=== PATIENT | female | born 1940 | race Caucasian/White ===

== ENCOUNTER → 2017-11-04 16:17 | Outpatient (CLI) | payer MEDICARE, SELFPAY ==
--- NOTE | 2017-11-04 16:21 | VDLE_ITS ---
Reason For Study: swelling Procedure LEFT Exam performed in department. GSV is normal. The exam was diagnostic. CFV is compressible, spontaneous, phasic, A preliminary report was called and/or competent, and demonstrates normal faxed to Dr. Stroud's office. augmentation. Pt to ED per Dr. Stroud. FV is compressible, spontaneous, phasic, competent and demonstrates normal augmentation. POP V is compressible, spontaneous, phasic, competent and demonstrates normal augmentation. T/P Trunk is compressible. PTV is compressible. Peroneal V and Soleus V are dilated and noncompressible. Interpretation Summary Left greater saphenous vein appears patent and compressible segmentally. Acute deep venous thrombosis left peroneal and soleus veins. Ordering Physician: Oksana Stroud Referring Physician: Toni Brown Performed By: Otis Jimenes RVT
== END ==
PROVIDERS: Family Provider Family Medicine; PCP Family Medicine; Visit Provider Internal Medicine
DX: M79.89 Other specified soft tissue disorders (principal)
CPT/HCPCS: 93971

== ENCOUNTER 2017-11-04 16:54 | Emergency (ER) | payer MEDICARE, SELFPAY ==
[2017-11-04 16:56] VITALS: BP 120/86; PULSE 81; RESP 18; TEMP 37.7; O2SAT 99; BMI 19.0
--- NOTE | 2017-11-04 17:22 | ED.VISSUMM ---
- ER Visit Summary Date of Service: 11/04/17 Chief Complaint: Positive duplex ultrasound History of Present Illness: The patient is a 77 F presenting the emergency department due to a positive duplex ultrasound. Patient states that she suffered a twisting injury about 3 weeks ago and had persistent calf pain and swelling throughout the day of her left leg. Patient had a outpatient duplex ordered and was noted to have clots so she was recommended to come to the emergency department. She denies any chest pain or shortness of breath or history of DVT or PE. Physical Examination: Vital signs are within normal limits, patient is afebrile. General: Patient is well-nourished well-developed and in no acute distress. Head: Normocephalic, atraumatic Eyes: Pupils equal round and reactive bilaterally, extra occular motion intact bialterally ENT: Moist mucous membranes Neck: Supple, no lymphadenopathy, no JVD, no meningismus CVS: Heart regular rate and rhythm, no murmurs, rubs or gallops, radial pulses 2+ bilaterally Resp: Respirations nondistressed, lung sounds clear bilaterally Abdomen: Soft, nontender, nondistended, no palpable masses, normal bowel sounds Back: Nontender Extremities: Point tenderness to palpation over the proximal calf without any evidence of skin changes. 2+ DP and PT pulses, atraumatic, active full range of motion, no peripheral edema Skin: warm, no rashes, no petechia Neuro: Alert and oriented x 4, CN 2-12 intact, no lateralizing neurological defecits Psyc: Normal affect Test Results: Duplex ultrasound demonstrates peroneal and soleal clots with nothing proximal to the knee Emergency Department Course and Treatment: Patient presented with a positive duplex ultrasound. Patient's clots are distal to the knee, and there is no indication for anticoagulation. Patient was recommended to resume her aspirin therapy, was given an Ramy wrap, and was written for a one-week surveillance repeat ultrasound. I contacted her PCP who agrees to follow her up. Disposition: Discharge Impression: 1. Left-sided peroneal and soleal blood clots This note was generated with [employer] software. It may contain incorrect words, spelling, and punctuation that were not noted in review of the chart prior to signing ED Disposition - Plan for ED Patient: Disposition: Home or Assisted Living Chief Complaint: Lower Extremity Injury Diagnosis: Peroneal DVT (deep venous thrombosis) Instructions: Preventing Deep Vein Thrombosis Referrals: Toni Brown MD [Primary Care Provider] - 1 Week
--- NOTE | 2017-11-04 17:25 | ED.DCSUM_ITS ---
- ER Visit Summary Date of Service: 11/04/17 Chief Complaint: Positive duplex ultrasound History of Present Illness: The patient is a 77 F presenting the emergency department due to a positive duplex ultrasound. Patient states that she suffered a twisting injury about 3 weeks ago and had persistent calf pain and swelling throughout the day of her left leg. Patient had a outpatient duplex ordered and was noted to have clots so she was recommended to come to the emergency department. She denies any chest pain or shortness of breath or history of DVT or PE. Physical Examination: Vital signs are within normal limits, patient is afebrile. General: Patient is well-nourished well-developed and in no acute distress. Head: Normocephalic, atraumatic Eyes: Pupils equal round and reactive bilaterally, extra occular motion intact bialterally ENT: Moist mucous membranes Neck: Supple, no lymphadenopathy, no JVD, no meningismus CVS: Heart regular rate and rhythm, no murmurs, rubs or gallops, radial pulses 2 + bilaterally Resp: Respirations nondistressed, lung sounds clear bilaterally Abdomen: Soft, nontender, nondistended, no palpable masses, normal bowel sounds Back: Nontender Extremities: Point tenderness to palpation over the proximal calf without any evidence of skin changes. 2+ DP and PT pulses, atraumatic, active full range of motion, no peripheral edema Skin: warm, no rashes, no petechia Neuro: Alert and oriented x 4, CN 2-12 intact, no lateralizing neurological defecits Psyc: Normal affect Test Results: Duplex ultrasound demonstrates peroneal and soleal clots with nothing proximal to the knee Emergency Department Course and Treatment: Patient presented with a positive duplex ultrasound. Patient's clots are distal to the knee, and there is no indication for anticoagulation. Patient was recommended to resume her aspirin therapy, was given an Ramy wrap, and was written for a one-week surveillance repeat ultrasound. I contacted her PCP who agrees to follow her up. Disposition: Discharge Impression: 1. Left-sided peroneal and soleal blood clots This note was generated with [employer] software. It may contain incorrect words, spelling, and punctuation that were not noted in review of the chart prior to signing ED Disposition - Plan for ED Patient: Disposition: Home or Assisted Living Chief Complaint: Lower Extremity Injury Diagnosis: Peroneal DVT (deep venous thrombosis) Instructions: Preventing Deep Vein Thrombosis Referrals: Toni Brown MD [Primary Care Provider] - 1 Week
== END 2017-11-04 17:42 | disposition home or self-care (01) ==
PROVIDERS: Emergency Provider Emergency Medicine; Family Provider Family Medicine; PCP Family Medicine
DX: I82.4Z2 Acute embolism and thrombosis of unspecified deep veins of left distal lower extremity (principal); M79.89 Other specified soft tissue disorders; M25.562 Pain in left knee; G89.29 Other chronic pain; S89.92XA Unspecified injury of left lower leg, initial encounter
CPT/HCPCS: 93971; 99282

== ENCOUNTER → 2017-11-11 13:57 | Outpatient (CLI) | payer MEDICARE, SELFPAY ==
--- NOTE | 2017-11-11 14:00 | VDLE_ITS ---
Reason For Study: L below knee blood clot Procedure LEFT Exam performed in department. GSV is normal. The exam was diagnostic. CFV is compressible, spontaneous, phasic, competent, and demonstrates normal augmentation. FV is compressible, spontaneous, phasic, competent and demonstrates normal augmentation. POP V is compressible, spontaneous, phasic, competent and demonstrates normal augmentation. T/P Trunk is compressible. PTV is compressible. Peroneal V is partially compressible. Soleus V is dilated and noncompressible. Interpretation Summary Left greater saphenous vein appears patent and compressible segmentally. Acute deep venous thrombosis left peroneal and soleus veins. No evidence for proximal progression Findings are similar to 11/04/17 Ordering Physician: Mark Schumacher Referring Physician: Toni Brown Performed By: Otis Jimenes RVKinza
== END ==
PROVIDERS: Family Provider Family Medicine; PCP Family Medicine; Visit Provider Emergency Medicine
DX: I74.9 Embolism and thrombosis of unspecified artery (principal); I82.4Z2 Acute embolism and thrombosis of unspecified deep veins of left distal lower extremity
CPT/HCPCS: 93971

== ENCOUNTER → 2017-11-26 13:34 | Outpatient (CLI) | payer MEDICARE, SELFPAY ==
--- NOTE | 2017-11-26 13:35 | VDLE_ITS ---
Reason For Study: DVT Procedure LEFT Exam performed in department. GSV is normal. A preliminary report was called and/or faxed CFV is compressible, spontaneous, phasic, to Dr Brown. competent, and demonstrates normal augmentation. FV is compressible, spontaneous, phasic, competent and demonstrates normal augmentation. POP V is compressible, spontaneous, phasic, competent and demonstrates normal augmentation. T/P Trunk is compressible. PTV is compressible. LT PerV is compressible. Interpretation Summary There is no evidence of left lower extremity deep vein thrombosis. Left greater saphenous vein appears patent and compressible segmentally. Ordering Physician: Toni Brown Referring Physician: Toni Brown Performed By: Monique Garcia, RDCS, RVT
== END ==
PROVIDERS: Family Provider Family Medicine; PCP Family Medicine; Visit Provider Family Medicine
DX: I82.492 Acute embolism and thrombosis of other specified deep vein of left lower extremity (principal)
CPT/HCPCS: 93971

== ENCOUNTER 2017-12-30 14:41 | Emergency (ER) | payer MEDICARE, SELFPAY ==
[2017-12-30 14:42] VITALS: BP 131/69; PULSE 90; RESP 16; TEMP 37.9; O2SAT 97; BMI 18.3
--- NOTE | 2017-12-30 15:21 | VDLE_ITS ---
Reason For Study: LEG SWELLING RIGHT LEFT CFV is compressible, spontaneous, competent GSV is normal. and demonstrates pulsatile venous flow. CFV is compressible, spontaneous, competent, Procedure and demonstrates pulsatile venous flow. Exam performed portable in ED. FV is compressible, spontaneous, competent A preliminary report was called and/or faxed and demonstrates pulsatile venous flow. to Dr. Mccray. POP V is compressible, spontaneous, competent and demonstrates pulsatile venous flow. T/P Trunk is compressible. PTV is compressible. LT PerV is compressible. Interpretation Summary There is no evidence of left lower extremity deep vein thrombosis. Right greater saphenous vein appears patent and compressible segmentally. Pulsitile venous flow noted consistent with proximal venous hypertension--clinical correlation would be appropriate. Ordering Physician: Juan Luis Mccray Referring Physician: Toni Brown Performed By: Awa Booker RVT
[2017-12-30 16:02] VITALS: BP 135/85; PULSE 95; RESP 14; O2SAT 98
[2017-12-30 16:04] LABS: Absolute Neutrophil Count 5.7 X10^3/uL (2.0-7.7); Basophil# 0.02 X10^3/uL; Basophil% 0.2 % (0-1); Eosinophil# 0.03 X10^3/uL; Eosinophils% 0.3 % (0-5); Hematocrit 36.1 % (37-47); Hemoglobin 11.7 g/dl (12.0-15.0); Lymphocyte % 25.3 % (19-41); Mean Corp Hgb Conc 32.4 g/gl (32-36); Mean Corpuscular Volume 89.6 fL (81-99); Mean Platelet Vol. 10.7 fl (6.2-12.0); Monocyte# 0.72 X10^3/uL; Monocyte% 8.3 % (0-10); Neutrophil # 5.72 X10^3/uL (2.7-7.7); Neutrophil % 65.8 % (47-70); Platelet Count 261 K/mm3 (150-450); RBC Distribution Width CV 13.7 % (11.6-14.6); RBC Distribution Width SD 45.2 fl (35.1-43.9); Red Blood Count 4.03 M/mm3 (4.2-5.4); White Blood Count 8.7 K/mm3 (4.4-11.0)
[2017-12-30 16:05] LABS: POSITIVE COUNT NO; POSITIVE DIFFERENTIAL NO; POSITIVE MORPHOLOGY NO
[2017-12-30 16:08] LABS: Anion Gap 6 (5-15); BUN 11 mg/dL (7-18); BUN/Creat Ratio 11.9 RATIO (10-20); Calcium,Total 9.5 mg/dL (8.5-10.1); Chloride 106 mmol/L (98-107); Creatinine, Serum 0.92 mg/dL (0.55-1.02); EST Glomerular Filtration Rate 63 mL/min (>60); Est Glom Filt Rate - Afr Amer 76 mL/min (>60); Estimated Creatinine Clearance 36.13 ml/min; Glucose 94 mg/dL (74-106); Potassium 3.9 mmol/L (3.5-5.1); Sodium Level 141 mmol/L (136-145)
--- NOTE | 2017-12-30 16:19 | ED.DCSUM_ITS ---
- ER Visit Summary Date of Service: 12/30/17 Chief Complaint: Left popliteal and medial thigh pain History of Present Illness: The patient is a 77 F who presents with left popliteal and medial thigh pain. She denies fever, chills night sweats. She denies chest pain of any type. She denies dyspnea, dyspnea on exertion or cough. She denies any GI or symptoms. She is on no anticoagulant. She had a solitary distal DVT left lower extremity, peroneal and was treated with aspirin. She has no history of recent travel, surgery, immobilization or trauma. She denies headache, paresthesia, anesthesia motor weeks. She denies any ocular, visual auditory symptoms. She denies any GI or symptoms. She has no history of gout, pseudogout or arthritis of her left knee. Physical Examination: Vital signs are remarkable for an elevated blood pressure of 131/67 temperature 100.2 which is elevated but not a fever. She appears no distress. HEENT exam is unremarkable. Heart is regular without murmur, gallop or rub. S1 and S2 are normal. Lungs are clear to auscultation with good movement of air bilaterally. Abdomen is soft nontender with no palpable cell mass abdominal bruit. There is no evidence of hernia. There is no CVA tenderness noted. The left lower extremity is swollen comparison to the right. The swelling is noted anteriorly in the proximity of the left knee. The patella is not ballotable. There is no effusion. She has full active range of motion actively and passively without discomfort. There is pain to palpation in the popliteal fossa. There is no palpable mass. DP and PT pulses are palpable. There is no erythema, warmth, induration, lymphangitis or inguinal lymphadenopathy. Neuro exam is nonfocal. Test Results: Venous duplex Doppler was obtained and negative for blood clot. White count is normal with normal differential. Electronic panel is normal. Emergency Department Course and Treatment: Since patient has a traumatic left lower extremity pain with swelling and prior history of DVT venous duplex study was ordered to evaluate for DVT. She has elevated temperature CBC was obtained. Treatment Plan:.. 5 day course of NSAIDs. Disposition: Discharged to home Impression: Left lower extremity pain and swelling of unknown etiology This note was generated with [employer] software. It may contain incorrect words, spelling, and punctuation that were not noted in review of the chart prior to signing ED Disposition - Plan for ED Patient: Disposition: Home or Assisted Living Chief Complaint: Lower Extremity Injury Instructions: ED Acute Pain UKO, ED Leg Swelling Unilateral Prescriptions: Naproxen 375 mg PO BID #10 tab Referrals: Toni Brown MD [Primary Care Provider] - 3-5 Days if not improving
[2017-12-30 16:23] VITALS: BP 125/75; PULSE 85; RESP 14; O2SAT 99
[2017-12-30] MEDS: Naproxen 250 MG Tablet PO (16:29)
[2017-12-30 16:31] VITALS: BP 123/66
== END 2017-12-30 16:31 | disposition home or self-care (01) ==
PROVIDERS: Emergency Provider Emergency Medicine; Family Provider Family Medicine; PCP Family Medicine
DX: M79.89 Other specified soft tissue disorders (principal); M79.652 Pain in left thigh; M25.562 Pain in left knee; Z86.718 Personal history of other venous thrombosis and embolism; Z79.82 Long term (current) use of aspirin
CPT/HCPCS: 80048; 85025; 93971; 99282; A4216

== ENCOUNTER 2018-11-29 10:10 | Emergency (ER) | payer MEDICARE, SELFPAY ==
[2018-11-29 10:10] VITALS: BP 95/42; PULSE 92; RESP 16; TEMP 36.9; O2SAT 99; BMI 17.9
--- NOTE | 2018-11-29 10:51 | VDLE_ITS ---
Reason For Study: PAIN Procedure LEFT Exam performed portable in ED. GSV is normal. A preliminary report was called and/or faxed CFV is compressible, spontaneous, phasic, to ED. competent, and demonstrates normal augmentation. FV is compressible, spontaneous, phasic, competent and demonstrates normal augmentation. POP V is compressible, spontaneous, phasic, competent and demonstrates normal augmentation. T/P Trunk is compressible. PTV is compressible. LT PerV is compressible. Interpretation Summary 1. Left leg wht no DVT. Ordering Physician: Carson Harper Referring Physician: RADHA MEIER Performed By: Monique Garcia, ANGELITO, RVT
--- NOTE | 2018-11-29 10:57 | ED.VISSUMM ---
- ER Visit Summary Date of Service: 11/29/18 Chief Complaint: Left leg pain History of Present Illness: The patient is a 78 F who states that she is afraid she has a DVT. She states that in September of last year she was diagnosed with a DVT. From review of the chart she was diagnosed with a peroneal DVT and was treated with aspirin. She states that she has been taking a baby aspirin intermittently. Today she noted pain in the lateral aspect of the left calf. He states that this woke her at around 0400 hours. 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 She states she has had spasms in the calf before but not the left. She denies any swelling. No known trauma. Physical Examination: Afebrile vital signs stable Gen: Well-nourished well-developed Head: Normocephalic atraumatic Eyes: Perrl EOMI ENT: TMs clear no rhinorrhea moist mucous membranes Neck: Supple no lymphadenopathy no JVD nontender CVS: Regular rate rhythm no murmurs normal S1-S2 Respiratory: No distress clear to auscultation bilaterally chest nontender Abdomen: Soft nontender nondistended normal bowel sounds no masses Back: Nontender Extremity: No edema. No palpable cords. Mild tenderness in the lateral calf musculature. Skin: Normal color no rash Neuro: alert orientated ?3 CN II-XII intact normal strength sensation reflexes gait cerebellar Psych: Normal affect normal mood Emergency Department Course and Treatment: Duplex ultrasound of left leg were obtained. This was negative for DVT patient be discharged home with instructions for heat hydration and rest. Return if worsening or concerns follow-up with primary care if not improving Impression: 1. Left calf muscle spasm This note was generated with [employer] dictation software. It may contain incorrect words, spelling, and punctuation that were not noted in review of the chart prior to signing ED Disposition - Plan for ED Patient: Disposition: Home or Assisted Living Instructions: ED Muscle Pain Leg Cramps Referrals: Toni Brown MD [Primary Care Provider] - 3-5 Days if not improving
[2018-11-29 12:34] VITALS: PULSE 67; RESP 16; O2SAT 98
== END 2018-11-29 12:34 | disposition home or self-care (01) ==
PROVIDERS: Emergency Provider Emergency Medicine; Family Provider Family Medicine; PCP Family Medicine
DX: M62.831 Muscle spasm of calf (principal); Z86.718 Personal history of other venous thrombosis and embolism; Z79.82 Long term (current) use of aspirin
CPT/HCPCS: 93971; 99282

== ENCOUNTER 2021-01-12 13:04 | Emergency (ER) | payer MEDICARE, SELFPAY ==
[2021-01-12 13:05] VITALS: BP 122/69; PULSE 77; RESP 15; TEMP 36.4; O2SAT 98; BMI 19.8
--- NOTE | 2021-01-12 13:20 | VDLE_ITS ---
Reason For Study: Pain RIGHT GSV is normal. CFV is compressible, spontaneous, phasic, competent and demonstrates normal augmentation. FV is compressible, spontaneous, phasic, competent and demonstrates normal augmentation. POP V is compressible, spontaneous, phasic, competent and demonstrates normal augmentation. T/P Trunk is compressible. PTV is compressible. RT PerV is compressible. Procedure This is a venous duplex using B-mode, color flow and spectral Doppler. Exam performed portable in ED. A preliminary report was called and/or faxed to Ricky. VL/Venous Duplex US, Unilateral Interpretation Summary There is no evidence of right lower extremity deep vein thrombosis. Right great saphenous vein appears patent and compressible segmentally. Ordering Physician: Katelyn García Referring Physician: Toni Brown Performed By: Areli Newman RVT
--- NOTE | 2021-01-12 13:33 | EX.ED.DYSGE1 ---
HPI History of Present Illness Chief Complaint: Lower Extremity Injury Informant: patient Narrative Narrative: 80-year-old female presenting with right lower extremity pain. She states she has had a DVT in her left lower extremity in the past. She complains of pain to the right knee. She is able to ambulate. She denies chest pain or shortness of breath. No fever. Denies recent injury. Prior similar symptoms: Yes Recent Illness/Hospitalization: No PFSH PFSH Home Medications aspirin 81 mg PO DAILY 12/30/17 [History Last Taken Unknown] Allergy/AdvReac Type Severity Reaction Status Date / Time No Known Allergies Allergy Verified 11/29/18 10:12 Surgical History H/O: hysterectomy Social History Smoking Status: Never smoker ROS ROS ED Constitutional Constitutional ED: Denies fever(s) Eyes Eyes: Denies change in vision ENT ENT ED: Denies rhinorrhea or sore throat Cardiovascular Cardiovascular: Denies chest pain or palpitations Respiratory/Chest Respiratory/Chest: Denies cough or dyspnea Gastrointestinal Gastrointestinal: Denies abdominal pain, diarrhea, nausea or vomiting Genitourinary Genitourinary ED: Denies dysuria Musculoskeletal Musculoskeletal: Reports other Details: right knee pain Integumentary Denies rash Neurologic Neurologic: Denies headache(s) EXAM Physical Exam Const Vital Signs: 01/12/21 13:05 Temperature 97.6 F L Temperature Source Temporal Pulse Rate 77 Respiratory Rate 15 Blood Pressure 122/69 H Blood Pressure Mean 86 Pulse Ox 98 Oxygen Delivery Method Room Air Positive well nourished and well developed General Appearance ED: well developed HEENT Reports normocephalic and head/scalp atraumatic Eyes PERRL and EOMs intact bilaterally Neck supple General: Negative for tenderness Chest Wall inspection of chest normal Resp normal respiratory effort and clear to auscultation bilaterally Cardio regular rate and regular rhythm no CVA tenderness Extremity normal to inspection Extremity Narrative: Mild right medial knee tenderness. Active full range of motion. No erythema or warmth. No calf tenderness. Normal distal pulses. Neuro oriented x3 Sensorium / Orientation: alert Psych mental status grossly normal MDM MDM MDM Narrative Medical decision making narrative: Right knee x-ray read by myself and radiology shows no fracture. Venous Doppler right lower extremity shows no evidence of DVT. Advised to use Tylenol as needed for pain. Advised to follow up with primary care physician. Advised return to ED for worsening complaints. Radiography Diagnostic Testing: Radiology Impression Knee X-Ray 01/12/21 13:55 IMPRESSION: Mild arthrosis of the medial femorotibial compartment. Small joint effusion. Electronically Signed: Ventura Stallings MD at 14:39 EDT Tel , Service support , Discharge Plan Triage Chief Complaint: Lower Extremity Injury ED Provider: Katelyn García Dx/Rx/DC Orders Clinical Impression: Knee pain, right Instructions: ED Knee Sprain Prescriptions: No Action aspirin 81 MG tablet,chewable 81 mg PO DAILY RF: 0 Primary Care Provider: Toni Brown Referrals: Toni Brown MD [Primary Care Provider] - Disposition Disposition: Home, self care
--- NOTE | 2021-01-12 13:55 | RAD_ITS ---
STUDY: X-RAY - RIGHT KNEE REASON FOR EXAM: Right knee pain since yesterday. TECHNIQUE: 4 view(s) of the knee. COMPARISON: None. FINDINGS: There is osteopenia. Normal visualized distal femur. Normal visualized proximal tibia and fibula. Normal proximal tibiofibular articulation. There is mild joint space narrowing of the medial femorotibial compartment. Normal lateral femorotibial compartment. Normal patellofemoral articulation. There is a small joint effusion. There is a small enthesophyte at the superior pole of the patella. RAD/Knee 4 or More Views IMPRESSION: Mild arthrosis of the medial femorotibial compartment. Small joint effusion. Electronically Signed: Ventura Stallings MD at 14:39 EDT Tel , Service support ,
== END 2021-01-12 14:57 | disposition home or self-care (01) ==
PROVIDERS: Emergency Provider Emergency Medicine; PCP Family Medicine
DX: M25.561 Pain in right knee (principal); Z86.718 Personal history of other venous thrombosis and embolism
CPT/HCPCS: 73564; 93971; 99282

== ENCOUNTER 2023-12-08 07:05 | Emergency (ER) | payer MEDICARE, SELFPAY ==
[2023-12-08 07:06] VITALS: BP 132/48; PULSE 103; RESP 18; TEMP 36.9; O2SAT 100; BMI 19.3
[2023-12-08 07:08] VITALS: BP 115/57; PULSE 105; RESP 16; TEMP 38.2; O2SAT 96
--- NOTE | 2023-12-08 07:47 | EX.ED.DYSGE1 ---
HPI History of Present Illness Chief Complaint: Fever Informant: patient Onset/Context/Timing Onset: Days Context: Gradual Onset Timing: Intermittent Quality: Sharp Location: Left hip, right ankle Worsened by: Nothing Relieved by: Naprosyn Narrative Narrative: Patient presents with a fever that has been getting worse over the past few days. Patient states she took her temperature at home and it was 99.9. Patient states she was recently started on Bactrim and mupirocin for cellulitis of her right ankle. Patient states she was also started on Naprosyn for sciatica pain in her left hip. Patient describes her pain as sharp. Patient states Naprosyn does seem to help with her pain. Patient admits to occasional pain in her left lower EXTR that only last for few seconds. Patient admits to some nausea but denies any vomiting. Patient admits to some urinary frequency but states she drinks a lot of water. Patient denies any cough. [facility] Medical History (Updated 12/08/23 @ 09:[address] Robert Castro DO) Cellulitis of right ankle Home Medications aspirin 81 mg chewable tablet 81 mg PO DAILY 12/30/17 [History Last Taken Unknown] mupirocin 2 % topical ointment topical TID 12/08/23 [History Last Taken Unknown] sulfamethoxazole 800 mg-trimethoprim 160 mg tablet 1 tab PO BID 12/08/23 [History Last Taken Unknown] Allergy/AdvReac Type Severity Reaction Status Date / Time No Known Allergies Allergy Verified 12/08/23 07:05 Surgical History H/O: hysterectomy Social History Smoking Status: Never smoker ROS ROS ED Constitutional Constitutional ED: Reports fever(s); Denies chills Eyes Eyes: Denies blurry vision or change in vision ENT ENT ED: Denies rhinorrhea or sore throat Cardiovascular Cardiovascular: Reports chest pain; Denies palpitations Respiratory/Chest Respiratory/Chest: Denies cough or dyspnea Gastrointestinal Gastrointestinal: Reports nausea; Denies vomiting Genitourinary Genitourinary ED: Reports urinary frequency; Denies dysuria or hematuria Musculoskeletal Musculoskeletal: Denies back pain or neck pain Integumentary Reports rash; Denies abscess Neurologic Neurologic: Denies headache(s) or weakness Allergic/Immunologic Allergic/Immunologic ED: Denies mouth swelling or urticaria EXAM Physical Exam Const Vital Signs: 12/08/23 07:06 12/08/23 07:08 12/08/23 07:08 Temperature 98.5 F 100.8 F H Temperature Source Temporal Temporal Pulse Rate 103 H 105 H Respiratory Rate 18 16 Respiratory Effort Normal Non-Labored Respiratory Pattern Normal Blood Pressure 132/48 H 115/57 L Blood Pressure Mean 76 76 Pulse Ox 100 96 Oxygen Delivery Method Room Air Room Air 12/08/23 08:08 12/08/23 09:00 12/08/23 09:58 Temperature 100.8 F H 100.6 F H 100.0 F H Temperature Source Temporal Temporal Pulse Rate 102 H 103 H 97 Respiratory Rate 18 16 18 Respiratory Effort Respiratory Pattern Blood Pressure 112/59 L 114/58 L 109/49 L Blood Pressure Mean 76 76 69 Pulse Ox 98 97 98 Oxygen Delivery Method Room Air Room Air 12/08/23 10:00 Temperature 100.0 F H Temperature Source Temporal Pulse Rate 97 Respiratory Rate 18 Respiratory Effort Respiratory Pattern Blood Pressure 101/53 L Blood Pressure Mean 69 Pulse Ox 98 Oxygen Delivery Method Room Air Positive well nourished and well developed General Appearance ED: well developed and NAD HEENT Reports moist mucous membranes Neck supple and no JVD Resp normal respiratory effort and clear to auscultation bilaterally Cardio regular rhythm Rate: tachycardic GI non-tender and non-distended Palpation: soft Neuro oriented x3, CN's II-XII intact bilaterally and no sensory deficits noted Motor Exam: strength 5/5 throughout Psych mental status grossly normal Skin Skin Narrative: There is some mild erythema and warmth over the lateral aspect of the right ankle. There is no fluctuance. There is no abscess formation. There are no vesicles or pustules noted. There is no discharge or drainage noted. There are no petechia noted. MDM MDM MDM Narrative Medical decision making narrative: Differential diagnosis includes pneumonia, urinary tract infection, electrolyte abnormality, sepsis, and cellulitis. CBC will be obtained to assess for leukocytosis and anemia. Basic metabolic profile will be obtained to assess for electrolyte abnormality and renal function. Urinalysis will be obtained to assess for urinary tract infection. Serum lactate will be obtained to assess for sepsis. Blood cultures will be obtained to assess for sepsis. Urine culture will be obtained to assess for urinary tract infection. Chest x-ray will be obtained to assess for pneumonia. COVID-19, influenza, and RSV PCR will be obtained to assess for viral illness. Lab Data Attestation: I reviewed the patient's lab results. Lab results narrative: CBC was reviewed and was within normal limits. Basic metabolic profile was reviewed and was essentially within normal limits. Lactate was reviewed and was normal. Urinalysis was reviewed. There is no evidence of urinary tract infection or hematuria. COVID-19 PCR was reviewed and was negative. Influenza PCR was reviewed and was negative for influenza A and influenza B. RSV PCR was reviewed and was negative. Labs: Laboratory Results - last 24 hr 12/08/23 12/08/23 12/08/23 08:15 08:32 08:55 WBC 6.4 RBC 3.99 L Hgb 12.0 Hct 36.2 L MCV 90.7 MCH 30.1 MCHC 33.1 RDW Std Deviation 44.6 H RDW Coeff of Melissa 13.4 Plt Count 231 MPV 10.7 Immature Gran % (Auto) 0.300 Neut % (Auto) 73.1 H Lymph % (Auto) 10.5 L [place] % (Auto) 10.3 H Eos % (Auto) 5.8 H Baso % (Auto) 0.0 Absolute Neuts (auto) 4.7 Absolute Lymphs (auto) 0.67 L Nucleated RBC % 0 Sodium 138 Potassium 4.6 Chloride 107 Carbon Dioxide 27.0 Anion Gap 4 L BUN 10 Creatinine 1.14 H Estim Creat Clear Calc 27.79 Est GFR (MDRD) Af Amer 59 L Est GFR (MDRD) Non-Af 49 L BUN/Creatinine Ratio 8.8 L Glucose 108 H Lactic Acid 1.2 Calcium 9.2 Urine Color Yellow Urine Clarity Clear Urine pH 7.0 Ur Specific [place] 1.005 Urine Protein Negative Urine Glucose (UA) Normal Urine Ketones 5 H Urine Occult Blood 10 H Urine Nitrite Negative Urine Bilirubin Negative Urine Urobilinogen Normal Ur Leukocyte Esterase Negative Urine RBC 0 SEEN Urine WBC 0 SEEN Ur Squamous Epith Cells 0-5 SEEN Urine Bacteria 0 SEEN Urine Mucus 0 SEEN Radiography Chest X-Ray - ED: 2 View, Read by ED Physician, Read by Radiologist and No Acute Disease Diagnostic Testing: Clinical Impression(s) from Imaging Studies Chest X-Ray 12/08/23 09:00 IMPRESSION: Hyperinflation and COPD. No focal infiltrate is seen. Electronically Signed: Marcial Galdamez MD at 9:25 EDT , PA and lateral chest x-ray was obtained. There are 2 views. On my independent interpretation, lung pires are hyperinflated but clear. There is normal cardiac silhouette. Bony thorax is normal. There is no acute process noted. Radiologist also interpreted the x-ray and agrees. Treatment and Re-Evaluation :: Patient was given a dose of Tylenol here. Patient was advised of her findings. Patient was instructed to continue Tylenol as needed for fevers. Patient was instructed to follow-up with her primary care physician in 5 to 7 days. Patient was instructed to continue her Bactrim as previously prescribed. Patient was also instructed to continue the mupirocin cream as prescribed. Patient was instructed to return if worse in any way. Patient understood and was agreeable with the plan. All questions were answered. Discharge Plan Triage Chief Complaint: Fever ED Provider: Robert Castro Dx/Rx/DC Orders Clinical Impression: Fever, Cellulitis of right ankle Instructions: ED Cellulitis Prescriptions: No Action aspirin 81 MG tablet,chewable 81 mg PO DAILY sulfamethoxazole-trimethoprim 800-160 mg tablet 1 tab PO BID mupirocin 2 % ointment TOPICAL TID Primary Care Provider: Toni Brown Referrals: Toni Brown MD [Primary Care Provider] - 3-5 Days Disposition Disposition: Home, Self Care Discharge Date/Time: 12/08/23 10:03
[2023-12-08 08:08] VITALS: BP 112/59; PULSE 102; RESP 18; TEMP 38.2; O2SAT 98
[2023-12-08 08:30] LABS: Absolute Lymphocyte Count 0.67 X10^3/uL (0.83-4.51); Absolute Neutrophil Count 4.7 X10^3/uL (2.0-7.7); Eosinophil# 0.37 X10^3/uL; Eosinophils% 5.8 % (0-5); Hematocrit 36.2 % (37-47); Lymphocyte # 0.67 X10^3/ul (0.83-4.51); Lymphocyte % 10.5 % (19-41); Mean Corp Hgb Conc 33.1 g/dL (32-36); Mean Corpuscular Hgb 30.1 pg (27.0-32.0); Mean Corpuscular Volume 90.7 fL (81-99); Mean Platelet Vol. 10.7 fl (6.2-12.0); Monocyte# 0.66 X10^3/uL; Monocyte% 10.3 % (0-10); NRBC Flagged by Analyzer 0 % (0-5); Neutrophil # 4.66 X10^3/uL (2.7-7.7); Neutrophil % 73.1 % (47-70); Platelet Count 231 K/mm3 (150-450); RBC Distribution Width CV 13.4 % (11.6-14.6); RBC Distribution Width SD 44.6 fl (35.1-43.9); Red Blood Count 3.99 M/mm3 (4.2-5.4); White Blood Count 6.4 K/mm3 (4.4-11.0)
[2023-12-08 08:45] LABS: Anion Gap 4 (5-15); BUN 10 mg/dL (7-18); BUN/Creat Ratio 8.8 RATIO (10-20); Calcium,Total 9.2 mg/dL (8.5-10.1); Chloride 107 mmol/L (98-107); Creatinine, Serum 1.14 mg/dL (0.55-1.02); EST Glomerular Filtration Rate 49 mL/min (>60); Est Glom Filt Rate - Afr Amer 59 mL/min (>60); Estimated Creatinine Clearance 27.79 ml/min; Glucose 108 mg/dL (74-106); Potassium 4.6 mmol/L (3.5-5.1); Sodium Level 138 mmol/L (136-145)
[2023-12-08] MEDS: Acetaminophen 500 MG Tablet 1000 MG PO (08:46)
[2023-12-08 09:00] VITALS: BP 114/58; PULSE 103; RESP 16; TEMP 38.1; O2SAT 97
--- NOTE | 2023-12-08 09:00 | RAD_ITS ---
STUDY: X-RAY CHEST REASON FOR EXAM: Female, 83 years old. Fever TECHNIQUE: PA and lateral views of the chest. COMPARISON: Comparison is made with prior study June 15, 2017. FINDINGS: There is hyperinflation of the lungs consistent with chronic obstructive lung disease (COPD). There is no demonstrated pleural abnormality. Normal size heart. Normal mediastinum and ashlie. Normal visualized pulmonary arteries. There is atherosclerotic calcification of the aortic arch with tortuosity. There is demineralization of the osseous structures. 10% loss of height of the superior endplate of the T10 vertebrae. Normal visualized ribs, clavicles, and shoulders. There is no demonstrated abnormality of the visualized soft tissue structures of the upper abdomen. RAD/Chest PA and Lateral IMPRESSION: Hyperinflation and COPD. No focal infiltrate is seen. Electronically Signed: Marcial Galdamez MD at 9:25 EDT ,
[2023-12-08 09:04] LABS: Bacteria 0 SEEN /hpf (None Seen); Mucous, Urine 0 SEEN /hpf (<or=2+); Red Blood Cells-Urine 0 SEEN /hpf (0-5); White Blood Cells 0 SEEN /hpf (0-5)
[2023-12-08 09:10] LABS: Color, Urine Yellow (Yellow); Glucose, Dipstick Normal (Normal); Ketone-Dipstick 5 mg/dl (Negative); Leukocyte Esterase-Dipstick Negative /ul (Negative); Nitrite-Dipstick Negative (Negative); Occult Blood-Urine 10 /ul (Negative); Protein-Dipstick Negative (Negative); Specific Gravity, Urine 1.005 (1.002-1.030); Urine Bilirubin Dipstick Negative (Negative); Urine Clarity Clear (Clear); Urine Urobilinogen Normal (Normal)
[2023-12-08 09:26] LABS: Lactic Acid 1.2 mmol/L (0.4-1.9)
[2023-12-08 09:30] LABS: Squamous Epithelial Cells - UA 0-5 SEEN /hpf (5-10)
[2023-12-08 09:58] VITALS: BP 109/49; PULSE 97; RESP 18; TEMP 37.8; O2SAT 98
[2023-12-08 10:00] VITALS: BP 101/53; PULSE 97; RESP 18; TEMP 37.8; O2SAT 98
== END 2023-12-08 10:03 | disposition home or self-care (01) ==
PROVIDERS: Emergency Provider Emergency Medicine; PCP Family Medicine; Visit Provider Emergency Medicine
DX: R50.9 Fever, unspecified (principal); J44.9 Chronic obstructive pulmonary disease, unspecified; L03.115 Cellulitis of right lower limb; R35.0 Frequency of micturition; R07.9 Chest pain, unspecified; M54.32 Sciatica, left side
CPT/HCPCS: 71046; 80048; 81001; 83605; 85025; 87040; 87086; 87631; 99283; A4216

== ENCOUNTER 2024-01-31 11:13 | Emergency (ER) | payer MEDICARE, SELFPAY ==
[2024-01-31 11:14] VITALS: BP 140/76; PULSE 83; RESP 16; TEMP 36.8; O2SAT 100; BMI 18.9
--- NOTE | 2024-01-31 11:38 | EDS_ITS ---
HPI History of Present Illness Chief Complaint: Rash Informant: patient Onset/Context/Timing Onset: Month(s) Context: Gradual Onset Timing: Continuous Quality: Pruritic Location: Bilateral upper extremities Worsened by: Nothing Relieved by: Wet washcloth Narrative Narrative: Patient presents with a rash that has been constant for the past 1-1/2 months. Patient states it started on her ankle. Patient states she was diagnosed with cellulitis at that time. Patient was given Bactrim for that. Patient states that her primary care physician stopped the Bactrim and gave her a prescription for prednisone. Patient states that this made her rash and itching worse. Sy tyler states that both arms are red and itching. Patient states that this has been constant for the past week or 2. Patient denies any new exposures. Patient denies any difficulty breathing or difficulty swallowing. [facility] Medical History Cellulitis of right ankle Home Medications ?Medication ?Instructions ?Recorded ?Last Taken ?Type aspirin 81 mg chewable tablet 81 mg PO DAILY 12/30/17 Unknown History mupirocin 2 % topical ointment topical TID 12/08/23 Unknown History sulfamethoxazole 800 1 tab PO BID 12/08/23 Unknown History mg-trimethoprim 160 mg tablet hydroxyzine HCl 10 mg tablet 10 mg PO TID PRN itching #14 tabs 01/31/24 Unknown Rx Allergy/AdvReac Type Severity Reaction Status Date / Time prednisone Allergy Rash Verified 01/31/24 11:18 sulfadimethoxine Allergy Rash Verified 01/31/24 11:18 Surgical History H/O: hysterectomy Social History Smoking Status: Never smoker ROS ROS ED Constitutional Constitutional ED: Denies chills or fever(s) Eyes Eyes: Denies blurry vision or change in vision ENT ENT ED: Denies rhinorrhea or sore throat Cardiovascular Cardiovascular: Denies chest pain or palpitations Respiratory/Chest Respiratory/Chest: Denies cough or dyspnea Gastrointestinal Gastrointestinal: Denies nausea or vomiting Genitourinary Genitourinary ED: Denies dysuria or hematuria Musculoskeletal Musculoskeletal: Denies back pain or neck pain Integumentary Reports rash; Denies abscess Neurologic Neurologic: Denies headache(s) or weakness Allergic/Immunologic Allergic/Immunologic ED: Reports urticaria; Denies mouth swelling EXAM Physical Exam Const Vital Signs: 01/31/24 11:14 Temperature 98.2 F Temperature Source Temporal Pulse Rate 83 Respiratory Rate 16 Blood Pressure 140/76 H Blood Pressure Mean 97 Pulse Ox 100 Oxygen Delivery Method Room Air Positive well nourished and well developed General Appearance ED: well developed and NAD HEENT Reports moist mucous membranes Neck supple and no JVD Resp normal respiratory effort and clear to auscultation bilaterally Cardio regular rate and regular rhythm GI non-tender and non-distended Palpation: soft Extremity General Extremety ED: Negative for edema or tenderness General Extremity: Negative for edema Neuro oriented x3, CN's II-XII intact bilaterally and no sensory deficits noted Sensorium / Orientation: alert Motor Exam: strength 5/5 throughout Psych mental status grossly normal Skin Skin Narrative: Skin is warm and dry. There is an urticarial rash noted over the upper extremities bilaterally. There are no vesicles or pustules noted. There are no petechia noted. There is no mucous membrane involvement. There is no sloughing of the skin. There is also a darkened erythematous rash over the lateral aspect of the right ankle. There is no tenderness. There is no discharge or drainage. There is full range of motion of the upper and lower extremities. Radial and pedal pulses are equal bilaterally. MDM MDM MDM Narrative Medical decision making narrative: Differential diagnosis includes contact dermatitis, allergic dermatitis, cellulitis, and ultraviolet hypersensitivity. CBC will be obtained to assess for leukocytosis, anemia, and eosinophilia. Basic metabolic profile will be obtained to assess for electrolyte abnormality and renal function. Patient was given a dose of hydroxyzine here. Lab Data Attestation: I reviewed the patient's lab results. Lab results narrative: CBC was reviewed and was within normal limits. Basic metabolic profile was reviewed and was within normal limits. Labs: Laboratory Results - last 24 hr 01/31/24 11:55 WBC 7.6 RBC 4.14 L Hgb 12.3 Hct 37.5 MCV 90.6 MCH 29.7 MCHC 32.8 RDW Std Deviation 46.0 H RDW Coeff of Melissa 13.8 Plt Count 263 MPV 10.5 Immature Gran % (Auto) 0.100 Neut % (Auto) 62.5 Lymph % (Auto) 28.3 [place] % (Auto) 7.9 Eos % (Auto) 0.8 Baso % (Auto) 0.4 Absolute Neuts (auto) 4.7 Absolute Lymphs (auto) 2.14 Nucleated RBC % 0 Sodium 138 Potassium 4.3 Chloride 108 H Carbon Dioxide 24.0 Anion Gap 6 BUN 15 Creatinine 0.84 Estim Creat Clear Calc 37.02 Est GFR (MDRD) Af Amer 83 Est GFR (MDRD) Non-Af 69 BUN/Creatinine Ratio 17.8 Glucose 101 Calcium 9.5 Treatment and Re-Evaluation :: Patient was given a dose of hydroxyzine here. Patient was feeling better on reevaluation. Patient was advised of her findings. Patient was given a prescription for hydroxyzine. Patient was instructed to follow-up with her primary care physician in 3 to 5 days for reevaluation. Patient understood and was agreeable with the plan. All questions were answered. Discharge Plan Triage Chief Complaint: Rash ED Provider: Robert Castro Dx/Rx/DC Orders Clinical Impression: Dermatitis, Elevated blood pressure reading without diagnosis of hypertension Instructions: ED Contact Dermatitis Prescriptions: New hydroxyzine HCl 10 mg tablet 10 mg PO TID PRN (Reason: itching) Qty: 14 0RF No Action aspirin 81 MG tablet,chewable 81 mg PO DAILY sulfamethoxazole-trimethoprim 800-160 mg tablet 1 tab PO BID mupirocin 2 % ointment TOPICAL TID Primary Care Provider: Toni Brown Referrals: Toni Brown MD [Primary Care Provider] - 3-5 Days Print Language: Belarusian Disposition Disposition: Home, Self Care
[2024-01-31 12:05] LABS: Absolute Lymphocyte Count 2.14 X10^3/uL (0.83-4.51); Absolute Neutrophil Count 4.7 X10^3/uL (2.0-7.7); Basophil# 0.03 X10^3/uL; Basophil% 0.4 % (0-1); Eosinophil# 0.06 X10^3/uL; Eosinophils% 0.8 % (0-5); Hematocrit 37.5 % (37-47); Hemoglobin 12.3 g/dL (12.0-15.0); Lymphocyte # 2.14 X10^3/ul (0.83-4.51); Lymphocyte % 28.3 % (19-41); Mean Corp Hgb Conc 32.8 g/dL (32-36); Mean Corpuscular Hgb 29.7 pg (27.0-32.0); Mean Corpuscular Volume 90.6 fL (81-99); Mean Platelet Vol. 10.5 fl (6.2-12.0); Monocyte% 7.9 % (0-10); NRBC Flagged by Analyzer 0 % (0-5); Neutrophil # 4.71 X10^3/uL (2.7-7.7); Neutrophil % 62.5 % (47-70); Platelet Count 263 K/mm3 (150-450); RBC Distribution Width CV 13.8 % (11.6-14.6); Red Blood Count 4.14 M/mm3 (4.2-5.4); White Blood Count 7.6 K/mm3 (4.4-11.0)
[2024-01-31] MEDS: hydrOXYzine 10 MG Tablet PO (12:22)
[2024-01-31 12:48] LABS: Anion Gap 6 (5-15); BUN 15 mg/dL (7-18); BUN/Creat Ratio 17.8 RATIO (10-20); Calcium,Total 9.5 mg/dL (8.5-10.1); Chloride 108 mmol/L (98-107); Creatinine, Serum 0.84 mg/dL (0.55-1.02); EST Glomerular Filtration Rate 69 mL/min (>60); Est Glom Filt Rate - Afr Amer 83 mL/min (>60); Estimated Creatinine Clearance 37.02 ml/min; Glucose 101 mg/dL (74-106); Potassium 4.3 mmol/L (3.5-5.1); Sodium Level 138 mmol/L (136-145)
[2024-01-31 14:25] VITALS: BP 133/91; PULSE 72; RESP 16; TEMP 36.2; O2SAT 99
== END 2024-01-31 14:27 | disposition home or self-care (01) ==
PROVIDERS: Emergency Provider Emergency Medicine; PCP Family Medicine; Visit Provider Emergency Medicine
DX: L30.9 Dermatitis, unspecified (principal); R03.0 Elevated blood-pressure reading, without diagnosis of hypertension
CPT/HCPCS: 80048; 85025; 99283; A4216

== ENCOUNTER → 2024-03-01 | Outpatient (CLI) | payer MEDICARE, SELFPAY ==
[2024-03-01 10:53] LABS: EXAGEN MAILED SPECIMEN
[2024-03-01 12:22] LABS: Color, Urine Yellow (Yellow); Glucose, Dipstick Normal (Normal); Ketone-Dipstick Negative (Negative); Leukocyte Esterase-Dipstick 25 /ul (Negative); Nitrite-Dipstick Negative (Negative); Occult Blood-Urine Negative /ul (Negative); Protein-Dipstick Negative (Negative); Urine Bilirubin Dipstick Negative (Negative); Urine Clarity Clear (Clear); Urine Urobilinogen Normal (Normal)
[2024-03-01 12:37] LABS: Absolute Lymphocyte Count 2.98 X10^3/uL (0.83-4.51); Absolute Neutrophil Count 3.5 X10^3/uL (2.0-7.7); Basophil# 0.04 X10^3/uL; Basophil% 0.5 % (0-1); Eosinophil# 0.06 X10^3/uL; Eosinophils% 0.8 % (0-5); Hematocrit 36.7 % (37-47); Hemoglobin 11.7 g/dL (12.0-15.0); Lymphocyte # 2.98 X10^3/ul (0.83-4.51); Lymphocyte % 40.9 % (19-41); Mean Corp Hgb Conc 31.9 g/dL (32-36); Mean Corpuscular Hgb 29.2 pg (27.0-32.0); Mean Corpuscular Volume 91.5 fL (81-99); Mean Platelet Vol. 11.7 fl (6.2-12.0); Monocyte# 0.68 X10^3/uL; Monocyte% 9.3 % (0-10); NRBC Flagged by Analyzer 0 % (0-5); Neutrophil # 3.52 X10^3/uL (2.7-7.7); Neutrophil % 48.4 % (47-70); Platelet Count 259 K/mm3 (150-450); RBC Distribution Width CV 13.8 % (11.6-14.6); RBC Distribution Width SD 46.9 fl (35.1-43.9); Red Blood Count 4.01 M/mm3 (4.2-5.4); White Blood Count 7.3 K/mm3 (4.4-11.0)
[2024-03-01 12:43] LABS: ALB/GLOB Ratio 1.1 RATIO (0.9-2.4); AST(SGOT) 20 U/L (15-37); Alanine Aminotransfer ALT/SGPT 16 U/L (13-56); Albumin, Serum 3.9 g/dL (3.2-5.0); Alkaline Phosphatase 74 U/L (45-117); Anion Gap 4 (5-15); BUN 13 mg/dL (7-18); BUN/Creat Ratio 13.6 RATIO (10-20); Calcium,Total 9.4 mg/dL (8.5-10.1); Chloride 107 mmol/L (98-107); Creatinine, Serum 0.96 mg/dL (0.55-1.02); EST Glomerular Filtration Rate 59 mL/min (>60); Est Glom Filt Rate - Afr Amer 72 mL/min (>60); Globulin 3.5 g/dL (2.2-4.2); Glucose 95 mg/dL (74-106); Potassium 3.7 mmol/L (3.5-5.1); Protein, Total 7.4 g/dL (6.4-8.2); Sodium Level 139 mmol/L (136-145)
[2024-03-01 13:13] LABS: Protein, Urine (Random) < 6.0 mg/dL (<11.9)
== END | disposition home or self-care (01) ==
PROVIDERS: PCP Family Medicine; Referring Provider Internal Medicine Rheumatology; Visit Provider Internal Medicine Rheumatology
DX: R76.8 Other specified abnormal immunological findings in serum (principal); M17.0 Bilateral primary osteoarthritis of knee
CPT/HCPCS: 36415; 80053; 81002; 82570; 84156; 85025

== ENCOUNTER 2024-08-25 23:13 | Emergency (ER) | payer MEDICARE, SELFPAY ==
[2024-08-25 23:13] VITALS: BP 129/96; PULSE 80; RESP 19; TEMP 36.5; O2SAT 100
--- NOTE | 2024-08-26 00:12 | EKG12_ITS ---
Test Reason : DIZZINESS Blood Pressure : */* mmHG Vent. Rate : 69 BPM Atrial Rate : 69 BPM P-R Int : 140 ms QRS Dur : 78 ms QT Int : 428 ms P-R-T Axes : 74 74 68 degrees QTcB Int : 458 ms Normal sinus rhythm Normal ECG Confirmed by VIKA DYKES, LALA ([id number]), editor farm journal JUANJO MORSE ([id number]) on 08/27/2024 6:27:15 AM Referred By: Confirmed By: LALA SANDY MD
--- NOTE | 2024-08-26 00:12 | CT_ITS ---
INDICATION: Dizziness dizziness since November, tonight was severe so she called 911 EXAMINATION: CT BRAIN - CT Head or Brain W/O Contrast Injection TECHNIQUE: Multiple axial images were obtained of the head without intravenous contrast. The protocol utilizes one or more of the following dose reduction techniques: automated exposure control, adjustment of mA and/or kV according to patient size,and/or use of iterative reconstruction technique. IV Contrast dosage and agent: None. RADIATION DOSAGE (If Supplied By Facility): CTDIvol = ( 44.99 ) mGy, DLP = ( 796.11 ) mGycm COMPARISON: No relevant prior comparison study available FINDINGS: BRAIN: No acute bleed. No edema. Mild decreased attenuation in periventricular white matter bilaterally. [place]-white matter differentiation is maintained. Arterial calcifications. VENTRICLES AND SULCI: The ventricles are not dilated. The sulci are prominent. EXTRA-AXIAL: No hemorrhage, fluid collection, or mass. CALVARIUM / SKULL BASE: Unremarkable. FACE/SINUSES: Unremarkable. SOFT TISSUES: Unremarkable. CT/Brain/Head without Contrast IMPRESSION: No acute abnormality. Mild chronic microvascular ischemic disease. CT angiogram and/or MRI may be helpful to evaluate for acute infarct as clinically indicated. Electronically Signed: Monique Galvan MD at 1:21 EST ,
--- NOTE | 2024-08-26 00:12 | RAD_ITS ---
INDICATION: Dizziness EXAMINATION/TECHNIQUE: X-RAY - XR Chest 2 Views COMPARISON: Prior study dated: 12/08/2023 FINDINGS: LINES/DEVICES: None. LUNGS: No consolidation. No pneumothorax. MEDIASTINUM: Unremarkable. CARDIAC SILHOUETTE: Not enlarged. BONES AND SOFT TISSUES: No acute abnormalities. Degenerative changes in the dorsal spine. RAD/Chest PA and Lateral IMPRESSION: No evidence of active intrathoracic disease. Electronically Signed: Monique Galvan MD at 1:22 EST ,
[2024-08-26 00:24] LABS: Mucous, Urine 0 SEEN /hpf (<or=2+); Red Blood Cells-Urine 0 SEEN /hpf (0-5); Squamous Epithelial Cells - UA 0 SEEN /hpf (5-10)
--- NOTE | 2024-08-26 00:27 | EDS_ITS ---
HPI History of Present Illness Chief Complaint: Dizziness Narrative Narrative: Chief complaint and HPI: Brain heaviness. 83-year-old female with no significant past medical history presents for evaluation of brain heaviness. Patient states that she has been having intermittent episodes of brain heaviness since November. She states that it occurred more frequently today. Patient states she woke up without any symptoms. She states she got an episode of heaviness in her frontal forehead. When I have her explain though she denies vertigo, dizziness, lightheadedness, headache. She states I do not know how to explain it it just feels heavy in my forehead like I am going to fall forward. She denies any syncope or presyncope symptoms. States she does not feel like she is going to pass out. She denies any fever, chills, shortness of breath, chest pain abdominal pain, nausea, vomiting, dysuria. States she has been eating and drinking. She has not followed up with her PCP for this. Denies any neurological deficits, weakness, numbness or tingling. Review of systems: See HPI Medications: As listed on the chart Allergies: As listed on the chart PFSH: Per chart Vital signs: As listed on the chart. Reviewed. Physical exam: Gen: A&O x3, NAD Head: Normocephalic, atraumatic Eyes: No sclera icterus, conjunctiva clear, PERRL, EOMI ENT: TMs clear BL, moist mucous membranes, posterior oropharynx unremarkable Neck: Trachea midline, No JVD, Full ROM, No meningismus CV: RRR, no murmurs, no peripheral edema Resp: Lungs CTA BL, no w/r/c GI: Abd soft, non-distended, non-tender, no r/r/g Musc: Full ROM, no deformity, strength plus 5 out of 5 in all extremities Skin: Warm, dry, no rash Neuro: Alert, oriented, grossly intact, sensation intact Psych: Cooperative, appropriate mood and affect [facility] Medical History Cellulitis of right ankle Home Medications ?Medication ?Instructions ?Recorded ?Last Taken ?Type aspirin 81 mg chewable tablet 81 mg PO DAILY 12/30/17 Unknown History mupirocin 2 % topical ointment topical TID 12/08/23 Unknown History sulfamethoxazole 800 1 tab PO BID 12/08/23 Unknown History mg-trimethoprim 160 mg tablet hydroxyzine HCl 10 mg tablet 10 mg PO TID PRN itching #14 tabs 01/31/24 Unknown Rx Allergy/AdvReac Type Severity Reaction Status Date / Time mometasone furoate Allergy Mild Itching Verified 08/25/24 23:23 prednisone Allergy Rash Verified 08/25/24 23:23 sulfadimethoxine Allergy Rash Verified 08/25/24 23:23 Surgical History H/O: hysterectomy Social History Smoking Status: Never smoker EXAM Physical Exam Const Vital Signs: 08/25/24 23:13 08/26/24 01:36 08/26/24 02:13 Temperature 97.7 F L 97.7 F L Temperature Source Oral Pulse Rate 80 73 88 Respiratory Rate 19 H 13 18 Blood Pressure 129/96 H 145/66 H 138/76 H Blood Pressure Mean 107 92 96 Pulse Ox 100 99 96 Oxygen Delivery Method Room Air MDM MDM MDM Narrative Medical decision making narrative: 83-year-old female with no significant past medical history presents for evaluation of brain heaviness. Differential diagnosis includes but is not limited to electrolyte abnormality, SAPNA, anemia, arrhythmia, ACS, intracranial abnormality. NS bolus ordered. Laboratory workup ordered including CT head and chest x-ray. EKG and chest x-ray reviewed see below. CBC without leukocytosis. Patient has baseline anemia. BMP unremarkable except for some mild hypokalemia of 3.3. No SAPNA. Troponin unremarkable. Patient not having any chest pain I do not think a delta is needed. UA is negative for UTI. CT head shows chronic disease but no acute intracranial abnormality. At this point in time, no clear etiology to explain the patient's intermittent head heaviness that she has been having since November. She was updated of all the results. She states her heaviness has improved this evening. She ambulated without difficulty. Patient stable to discharge home. Follow-up with PCP. Return precautions explained. She confirmed understand the plan. EKG: Interpreted by me/EM physician: EKG shows normal sinus rhythm without any acute ischemic changes. Heart rate 69. Diagnostic: Interpreted by me/EM physician: Chest x-ray without cardiomegaly, pneumonia, effusion, pneumothorax Impression: 1. Head heaviness, episodic since November 2. Chronic anemia Lab Data Labs: Laboratory Results - last 24 hr 08/25/24 08/25/24 23:49 23:57 WBC 7.4 RBC 3.47 L Hgb 10.6 L Hct 31.4 L MCV 90.5 MCH 30.5 MCHC 33.8 RDW Std Deviation 43.1 RDW Coeff of Melissa 13.1 Plt Count 232 MPV 11.3 Immature Gran % (Auto) 0.300 Neut % (Auto) 45.9 L Lymph % (Auto) 42.2 H [place] % (Auto) 10.0 Eos % (Auto) 0.9 Baso % (Auto) 0.7 Absolute Neuts (auto) 3.4 Absolute Lymphs (auto) 3.13 Nucleated RBC % 0 Sodium 142 Potassium 3.3 L Chloride 110 H Carbon Dioxide 24.0 Anion Gap 8 BUN 16 Creatinine 0.86 Est GFR (MDRD) Af Amer 81 Est GFR (MDRD) Non-Af 67 BUN/Creatinine Ratio 18.5 Glucose 101 Calcium 9.0 Troponin I High Sens 16 Urine Color Yellow Urine Clarity Clear Urine pH 7.0 Ur Specific [place] 1.010 Urine Protein 15 H Urine Glucose (UA) Normal Urine Ketones Negative Urine Occult Blood Negative Urine Nitrite Negative Urine Bilirubin Negative Urine Urobilinogen Normal Ur Leukocyte Esterase 100 H Urine RBC 0 SEEN Urine WBC 0-5 SEEN Ur Squamous Epith Cells 0 SEEN Urine Bacteria RARE Urine Mucus 0 SEEN Radiography Diagnostic Testing: Clinical Impression(s) from Imaging Studies Brain CT 08/26/24 00:12 IMPRESSION: No acute abnormality. Mild chronic microvascular ischemic disease. CT angiogram and/or MRI may be helpful to evaluate for acute infarct as clinically indicated. Electronically Signed: Monique Galvan MD at 1:21 EST , Chest X-Ray 08/26/24 00:12 IMPRESSION: No evidence of active intrathoracic disease. Electronically Signed: Monique Galvan MD at 1:22 EST , Discharge Plan Triage Chief Complaint: Dizziness ED Provider: Rudy Guerrero Dx/Rx/DC Orders Clinical Impression: Dizziness Instructions: ED Dizziness, Uncertain Cause Prescriptions: No Action aspirin 81 MG tablet,chewable 81 mg PO DAILY sulfamethoxazole-trimethoprim 800-160 mg tablet 1 tab PO BID mupirocin 2 % ointment TOPICAL TID hydroxyzine HCl 10 mg tablet 10 mg PO TID PRN (Reason: itching) Qty: 14 0RF Primary Care Provider: Toni Brown Referrals: Toni Brown MD [Primary Care Provider] - 3-5 Days Activity Restrictions/Additional Instructions: Follow-up with your primary care physician. Return back to the ED if symptoms change or worsen. Print Language: [place]ese Disposition Disposition: Home, Self Care Discharge Date/Time: 08/26/24 02:13
[2024-08-26 00:28] LABS: Absolute Lymphocyte Count 3.13 X10^3/uL (0.83-4.51); Absolute Neutrophil Count 3.4 X10^3/uL (2.0-7.7); Basophil# 0.05 X10^3/uL; Basophil% 0.7 % (0-1); Eosinophil# 0.07 X10^3/uL; Eosinophils% 0.9 % (0-5); Hematocrit 31.4 % (37-47); Hemoglobin 10.6 g/dL (12.0-15.0); Lymphocyte # 3.13 X10^3/ul (0.83-4.51); Lymphocyte % 42.2 % (19-41); Mean Corp Hgb Conc 33.8 g/dL (32-36); Mean Corpuscular Hgb 30.5 pg (27.0-32.0); Mean Corpuscular Volume 90.5 fL (81-99); Mean Platelet Vol. 11.3 fl (6.2-12.0); Monocyte# 0.74 X10^3/uL; NRBC Flagged by Analyzer 0 % (0-5); Neutrophil % 45.9 % (47-70); Platelet Count 232 K/mm3 (150-450); RBC Distribution Width CV 13.1 % (11.6-14.6); RBC Distribution Width SD 43.1 fl (35.1-43.9); Red Blood Count 3.47 M/mm3 (4.2-5.4); White Blood Count 7.4 K/mm3 (4.4-11.0)
[2024-08-26 00:29] LABS: Color, Urine Yellow (Yellow); Glucose, Dipstick Normal (Normal); Ketone-Dipstick Negative (Negative); Leukocyte Esterase-Dipstick 100 /ul (Negative); Nitrite-Dipstick Negative (Negative); Occult Blood-Urine Negative /ul (Negative); Protein-Dipstick 15 mg/dl (Negative); Urine Bilirubin Dipstick Negative (Negative); Urine Clarity Clear (Clear); Urine Urobilinogen Normal (Normal)
[2024-08-26 00:36] LABS: White Blood Cells 0-5 SEEN /hpf (0-5)
[2024-08-26 00:37] LABS: Bacteria RARE /hpf (None Seen)
[2024-08-26 00:53] LABS: Anion Gap 8 (5-15); BUN 16 mg/dL (7-18); BUN/Creat Ratio 18.5 RATIO (10-20); Chloride 110 mmol/L (98-107); Creatinine, Serum 0.86 mg/dL (0.55-1.02); EST Glomerular Filtration Rate 67 mL/min (>60); Est Glom Filt Rate - Afr Amer 81 mL/min (>60); Glucose 101 mg/dL (74-106); Potassium 3.3 mmol/L (3.5-5.1); Sodium Level 142 mmol/L (136-145); Troponin-I HS 16 pg/mL (3.0-54.0)
[2024-08-26] MEDS: 0.9% Normal Saline (1000mL) 1,000 ML 1000 ML IV (01:11)
[2024-08-26 01:36] VITALS: BP 145/66; PULSE 73; RESP 13; O2SAT 99
[2024-08-26 02:13] VITALS: BP 138/76; PULSE 88; RESP 18; TEMP 36.5; O2SAT 96
== END 2024-08-26 02:13 | disposition home or self-care (01) ==
PROVIDERS: Emergency Provider Surgery; PCP Family Medicine; Visit Provider Surgery
DX: R42 Dizziness and giddiness (principal); E87.6 Hypokalemia
CPT/HCPCS: 70450; 71046; 80048; 81001; 84484; 85025; 93005; 96360; 99285; A4216

== ENCOUNTER 2025-07-11 11:47 | Emergency (ER) | payer MEDICARE, SELFPAY ==
[2025-07-11 11:49] VITALS: BP 138/72; PULSE 83; RESP 18; TEMP 36.4; O2SAT 100; BMI 18.3
[2025-07-11 12:01] VITALS: BP 135/71; PULSE 82; RESP 18; TEMP 36.4; O2SAT 100
[2025-07-11 13:00] VITALS: BP 127/66; PULSE 73; RESP 18; TEMP 36.4; O2SAT 100
--- NOTE | 2025-07-11 13:01 | EX.ED.DYSGE1 ---
HPI History of Present Illness Chief Complaint: Cellulitis Narrative Narrative: Chief complaint and HPI: 84-year-old female presents for evaluation of face erythema, itching, warmth. Patient states last week she obtained a mosquito bite to the left cheek. States within a couple days she developed erythema, itching, warmth of the face. She was seen by urgent care on 07/06 in which she was placed on Cefadroxil 5 mg twice daily x 7 days, steroid taper x 6 days. States she is also been using hydroxyzine as needed for itching. Periodically putting Vaseline and other ointments on the face. States that the symptoms are not improving. Called her primary care physician office in which they told her to present to the emergency department. She denies any fever, nausea, vomiting, chest pain, shortness of breath. Review of systems: See HPI Medications: As listed on the chart Allergies: As listed on the chart PFSH: Per chart Vital signs: As listed on the chart. Reviewed. Physical exam: Gen: A&O x3, NAD Head: Normocephalic, atraumatic Eyes: No periorbital edema, no sclera icterus, conjunctiva clear, PERRL, EOMI without pain ENT: TMs clear BL, moist mucous membranes, posterior oropharynx unremarkable, uvula midline, tonsils not enlarged, no dental infection, no oral/sublingual/submandibular swelling, tolerating secretions, normal phonation Neck: Trachea midline, full ROM, No meningismus CV: RRR, no murmurs Resp: Lungs CTA BL, no w/r/c Musc: Full ROM Skin: Warm, patient has erythema/dryness/mild warm to the face. Spares the forehead. Starts approximately inferior to the eye and extends down to the anterior neck. No abscess, laceration, drainage/purulence. Neuro: Alert, oriented, grossly intact, sensation intact Psych: Cooperative, appropriate mood and affect [facility] Medical History Cellulitis of right ankle Home Medications Medication Instructions Recorded Last Taken Type mupirocin 2 % topical ointment 1 applic topical TID 12/08/23 07/10/25 History cefadroxil 500 mg capsule 500 mg PO BID 07/11/25 07/11/25 History hydroxyzine HCl 25 mg tablet 25 mg PO Q6H PRN itching 07/11/25 Unknown History methylprednisolone 4 mg tablets in See Rx Instructions PO UD 07/11/25 07/11/25 History a dose pack Allergy/AdvReac Type Severity Reaction Status Date / Time mometasone furoate Allergy Mild Itching Verified 07/11/25 11:48 prednisone Allergy Rash Verified 07/11/25 11:48 sulfadimethoxine Allergy Rash Verified 07/11/25 11:48 Family History no significant family his Surgical History H/O: hysterectomy Social History Smoking Status: Never smoker EXAM Physical Exam Const Vital Signs: 07/11/25 11:49 07/11/25 12:01 07/11/25 13:00 Temperature 97.6 F L 97.6 F L 97.6 F L Temperature Source Oral Oral Oral Pulse Rate 83 82 73 Respiratory Rate 18 18 18 Blood Pressure 138/72 H 135/71 H 127/66 H Blood Pressure Mean 94 92 86 Pulse Ox 100 100 100 Oxygen Delivery Method Room Air Room Air Room Air MDM MDM MDM Narrative Medical decision making narrative: 84-year-old female presents for evaluation of face erythema, itching, warmth. Patient states last week she obtained a mosquito bite to the left cheek. States within a couple days she developed erythema, itching, warmth of the face. She was seen by urgent care on 07/06 in which she was placed on Cefadroxil 5 mg twice daily x 7 days, steroid taper x 6 days. States she is also been using hydroxyzine as needed for itching. Periodically putting Vaseline and other ointments on the face. States that the symptoms are not improving. Called her primary care physician office in which they told her to present to the emergency department. Denies any systemic symptoms. On presentation, patient no acute distress. Afebrile. See physical exam findings. Patient has erythema/dryness/mild warm to the face. Spares the forehead. Starts approximately inferior to the eye and extends down to the anterior neck. No abscess, laceration, drainage/purulence. Differential diagnosis includes but is not limited to cellulitis, contact dermatitis, allergic reaction, Erysipelas. Patient already on steroids therefore you would suspect this would improve if this were a allergic reaction to the mosquito bite. Does not appear as red as Erysipeals. Differential is cellulitis versus contact dermatitis. Recommend stop placing ointments on the face. Recommend [id number] dry skin lotion only such as CeraVe facial lotion. Patient currently on Cefadroxil. Recommend broadening antibiotics and having her follow-up with dermatology and primary care physician. I do not think any laboratory workup is needed at this time. Given primary care physician sent the patient to the emergency department. Will reach out to them. I spoke with patient's primary care physician, Dr. Brown. In agreement to the plan. Will see the patient in the office. His scheduled appointment is Friday. Return precautions explained. She confirmed understand the plan. Patient able to discharge home. Will place her on a 7-day course of Keflex with clindamycin given patient has an allergy to Bactrim. On chart review, patient has a reported rash to prednisone therefore we will have her stop taking prednisone as well in case this is a reaction to the prednisone. Impression: 1. Rash to the face Discharge Plan Triage Chief Complaint: Cellulitis Other Complaint: Rash ED Provider: Rudy Guerrero Dx/Rx/DC Orders Prescriptions: No Action mupirocin 2 % ointment 1 applic TOPICAL TID cefadroxil 500 mg capsule 500 mg PO BID methylprednisolone 4 mg tablets,dose pack See Rx Instructions PO UD Patient Comments: PT IS ON DAY 5 OF 6 Rx Instructions: MEDROL DOSE TAPER orally as directed; hydroxyzine HCl 25 mg tablet 25 mg PO Q6H PRN (Reason: itching) Primary Care Provider: Toni Brown Referrals: Toni Brown MD [Primary Care Provider, Family Practice] Print Language: Malaysian
[2025-07-11 13:41] VITALS: BP 134/84; PULSE 78; RESP 16; TEMP 36.4; O2SAT 98
--- OUTSIDE RECORDS SUMMARY | 2025-07-11 14:57 | XMS RPT_ITS | CCD ---
Author Organization [facility] Care Team Providers Care Cardiac Nurse Practitioner Name Role Phone Toni Meier MD Primary Care Provider Toni Meier MD Primary Care Provider Jared OUTPATIENT CLERK.Kayden THOMPSON Unavailable Angela Mckenzie PA-C Unavailable Renea Toni Primary Care Unavailable Rudy Guerrero Attending Unavailabl Robert Bey Attending Unavailable Renea Toni Primary Care Unavailable Robert Castro Attending Unavailable Renea, Toni Primary Care Unavailable Gaye Su Referring Unavailable Gaye Su Attending Unavailable Renea, Toni Primary Care Unavailable Toni Meier MD Primary Care Provider Fauzia Cotto RN Unavailable Unavailable Jared OUTPATIENT CLERK.Kayden THOMPSON Unavailable Angela Mckenzie PA-C Unavailable ANGELA MCKENZIE Attending Unavailable RENEA, TONI A Primary Care Unavailable ANGELA MCKENZIE Referring Unavailable RENEA, TONI A Primary Care Unavailable RENEATONI Attending Unavailable RENEA, TONI A Primary Care Unavailable RENEA, TONI A Attending Unavailable RENEA, TONI A Primary Care Unavailable KAYDEN COLEMAN Referring Unavailable RENEA, TONI A Primary Care Unavailable KAYDEN COLEMAN Attending Unavailable RENEA, TONI A Primary Care Unavailable ANGELA MCKENZIE Attending Unavailable RENEA, TONI A Primary Care Unavailable KAYDEN COLEMAN Attending Unavailable RENEA, TONI A Primary Care Unavailable KNKAYDEN CARRASQUILLO Referring Unavailable RENEA, TONI A Primary Care Unavailable ANGELA MCKENZIE Referring Unavailable RENEA, TONI A Primary Care Unavailable ANGELA MCKENZIE Referring Unavailable RENEA, TONI A Primary Care Unavailable IRINA ANDERSEN Attending Unavailable ANGELA MCKENZIE Referring Unavailable TONI MEIER Primary Care Unavailable IRINA ANDERSEN Referring Unavailable TONI MEIER Primary Care Unavailable TONI MEIER Attending Unavailable TONI MEIER Primary Care Unavailable Allergies Allergy Classification Reported Allergen(s) Allergy Type Date of Onset Reaction(s) Facility (20 sources) fexofenadine; Translations: [FEXOFENADINE] Drug Allergy 06-14-20 10 Other: See Comments [facility] Work Phone: (17 sources) environmental [Other] Propensity to adverse reactions 01-05-20 10 Unknown [facility] Work Phone: (20 sources) Sulfamethoxazole / Trimethoprim; Translations: [SULFAMETHOXAZOLE-T RIMETHOPRIM] Drug Allergy 01-07-20 24 Other: See Comments [facility] (1 source) Mometasone Drug Allergy 08-25-19 25 [facility] Repository (2 sources) predniSONE; Translations: [PREDNISONE] Drug Allergy 08-25-19 25 [facility] Repository (1 source) Sulfadimethoxine Drug Allergy 08-25-19 25 [facility] Repository (2 sources) predniSONE Drug Allergy 01-27-20 25 Itching [facility] Medications Current Medications Medication Drug Class(es) Dates Sig (Normalized) Sig (Original) aspirin 81 mg chewable tablet (20 sources) Platelet Aggregation Inhibitor, Nonsteroidal Anti-inflammatory Drug Start: 12-30-2017 take 81 mg by mouth once daily Aspirin Active 81 MG PO DAILY December 30, 2017 12:00am Start: 12-11-2017 End: 09-02-2024 take 1 tablet by mouth once daily aspirin, enteric coated (ADULT LOW DOSE ASPIRIN) 81 mg EC tablet Take 1 tablet by mouth once daily. 12/11/2017 09/02/2024 Discontinued (Discontinued by Patient) Comment on above: Take 1 tablet by [facility] once daily. calcium carbonate 1500 mg / cholecalciferol 200 unt oral tablet (2 sources) Vitamin D Start: 2024 take 1 tablet by mouth twice daily calcium carbonate 600 mg-cholecalciferol 200 units (CALCIUM 600 + D,3,) 600 mg-5 mcg (200 unit) tab Indications: Age related osteoporosis, unspecified pathological fracture presence Take 1 tablet by mouth two times a day. 60 tablet 11 01/26/2025 Active cefadroxil 500 mg oral capsule (1 source) Cephalosporin Antibacterial Start: 2024 End: 2024 take 1 capsule by mouth twice daily cefADROxil (DURICEF) 500 mg capsule Take 1 capsule by mouth two times a day for 10 days. 20 capsule 09/02/2024 09/12/2024 Active cefdinir 300 mg oral capsule (1 source) Cephalosporin Antibacterial Start: 2024 End: 2024 take 1 capsule by mouth twice daily cefdinir (OMNICEF) 300 mg capsule Indications: Acute otitis media, right Take 1 capsule by mouth two times a day for 7 days. 14 capsule 10/18/2024 10/25/2024 Active cholecalciferol 0.025 mg oral capsule (2 sources) Vitamin D Start: 2024 End: 2025 take 1 capsule by mouth once daily Cholecalciferol, Vitamin D3, 25 mcg (1,000 unit) cap Indications: Age related osteoporosis, unspecified pathological fracture presence Take 1 capsule by mouth once daily. 90 capsule 3 01/26/2025 01/26/2026 Active fluticasone propionate 0.05 mg/actuat metered dose nasal spray (11 sources) Corticosteroid Start: 2024 take 2 spray(s) by mouth once daily fluticasone (FLONASE) 50 mcg/actuation nasal spray Use 2 Sprays in each nostril once daily. Rinse mouth after use. 1 Each 10/28/2024 Active hydrOXYzine hydrochloride 25 mg oral tablet (2 sources) Antihistamine Start: 2023 End: 2023 take 1 tablet by mouth every six hours as needed hydrOXYzine HCl (ATARAX) 25 mg tablet Take 1 tablet by mouth every 6 hours as needed for itching/rash. 60 tablet 1 02/10/2024 03/11/2024 Active methylPREDNISolone (1 source) Corticosteroid Start: 2024 End: 2024 methylPREDNISolone (MEDROL, MAGUI,) 4 mg Dose-Pack Follow dosing instructions, take with food. 21 tablet 09/02/2024 09/08/2024 Active mometasone furoate 1 mg/ml topical cream (6 sources) Corticosteroid Start: 2023 End: 2023 mometasone (ELOCON) 0.1 % cream Apply to areas twice a day. On for 4 days and off for 3 days. Repeat as needed. 15 g 1 01/07/2024 04/08/2024 Active predniSONE 10 mg oral tablet (5 sources) Start: 2023 End: 2023 predniSONE (DELTASONE) 10 mg tablet Take 4 tabs daily for 3 days, then 2 tabs daily for 3 days, then 1 tab daily for 3 days with food. 21 tablet 0 12/09/2023 12/18/2023 Active Comment on above: Take 4 tabs daily fo r 3 days, then 2 tabs daily for 3 days, then 1 tab daily for 3 days with food. sulfamethoxazole 800 mg / trimethoprim 160 mg oral tablet (7 sources) Dihydrofolate Reductase Inhibitor Antibacterial, Sulfonamide Antimicrobial Start: 2023 take 1 tablet by mouth twice daily Sulfamethoxazole-Trimet hoprim Active 1 TABLET PO TWICE A DAY December 08, 2023 12:00am Start: 12-04-2023 End: 12-14-2023 take 1 tablet by mouth twice daily sulfamethoxazole-trimethoprim (BACTRIM D S) 800-160 mg per tablet Take 1 tablet by mouth two times a day for 10 days. 20 tablet 0 12/04/2023 12/11/2023 Discontinued Comment on above: Take 1 tablet by monica two times a day for 10 days. Completed/Discontinued Medications Medication Drug Class(es) Dates Sig (Normalized) Sig (Original) Acetaminophen (20 sources) End: 09-02-2024 acetaminophen (TYLENOL ARTHRITIS ORAL) Take by mouth as directed. 09/02/2024 Discontinued (Discontinued by Patient) acetaminophen (T YLENOL ARTHRITIS ORAL) Take by mouth as directed. Active acetaminophen (T YLENOL ARTHRITIS ORAL) Take by mouth as directed. 0 Active Comment on above: Take by mouth as dir ected. alendronic acid 70 mg oral tablet (4 sources) Bisphosphonate Start: 9 End: 2 alendronate (FOSAMAX) 70 mg tablet Take 1 tablet by mouth one time a week. 30 minutes before first meal/med and stay upright for 30-60 minutes after taking. 12 tablet 5 06/30/2019 12/19/2021 Discontinued (Discontinued by Patient) Comment on above: Take 1 tablet by monica one time a week. 30 minutes before first meal/med and stay upright for 30-60 minutes after taking. ascorbic acid 1000 mg oral tablet (20 sources) Vitamin C Start: 0 End: 4 Ascorbic Acid 1,000 mg tablet Take one(1) tablet daily. 0 06/14/2010 01/07/2024 Discontinued (Discontinued by Patient) Comment on above: Take one(1) tablet d aily. baclofen 5 mg oral tablet (13 sources) gamma-Aminobutyric Acid-ergic Agonist Start: 2 End: 2 take 1 tablet by mouth three times daily baclofen (LIORESAL) 5 mg tablet Take 1 tablet by mouth three times daily. 15 tablet 0 11/26/2021 06/20/2022 Discontinued Comment on above: Take 1 tablet by monica three times daily. CALCIUM CARB/VIT D2/MINERALS (CALTRATE PLUS ORAL) (4 sources) End: 2 take 1 tablet by mouth once daily CALCIUM CARB/VIT D2/MINERALS (CALTRATE PLUS ORAL) Take 1 tablet by mouth once daily. 12/19/2021 Discontinued (Discontinued by Patient) End: 12-19-2021 take 1 tablet by mouth once daily CALCIUM CARB/VIT D2/MINERALS (CALTRATE PLUS ORAL) Take 1 tablet by mouth once daily. 0 12/19/2021 Discontinued (Discontinued by Patient) take 1 tablet by [facility] once daily CALCIUM CARB/VIT D2/MINERALS (CALTRATE PLUS ORAL) Take 1 tablet by mouth once daily. 0 Active Comment on above: Take 1 tablet by monica once daily. cholecalciferol, vitamin D3, (VITAMIN D3 ORAL) (20 sources) End: 09-02-2024 take 400 mg by mouth once daily cholecalciferol, vitamin D3, (VITAMIN D3 ORAL) Take 400 mg by mouth once daily. 09/02/2024 Discontinued (Discontinued by Patient) take 400 mg by mouth once daily cholecalciferol, vitamin D3, (VITAMIN D3 ORAL) Take 400 mg by mouth once daily. Active take 400 mg by mouth once daily cholecalciferol, vitamin D3, (VITAMIN D3 ORAL) Take 400 mg by mouth once daily. 0 Active Comment on above: Take 400 mg by mouth once daily. famotidine 8 mg/ml oral suspension (6 sources) Histamine-2 Receptor Antagonist Start: 4 End: 4 take 2.5 mL by mouth twice daily famotidine (PEPCID) 40 mg/5 mL (8 mg/mL) oral liquid Take 2.5 mL by mouth two times a day. 50 mL 0 12/09/2023 01/07/2024 Discontinued Comment on above: Take 2.5 mL by mouth two times a day. Multivitamins-Minera ls-Lutein (CENTRUM SILVER) ORAL Tab (11 sources) Start: 0 take 1 tablet by mouth once daily Multivitamins-Mineral s-Lutein (CENTRUM SILVER) ORAL Tab Take one(1) tablet daily. 0 06/14/2010 Active Comment on above: Take one(1) tablet d aily. Multivitamins-Minera ls-Lutein (CENTRUM SILVER) tab (20 sources) Start: 0 End: 5 Multivitamins-Mineral s-Lutein (CENTRUM SILVER) tab Take one(1) tablet daily. 0 06/14/2010 09/02/2024 Discontinued (Discontinued by Patient) Start: 06-14-2010 Multivitamins- Minerals-Lutein (CENTRUM SILVER) tab Take one(1) tablet daily. 0 06/14/2010 Active Comment on above: Take one(1) tablet d aily. mupirocin 0.02 mg/mg topical ointment (16 sources) RNA Synthetase Inhibitor Antibacterial Start: 4 End: 5 mupirocin (BACTROBAN) 2 % ointment Apply to affected area three times a day. 15 g 12/04/2023 09/02/2024 Discontinued (Course of therapy completed) Comment on above: Apply to affected ar ea three times a day. naproxen 500 mg oral tablet (6 sources) Nonsteroidal Anti-inflammatory Drug Start: 4 End: 4 take 1 tablet by mouth every twelve hours as needed naproxen (NAPROSYN) 500 mg tablet Take 1 tablet by mouth two times a day as needed (for pain/inflammation). Take with food. 30 tablet 0 12/04/2023 12/11/2023 Discontinued Comment on above: Take 1 tablet by monica two times a day as needed (for pain/inflammation). Take with food. vitamin e 180 mg oral capsule (20 sources) End: take 1 capsule by mouth once daily VITAMIN E, DL,TOCOPHERYL ACET, (VITAMIN E, DL, ACETATE,) 400 unit cap Take 400 Units by mouth once daily. 09/02/2024 Discontinued (Discontinued by Patient) Comment on above: Take 400 Units by mo [facility] once daily. Problems Active Problems Problem Classification Problem Date Documented Date Episodic/Chronic Adjustment disorders (20 sources) Stress; Translations: [Reaction to severe stress, unspecified] Onset: 06-24-2018 06-24-2018 Chronic Allergic reactions (1 source) Irritant contact dermatitis due to plant; Translations: [Irritant contact dermatitis due to plants, except food] 01-07-2024 Episodic Diseases of white blood cells (20 sources) Lymphocytosis; Translations: [Lymphocytosis (symptomatic)] Onset: 06-17-2015 08-20-2021 Chronic Diverticulosis and diverticulitis (20 sources) Diverticulosis of large intestine; Translations: [Diverticulosis of large intestine without perforation or abscess without bleeding] 12-11-2016 Chronic Nutritional deficiencies (1 source) Dietary calcium deficiency; Translations: [Dietary calcium deficiency] 01-26-2025 Episodic Osteoarthritis (20 sources) Bilateral arthritis of hip; Translations: [Bilateral primary osteoarthritis of hip] Onset: 12-19-2021 12-19-2021 Chronic Osteoporosis (20 sources) Osteoporosis; Translations: [Age-related osteoporosis without current pathological fracture] Onset: 06-17-2015 12-25-2018 Chronic Other aftercare (1 source) Other terminal block assembler (current) drug therapy; Translations: [Medication management] Onset: 05-13-2025 Episodic Other circulatory disease (1 source) Vasculitis; Translations: [Arteritis, unspecified] 12-11-2023 Chronic Other connective tissue disease (1 source) Spasm of left piriformis muscle; Translations: [Other muscle spasm] 12-04-2023 Episodic Other inflammatory condition of skin (20 sources) Lichen planus; Translations: [Lichen planus, unspecified] 12-25-2018 Episodic Other nervous system disorders (15 sources) Right-sided piriformis syndrome; Translations: [Lesion of sciatic nerve, right lower limb] Onset: 11-12-2021 Chronic Other non-traumatic joint disorders (1 source) Pain in right hip joint; Translations: [Pain in right hip] Episodic Other non-traumatic joint disorders (2 sources) Pain in right knee; Translations: [Right knee pain] 01-12-2021 Episodic Other non-traumatic joint disorders (1 source) Hip pain; Translations: [Pain in right hip] 12-19-2021 Episodic Other upper respiratory disease (20 sources) Seasonal allergy; Translations: [Other seasonal allergic rhinitis] Onset: 12-15-2015 12-11-2016 Chronic Other upper respiratory disease (1 source) Other seasonal allergic rhinitis; Translations: [Seasonal allergies] Onset: 12-11-2016 Chronic Other upper respiratory infections (9 sources) Bacterial sinusitis; Translations: [Chronic sinusitis, unspecified] Onset: 09-02-2024 09-02-2024 Chronic Residual codes; unclassified (1 source) Localized edema; Translations: [Facial edema] Onset: 07-06-2025 Episodic Screening and history of mental health and substance abuse codes (1 source) Patient encounter status; Translations: [Encounter for screening examination for other mental health and behavioral disorders] 10-28-2024 Episodic Skin and subcutaneous tissue infections (3 sources) Cellulitis of skin; Translations: [Cellulitis, unspecified] Onset: 07-06-2025 12-04-2023 Episodic Sprains and strains (14 sources) Low back strain; Translations: [Strain of muscle, fascia and tendon of lower back, initial encounter] Onset: 11-12-2021 Episodic Unclassified (1 source) Patient encounter status 10-28-2024 Past or Other Problems Problem Classification Problem Date Documented Da te Episodic/Chronic Administrative/social admission (20 sources) Advance directive discussed with patient; Translations: [Other specified counseling] Onset: 2 Episodic Bacterial infection; unspecified site (1 source) Other specified bacterial agents as the cause of diseases classified elsewhere; Translations: [Bacterial sinusitis] Onset: 5 Episodic Conditions associated with dizziness or vertigo (4 sources) Dizziness; Translations: [Dizziness and giddiness] Onset: 5 09-02-2024 Episodic Disorders of teeth and jaw (3 sources) Pain of right temporomandibular joint; Translations: [Arthralgia of right temporomandibular joint] Onset: 5 09-02-2024 Episodic Fever of unknown origin (2 sources) Fever; Translations: [Fever, unspecified] Onset: 4 12-08-2023 Episodic Immunizations and screening for infectious disease (2 sources) Anti-nuclear factor positive; Translations: [Other specified abnormal immunological findings in serum] Onset: 4 12-11-2023 Episodic Inflammation; infection of eye (except that caused by tuberculosis or sexually transmitteddisease) (2 sources) Hordeolum externum of lower eyelid of right eye; Translations: [Hordeolum externum right lower eyelid] Onset: 5 09-02-2024 Episodic Miscellaneous mental health disorders (20 sources) Acute insomnia; Translations: [Adjustment insomnia] Onset: 9 12-25-2018 Episodic Other connective tissue disease (20 sources) Triggering of digit; Translations: [Trigger finger, right ring finger] Onset: 9 06-30-2019 Episodic Other gastrointestinal disorders (20 sources) Burping; Translations: [Eructation] Onset: 6 06-24-2018 Episodic Other gastrointestinal disorders (20 sources) Esophageal dysphagia; Translations: [Other dysphagia] Onset: 7 01-08-2017 Episodic Other gastrointestinal disorders (20 sources) Stool DNA-based colorectal cancer screening positive; Translations: [Other fecal abnormalities] Onset: 4 07-24-2023 Episodic Other screening for suspected conditions (not mental disorders or infectious disease) (20 sources) Mammography abnormal; Translations: [Other abnormal and inconclusive findings on diagnostic imaging of breast] Onset: 5 06-24-2018 Episodic Other skin disorders (20 sources) Eruption; Translations: [Rash and other nonspecific skin eruption] Onset: 4 12-09-2023 Episodic Other skin disorders (1 source) Rash and other nonspecific skin eruption; Translations: [Rash and other nonspecific skin eruption] Onset: 4 Episodic Otitis media and related conditions (3 sources) Acute right otitis media; Translations: [Otitis media, unspecified, right ear] Onset: 5 10-18-2024 Episodic Phlebitis; thrombophlebitis and thromboembolism (20 sources) H/O: Deep vein thrombosis; Translations: [Personal history of other venous thrombosis and embolism] Onset: 8 06-24-2018 Episodic Residual codes; unclassified (20 sources) Family history of malignant neoplasm of gastrointestinal tract; Translations: [Family history of malignant neoplasm of digestive organs] Onset: 0 06-17-2015 Episodic Residual codes; unclassified (20 sources) Family history of leukemia; Translations: [Family history of leukemia] Onset: 5 06-17-2015 Episodic Results Test Name Value Interpretation Reference Range Facility [facility] 07-06-2025 CNCO Letter Text Normal [facility] CNOVon 07-06-2025 CNOV Office Visit (FAMPWS ) GIANFRANCO HOLLIDAY ([id number]) 1940 F Date Time Provider Department 07/06/25 8:00 [facility] visit today, we recorded the following information about you: Temperature Pulse Respiration Blood pressure 97.7 degrees 76/minute 18/minute 120/70 Weight 43.7 kg Angela Mckenzie PA-C 07/06/2025 8:49 AM Signed Chief Complaint No chief complaint on file. HPI Gianfranco Holliday is a 84 year old female who presents here today for facial swelling Gianfranco Holliday is an 84-year-old female presenting with a worsening facial rash. Facial Rash: - Onset: 06/27, initially thought to be a mosquito bite. - Progression: - Initial presentation as a "big welt" on the side of the face. - Swelling and erythema increased by 07/01. - Rash has spread to the neck, with worsening symptoms over the past three days. - Symptoms: - Pruritus and burning sensation. - Serous drainage noted, described as "yellow" initially, now clear. - Edema causing partial closure of the left eye, obstructing vision. - Skin described as feeling like "rough sandpaper." - Treatment: - Seen at urgent care on 06/29, prescribed doxycycline and mupirocin. - Discontinued medications due to burning sensation and belief of allergy. - Used vitamin E oil with burning sensation; applied Vaseline with relief. - Previously on Claritin for 30 days, stopped a few days ago. - Denies pain or vision changes in the left eye. Past medical history, appointments, medications, allergies reviewed. Previous Medical History PAST MEDICAL HISTORY Diagnosis Date Abnormal mammogram 06/17/2015 Sees [facility] yearly for exam and mammogram Adjustment insomnia 12/25/2018 Advance directive discussed with patient 06/20/2022 Discussed 05/2022 Arthritis Arthritis of both hips 12/19/2021 Burping 12/15/2015 Diverticulosis of large intestine Esophageal dysphagia 01/08/2017 NL upper GI 11/2016: if worrsens will refer for EGD. Family history of leukemia 06/17/2015 Family history of malignant neoplasm of gastrointestinal tract 06/14/2010 Family history of malignant neoplasm of gastrointestinal tract History of DVT (deep vein thrombosis) 11/14/201710/2017; Below the knee, did not advance and no anticoagulation needed. Internal hemorrhoids without mention of complication Lichen planus Lymphocytosis 06/17/2015 Chronic: stable around 45=50% Medicare annual wellness visit, subsequent 06/12/2017 Medicare Part B: NA last done: 06/30/2019 Osteoporosis 06/17/2015 Seasonal allergies 12/15/2015 Situational depression 12/25/2018 loss of 09/17/2018 Stress 06/24/2018 Trigger ring finger of right hand 06/30/2019 Previous Surgical History PAST SURGICAL HISTORY Procedure Laterality Date APPENDECTOMY COLONOSCOPY FLX DX W/COLLJ SPEC WHEN PFRMD 08/08/2010 repeat in 5 yrs COLONOSCOPY FLX DX W/COLLJ SPEC WHEN PFRMD 07/03/2015 Colonoscopy COLONOSCOPY SCREENING 09/10/2023 next colonoscopy due in 5 years SALPINGO-OOPHORECTOMY COMPL/PRTL UNI/BI SPX Salpingo-oophorectomy STRESS TEST 07/14/2017 WNL TOTAL ABDOMINAL HYSTERECT W/WO RMVL TUBE OVARY Hysterectomy, RASHIDA Family History FAMILY HISTORY Problem Relation Age of Onset Cancer Mother ? liver CA Colon Cancer Father other (skin cancer) Daughter Patient Allergies ALLERGIES Allergen Reactions Fexofenadine Other: See Comments headache/sore tongue Prednisone Itching Sulfamethoxazole-Tr* Other: See Comments Dizzy, sweating and vomiting. Current Medications Current Outpatient Medications on File Prior to Visit Medication Sig [id number] it K-lut (CENTRUM SILVER WOMEN) 8 mg iron-400 mcg-50 mcg tab Take 1 tablet by mouth once daily. Vitamin E, dl, acetate, (VITAMIN E) 400 unit capsule Take 1 capsule by mouth once daily. calcium carbonate 600 mg-cholecalciferol 200 units (CALCIUM 600 + D,3,) 600 mg-5 mcg (200 unit) tab Take 1 tablet by mouth two times a day. Cholecalciferol, Vitamin D3, 25 mcg (1,000 unit) cap Take 1 capsule by mouth once daily. No current facility-administered medications on file prior to visit. Social History SOCIAL HISTORY[1] Review of Symptoms REVIEW OF SYSTEMS Eyes: (-) vision changes Skin: (+) facial swelling, (+) facial redness, (+) facial itching, (+) facial burning, (+) facial drainage, (+) facial dryness, (+) facial rough texture, (+) dry lips, (-) facial pain SEE HPI EXAM: BP 120/70 (BP Site: Left Arm, BP Position: Sitting, BP Cuff Size: Regular Adult) Pulse 76 Temp 36.5 ?C (97.7 ?F) Resp 18 Wt 43.7 kg (96 lb 6 oz) SpO2 98% BMI 18.82 kg/m? General Appearance: Well appearing, alert, in no acute distress, well-hydrated, well nourished.. Skin: swelling and erythema noted on left side of face, eyelid and nasal fold. Nontender. Yellow crusting evident. No palpable mass or abs (more content not included)... Normal [facility] CT FACIAL BONE/TWIN WO IVCON on 07-06-2025 CT FACIAL BONE/TWIN WO IVCON * * *Final Report* * * DATE OF EXAM: Jul 06 2025 11:10AM [facility] [id number] - CT FACIAL BONE/TWIN WO IVCON / PROCEDURE REASON: multiple diagnoses * * * * Physician Interpretation * * * * EXAMINATION: CT FACIAL BONE/TWIN WO IVCON CLINICAL HISTORY: Facial edema on exam. Technique: Spiral high resolution axial unenhanced images were obtained through the facial bones with sagittal and coronal planar reconstructions. MQ: [id number] CT Radiation dose: Integrated Dose-Length Product (DLP) for this visit = 490 mGy*cm. CT Dose Reduction Employed: Automated exposure control(AEC) and iterative recon COMPARISON: 11/12/2024 RESULT: Localizer images: No additional findings. Soft Tissues: Mild subcutaneous edema is noted in the left preseptal soft tissues that extends into the left malar region, left cheek, and left submandibular region suggesting mild cellulitis. Similar mild findings are noted along the right infraorbital rim. No evidence of a fluid collection to suggest abscess formation. No evidence of similar soft tissue swelling elsewhere. Facial bones: No evidence of acute facial bone fracture. No evidence of bony destruction underlying the above-described soft tissue edema. Orbits: The soft tissue planes of the orbits are maintained. Specifically, there is no evidence of orbital cellulitis. The extraocular muscles are within normal limits of caliber and configuration and not significantly asymmetric. No evidence of acute orbital fracture. Paranasal Sinuses: The paranasal sinuses are clear. Foreign Bodies: No evidence of radiopaque foreign bodies. Other: The visualized brain parenchyma is within normal limits. The patient is edentulous. Degenerative changes are noted in the TMJs. IMPRESSION: Mild preseptal soft tissue edema and left facial and submandibular edema suggesting mild cellulitis without evidence of abscess formation. No evidence of orbital cellulitis. Consulting Project Director: [facility] Transcribe Date/Time: Jul 06 2025 11:18A Dictated by : YAIMA BORJAS MD This examination was interpreted and the report reviewed and electronically signed by: YAIMA BORJAS MD on Jul 06 2025 11:26AM EST [id number] Normal [facility] CNOVon 05-13-2025 CNOV Office Visit (FAMPWS ) GIANFRANCO [id number]) 1940 F Date Time Provider Department 05/13/25 11:20 AM TONI MEIER During your visit today, we recorded the following information about you: Pulse Respiration Blood pressure Weight 78/minute 16/minute 108/60 43.7 kg Toni Meier MD 05/15/2025 9:38 PM Signed Chief Complaint Patient presents with: F/U 6 Month HPI Gianfranco Holliday is a 84 year old female who presents here today for a routine follow up. Patient with hx of osteoporosis, diverticulosis, lymphocytosis, seasonal allergies as well as those reviewed and addressed below and in ROS Gianfranco reports experiencing a burning sensation and stinging of the skin after consuming chocolate, which she believes indicates an allergy. She abstained from chocolate for 6 months and noticed an improvement in symptoms. However, after consuming chocolate brownies for 3 days about a week ago, the burning and stinging sensations recurred. She inquires about the possibility of allergy testing. Gianfranco has a history of dermatitis and was previously treated with injections by Dr. Sam Ham at the [facility], but discontinued them after 6 months due to an allergic reaction. She has not seen Dr. Ham for over a year. She denies recent fevers, wheezing, dyspnea, hemoptysis, chest pain, palpitations, leg edema, nausea, emesis, diarrhea, heartburn, changes in heat or cold tolerance, increased thirst, cephalalgia, syncope, seizures, or tremors. She notes dyspnea on exertion, which she describes as normal for her. She is not currently taking any prescription medications, only vitamins. She denies needing Flonase for allergies this year. Past medical history, appointments, medications, allergies reviewed. Previous Medical History PAST MEDICAL HISTORY Diagnosis Date Abnormal mammogram 06/17/2015 Sees yearly for exam and mammogram Adjustment insomnia 12/25/2018 Advance directive discussed with patient 06/20/2022 Discussed 05/2022 Arthritis Arthritis of both hips 12/19/2021 Burping 12/15/2015 Diverticulosis of large intestine Esophageal dysphagia 01/08/2017 NL upper GI 11/2016: if worrsens will refer for EGD. Family history of leukemia 06/17/2015 Family history of malignant neoplasm of gastrointestinal tract 06/14/2010 Family history of malignant neoplasm of gastrointestinal tract History of DVT (deep vein thrombosis) 11/14/201710/2017; Below the knee, did not advance and no anticoagulation needed. Internal hemorrhoids without mention of complication Lichen planus Lymphocytosis 06/17/2015 Chronic: stable around 45=50% Medicare annual wellness visit, subsequent 06/12/2017 Medicare Part B: NA last done: 06/30/2019 Osteoporosis 06/17/2015 Seasonal allergies 12/15/2015 Situational depression 12/25/2018 loss of 09/17/2018 Stress 06/24/2018 Trigger ring finger of right hand 06/30/2019 Previous Surgical History PAST SURGICAL HISTORY Procedure Laterality Date APPENDECTOMY COLONOSCOPY FLX DX W/COLLJ SPEC WHEN PFRMD 08/08/2010 repeat in 5 yrs COLONOSCOPY FLX DX W/COLLJ SPEC WHEN PFRMD 07/03/2015 Colonoscopy COLONOSCOPY SCREENING 09/10/2023 next colonoscopy due in 5 years SALPINGO-OOPHORECTOMY COMPL/PRTL UNI/BI SPX Salpingo-oophorectomy STRESS TEST 07/14/2017 WNL TOTAL ABDOMINAL HYSTERECT W/WO RMVL TUBE OVARY Hysterectomy, RASHIDA Family History FAMILY HISTORY Problem Relation Age of Onset Cancer Mother ? liver CA Colon Cancer Father other (skin cancer) Daughter Patient Allergies ALLERGIES Allergen Reactions Fexofenadine Other: See Comments headache/sore tongue Prednisone Itching Sulfamethoxazole-Tr* Other: See Comments Dizzy, sweating and vomiting. Current Medications Current Outpatient Medications on File Prior to Visit Medication Sig calcium carbonate 600 mg-cholecalciferol 200 units (CALCIUM 600 + D,3,) 600 mg-5 mcg (200 unit) tab Take 1 tablet by mouth two times a day. Cholecalciferol, Vitamin D3, 25 mcg (1,000 unit) cap Take 1 capsule by mouth once daily. fluticasone (FLONASE) 50 mcg/actuation nasal spray Use 2 Sprays in each nostril once daily. Rinse mouth after use. (Patient not taking: Reported on 01/26/2025) No current facility-administered medications on file prior to visit. Social History SOCIAL HISTORY[1] Review of Symptoms REVIEW OF SYSTEMS GENERAL: No weight loss, malaise or fevers RESPIRATORY: Negative for cough, hemoptysis, wheezing, COPD, dyspnea or shortness of breath CARDIOVASCULAR: Negative for chest pain, leg swelling, hypertension, CHF or palpitations GI: No nausea, vomiting, or diarrhea and No heartburn or reflux symptoms SKIN: See HPI ENDOCRINE: Negative for cold or heat intolerance, polyuria, polydipsia and goiter NEURO: No history of headaches, syncope, paralysis, seizures or shane (more content not included)... Normal [facility] 25(OH)D3 SerPl-ncon 2024 25-hydroxyvitamin D3 [Mass/Vol] 29.8 ng/mL Low 31.0-80.0 [facility] Comment on above: Order Comment: Speci men Type: BLOOD SPECIMEN Ordering Facility: [facility] Address: [address] [place] [address] Performed By: #### 1 989-3 #### [facility] CLIA [id number] [address] [place] [address] [place] Basic metabolic 2000 panelon 01-27-2025 Anion gap [Moles/Vol] 11 mmol/L Normal 8-15 [facility] Comment on above: Order Comment: Speci men Type: BLOOD SPECIMENOrdering Facility: [facility] Address: [address] [place] [address] Performed By: #### 1 9123-9, 15464-8, 2777-1 ####[facility] [id number] [place] [address] [place] Calcium [Mass/Vol] 9.4 mg/dL Normal 8.5-10.2 [facility] Comment on above: Order Comment: Speci men Type: BLOOD SPECIMENOrdering Facility: [facility] Address: [address] [place] [address] Performed By: #### 1 9123-9, 01546-5, 2777-1 ####[facility] [id number] [place] [address] [place] Chloride [Moles/Vol] 106 mmol/L Normal 98-[address] [facility] Comment on above: Order Comment: Speci men Type: BLOOD SPECIMENOrdering Facility: [facility] Address: [address] [place] [address] Performed By: #### 1 9123-9, 63114-7, 27771 ####[facility] MARKY BROWNINGARREYNCLILiz [id number] [place] [address] [place] CO2 [Moles/Vol] 23 mmol/L Normal 22-30 [facility] Comment on above: Order Comment: Speci men Type: BLOOD SPECIMENOrdering Facility: [facility] Address: [address] [place] [address] Performed By: #### 1 9123-9, 85787-4, 27702-22 ####[facility] [id number] [place] [address] [place] Creatinine [Mass/Vol] 0.75 mg/dL Normal 0.58-0.96 [facility] Comment on above: Order Comment: Speci men Type: BLOOD SPECIMENOrdering Facility: [facility] Address: [address] [place] [address] Performed By: #### 1 9123-9, 65824-2, 27702-22 ####[facility] [id number] [address] [place] Creatinine and Glomerular filtration rate.predicted panel (S/P/Bld) 79 mL/min/1.73m??? Normal >=60 [facility] Comment on above: Order Comment: Francia chambers Type: BLOOD SPECIMENOrdering Facility: [facility] Address: [address] [place] [address] Result Comment: Vilma mated Glomerular Filtration Rate (eGFR) is calculated using the 2020 CKD-EPI creatinine equation. This equation utilizes serum creatinine, sex, and age as parameters. The creatinine assay has traceable calibration to isotope dilution-mass spectrometry. Refer to KDIGO guidelines for clinical interpretation. In patients with unstable renal function, e.g. those with acute kidney injury, the eGFR may not accurately reflect actual GFR. Performed By: #### 1 9123-9, 46254-8, 2776-08 ####[facility] CHIKIWNCLIA [id number] [place] [address] [place] Glucose [Mass/Vol] 93 mg/dL Normal 74-99 [facility] Comment on above: Order Comment: Speci men Type: BLOOD SPECIMENOrdering Facility: [facility] Address: [address] [place] [address] Result Comment: The [place] Diabetes Association (ADA) provides guidance for cutoff values for fasting glucose and random glucose. The ADA defines fasting as no caloric intake for at least 8 hours. Fasting plasma glucose results between 100 to 125 mg/dL indicate increased risk for diabetes (prediabetes). Fasting plasma glucose results greater than or equal to 126 mg/dL meet the criteria for diagnosis of diabetes. In the absence of unequivocal hyperglycemia, results should be confirmed by repeat testing. In a patient with classic symptoms of hyperglycemia or hyperglycemic crisis, random plasma glucose results greater than or equal to 200 mg/dL meet the criteria for diagnosis of diabetes. Reference: Standards of Medical Care in Diabetes 2016, [place] Diabetes Association. Diabetes Care. 2016.39(Suppl 1). Performed By: #### 1 9123-9, 70272-0, 2776-08 ####[facility] NAMWNCLIA [id number] [place] [address] [place] Potassium [Moles/Vol] 3.8 mmol/L Normal 3.7-5.1 [facility] Comment on above: Order Comment: Speci men Type: BLOOD SPECIMENOrdering Facility: [facility] Address: [address] [place] [address] Performed By: #### 1 9123-9, 23541-6, 27702-22 ####[facility]ITAL[facility]CLIA [id number] [place] [address] [place] Sodium [Moles/Vol] 140 mmol/L Normal 136-144 [facility] Comment on above: Order Comment: Speci men Type: BLOOD SPECIMENOrdering Facility: [facility] Address: [address] [place], [place] [address] Performed By: #### 1 9123-9, 41415-0, 2777-1 ####[facility] [id number] [place] [address] [place] Urea nitrogen [Mass/Vol] 17 mg/dL Normal 7-21 [facility] Comment on above: Order Comment: Speci men Type: BLOOD SPECIMENOrdering Facility: [facility] Address: [address] [place], [place] [address] Performed By: #### 1 9123-9, 10093-7, 2777-1 ####[facility]ITALNCA [id number] [place] [address] [place] Calcium.ionized [Moles/Vol]o n 01-27-2025 Calcium.ionized (Bld) [Mass/Vol] 1.27 mmol/L Normal 1.08-1.30 [facility] Comment on above: Order Comment: Speci men Type: BLOOD SPECIMENOrdering Facility: [facility] Address: [address] [place] [address] Performed By: #### 1 995-0 ####[facility] [id number] [place] [address] [place] Calcium.ionized adjusted to pH 7.4 (Bld) [Moles/Vol] 1.25 mmol/L Normal 1.08-1.30 [facility] Comment on above: Order Comment: Speci men Type: BLOOD SPECIMENOrdering Facility: [facility] Address: [address] [place], [place] [address] Performed By: #### 1 995-0 ####[facility] [id number] [place] [id number] [place] Collagen crosslinked C-telop eptide [Mass/Vol]on 01-27-2025 C TELOPEPTIDE, BETA CROSS LINKED 625 pg/mL Normal 152-858 [facility] Comment on above: Order Comment: Speci men Type: BLOOD SPECIMENOrdering Facility: [facility] Address: [address] [place] [address] Performed By: #### 4 1171-0 ####[facility] LABCLIA [id number] [place] [address] [place] IMMUNOFIXATION SCREEN, SERUM on 01-27-2025 MPA RESULT No M protein is identified. Normal No M protein is identified. [facility] Comment on above: Order Comment: Speci men Type: URINE SPECIMEN Ordering Facility: [facility] Address: [address] [place] [address] Performed By: #### L [id number] #### [facility] CLIA [id number] [address] [place] [address] [place] STAFF REVIEW (MPA) Reviewed by Rufino Soler MD, Ph.D ([id number]) Normal [facility] Comment on above: Order Comment: Speci men Type: URINE SPECIMEN Ordering Facility: [facility] Address: [address] [place] [address] Performed By: #### L [id number] #### [facility] CLIA [id number] [address] [place] [address] [place] IMMUNOGLOBULINS,IGG,IGA,IGMo n 01-27-2025 IgA [Mass/Vol] 229 mg/dL Normal 70-400 [facility] Comment on above: Order Comment: Speci men Type: BLOOD SPECIMENOrdering Facility: [facility] Address: [address] [place] [address] Performed By: #### S ERIMM ####[facility] LABCLIA [id number] [place] [address] [place] IgG [Mass/Vol] 1058 mg/dL Normal 700-1600 [facility] Comment on above: Order Comment: Speci men Type: BLOOD SPECIMENOrdering Facility: [facility] Address: [address] [place] [address] Performed By: #### S ERIMM ####[facility] LABCLIA [id number] [place] [address] [place] IgM [Mass/Vol] 67 mg/dL Normal 40-230 [facility] Comment on above: Order Comment: Speci men Type: BLOOD SPECIMENOrdering Facility: [facility] Address: [address] [place] [address] Performed By: #### S ERIMM ####[facility] LABIA [id number] [place] [address] [place] KAPPA/CONKLIN,FREE,SERon 2024 Immunoglobulin light chains.kappa.free (S) [Mass/Vol] 21.9 mg/L High 3.3-19.4 [facility] Comment on above: Order Comment: Speci [facility] Type: BLOOD SPECIMENOrdering Facility: [facility] Address: [address] [place] [address] Result Comment: Rare ly, increased serum free light chains levels may not be detected or accurately quantified due to prozone phenomenon or in high viscosity samples using this immunoturbidimetric assay. Correlation with other laboratory results and clinical findings is recommended. The [place] Free Light Chain was performed using the Binding Site Optilite immunoturbidimetric method. Result obtained with different assay methods or kits cannot be used interchangeably. Performed By: #### K LFRS ####[facility] LABIA [id number] [place] [address] [place] Immunoglobulin light chains.kappa/Immunoglob ulin light chains.lambda (S) [Mass ratio] 1.27 Normal 0.26-1.65 [facility] Comment on above: Order Comment: Speci men Type: BLOOD SPECIMENOrdering Facility: [facility] Address: [address] [place] [address] Performed By: #### K LFRS ####[facility] LABCLIA [id number] [place] [address] [place] Immunoglobulin light chains.lambda.free [Mass/Vol] 17.3 mg/L Normal 5.7-26.3 [facility] Comment on above: Order Comment: Speci men Type: BLOOD SPECIMENOrdering Facility: [facility] Address: [address] [place] [address] Result Comment: Rare ly, increased serum free light chains levels may not be detected or accurately quantified due to prozone phenomenon or in high viscosity samples using this immunoturbidimetric assay. Correlation with other laboratory results and clinical findings is recommended. The Lambda Free Light Chain was performed using the Binding Site Optilite immunoturbidimetric method. Result obtained with different assay methods or kits cannot be used interchangeably. Performed By: #### K LFRS ####[facility] LABCLIA [id number] [place] [address] [place] Magnesium SerPl-mCncon 01-27 Magnesium [Mass/Vol] 2.2 mg/dL Normal 1.7-2.[address] [facility] Comment on above: Order Comment: Speci men Type: BLOOD SPECIMENOrdering Facility: [facility] Address: [address] [place] [address] Performed By: #### 1 9123-9, 85050-4, 2777-1 ####[facility] MARKYKETTERING HEALTH GREENE MEMORIALLiz [id number] [place] [address] [place] PROTEIN ELECTROPHORESIS SERU M (P)on 01-27-2025 Albumin [Mass/Vol] 4.19 g/dL Normal 3.43-5.41 [facility] Comment on above: Order Comment: Speci [facility] Type: BLOOD SPECIMENOrdering Facility: [facility] Address: [address] [place] [address] Performed By: #### L [id number] ####[facility] LABIA [id number] [place] [address] [place] Alpha 1 globulin Elph [Mass/Vol] 0.25 g/dL Normal 0.18-0.43 [facility] Comment on above: Order Comment: Speci men Type: BLOOD SPECIMENOrdering Facility: [facility] Address: [address] [place] [address] Performed By: #### L [id number] ####[facility] LABCLIA [id number] [place] [address] [place] Alpha 2 globulin Elph [Mass/Vol] 0.56 g/dL Normal 0.42-0.98 [facility] Comment on above: Order Comment: Speci men Type: BLOOD SPECIMENOrdering Facility: [facility] Address: [address] [place] [address] Performed By: #### L [id number] ####[facility] LABCLIA [id number] [place] [address] [place] Beta globulin Elph [Mass/Vol] 0.79 g/dL Normal 0.61-1.17 [facility] Comment on above: Order Comment: Speci men Type: BLOOD SPECIMENOrdering Facility: [facility] Address: [address] [place] [address] Performed By: #### L [id number] ####[facility] LABCLIA [id number] [place] [address] [place] Gamma globulin Elph [Mass/Vol] 0.90 g/dL Normal 0.53-1.51 [facility] Comment on above: Order Comment: Speci men Type: BLOOD SPECIMENOrdering Facility: [facility] Address: [address] [place] [address] Performed By: #### L [id number] ####[facility] LABCLIA [id number] [place] [address] [place] M-PROTEIN LOCATION Normal [facility] Comment on above: Order Comment: Speci men Type: BLOOD SPECIMENOrdering Facility: [facility] Address: [address] [place] [address] Result Comment: Not Applicable. Performed By: #### L [id number] ####[facility] LABCLIA [id number] [place] [address] [place] Protein Fractions [Interp] No definitive M protein is identified on protein electrophoresis. Normal No definitive M protein is identified on protein electrophores is. [facility] Comment on above: Order Comment: Speci men Type: BLOOD SPECIMENOrdering Facility: [facility] Address: [address] [place] [address] Performed By: #### L [id number] ####[facility] [id number] [place] [address] [place] Protein.monoclonal Elph [Mass/Vol] 0.00 g/dL Normal <=0.00 [facility] Comment on above: Order Comment: Speci men Type: BLOOD SPECIMENOrdering Facility: [facility] Address: [address] [place] [address] Performed By: #### L [id number] ####[facility] [id number] [place] [address] [place] SPE STAFF REVIEW Reviewed by Rufino Soler MD, Ph.D ([id number]) Normal [facility] Comment on above: Order Comment: Speci men Type: BLOOD SPECIMENOrdering Facility: [facility] Address: [address] [place] [address] Performed By: #### L [id number] ####[facility] [id number] [place] [address] [place] PTH-Intact SerPl-mCncon 06-0 -2024 Parathyrin.intact [Mass/Vol] 38 pg/mL Normal 15-65 [facility] Comment on above: Order Comment: Speci men Type: BLOOD SPECIMENOrdering Facility: [facility] Address: [address] [place] [address] Performed By: #### 2 731-8, 2885-2 ####[facility] [id number] [place] [address] [place] Phosphate SerPl-mCncon 01-27 Phosphate [Mass/Vol] 3.3 mg/dL Normal 2.7-4.[address] [facility] Comment on above: Order Comment: Speci men Type: BLOOD SPECIMENOrdering Facility: [facility] Address: [address] [place] [address] Performed By: #### 1 9123-9, 36188-0, 2777-1 ####[facility] [id number] [place] [id number] [place] Prot SerPl-mCncon 01-27-2025 Protein [Mass/Vol] 6.7 g/dL Normal 6.3-8.0 [facility] Comment on above: Order Comment: Speci men Type: BLOOD SPECIMENOrdering Facility: [facility] Address: [address] [place] [address] Performed By: #### 2 731-8, 2885-2 ####[facility] LABCLIA [id number] [place] [address] [place] Prot Ur-mCncon 01-27-2025 Protein (U) [Mass/Vol] 23 mg/dL High 0-20 [facility] Comment on above: Order Comment: Speci men Type: URINE SPECIMENOrdering Facility: [facility] Address: [address] [place] [address] Performed By: #### 2 888-6 ####[facility] LABCLIA [id number] [place] [id number] [place] URINE PROTEIN ELECTROPHORESI S RANDOM (P)on 01-27-2025 Albumin Elph (U) [Mass fraction] 35.99 % Normal [facility] Comment on above: Order Comment: Speci men Type: URINE SPECIMEN Ordering Facility: [facility] Address: [address] [place] [address] Performed By: #### L [id number] #### [facility] CLIA [id number] [place] Alpha 1 globulin Elph (U) [Mass fraction] 2.96 % Normal [facility] Comment on above: Order Comment: Speci men Type: URINE SPECIMEN Ordering Facility: [facility] Address: [address] [place] [address] Performed By: #### L [id number] #### [facility] CLIA [id number] [address] [place] [address] [place] Alpha 2 globulin Elph (U) [Mass fraction] 17.17 % Normal [facility] Comment on above: Order Comment: Speci men Type: URINE SPECIMEN Ordering Facility: [facility] Address: [address] [place] [address] Performed By: #### L [id number] #### [facility] CLIA [id number] [address] [place] [address] [place] Beta globulin Elph (U) [Mass fraction] 26.18 % Normal [facility] Comment on above: Order Comment: Speci men Type: URINE SPECIMEN Ordering Facility: [facility] Address: [address] [place] [address] Performed By: #### L [id number] #### [facility] CLIA [id number] [address] [place] [address] [place] Gamma globulin Elph (U) [Mass fraction] 17.70 % Normal [facility] Comment on above: Order Comment: Speci men Type: URINE SPECIMEN [facility] [facility] Address: [address] [place] [address] Performed By: #### L [id number] #### [facility] CLIA [id number] [address] [place] [address] [place] INTERPRETATION COMMENT FOR PROTEIN ELECTROPHORESIS The atypical region is relatively poorly defined and may represent an unusual presentation of polyclonal immunoglobulins, but cannot rule out the presence of a low level M protein. If clinically indicated, monoclonal protein analysis and serum free light chain analysis are suggested to evaluate further for monoclonal gammopathy. Normal [facility] Comment on above: Order Comment: Speci men Type: URINE SPECIMEN Ordering Facility: [facility] Address: [address] [place] [address] Performed By: #### L [id number] #### [facility] CLIA [id number] [address] [place] [address] [place] Protein Fractions Elph John (U) [Interp] An atypical region of restricted mobility is identified on protein electrophoresis. Abnormal No definitive M protein is identified on protein electrophores is. [facility] Comment on above: Order Comment: Speci men Type: URINE SPECIMEN Ordering Facility: [facility] Address: [address] [place] [address] Performed By: #### L [id number] #### [facility] CLIA [id number] [address] [place] [address] OF [place] STAFF REVIEW (URINE ELECTRO) Reviewed by Rufino Soler MD, Ph.D ([id number]) Normal [facility] Comment on above: Order Comment: Speci men Type: URINE SPECIMEN Ordering Facility: [facility] Address: [address] [place] [address] Performed By: #### L [id number] #### [facility] CLIA [id number] [address] [place] [address] OF [place] CNOVon 01-26-2025 CNOV Office Visit (RHWSTR ) GIANFRANCO HOLLIDAY ([id number]) 1940 F Date Time Provider Department 01/26/25 3:00 PM IRINA ANDERSEN RHWSTR During your visit today, we recorded the following information about you: Pulse Respiration Blood pressure Weight 72/minute 16/minute 117/65 43.6 kg Irina Andersen PA-C 01/26/2025 4:49 PM Signed Osteoporosis and Metabolic Bone Disease CONSULTATION Referring Provider: Angela Mckenzie Date of Service: 01/26/2025 Gender: female Ethnicity: White Age: [age] year old Chief Complaint: Osteoporosis Last Rheumatology visit: None at [facility] Gianfranco Holliday is a 84 year old White female who presents on 01/26/2025 for in person visit for osteoporosis evaluation. Disease History Osteoporosis History No history of fractures Most Recent BMD Link to FRAX Website RAPID 3 [place] Activities of Daily Living No Data Dress self? - Get in and out of bed? - Walk outdoors? - Wash and dry body? - Get in and out of car? - Tobacco Use Never smoked or used smokeless tobacco. Vaping Use Never used Alcohol Use No. Treatment History Fosamax for "2 years" years ago, but stopped by provider due to not wanting to do too many years of treatment Osteoporosis Risk Factors Osteoporosis FRAX Risk Factors No Fractures No family history of osteoporosis No parent with a hip fracture Not a current smoker Glucocorticoid use (Comment: only short term related to rashes/dermatitis) Previous use No alcohol use more than 3 units per day Osteoporosis Medication Risk Factors No use of Aromatase inhibitors No use of Furosemide No use of Proton pump inhibitor No use of Thyroid hormone with oversuppression Osteoporosis Disease-Specific Risk Factors Weight < 127 lbs 96lbs Height loss 1 inch normal balance Fall history No history of eating disorders Renal calculi (Comment: 20 years ago) No CKD Caffeine intake: 1-3 c/day Exercise routine: minimal exercise Types of exercise: walking (Comment: Takes care of outdoor activity) Bone Density Reports Last Bone Density DXA-AXIAL SKELETON Exam End: 01/03/2025 12:43 PM (Final result) Narrative: * * *Final Report* * * DATE OF EXAM: Jan 03 2025 12:43PM [facility] 0804 - DXA - AXIAL SKELETON / PROCEDURE REASON: Osteoporosis, unspecified osteoporosis type, unspecified pathological fracture p * * * * Physician Interpretation * * * * EXAMINATION: DXA BONE DENSITOMETRY BD DXA - AXIAL SKELETON, BD DXA TRABECLR BONE SCORE (TBS) PATIENT DEMOGRAPHICS: Age: 84 years, Gender: Female SCANNER INFORMATION: DXA Model: [employer] [id number] Date Scanned: 01/03/2025 12:43 PM CLINICAL HISTORY: DIAGNOSTIC Osteoporosis, unspecified osteoporosis type, unspecified pathological fracture presence . RISK FACTORS FOR OSTEOPOROSIS AND ASSOCIATED FRACTURES REPORTED BY THIS PATIENT: Please refer to Bone Health Questionnaire in the EMR CURRENT THERAPY: Please refer to Bone Health Questionnaire in the EMR TECHNICAL LIMITATIONS: None RESULTS: Lumbar spine (L1, L2, L3, L4): 0.592 g/cm2, T-score -4.1, Z-score -1.3 Lumbar spine: 2021: 0.643 g/cm2 Statistically significant decrease Right Femoral Neck: 0.407 g/cm2, T-score -4.0, Z-score -1.5 Right Femoral Neck: 2021: 0.449 g/cm2 Statistically significant decrease Right Total Hip: 0.654 g/cm2, T-score -2.4, Z-score -0.1 Right Total Hip: 2021: 0.656 g/cm2 No statistically significant change Left Femoral Neck: 0.408 g/cm2, T-score -4.0, Z-score -1.5 Left Femoral Neck: 2021: 0.444 g/cm2 Statistically significant decrease Left Total Hip: 0.632 g/cm2, T-score -2.5, Z-score -0.3 Left Total Hip: 2021: 0.671 g/cm2 Statistically significant decrease CHANGE IS STATISTICALLY SIGNIFICANT IN THE SPINE OR HIP IF GREATER THAN OR EQUAL TO 0.04 g/cm2 VERTEBRAL FRACTURE ASSESSMENT Not performed. TRABECULAR BONE ASSESSMENT TBS score: 1.298 Bone micro-architecture: Partially degraded (1.231 - 1.310) Impression: IMPRESSION: THE LOWEST T-SCORE IS -4.1 IN THE SPINE 1) DIAGNOSIS (based on BMD alone): OSTEOPOROSIS Caution: Medical conditions other than osteoporosis may cause low bone density, such as osteomalacia or renal osteodystrophy. Clinical correlation is necessary. 2) FRACTURE RISK (based on FRAX): 10-year absolute fracture risk: - major osteoporotic fracture = 28 % - hip fracture = 15 % - A diagnosis of Osteoporosis, a 10 year probability of hip fracture greater than or equal to 3% or a 10 year probability of any major osteoporosis-related fracture greater than or equal to 20% should be considered for treatment. - DXA scanner generated FRAX calculations may slightly differ from online FRAX calculations due to differences in software versions. - All recommendations and calculations are to be considered as guidelines and sh (more content not included)... Normal [facility] RACHAEL SCREENING W TOMOon 01-12 RACHAEL SCREENING W STEPHANIE * * *Final Report* * * DATE OF EXAM: Jan 12 2025 11:49AM JOVIW [id number] - RACHAEL SCREENING W STEPHANIE / PROCEDURE REASON: Encounter for screening mammogram for breast cancer * * * * Physician Interpretation * * * * RESULT: [place] [address] [place] [address] #[id number] - RACHAEL SCREENING W STEPHANIE HISTORY: 84 year-old patient seen for screening. Patient is asymptomatic in both breasts. Patient states no personal history of breast cancer. COMPARISON STUDIES: The present examination has been compared to prior imaging studies dated 06/30/2019 (mammogram), 12/26/2021 (mammogram), 02/05/2022 (mammogram), 12/30/2022 (mammogram) and 01/12/2024 (mammogram). MAMMOGRAM TECHNIQUE: The study was acquired using full field digital technology and interpreted from soft copy. Digital Breast Tomosynthesis (DBT) images were obtained and used to assist in the interpretation of this examination. MAMMOGRAM FINDINGS: There are scattered areas of fibroglandular density. There is a stable asymmetry in the left breast. No suspicious masses, calcifications or other abnormalities are seen in either breast. IMPRESSION: There is no mammographic evidence of malignancy. Routine screening mammogram is recommended. Annual mammogram will be due in 1 year. BI-RADS Category 2: Benign Interpreting Radiologist: Blake Mcgregor M.D. Electronically signed on: 01/14/2025 Consulting Project Director: ROSA Transcribe Date/Time: Jan 12 2025 11:21A Dictated by: BLAKE MCGREGOR MD This examination was interpreted and the report reviewed and electronically signed by: BLAKE MCGREGOR MD on Jan 14 2025 11:11AM EST [id number] Normal [facility] BD DXA - AXIAL SKELETONon BD DXA - AXIAL SKELETON * * *Final Repor t* * * DATE OF EXAM: Jan 03 2025 12:43PM [facility] 0804 - BD DXA - AXIAL SKELETON / PROCEDURE REASON: Osteoporosis, unspecified osteoporosis type, unspecified pathological fracture p * * * * Physician Interpretation * * * * EXAMINATION: DXA BONE DENSITOMETRY BD DXA - AXIAL SKELETON, BD DXA TRABECLR BONE SCORE (TBS) PATIENT DEMOGRAPHICS: Age: 84 years, Gender: Female SCANNER INFORMATION: DXA Model: [employer] [id number] Date Scanned: 01/03/2025 12:43 PM CLINICAL HISTORY: DIAGNOSTIC Osteoporosis, unspecified osteoporosis type, unspecified pathological fracture presence . RISK FACTORS FOR OSTEOPOROSIS AND ASSOCIATED FRACTURES REPORTED BY THIS PATIENT: Please refer to Bone Health Questionnaire in the EMR CURRENT THERAPY: Please refer to Bone Health Questionnaire in the EMR TECHNICAL LIMITATIONS: None RESULTS: Lumbar spine (L1, L2, L3, L4): 0.592 g/cm2, T-score -4.1, Z-score -1.3 Lumbar spine: 2021: 0.643 g/cm2 Statistically significant decrease Right Femoral Neck: 0.407 g/cm2, T-score -4.0, Z-score -1.5 Right Femoral Neck: 2021: 0.449 g/cm2 Statistically significant decrease Right Total Hip: 0.654 g/cm2, T-score -2.4, Z-score -0.1 Right Total Hip: 2021: 0.656 g/cm2 No statistically significant change Left Femoral Neck: 0.408 g/cm2, T-score -4.0, Z-score -1.5 Left Femoral Neck: 2021: 0.444 g/cm2 Statistically significant decrease Left Total Hip: 0.632 g/cm2, T-score -2.5, Z-score -0.3 Left Total Hip: 2021: 0.671 g/cm2 Statistically significant decrease CHANGE IS STATISTICALLY SIGNIFICANT IN THE SPINE OR HIP IF GREATER THAN OR EQUAL TO 0.04 g/cm2 VERTEBRAL FRACTURE ASSESSMENT Not performed. TRABECULAR BONE ASSESSMENT TBS score: 1.298 Bone micro-architecture: Partially degraded (1.231 - 1.310) IMPRESSION: THE LOWEST T-SCORE IS -4.1 IN THE SPINE 1) DIAGNOSIS (based on BMD alone): OSTEOPOROSIS Caution: Medical conditions other than osteoporosis may cause low bone density, such as osteomalacia or renal osteodystrophy. Clinical correlation is necessary. 2) FRACTURE RISK (based on FRAX): 10-year absolute fracture risk: - major osteoporotic fracture = 28 % - hip fracture = 15 % - A diagnosis of Osteoporosis, a 10 year probability of hip fracture greater than or equal to 3% or a 10 year probability of any major osteoporosis-related fracture greater than or equal to 20% should be considered for treatment. - DXA scanner generated FRAX calculations may slightly differ from online FRAX calculations due to differences in software versions. - All recommendations and calculations are to be considered as guidelines and should not replace sound clinical judgement - Caution: Fracture risk may be increased independent of BMD in patients with corticosteroid use, age greater than 65 years, or a history of prior fragility fracture. RECOMMENDATIONS: Follow-up in 2 years or as clinically indicated. Patients that are taking corticosteroids, are transplant recipients or have hyperparathyroidism should have annual follow-up. Follow-up scans should always be done on the same machine for accurate comparison. FOR MORE INFORMATION ABOUT DIAGNOSIS AND TREATMENT: [facility] Center for Osteoporosis and Metabolic Bone Disease:? www.ccf.org/arthritis/ osteo National Osteoporosis Foundation:? www.nof.org International Society of Clinical Densitometry www.iscd.org Consulting Project Director: RADHA Transcribe Date/Time: Jan 03 2025 1:35P Dictated by : MONTANA MAI MD This examination was interpreted and the report reviewed and electronically signed by: MONTANA MAI MD on Jan 03 2025 1:46PM EST [id number] -4.1 Normal [facility] BD DXA TRABECLR BONE SCORE ( TBS)on 01-03-2025 BD DXA TRABECLR BONE SCORE (TBS) * * *Final Report* * * DATE OF EXAM: Jan 03 2025 12:43PM [facility] 0801 - BD DXA TRABECLR BONE SCORE (TBS) / PROCEDURE REASON: Osteoporosis, unspecified osteoporosis type, unspecified pathological fracture p * * * * Physician Interpretation * * * * EXAMINATION: DXA BONE DENSITOMETRY BD DXA - AXIAL SKELETON, BD DXA TRABECLR BONE SCORE (TBS) PATIENT DEMOGRAPHICS: Age: 84 years, Gender: Female SCANNER INFORMATION: DXA Model: [employer] [id number] Date Scanned: 01/03/2025 12:43 PM CLINICAL HISTORY: DIAGNOSTIC Osteoporosis, unspecified osteoporosis type, unspecified pathological fracture presence . RISK FACTORS FOR OSTEOPOROSIS AND ASSOCIATED FRACTURES REPORTED BY THIS PATIENT: Please refer to Bone Health Questionnaire in the EMR CURRENT THERAPY: Please refer to Bone Health Questionnaire in the EMR TECHNICAL LIMITATIONS: None RESULTS: Lumbar spine (L1, L2, L3, L4): 0.592 g/cm2, T-score -4.1, Z-score -1.3 Lumbar spine: 2021: 0.643 g/cm2 Statistically significant decrease Right Femoral Neck: 0.407 g/cm2, T-score -4.0, Z-score -1.5 Right Femoral Neck: 2021: 0.449 g/cm2 Statistically significant decrease Right Total Hip: 0.654 g/cm2, T-score -2.4, Z-score -0.1 Right Total Hip: 2021: 0.656 g/cm2 No statistically significant change Left Femoral Neck: 0.408 g/cm2, T-score -4.0, Z-score -1.5 Left Femoral Neck: 2021: 0.444 g/cm2 Statistically significant decrease Left Total Hip: 0.632 g/cm2, T-score -2.5, Z-score -0.3 Left Total Hip: 2021: 0.671 g/cm2 Statistically significant decrease CHANGE IS STATISTICALLY SIGNIFICANT IN THE SPINE OR HIP IF GREATER THAN OR EQUAL TO 0.04 g/cm2 VERTEBRAL FRACTURE ASSESSMENT Not performed. TRABECULAR BONE ASSESSMENT TBS score: 1.298 Bone micro-architecture: Partially degraded (1.231 - 1.310) IMPRESSION: THE LOWEST T-SCORE IS -4.1 IN THE SPINE 1) DIAGNOSIS (based on BMD alone): OSTEOPOROSIS Caution: Medical conditions other than osteoporosis may cause low bone density, such as osteomalacia or renal osteodystrophy. Clinical correlation is necessary. 2) FRACTURE RISK (based on FRAX): 10-year absolute fracture risk: - major osteoporotic fracture = 28 % - hip fracture = 15 % - A diagnosis of Osteoporosis, a 10 year probability of hip fracture greater than or equal to 3% or a 10 year probability of any major osteoporosis-related fracture greater than or equal to 20% should be considered for treatment. - DXA scanner generated FRAX calculations may slightly differ from online FRAX calculations due to differences in software versions. - All recommendations and calculations are to be considered as guidelines and should not replace sound clinical judgement - Caution: Fracture risk may be increased independent of BMD in patients with corticosteroid use, age greater than 65 years, or a history of prior fragility fracture. RECOMMENDATIONS: Follow-up in 2 years or as clinically indicated. Patients that are taking corticosteroids, are transplant recipients or have hyperparathyroidism should have annual follow-up. Follow-up scans should always be done on the same machine for accurate comparison. FOR MORE INFORMATION ABOUT DIAGNOSIS AND TREATMENT: [facility] Center for Osteoporosis and Metabolic Bone Disease:? www.ccf.org/arthritis/ osteo National Osteoporosis Foundation:? www.nof.org International Society of Clinical Densitometry www.iscd.org Consulting Project Director: RADHA Transcribe Date/Time: Jan 03 2025 1:35P Dictated by : MONTANA MAI MD This examination was interpreted and the report reviewed and electronically signed by: MONTANA MAI MD on Jan 03 2025 1:46PM EST [id number] -4.1 Normal [facility] DXA Femur [T-score] Bone den marybeth 01-03-2025 * * *Final Report* * * DATE OF EXAM: Jan 03 2025 12:43PM [facility] 0801 - BD DXA TRABECLR BONE SCORE (TBS) / PROCEDURE REASON: Osteoporosis, unspecified osteoporosis type, unspecified pathological fracture p * * * * Physician Interpretation * * * * EXAMINATION: DXA BONE DENSITOMETRY BD DXA - AXIAL SKELETON, BD DXA TRABECLR BONE SCORE (TBS) PATIENT DEMOGRAPHICS: Age: 84 years, Gender: Female SCANNER INFORMATION: DXA Model: [employer] [id number] Date Scanned: 01/03/2025 12:43 PM CLINICAL HISTORY: DIAGNOSTIC Osteoporosis, unspecified osteoporosis type, unspecified pathological fracture presence . RISK FACTORS FOR OSTEOPOROSIS AND ASSOCIATED FRACTURES REPORTED BY THIS PATIENT: Please refer to Bone Health Questionnaire in the EMR CURRENT THERAPY: Please refer to Bone Health Questionnaire in the EMR TECHNICAL LIMITATIONS: None RESULTS: Lumbar spine (L1, L2, L3, L4): 0.592 g/cm2, T-score -4.1, Z-score -1.3 Lumbar spine: 2021: 0.643 g/cm2 Statistically significant decrease Right Femoral Neck: 0.407 g/cm2, T-score -4.0, Z-score -1.5 Right Femoral Neck: 2021: 0.449 g/cm2 Statistically significant decrease Right Total Hip: 0.654 g/cm2, T-score -2.4, Z-score -0.1 Right Total Hip: 2021: 0.656 g/cm2 No statistically significant change Left Femoral Neck: 0.408 g/cm2, T-score -4.0, Z-score -1.5 Left Femoral Neck: 2021: 0.444 g/cm2 Statistically significant decrease Left Total Hip: 0.632 g/cm2, T-score -2.5, Z-score -0.3 Left Total Hip: 2021: 0.671 g/cm2 Statistically significant decrease CHANGE IS STATISTICALLY SIGNIFICANT IN THE SPINE OR HIP IF GREATER THAN OR EQUAL TO 0.04 g/cm2 VERTEBRAL FRACTURE ASSESSMENT Not performed. TRABECULAR BONE ASSESSMENT TBS score: 1.298 Bone micro-architecture: Partially degraded (1.231 - 1.310) DIVISION OF RADIOLOGY Provider, [facility] - 01/03/2025 * * *Final Report* * * DATE OF EXAM: Jan 03 2025 12:43PM [facility] 0801 - BD DXA TRABECLR BONE SCORE (TBS) / PROCEDURE REASON: Osteoporosis, unspecified osteoporosis type, unspecified pathological fracture p * * * * Physician Interpretation * * * * EXAMINATION: DXA BONE DENSITOMETRY BD DXA - AXIAL SKELETON, BD DXA TRABECLR BONE SCORE (TBS) PATIENT DEMOGRAPHICS: Age: 84 years, Gender: Female SCANNER INFORMATION: DXA Model: [employer] [id number] Date Scanned: 01/03/2025 12:43 PM CLINICAL HISTORY: DIAGNOSTIC Osteoporosis, unspecified osteoporosis type, unspecified pathological fracture presence . RISK FACTORS FOR OSTEOPOROSIS AND ASSOCIATED FRACTURES REPORTED BY THIS PATIENT: Please refer to Bone Health Questionnaire in the EMR CURRENT THERAPY: Please refer to Bone Health Questionnaire in the EMR TECHNICAL LIMITATIONS: None RESULTS: Lumbar spine (L1, L2, L3, L4): 0.592 g/cm2, T-score -4.1, Z-score -1.3 Lumbar spine: 2021: 0.643 g/cm2 Statistically significant decrease Right Femoral Neck: 0.407 g/cm2, T-score -4.0, Z-score -1.5 Right Femoral Neck: 2021: 0.449 g/cm2 Statistically significant decrease Right Total Hip: 0.654 g/cm2, T-score -2.4, Z-score -0.1 Right Total Hip: 2021: 0.656 g/cm2 No statistically significant change Left Femoral Neck: 0.408 g/cm2, T-score -4.0, Z-score -1.5 Left Femoral Neck: 2021: 0.444 g/cm2 Statistically significant decrease Left Total Hip: 0.632 g/cm2, T-score -2.5, Z-score -0.3 Left Total Hip: 2021: 0.671 g/cm2 Statistically significant decrease CHANGE IS STATISTICALLY SIGNIFICANT IN THE SPINE OR HIP IF GREATER THAN OR EQUAL TO 0.04 g/cm2 VERTEBRAL FRACTURE ASSESSMENT Not performed. TRABECULAR BONE ASSESSMENT TBS score: 1.298 Bone micro-architecture: Partially degraded (1.231 - 1.310) IMPRESSION IMPRESSION: THE LOWEST T-SCORE IS -4.1 IN THE SPINE 1) DIAGNOSIS (based on BMD alone): OSTEOPOROSIS Caution: Medical conditions other than osteoporosis may cause low bone density, such as osteomalacia or renal osteodystrophy. Clinical correlation is necessary. 2) FRACTURE RISK (based on FRAX): 10-year absolute fracture risk: - major osteoporotic fracture = 28 % - hip fracture = 15 % - A diagnosis of Osteoporosis, a 10 year probability of hip fracture greater than or equal to 3% or a 10 year probability of any major osteoporosis-related fracture greater than or equal to 20% should be considered for treatment. - DXA scanner generated FRAX calculations may slightly differ from online FRAX calculations due to differences in software versions. - All recommendations and calculations are to be considered as guidelines and should not replace sound clinical judgement - Caution: Fracture risk may be increased independent of BMD in patients with corticosteroid use, age greater than 65 years, or a history of prior fragility fracture. RECOMMENDATIONS: Follow-up in 2 years or as clinically indicated. Patients that are taking corticosteroids, are transplant recipients or have hyperparathyroidism should have annual follow-up. Follow-up scans should always be done on the same machine for accurate comparison. FOR MORE INFORMATION ABOUT DIAGNOSIS AND TREATMENT: [facility] Center for Osteoporosis and Metabolic Bone Disease:? www.ccf.org/arthritis/ osteo National Osteoporosis Foundation:? www.nof.org International Society of Clinical Densitometry www.iscd.org Consulting Project Director: RADHA Transcribe Date/Time: Jan 03 2025 1:35P Dictated by : MONTANA MAI MD This examination was interpreted and the report reviewed and electronically signed by: MONTANA MAI MD on Jan 03 2025 1:46PM [facility] DXA Skeletal system.axial Vi ews for bone densityon 01-03-2025 * * *Final Report* * * DATE OF EXAM: Jan 03 2025 12:43PM [facility] 0804 - BD DXA - AXIAL SKELETON / PROCEDURE REASON: Osteoporosis, unspecified osteoporosis type, unspecified pathological fracture p * * * * Physician Interpretation * * * * EXAMINATION: DXA BONE DENSITOMETRY BD DXA - AXIAL SKELETON, BD DXA TRABECLR BONE SCORE (TBS) PATIENT DEMOGRAPHICS: Age: 84 years, Gender: Female SCANNER INFORMATION: DXA Model: [employer] [id number] Date Scanned: 01/03/2025 12:43 PM CLINICAL HISTORY: DIAGNOSTIC Osteoporosis, unspecified osteoporosis type, unspecified pathological fracture presence . RISK FACTORS FOR OSTEOPOROSIS AND ASSOCIATED FRACTURES REPORTED BY THIS PATIENT: Please refer to Bone Health Questionnaire in the EMR CURRENT THERAPY: Please refer to Bone Health Questionnaire in the EMR TECHNICAL LIMITATIONS: None RESULTS: Lumbar spine (L1, L2, L3, L4): 0.592 g/cm2, T-score -4.1, Z-score -1.3 Lumbar spine: 2021: 0.643 g/cm2 Statistically significant decrease Right Femoral Neck: 0.407 g/cm2, T-score -4.0, Z-score -1.5 Right Femoral Neck: 2021: 0.449 g/cm2 Statistically significant decrease Right Total Hip: 0.654 g/cm2, T-score -2.4, Z-score -0.1 Right Total Hip: 2021: 0.656 g/cm2 No statistically significant change Left Femoral Neck: 0.408 g/cm2, T-score -4.0, Z-score -1.5 Left Femoral Neck: 2021: 0.444 g/cm2 Statistically significant decrease Left Total Hip: 0.632 g/cm2, T-score -2.5, Z-score -0.3 Left Total Hip: 2021: 0.671 g/cm2 Statistically significant decrease CHANGE IS STATISTICALLY SIGNIFICANT IN THE SPINE OR HIP IF GREATER THAN OR EQUAL TO 0.04 g/cm2 VERTEBRAL FRACTURE ASSESSMENT Not performed. TRABECULAR BONE ASSESSMENT TBS score: 1.298 Bone micro-architecture: Partially degraded (1.231 - 1.310) DIVISION OF RADIOLOGY Provider, Jayda Thompson - 01/03/2025 * * *Final Report* * * DATE OF EXAM: Jan 03 2025 12:43PM [facility] 0804 - BD DXA - AXIAL SKELETON / PROCEDURE REASON: Osteoporosis, unspecified osteoporosis type, unspecified pathological fracture p * * * * Physician Interpretation * * * * EXAMINATION: DXA BONE DENSITOMETRY BD DXA - AXIAL SKELETON, BD DXA TRABECLR BONE SCORE (TBS) PATIENT DEMOGRAPHICS: Age: 84 years, Gender: Female SCANNER INFORMATION: DXA Model: [employer] [id number] Date Scanned: 01/03/2025 12:43 PM CLINICAL HISTORY: DIAGNOSTIC Osteoporosis, unspecified osteoporosis type, unspecified pathological fracture presence . RISK FACTORS FOR OSTEOPOROSIS AND ASSOCIATED FRACTURES REPORTED BY THIS PATIENT: Please refer to Bone Health Questionnaire in the EMR CURRENT THERAPY: Please refer to Bone Health Questionnaire in the EMR TECHNICAL LIMITATIONS: None RESULTS: Lumbar spine (L1, L2, L3, L4): 0.592 g/cm2, T-score -4.1, Z-score -1.3 Lumbar spine: 2021: 0.643 g/cm2 Statistically significant decrease Right Femoral Neck: 0.407 g/cm2, T-score -4.0, Z-score -1.5 Right Femoral Neck: 2021: 0.449 g/cm2 Statistically significant decrease Right Total Hip: 0.654 g/cm2, T-score -2.4, Z-score -0.1 Right Total Hip: 2021: 0.656 g/cm2 No statistically significant change Left Femoral Neck: 0.408 g/cm2, T-score -4.0, Z-score -1.5 Left Femoral Neck: 2021: 0.444 g/cm2 Statistically significant decrease Left Total Hip: 0.632 g/cm2, T-score -2.5, Z-score -0.3 Left Total Hip: 2021: 0.671 g/cm2 Statistically significant decrease CHANGE IS STATISTICALLY SIGNIFICANT IN THE SPINE OR HIP IF GREATER THAN OR EQUAL TO 0.04 g/cm2 VERTEBRAL FRACTURE ASSESSMENT Not performed. TRABECULAR BONE ASSESSMENT TBS score: 1.298 Bone micro-architecture: Partially degraded (1.231 - 1.310) IMPRESSION IMPRESSION: THE LOWEST T-SCORE IS -4.1 IN THE SPINE 1) DIAGNOSIS (based on BMD alone): OSTEOPOROSIS Caution: Medical conditions other than osteoporosis may cause low bone density, such as osteomalacia or renal osteodystrophy. Clinical correlation is necessary. 2) FRACTURE RISK (based on FRAX): 10-year absolute fracture risk: - major osteoporotic fracture = 28 % - hip fracture = 15 % - A diagnosis of Osteoporosis, a 10 year probability of hip fracture greater than or equal to 3% or a 10 year probability of any major osteoporosis-related fracture greater than or equal to 20% should be considered for treatment. - DXA scanner generated FRAX calculations may slightly differ from online FRAX calculations due to differences in software versions. - All recommendations and calculations are to be considered as guidelines and should not replace sound clinical judgement - Caution: Fracture risk may be increased independent of BMD in patients with corticosteroid use, age greater than 65 years, or a history of prior fragility fracture. RECOMMENDATIONS: Follow-up in 2 years or as clinically indicated. Patients that are taking corticosteroids, are transplant recipients or have hyperparathyroidism should have annual follow-up. Follow-up scans should always be done on the same machine for accurate comparison. FOR MORE INFORMATION ABOUT DIAGNOSIS AND TREATMENT: [facility] for Osteoporosis and Metabolic Bone Disease:? www.ccf.org/arthritis/ osteo National Osteoporosis Foundation:? www.nof.org International Society of Clinical Densitometry www.iscd.org Consulting Project Director: RADHA Transcribe Date/Time: Jan 03 2025 1:35P Dictated by : MONTANA MAI MD This examination was interpreted and the report reviewed and electronically signed by: MONTANA MAI MD on Jan 03 2025 1:46PM [facility] No Panel InformationOrdered By: [facility] Provider on 01-03-2025 LOWEST T-SCORE -4.1 [facility] No Panel Informationon 01-03 IMPRESSION: THE LOWEST T-SCORE IS -4.1 IN THE SPINE 1) DIAGNOSIS (based on BMD alone): OSTEOPOROSIS Caution: Medical conditions other than osteoporosis may cause low bone density, such as osteomalacia or renal osteodystrophy. Clinical correlation is necessary. 2) FRACTURE RISK (based on FRAX): 10-year absolute fracture risk: - major osteoporotic fracture = 28 % - hip fracture = 15 % - A diagnosis of Osteoporosis, a 10 year probability of hip fracture greater than or equal to 3% or a 10 year probability of any major osteoporosis-related fracture greater than or equal to 20% should be considered for treatment. - DXA scanner generated FRAX calculations may slightly differ from online FRAX calculations due to differences in software versions. - All recommendations and calculations are to be considered as guidelines and should not replace sound clinical judgement - Caution: Fracture risk may be increased independent of BMD in patients with corticosteroid use, age greater than 65 years, or a history of prior fragility fracture. RECOMMENDATIONS: Follow-up in 2 years or as clinically indicated. Patients that are taking corticosteroids, are transplant recipients or have hyperparathyroidism should have annual follow-up. Follow-up scans should always be done on the same machine for accurate comparison. FOR MORE INFORMATION ABOUT DIAGNOSIS AND TREATMENT: [facility] for Osteoporosis and Metabolic Bone Disease:? www.ccf.org/arthritis/ osteo National Osteoporosis Foundation:? www.nof.org International Society of Clinical Densitometry www.iscd.org Consulting Project Director: RADHA Transcribe Date/Time: Jan 03 2025 1:35P Dictated by : MONTANA MAI MD This examination was interpreted and the report reviewed and electronically signed by: MONTANA MAI MD on Jan 03 2025 1:46PM [facility] DIVISION OF RADIOLOGY Radiology Study observation (narrative) [facility] CT SINUS WO IVCONon 11-13-19 CT SINUS WO IVCON * * *Final Report* * * DATE OF EXAM: Nov 12 2024 3:35PM [facility] [id number] - CT SINUS WO IVCON / PROCEDURE REASON: Chronic sinusitis, unspecified location * * * * Physician Interpretation * * * * EXAMINATION: CT SINUS WO IVCON CLINICAL HISTORY: Chronic sinusitis TECHNIQUE: Spiral high resolution axial unenhanced CT images were obtained through the paranasal sinuses with sagittal, coronal reconstructions. MQ: CTSI_1 CT Radiation dose: Integrated Dose-Length Product (DLP) for this visit = 169 mGy*cm. CT Dose Reduction Employed: Automated exposure control(AEC) and iterative recon COMPARISON: None. RESULT: Post-Surgical Findings: None Sinus Chambers: Sinuses are clear. LEFT You Lizet Score: 0 RIGHT You [place] Score: 0 TOTAL Milam [place] Score: 0 Nasal Cavities: Visualized nasal cavities are patent. Developmental Anomalies: None Other: The visualized mastoid air cells and middle ear cavities are clear. The soft tissues of the face and orbits are within normal limits within the limitations of the study. Localizer images: No additional findings. IMPRESSION: Clear paranasal sinuses and major drainage pathways. Consulting Project Director: [facility] Transcribe Date/Time: Nov 12 2024 3:57P Dictated by : CISCO JUSTICE MD This examination was interpreted and the report reviewed and electronically signed by: CISCO JUSTICE MD on Nov 12 2024 3:57PM EST [id number] Normal [facility] CT Sinuses WO contraston IMPRESSION: Clear paranasal sinuses and major drainage pathways. Consulting Project Director: [facility] Transcribe Date/Time: Nov 12 2024 3:57P Dictated by : CISCO JUSTICE MD This examination was interpreted and the report reviewed and electronically signed by: CISCO JUSTICE MD on Nov 12 2024 3:57PM EST DIVISION OF RADIOLOGY * * *Final Report* * * DATE OF EXAM: Nov 12 2024 3:35PM [facility] [id number] - CT SINUS WO IVCON / PROCEDURE REASON: Chronic sinusitis, unspecified location * * * * Physician Interpretation * * * * EXAMINATION: CT SINUS WO IVCON CLINICAL HISTORY: Chronic sinusitis TECHNIQUE: Spiral high resolution axial unenhanced CT images were obtained through the paranasal sinuses with sagittal, coronal reconstructions. MQ: CTSI_1 CT Radiation dose: Integrated Dose-Length Product (DLP) for this visit = 169 mGy*cm. CT Dose Reduction Employed: Automated exposure control(AEC) and iterative recon COMPARISON: None. RESULT: Post-Surgical Findings: None Sinus Chambers: Sinuses are clear. LEFT You [place] Score: 0 RIGHT You [place] Score: 0 TOTAL Milam Lizet Score: 0 Nasal Cavities: Visualized nasal cavities are patent. Developmental Anomalies: None Other: The visualized mastoid air cells and middle ear cavities are clear. The soft tissues of the face and orbits are within normal limits within the limitations of the study. Localizer images: No additional findings. DIVISION OF RADIOLOGY Provider, [facility] - 11/12/2024 * * *Final Report* * * DATE OF EXAM: Nov 12 2024 3:35PM [facility] [id number] - CT SINUS WO IVCON / PROCEDURE REASON: Chronic sinusitis, unspecified location * * * * Physician Interpretation * * * * EXAMINATION: CT SINUS WO IVCON CLINICAL HISTORY: Chronic sinusitis TECHNIQUE: Spiral high resolution axial unenhanced CT images were obtained through the paranasal sinuses with sagittal, coronal reconstructions. MQ: CTSI_1 CT Radiation dose: Integrated Dose-Length Product (DLP) for this visit = 169 mGy*cm. CT Dose Reduction Employed: Automated exposure control(AEC) and iterative recon COMPARISON: None. RESULT: Post-Surgical Findings: None Sinus Chambers: Sinuses are clear. LEFT You Lizet Score: 0 RIGHT You Lizet Score: 0 TOTAL Milam Lizet Score: 0 Nasal Cavities: Visualized nasal cavities are patent. Developmental Anomalies: None Other: The visualized mastoid air cells and middle ear cavities are clear. The soft tissues of the face and orbits are within normal limits within the limitations of the study. Localizer images: No additional findings. IMPRESSION IMPRESSION: Clear paranasal sinuses and major drainage pathways. Consulting Project Director: RADHA Transcribe Date/Time: Nov 12 2024 3:57P Dictated by : CISCO JUSTICE MD This examination was interpreted and the report reviewed and electronically signed by: CISCO JUSTICE MD on Nov 12 2024 3:57PM [facility] Radiology Study observation (narrative) Rachna langford [facility] CT Sinuses WO Evie langford By: [facility] Provider on 11-12-2024 [facility] CNOVon 11-11-2024 CNOV Office Visit (FAMPWS ) GIANFRANCO HOLLIDAY ([id number]) 1940 F Date Time Provider Department 11/11/24 10:40 AM KAYDEN COLEMANPWS During your visit today, we recorded the following information about you: Temperature Pulse Blood pressure 98.1 degrees 73/minute 134/70 Kayden Coleman, EMEKA.SHAMPOO PERSON 11/11/2024 10:57 AM Signed Chief Complaint Patient presents with: Ear Problem: Right HPI Gianfranco Holliday is a 84 year old female who presents here today for Above Complaints.. Patient presents for continued right ear pain as well as continued right jaw pain/swelling and right sinus. Patient has had recurrent sinus and right ear complaints since August and has been on medrol, antibiotics, flonase and ear drops with continued recurrent symptoms monthly. Past medical history, appointments, medications, allergies reviewed. Previous Medical History PAST MEDICAL HISTORY Diagnosis Date Abnormal mammogram 06/17/2015 Sees [facility] yearly for exam and mammogram Adjustment insomnia 12/25/2018 Advance directive discussed with patient 06/20/2022 Discussed 05/2022 Arthritis Arthritis of both hips 12/19/2021 Burping 12/15/2015 Diverticulosis of large intestine Esophageal dysphagia 01/08/2017 NL upper GI 11/2016: if worrsens will refer for EGD. Family history of leukemia 06/17/2015 Family history of malignant neoplasm of gastrointestinal tract 06/14/2010 Family history of malignant neoplasm of gastrointestinal tract History of DVT (deep vein thrombosis) 11/14/201710/2017; Below the knee, did not advance and no anticoagulation needed. Internal hemorrhoids without mention of complication Lichen planus Lymphocytosis 06/17/2015 Chronic: stable around 45=50% Medicare annual wellness visit, subsequent 06/12/2017 Medicare Part B: NA last done: 06/30/2019 Osteoporosis 06/17/2015 Seasonal allergies 12/15/2015 Situational depression 12/25/2018 loss of 09/17/2018 Stress 06/24/2018 Trigger ring finger of right hand 06/30/2019 Previous Surgical History PAST SURGICAL HISTORY Procedure Laterality Date APPENDECTOMY COLONOSCOPY FLX DX W/COLLJ SPEC WHEN PFRMD 08/08/2010 repeat in 5 yrs COLONOSCOPY FLX DX W/COLLJ SPEC WHEN PFRMD 07/03/2015 Colonoscopy COLONOSCOPY SCREENING 09/10/2023 next colonoscopy due in 5 years SALPINGO-OOPHORECTOMY COMPL/PRTL UNI/BI SPX Salpingo-oophorectomy STRESS TEST 07/14/2017 WNL TOTAL ABDOMINAL HYSTERECT W/WO RMVL TUBE OVARY Hysterectomy, RASHIDA Family History FAMILY HISTORY Problem Relation Age of Onset Cancer Mother ? liver CA Colon Cancer Father other (skin cancer) Daughter Patient Allergies ALLERGIES Allergen Reactions Fexofenadine Other: See Comments headache/sore tongue Sulfamethoxazole-Tr* Other: See Comments Dizzy, sweating and vomiting. Current Medications Current Outpatient Medications on File Prior to Visit Medication Sig fluticasone (FLONASE) 50 mcg/actuation nasal spray Use 2 Sprays in each nostril once daily. Rinse mouth after use. No current facility-administered medications on file prior to visit. Social History Social History Tobacco Use Smoking status: Never Smokeless tobacco: Never Vaping Use Vaping status: Never Used Substance Use Topics Alcohol use: No Drug use: No Review of Symptoms REVIEW OF SYSTEMS SEE HPI EXAM: BP 134/70 Pulse 73 Temp 36.7 ?C (98.1 ?F) SpO2 99% General Appearance: Well appearing, alert, in no acute distress, well-hydrated, well nourished.. Ears: External ears normal, canals clear. Nose/Sinuses: Positive findings: mucosa erythematous and swollen, clear rhinorrhea. Oropharynx: Lips, mucosa, and tongue normal, teeth and gums normal, oropharynx normal and Positive findings: swelling of right jaw. Neck: Supple, no adenopathy; thyroid symmetric, normal size, no bruits. Health Maintenance List Bone Density Screening due on 12/27/2023 DTaP,Tdap,Td Vaccine(1 - Tdap) due on 10/28/2025 RSV Vaccine(1 - 1-dose 75+ series) due on 10/28/2025 Shingrix Vaccine(1 of 2) due on 10/28/2025 Covid-19 Vaccine( - 2023- season) due on 10/28/2025 Anxiety Screening due on 10/28/2025 Diabetes Screening due on 10/18/2027 Advance Directive Discussion Completed Influenza Vaccine Discontinued Colorectal Cancer Screening Discontinued Pneumococcal Vaccine: 50+ Discontinued ASSESSMENT/PLAN: 1. Chronic sinusitis, unspecified location - ICD9: 473.9, ICD10: J32.9 - The patient should also be given nasal saline gtts and suction prn and flonase for the first 5-7 days of treatment. - Supportive care with plenty of fluids, rest, and analgesia prn. - CT SINUS WO IVCON - CONSULT TO ENT Kayden Coleman, EMEKA.SHAMPOO PERSON Allergies As of Date: 11/11/2024 Noted Allergy Reaction FEXOFENADINE 06/14/2010 14 - Other: See Comments Comments: headache/sore tongue SULFAMETHOXAZOLE-TRIME THOPRIM 01/06/ (more content not included)... Normal [facility] CNOVon 10-28-2024 CNOV Office Visit (FAMPWS ) GIANFRANCO HOLLIDAY ([id number]) 1940 F Date Time Provider Department 10/28/24 11:40 AM [facility] During your visit today, we recorded the following information about you: Temperature Pulse Respiration Blood pressure 98.7 degrees 76/minute 16/minute 110/62 Weight 43.3 kg Angela Mckenzie PA-C 10/28/2024 12:13 PM Signed Gianfranco Torres Mg is a 84 year old female here for a Medicare wellness visit. Medicare Health Risk Assessment General Health Good Exercise: Minutes/Day Walking 10+ min/day Exercise: Days/Week daily Alcohol: Daily Use no Alcohol: Drinks/Day 0 Alcohol: 6 or more drinks never Feel off balance no Concerns: Teeth/Dentures No Concerns: Sexual function no Troubled by feelings Sometimes- typical health related Frequency: Eating healthy diet No- eats when and what she wants ADLs requiring help no Safety precautions in home/vehicle yes Smoke, vape, chews tobacco no Difficulty hearing yes Difficulty seeing Yes- sees .opto Current Providers Specialists: I have reviewed specialist-related care of the patient in the medical record. Medical/Family history review Reviewed and updated problem list, medical/surgical/famil y/social history, medications, and allergies. Opioid use review Opioid Medications (last 90 days) No data to display Anxiety/Depression screening PHQ-2 Score: 2 (Lower risk for depression) Recommendation: no further intervention at this time Cognitive screening Mini Cog Score: 5 Cognitive screening reviewed and No further action needed (score 3-5). Functional Observation Was the patient's Timed Up AND Go test unsteady or >= 12 seconds? No Advance Care Planning Surrogate decision maker and/or advance care plan documented Measurements BP 110/62 (BP Site: Right Leg, BP Position: Sitting, BP Cuff Size: Regular Adult) Pulse 76 Temp 37.1 ?C (98.7 ?F) Resp 16 Wt 43.3 kg (95 lb 6 oz) SpO2 97% BMI 18.63 kg/m? Vision Screening: Follows with optometry/ophthalmolog y Assessment/Plan Medicare annual wellness visit, subsequent (Z00.00) - Counseled on healthy diet and regular exercise - Fall avoidance information provided - Personalized prevention plan provided Chief Complaint Patient presents with: Medicare Wellness Exam HPI Gianfranco Holliday is a 84 year old female who presents here today for extensive exam. Patient with hx of osteoporosis, diverticulosis, lymphocytosis, seasonal allergies as well as those reviewed and addressed below and in ROS Patient states she still has some R Ear pain. Was improved but symptoms started back up yesterday. Past medical history, appointments, medications, allergies reviewed. Previous Medical History PAST MEDICAL HISTORY Diagnosis Date Abnormal mammogram 06/17/2015 Sees [facility] yearly for exam and mammogram Adjustment insomnia 12/25/2018 Advance directive discussed with patient 06/20/2022 Discussed 05/2022 Arthritis Arthritis of both hips 12/19/2021 Burping 12/15/2015 Diverticulosis of large intestine Esophageal dysphagia 01/08/2017 NL upper GI 11/2016: if worrsens will refer for EGD. Family history of leukemia 06/17/2015 Family history of malignant neoplasm of gastrointestinal tract 06/14/2010 Family history of malignant neoplasm of gastrointestinal tract History of DVT (deep vein thrombosis) 11/14/201710/2017; Below the knee, did not advance and no anticoagulation needed. Internal hemorrhoids without mention of complication Lichen planus Lymphocytosis 06/17/2015 Chronic: stable around 45=50% Medicare annual wellness visit, subsequent 06/12/2017 Medicare Part B: NA last done: 06/30/2019 Osteoporosis 06/17/2015 Seasonal allergies 12/15/2015 Situational depression 12/25/2018 loss of 09/17/2018 Stress 06/24/2018 Trigger ring finger of right hand 06/30/2019 Previous Surgical History PAST SURGICAL HISTORY Procedure Laterality Date APPENDECTOMY COLONOSCOPY FLX DX W/COLLJ SPEC WHEN PFRMD 08/08/2010 repeat in 5 yrs COLONOSCOPY FLX DX W/COLLJ SPEC WHEN PFRMD 07/03/2015 Colonoscopy COLONOSCOPY SCREENING 09/10/2023 next colonoscopy due in 5 years SALPINGO-OOPHORECTOMY COMPL/PRTL UNI/BI SPX Salpingo-oophorectomy STRESS TEST 07/14/2017 WNL TOTAL ABDOMINAL HYSTERECT W/WO RMVL TUBE OVARY Hysterectomy, RASHIDA Family History FAMILY HISTORY Problem Relation Age of Onset Cancer Mother ? liver CA Colon Cancer Father other (skin cancer) Daughter Patient Allergies ALLERGIES Allergen Reactions Fexofenadine Other: See Comments headache/sore tongue Sulfamethoxazole-Tr* Other: See Comments Dizzy, sweating and vomiting. Current Medications No current outpatient medications on file prior to visit. No current facility-administered medications on file prior to visit. Social History Social History Tobacco Use Smoking (more content not included)... Normal [facility] CBC W Auto Differential pane l (Bld)on 10-18-2024 Basophils (Bld) [#/Vol] 0.03 10*3/uL Normal <0.11 [facility] Comment on above: Order Comment: Speci men Type: URINE SPECIMEN Ordering Facility: [facility] Address: [address] [place] [address] Performed By: #### L [id number] #### [facility] CLIA [id number] [address] [place] [address] [place] Basophils/100 WBC (Bld) 0.4 % Normal C [facility] Comment on above: Order Comment: Speci men Type: URINE SPECIMEN Ordering Facility: [facility] Address: [address] [place] [address] Performed By: #### L [id number] #### [facility] CLIA [id number] [address] [place] [address] [place] Differential cell count method Nom (Bld) Auto Normal [facility] Comment on above: Order Comment: Speci men Type: URINE SPECIMEN Ordering Facility: [facility] Address: [address] [place] [address] Performed By: #### L [id number] #### [facility] CLIA [id number] [address] [place] [address] [place] Eosinophils (Bld) [#/Vol] 0.05 10*3/uL Normal <0.46 [facility] Comment on above: Order Comment: Speci men Type: URINE SPECIMEN Ordering Facility: [facility] Address: [address] [place] [address] Performed By: #### L [id number] #### [facility] CLIA [id number] [address] [place] [address] [place] Eosinophils/100 WBC (Bld) 0.7 % Normal [facility] Comment on above: Order Comment: Speci men Type: URINE SPECIMEN Ordering Facility: [facility] Address: [address] [place] [address] Performed By: #### L [id number] #### [facility] CLIA [id number] [address] [place] [address] [place] Erythrocyte distribution width (RBC) [Ratio] 12.9 % Normal 11.5-15.0 [facility] Comment on above: Order Comment: Speci men Type: URINE SPECIMEN Ordering Facility: [facility] Address: [address] [place] [address] Performed By: #### L [id number] #### [facility] CLIA [id number] [address] [place] [address] [place] Hematocrit (Bld) [Volume fraction] 37.5 % Normal 36.0-46.0 [facility] Comment on above: Order Comment: Speci men Type: URINE SPECIMEN Ordering Facility: [facility] Address: [address] [place] [address] Performed By: #### L [id number] #### [facility] CLIA [id number] [address] [place] [address] [place] Hemoglobin (Bld) [Mass/Vol] 12.3 g/dL Normal 11.5-15.5 [facility] Comment on above: Order Comment: Speci men Type: URINE SPECIMEN Ordering Facility: [facility] Address: [address] [place] [address] Performed By: #### L [id number] #### [facility] CLIA [id number] [address] [place] [address] [place] Immature granulocytes (Bld) [#/Vol] 10*3/uL Normal <0.10 [facility] Comment on above: Order Comment: Speci men Type: URINE SPECIMEN Ordering Facility: [facility] Address: [address] [place] [address] Performed By: #### L [id number] #### [facility] CLIA [id number] [address] [place] [address] [place] Immature granulocytes/100 WBC (Bld) 0.1 % Normal [facility] Comment on above: Order Comment: Speci men Type: URINE SPECIMEN Ordering Facility: [facility] Address: [address] [place] [address] Performed By: #### L [id number] #### [facility] CLIA [id number] [address] [place] [address] [place] Lymphocytes (Bld) [#/Vol] 2.47 10*3/uL Normal 1.00-4.00 [facility] Comment on above: Order Comment: Speci men Type: URINE SPECIMEN Ordering Facility: [facility] Address: [address] [place] [address] Performed By: #### L [id number] #### [facility] CLIA [id number] [address] [place] [address] [place] Lymphocytes/100 WBC (Bld) 36.0 % Normal [facility] Comment on above: Order Comment: Speci men Type: URINE SPECIMEN Ordering Facility: [facility] Address: [address] [place] [address] Performed By: #### L [id number] #### [facility] CLIA [id number] [address] [place] [address] [place] MCH (RBC) [Entitic mass] 29.9 pg Normal 26.0-34.0 [facility] Comment on above: Order Comment: Speci men Type: URINE SPECIMEN Ordering Facility: [facility] Address: [address] [place] [address] Performed By: #### L [id number] #### [facility] CLIA [id number] [address] [place] [address] [place] MCHC (RBC) [Mass/Vol] 32.8 g/dL Normal 30.5-36.0 [facility] Comment on above: Order Comment: Speci men Type: URINE SPECIMEN Ordering Facility: [facility] Address: [address] [place] [address] Performed By: #### L [id number] #### [facility] CLIA [id number] [address] [place] [address] [place] MCV (RBC) [Entitic vol] 91.2 fL Normal 80.0-100.0 C [facility] Comment on above: Order Comment: Speci men Type: URINE SPECIMEN Ordering Facility: [facility] Address: [address] [place] [address] Performed By: #### L [id number] #### [facility] CLIA [id number] [address] [place] [address] [place] Monocytes (Bld) [#/Vol] 0.75 10*3/uL Normal <0.87 [facility] Comment on above: Order Comment: Speci men Type: URINE SPECIMEN Ordering Facility: [facility] Address: [address] [place] [address] Performed By: #### L [id number] #### [facility] CLIA [id number] [address] [place] [address] [place] Monocytes/100 WBC (Bld) 10.9 % Normal [facility] Comment on above: Order Comment: Speci men Type: URINE SPECIMEN Ordering Facility: [facility] Address: [address] [place] [address] Performed By: #### L [id number] #### [facility] CLIA [id number] [address] [place] [address] [place] Neutrophils (Bld) [#/Vol] 3.56 10*3/uL Normal 1.45-7.50 [facility] Comment on above: Order Comment: Speci men Type: URINE SPECIMEN Ordering Facility: [facility] Address: [address] [place] [address] Performed By: #### L [id number] #### [facility] CLIA [id number] [address] [place] [address] [place] Neutrophils/100 WBC (Bld) 51.9 % Normal [facility] Comment on above: Order Comment: Speci men Type: URINE SPECIMEN Ordering Facility: [facility] Address: [address] [place] [address] Performed By: #### L [id number] #### [facility] CLIA [id number] [address] [place] [address] [place] Nucleated RBC (Bld) [#/Vol] 10*3/uL Normal <0.01 [facility] Comment on above: Order Comment: Speci men Type: URINE SPECIMEN Ordering Facility: [facility] Address: [address] [place] [address] Performed By: #### L [id number] #### [facility] CLIA [id number] [address] [place] [address] [place] Nucleated RBC/100 WBC (Bld) [Ratio] 0.0 /100 WBC Normal [facility] Comment on above: Order Comment: Speci men Type: URINE SPECIMEN Ordering Facility: [facility] Address: [address] [place] [address] Performed By: #### L [id number] #### [facility] CLIA [id number] [address] [place] [address] [place] Platelet mean volume (Bld) [Entitic vol] 11.9 fL Normal 9.0-12.7 [facility] Comment on above: Order Comment: Speci men Type: URINE SPECIMEN Ordering Facility: [facility] Address: [address] [place] [address] Performed By: #### L [id number] #### [facility] CLIA [id number] [address] [place] [address] [place] Platelets (Bld) [#/Vol] 258 10*3/uL Normal 150-400 [facility] Comment on above: Order Comment: Speci men Type: URINE SPECIMEN Ordering Facility: [facility] Address: [address] [place] [address] Performed By: #### L [id number] #### [facility] CLIA [id number] [address] [place] [address] [place] RBC (Bld) [#/Vol] 4.11 10*6/uL Normal 3.90-5.20 [facility] Comment on above: Order Comment: Speci men Type: URINE SPECIMEN Ordering Facility: [facility] Address: [address] [place] [address] Performed By: #### L [id number] #### [facility] CLIA [id number] [address] [place], [place] [address] [place] WBC (Bld) [#/Vol] 6.87 10*3/uL Normal 3.70-11.00 [facility] Comment on above: Order Comment: Speci men Type: URINE SPECIMEN Ordering Facility: [facility] Address: [address] [place] [address] Performed By: #### L [id number] #### [facility] CLIA [id number] [address] [place] [address] [facility] CNOVon 10-18-2024 CNOV Office Visit (FAMPWS ) GIANFRANCO HOLLIDAY ([id number]) 1940 F Date Time Provider Department 10/18/24 4:20 PM [facility] During your visit today, we recorded the following information about you: Temperature Pulse Blood pressure Weight 98.7 degrees 81/minute 138/63 43.5 kg Kayden Coleman APRN.[facility] 10/18/2024 4:31 PM Signed Chief Complaint No chief complaint on file. FANNY Holliday is a 84 year old female who presents here today for Above Complaints.. Patient presents today for right ear pain. Patient was seen here 09/24 for similar complaints was given cefadroxil and medrol dose pack which provided relief. Patient states once she finished the medication her symptoms returned. She is having difficulty with hearing on the right side, pain with chewing, sinus pressure, nasal drainage, sore throat, fever and chills. Patient states her arms and legs have been feeling warm she is concerned this could be a blood infection from the ear. She first noticed the warmth on her legs and started using lotion which has not provided any significant relief.Patient denies nausea, vomiting, chest pain and diarrhea. Past medical history, appointments, medications, allergies reviewed. Previous Medical History PAST MEDICAL HISTORY Diagnosis Date Abnormal mammogram 06/17/2015 Sees yearly for exam and mammogram Adjustment insomnia 12/25/2018 Advance directive discussed with patient 06/20/2022 Discussed 05/2022 Arthritis Arthritis of both hips 12/19/2021 Burping 12/15/2015 Diverticulosis of large intestine Esophageal dysphagia 01/08/2017 NL upper GI 11/2016: if worrsens will refer for EGD. Family history of leukemia 06/17/2015 Family history of malignant neoplasm of gastrointestinal tract 06/14/2010 Family history of malignant neoplasm of gastrointestinal tract History of DVT (deep vein thrombosis) 11/14/201710/2017; Below the knee, did not advance and no anticoagulation needed. Internal hemorrhoids without mention of complication Lichen planus Lymphocytosis 06/17/2015 Chronic: stable around 45=50% Medicare annual wellness visit, subsequent 06/12/2017 Medicare Part B: NA last done: 06/30/2019 Osteoporosis 06/17/2015 Seasonal allergies 12/15/2015 Situational depression 12/25/2018 loss of 09/17/2018 Stress 06/24/2018 Trigger ring finger of right hand 06/30/2019 Previous Surgical History PAST SURGICAL HISTORY Procedure Laterality Date APPENDECTOMY COLONOSCOPY FLX DX W/COLLJ SPEC WHEN PFRMD 08/08/2010 repeat in 5 yrs COLONOSCOPY FLX DX W/COLLJ SPEC WHEN PFRMD 07/03/2015 Colonoscopy COLONOSCOPY SCREENING 09/10/2023 next colonoscopy due in 5 years SALPINGO-OOPHORECTOMY COMPL/PRTL UNI/BI SPX Salpingo-oophorectomy STRESS TEST 07/14/2017 WNL TOTAL ABDOMINAL HYSTERECT W/WO RMVL TUBE OVARY Hysterectomy, RASHIDA Family History FAMILY HISTORY Problem Relation Age of Onset Cancer Mother ? liver CA Colon Cancer Father other (skin cancer) Daughter Patient Allergies ALLERGIES Allergen Reactions Fexofenadine Other: See Comments headache/sore tongue Sulfamethoxazole-Tr* Other: See Comments Dizzy, sweating and vomiting. Current Medications No current outpatient medications on file prior to visit. No current facility-administered medications on file prior to visit. Social History Social History Tobacco Use Smoking status: Never Smokeless tobacco: Never Vaping Use Vaping status: Never Used Substance Use Topics Alcohol use: No Drug use: No Review of Symptoms REVIEW OF SYSTEMS GENERAL: Fatigue, Positive for fever , malaise HEENT: Negative for frequent or significant headaches, No changes in hearing or vision, no nose bleeds or other nasal problems RESPIRATORY: Negative for cough, hemoptysis, wheezing, COPD, dyspnea or shortness of breath CARDIOVASCULAR: Negative for chest pain, leg swelling, hypertension, CHF or palpitations EXAM: BP 138/63 Pulse 81 Temp 37.1 ?C (98.7 ?F) Wt 43.5 kg (96 lb) BMI 18.75 kg/m? General Appearance: Well appearing, alert, in no acute distress, well-hydrated, well nourished.. Ears: External ears normal, canals clear, Positive findings: R TM: purulent material noted behind TM, erythematous, and bulging, cerumen on right, amount Small. Nose/Sinuses: Positive findings: mucosa erythematous and swollen. Lungs: Lungs clear to auscultation. No wheezing, rhonchi, rales.. Heart: RRR without murmur, gallop, or rubs. No ectopy. Health Maintenance List Anxiety Screening Never done DTaP,Tdap,Td Vaccine(1 - Tdap) Never done Shingrix Vaccine(1 of 2) Never done RSV Vaccine(1 - 1-dose 75+ series) Never done Bone Density Screening due on 12/27/2023 Covid-19 Vaccine(2023- season) Never done Advance Directive Discussion due on 08/25/2024 Diabetes Screening due on 12/19/2025 Influenza Vacci (more content not included)... Normal [facility] GIANFRANCO HOLLIDAY ([id number]) 1940 F Date Time Provider Department 10/18/24 LIZETH ADEN [facility] During your visit today, we recorded the following information about you: Lizeth Aden MA 10/18/2024 9:33 AM Signed Patient is here for have labs completed for her medicare wellness. No orders have been placed. Patient is here now. BALJIT Jaquez Danielle, APRN.[facility] 10/18/2024 9:41 AM Signed Orders placed. Allergies As of Date: 10/18/2024 Noted Allergy Reaction FEXOFENADINE 06/14/2010 14 - Other: See Comments Comments: headache/sore tongue SULFAMETHOXAZOLE-TRIME THOPRIM 01/07/2024 14 - Other: See Comments Comments: Dizzy, sweating and vomiting. Date Reviewed: 09/24/2024 Reviewed by: Toni Meier MD - Fully Assessed Reason for Visit: Orders [681] Primary Visit Diagnosis:Well adult exam [Z00.00] Other Visit Diagnoses:Encounter for screening for diabetes mellitus [Z13.1] Encounter for screening for cardiovascular disorders [Z13.6] Order(s):COMPLETE BLOOD COUNT AND DIFFERENTIAL [SQCBCDIF] Order #: [id number] FUTURE COMPREHENSIVE METABOLIC PANEL [SQCMP] Order #: [id number] FUTURE HEMOGLOBIN A1C [IDUGV8K] Order #: [id number] FUTURE LIPID PANEL, NONFASTING [SQLIPNF] Order #: [id number] FUTURE Problem List As Of Date 10/18/2024 Noted Resolved Lichen planus [L43.9] Family history of malignant neoplasm of gastroi*06/14/2010 Family history of leukemia [Z80.6] 06/17/2015 Osteoporosis [M81.0] 06/17/2015 Abnormal mammogram [R92.8] 06/17/2015 Lymphocytosis [D72.820] 06/17/2015 Diverticulosis of large intestine [K57.30] Burping [R14.2] 12/15/2015 Seasonal allergies [J30.2] 12/15/2015 Esophageal dysphagia [R13.19] 01/08/2017 Medicare annual wellness visit, subsequent [Z00*06/12/2017 Encounter for screening for diabetes mellitus [*06/12/2017 Encounter for screening for cardiovascular diso*06/12/2017 History of DVT (deep vein thrombosis) [Z86.718] 11/14/2017 Encounter for screening mammogram for breast ca*06/05/2018 Stress [F43.9] 06/24/2018 Situational depression [F43.21] 12/25/2018 Adjustment insomnia [F51.02] 12/25/2018 Trigger ring finger of right hand [M65.341] 06/30/2019 Arthritis of both hips [M16.0] 12/19/2021 Advance directive discussed with patient [Z71.8*06/20/2022 Positive colorectal cancer screening using [place]*09/10/2023 Rash [R21] 01/07/2024 Encounter Status:Closed by MADAI SCHAFFER CMA on 10/18/24 Normal [facility] metabolic 2000 panelon 10-18-2024 Albumin [Mass/Vol] 4.5 g/dL Normal 3.9-4.9 [facility] Comment on above: Order Comment: Speci men Type: BLOOD SPECIMENOrdering Facility: [facility] Address: [address] [place] [address] Performed By: #### L IPNF, ####[facility] [id number] [place] [address] [place] ALP [Catalytic activity/Vol] 71 U/L Normal 34-123 [facility] Comment on above: Order Comment: Speci men Type: BLOOD SPECIMENOrdering Facility: [facility] Address: [address] [place] [address] Performed By: #### L IPNF, 54514-7 ####[facility] [id number] [place] [address] [place] ALT [Catalytic activity/Vol] 16 U/L Normal 7-38 [facility] Comment on above: Order Comment: Speci men Type: BLOOD SPECIMENOrdering Facility: [facility] Address: [address] [place] [address] Performed By: #### L IPNF, ####[facility] [id number] [place] [address] [place] Anion gap [Moles/Vol] 12 mmol/L Normal 8-15 [facility] Comment on above: Order Comment: Speci men Type: BLOOD SPECIMENOrdering Facility: [facility] Address: [address] [place] [address] Performed By: #### L IPNF, ####[facility] [id number] [place] [id number] [place] AST [Catalytic activity/Vol] 29 U/L Normal 13-35 [facility] Comment on above: Order Comment: Speci men Type: BLOOD SPECIMENOrdering Facility: [facility] Address: [address] [place] [address] [place] [address] Performed By: #### L IPNF, ####[facility] [id number] [address] [address] [place] Bilirubin [Mass/Vol] 0.4 mg/dL Normal 0.2-1.[address] [facility] Comment on above: Order Comment: Speci men Type: BLOOD SPECIMENOrdering Facility: [facility] Address: [address] [place] [address] Performed By: #### L IPNF, ####[facility] [id number] [place] [address] [place] Calcium [Mass/Vol] 9.6 mg/dL Normal 8.5-10.2 [facility] Comment on above: Order Comment: Speci men Type: BLOOD SPECIMENOrdering Facility: [facility] Address: [address] [place] [address] Performed By: #### L IPNF, ####[facility] [id number] [place] [address] [place] Chloride [Moles/Vol] 105 mmol/L Normal 98-[address] [facility] Comment on above: Order Comment: Speci men Type: BLOOD SPECIMENOrdering Facility: [facility] Address: [address] [place] [address] Performed By: #### L IPNF, ####[facility] [id number] [place] [id number] [place] CO2 [Moles/Vol] 23 mmol/L Normal 22-30 [facility] Comment on above: Order Comment: Speci men Type: BLOOD SPECIMENOrdering Facility: [facility] Address: [address] [place] [address] Performed By: #### L IPNF, ####[facility] [id number] [address] [address] [place] [facility] Creatinine [Mass/Vol] 0.82 mg/dL Normal 0.58-0.96 [facility] Comment on above: Order Comment: Francia chambers Type: BLOOD SPECIMENOrdering Facility: [facility] Address: [address] [place] [address] Performed By: #### L IP, 90161-5 ####[facility] [id number] [address] Creatinine and Glomerular filtration rate.predicted panel (S/P/Bld) 71 mL/min/1.73m??? Normal >=60 [facility] Comment on above: Order Comment: Francia chambers Type: BLOOD SPECIMENOrdering Facility: [facility] Address: [address] [place] [address] Result Comment: Vilma mated Glomerular Filtration Rate (eGFR) is calculated using the 2020 CKD-EPI creatinine equation. This equation utilizes serum creatinine, sex, and age as parameters. The creatinine assay has traceable calibration to isotope dilution-mass spectrometry. Refer to KDIGO guidelines for clinical interpretation. In patients with unstable renal function, e.g. those with acute kidney injury, the eGFR may not accurately reflect actual GFR. Performed By: #### [place], [address]-9 ####[facility]IA [id number] [place] [id number] [place] Glucose [Mass/Vol] 81 mg/dL Normal 74-99 [facility] Comment on above: Order Comment: Francia chambers Type: BLOOD SPECIMENOrdering Facility: [facility] Address: [address] [place] [address] Result Comment: The [place] Diabetes Association (ADA) provides guidance for cutoff values for fasting glucose and random glucose. The ADA defines fasting as no caloric intake for at least 8 hours. Fasting plasma glucose results between 100 to 125 mg/dL indicate increased risk for diabetes (prediabetes). Fasting plasma glucose results greater than or equal to 126 mg/dL meet the criteria for diagnosis of diabetes. In the absence of unequivocal hyperglycemia, results should be confirmed by repeat testing. In a patient with classic symptoms of hyperglycemia or hyperglycemic crisis, random plasma glucose results greater than or equal to 200 mg/dL meet the criteria for diagnosis of diabetes. Reference: Standards of Medical Care in Diabetes 2016, [place] Diabetes Association. Diabetes Care. 2016.39(Suppl 1). Performed By: #### L HAILEE, 70984-7 ####[facility] [id number] [address] [address] [place] Potassium [Moles/Vol] 3.9 mmol/L Normal 3.7-5.1 [facility] Comment on above: Order Comment: Speci men Type: BLOOD SPECIMENOrdering Facility: [facility] Address: [address] [place] [address] Performed By: #### L IPSUNG, 38108-4 ####[facility] [id number] [place] [id number] [place] Protein [Mass/Vol] 7.0 g/dL Normal 6.3-8.0 [facility] Comment on above: Order Comment: Speci men Type: BLOOD SPECIMENOrdering Facility: [facility] Address: [address] [place] [address] Performed By: #### L IPSUNG, ####[facility] [id number] [address] [address] [place] Sodium [Moles/Vol] 140 mmol/L Normal 136-144 [facility] Comment on above: Order Comment: Speci men Type: BLOOD SPECIMENOrdering Facility: [facility] Address: [address] [place] [address] Performed By: #### L IPNF, ####[facility] [id number] [place] [id number] [place] Urea nitrogen [Mass/Vol] 13 mg/dL Normal 7-21 [facility] Comment on above: Order Comment: Speci men Type: BLOOD SPECIMENOrdering Facility: [facility] Address: [facility] [place] [address] Performed By: #### L HAILEE, 61681-0 ####[facility]IA [id number] [address] [facility] HbA1c (Bld)on 10-18-2024 Average glucose Estimated from glycated hemoglobin (Bld) [Mass/Vol] 108 mg/dL Normal [facility] Comment on above: Order Comment: Francia chambers Type: BLOOD SPECIMENOrdering Facility: [facility] Address: [address] [place] [address] Result Comment: eAG: (Estimated average glucose) is a calculated value from HgbA1c and is union representative of the average blood glucose level in the last 2-3 month period. Performed By: #### 5 5454-3 ####[facility] [id number] [address] [facility] HbA1c (Bld) [Mass fraction] 5.4 % Normal 4.3-5.6 [facility] Comment on above: Order Comment: Francia chambers Type: BLOOD SPECIMENOrdering Facility: [facility] Address: [address] [place] [address] Result Comment: Amer [place] Diabetes Association guidelines indicate that patients with HgbA1c in the range 5.7-6.4% are at increased risk for development of diabetes, and intervention by lifestyle modification may be beneficial. HgbA1c greater or equal to 6.5% is considered diagnostic of diabetes. Performed By: #### 5 5454-3 ####[facility]IA [id number] [address] [place] LIPID PANEL, NONFASTINGon Cholesterol [Mass/Vol] 205 mg/dL High <200 [facility] Comment on above: Order Comment: Francia chambers Type: BLOOD SPECIMENOrdering Facility: [facility] Address: [address] [place] [address] Result Comment: <200 mg/dL, Desirable 200-239 mg/dL, Borderline high >239 mg/dL, High Performed By: #### L HAILEE, 13173-2 ####[facility] [id number] [address] HDL CHOLESTEROL, NF 62 mg/dL Normal >39 [facility] Comment on above: Order Comment: Francia trish Type: BLOOD SPECIMENOrdering Facility: [facility] Address: [address] [place] [address] Result Comment: 40-5 9 mg/dL, Acceptable >59 mg/dL, High: Negative risk factor for coronary heart disease <40 mg/dL, Low: Positive risk factor for coronary heart disease Performed By: #### L IPNF, 83478-9 ####[facility] [id number] [address] LDL CHOLESTEROL, NF 110 mg/dL High <100 [facility] Comment on above: Order Comment: Francia [facility] Type: BLOOD SPECIMENOrdering Facility: [facility] Address: [address] [place] [address] Result Comment: <100 mg/dL, Optimal 100-129 mg/dL, Near optimal/above optimal 130-159 mg/dL, Borderline high 160-189 mg/dL, High >189 mg/dL, Very high Secondary prevention optimal LDL Cholesterol levels are recommended to be < 70 mg/dL Performed By: #### L IPNF, 11796-5 ####[facility] [id number] [address] [facility] LDL/HDL RATIO, NF 1.77 mg/dL Normal <2.54 [facility] Comment on above: Order Comment: [facility] Type: BLOOD SPECIMENOrdering Facility: [facility] Address: [address] [place] [address] Result Comment: Cathie fuchs: 1. National Cholesterol Education Program ATP III Guideline At-A-Glance Quick Desk Reference: National Heart, Lung, and Blood [place]. National Institutes of Health. 2001: NIH Publication No. 01-3305. 2. An International Atherosclerosis Society position paper: global recommendations for the management of dyslipidemia: executive summary, Atherosclerosis. 2014: 232(2):410-413. Performed By: #### L IPNF, 14343-2 ####[facility] [id number] [place] [id number] [place] NON HDL CHOL, NF 143 mg/dL High <130 [facility] Comment on above: Order Comment: Speci men Type: BLOOD SPECIMENOrdering Facility: [facility] Address: [address] [place] [address] Result Comment: <130 mg/dL, Optimal 130-159 mg/dL, Near optimal/above optimal 160-189 mg/dL, Borderline high 190-219 mg/dL, High >219 mg/dL, Very high Secondary prevention optimal non HDL Cholesterol levels are recommended to be <100 mg/dL Performed By: #### L IPNF, ####[facility] [id number] [address] STATES [facility] T CHOL/HDL RATIO NF 3.31 mg/dL Normal <5.10 [facility] Comment on above: Order Comment: Speci men Type: BLOOD SPECIMENOrdering Facility: [facility] Address: [address] [place] [address] Performed By: #### L IPNF, ####[facility] [id number] [place] [id number] [place] TRIGLYCERIDES, NF 163 mg/dL High <150 [facility] Comment on above: Order Comment: Speci men Type: BLOOD SPECIMENOrdering Facility: [facility] Address: [address] [place] [address] Result Comment: <150 mg/dL, Normal 150-199 mg/dL, Borderline high 200-499 mg/dL, High >499 mg/dL, Very high Performed By: #### L IPNF, ####[facility] [id number] [place] [id number] [place] VLDL CHOLESTEROL, NF 33 mg/dL High <[address] [facility] Comment on above: Order Comment: Speci men Type: BLOOD SPECIMENOrdering Facility: [facility] Address: [address] [place] [address] Performed By: #### [facility], [address] ####[facility] LABCLIA [id number] ARLENE FARFAN [address] [facility] CNOVon 09-24-2024 CNOV Office Visit (FAMPWS ) GIANFRANCO HOLLIDAY ([id number]) 1940 F Date Time Provider Department 09/24/24 10:00 [facility] visit today, we recorded the following information about you: Pulse Respiration Blood pressure Weight 82/minute 16/minute 128/70 43.5 kg Toni Meier MD 09/24/2024 12:13 PM Signed Chief Complaint Patient presents with: Follow Up HPI Gianfranco Holliday is a 83 year old female who presents here today for follow up on dizziness . Last visit patient was given antibiotic/medrol and following up. Patient has had no further sensation like her head falling forward and the pain in the TMJ area on the right has resolved. Office visit note from 09/02/2024 Patient was seen in [facility] for dizziness. Workup for blood/xray/CT/EKG CT brain - Mild chronic microvascular ischemic disease - CT Angiogram /MRI may be helpful per ER notes. Mild anemia. ER: 08/26/2024: The sensation she is getting is not vertigo or off balance she will feel heaviness in the front of her head and like her head wants to go forward. Patient seems to feel better a few days after the ER visit and then Friday /02/2025 she developed a pain on the outside of her ear (points to TMJ area) has some discomfort into the ear. Notes increased pain in this area with opening and closing her mouth and with chewing. Pain is less today but feels that her right cheek is swollen and has some pain under the edge of the right mandible. No sensation of whooshing, popping or clicking in the right ear. No fevers. No nasal congestion or discharge, sore throat, post nasal drainage, or cough. Denies facial weakness, facial droop, difficulty swallowing, talking, handling food or secretions. No upper or lower extremity numbness or weakness. Past medical history, appointments, medications, allergies reviewed. Previous Medical History PAST MEDICAL HISTORY Diagnosis Date Abnormal mammogram 06/17/2015 Sees [facility] yearly for exam and mammogram Adjustment insomnia 12/25/2018 Advance directive discussed with patient 06/20/2022 Discussed 05/2022 Arthritis Arthritis of both hips 12/19/2021 Burping 12/15/2015 Diverticulosis of large intestine Esophageal dysphagia 01/08/2017 NL upper GI 11/2016: if worrsens will refer for EGD. Family history of leukemia 06/17/2015 Family history of malignant neoplasm of gastrointestinal tract 06/14/2010 Family history of malignant neoplasm of gastrointestinal tract History of DVT (deep vein thrombosis) 11/14/201710/2017; Below the knee, did not advance and no anticoagulation needed. Internal hemorrhoids without mention of complication Lichen planus Lymphocytosis 06/17/2015 Chronic: stable around 45=50% Medicare annual wellness visit, subsequent 06/12/2017 Medicare Part B: NA last done: 06/30/2019 Osteoporosis 06/17/2015 Seasonal allergies 12/15/2015 Situational depression 12/25/2018 loss of 09/17/2018 Stress 06/24/2018 Trigger ring finger of right hand 06/30/2019 Previous Surgical History PAST SURGICAL HISTORY Procedure Laterality Date APPENDECTOMY COLONOSCOPY FLX DX W/COLLJ SPEC WHEN PFRMD 08/08/2010 repeat in 5 yrs COLONOSCOPY FLX DX W/COLLJ SPEC WHEN PFRMD 07/03/2015 Colonoscopy COLONOSCOPY SCREENING 09/10/2023 next colonoscopy due in 5 years SALPINGO-OOPHORECTOMY COMPL/PRTL UNI/BI SPX Salpingo-oophorectomy STRESS TEST 07/14/2017 WNL TOTAL ABDOMINAL HYSTERECT W/WO RMVL TUBE OVARY Hysterectomy, RASHIDA Family History FAMILY HISTORY Problem Relation Age of Onset Cancer Mother ? liver CA Colon Cancer Father other (skin cancer) Daughter Patient Allergies ALLERGIES Allergen Reactions Fexofenadine Other: See Comments headache/sore tongue Sulfamethoxazole-Tr* Other: See Comments Dizzy, sweating and vomiting. Current Medications No current outpatient medications on file prior to visit. No current facility-administered medications on file prior to visit. Social History Social History Tobacco Use Smoking status: Never Smokeless tobacco: Never Vaping Use Vaping status: Never Used Substance Use Topics Alcohol use: No Drug use: No Review of Symptoms REVIEW OF SYSTEMS See HPI EXAM: BP 128/70 Pulse 82 Resp 16 Wt 43.5 kg (96 lb) BMI 18.75 kg/m? General Appearance: Well appearing, alert, in no acute distress, well-hydrated, well nourished.. Head: no pain to palpation of the right TMJ are today. Ears: right External ear, TM normal, canal clear. Neck: Supple, no adenopathy; thyroid symmetric, normal size, no bruits. The swelling under the mid portion of the right mandible is resolved. Health Maintenance List Anxiety Screening Never done DTaP,Tdap,Td Vaccine(1 - Tdap) Never done Shingrix Vaccine(1 of 2) Never done RSV Vaccine(1 - 1-dose 75+ series) Never done Bone Density Screening due on (more content not included)... Normal [facility] CNOVon 09-02-2024 CNOV Office Visit (FAMPWS ) GIANFRANCO HOLLIDAY ([id number]) 1940 F Date Time Provider Department 09/02/24 11:20 AM TONI MEIER FAMPWS During your visit today, we recorded the following information about you: Pulse Blood pressure Weight Height 76/minute 138/58 43.9 kg 1.524 m Toni Meier MD 09/02/2024 8:16 PM Signed Chief Complaint Patient presents with: Hospital F/U HPI Gianfranco Holliday is a 83 year old female who presents here today for Hospital Discharge Follow up.. Patient was seen in [facility] ER for dizziness. Workup for blood/xray/CT/EKG CT brain - Mild chronic microvascular ischemic disease - CT Angiogram /MRI may be helpful per ER notes. Mild anemia. ER: 08/26/2024: The sensation she is getting is not vertigo or off balance she will feel heaviness in the front of her head and like her head wants to go forward. Patient seems to feel better a few days after the ER visit and then Friday /02/2025 she developed a pain on the outside of her ear (points to TMJ area) has some discomfort into the ear. Notes increased pain in this area with opening and closing her mouth and with chewing. Pain is less today but feels that her right cheek is swollen and has some pain under the edge of the right mandible. No sensation of whooshing, popping or clicking in the right ear. No fevers. No nasal congestion or discharge, sore throat, post nasal drainage, or cough. Denies facial weakness, facial droop, difficulty swallowing, talking, handling food or secretions. No upper or lower extremity numbness or weakness. Past medical history, appointments, medications, allergies reviewed. Previous Medical History PAST MEDICAL HISTORY Diagnosis Date Abnormal mammogram 06/17/2015 Sees yearly for exam and mammogram Adjustment insomnia 12/25/2018 Advance directive discussed with patient 06/20/2022 Discussed 05/2022 Arthritis Arthritis of both hips 12/19/2021 Burping 12/15/2015 Diverticulosis of large intestine Esophageal dysphagia 01/08/2017 NL upper GI 11/2016: if worrsens will refer for EGD. Family history of leukemia 06/17/2015 Family history of malignant neoplasm of gastrointestinal tract 06/14/2010 Family history of malignant neoplasm of gastrointestinal tract History of DVT (deep vein thrombosis) 11/14/201710/2017; Below the knee, did not advance and no anticoagulation needed. Internal hemorrhoids without mention of complication Lichen planus Lymphocytosis 06/17/2015 Chronic: stable around 45=50% Medicare annual wellness visit, subsequent 06/12/2017 Medicare Part B: NA last done: 06/30/2019 Osteoporosis 06/17/2015 Seasonal allergies 12/15/2015 Situational depression 12/25/2018 loss of 09/17/2018 Stress 06/24/2018 Trigger ring finger of right hand 06/30/2019 Previous Surgical History PAST SURGICAL HISTORY Procedure Laterality Date APPENDECTOMY COLONOSCOPY FLX DX W/COLLJ SPEC WHEN PFRMD 08/08/2010 repeat in 5 yrs COLONOSCOPY FLX DX W/COLLJ SPEC WHEN PFRMD 07/03/2015 Colonoscopy COLONOSCOPY SCREENING 09/10/2023 next colonoscopy due in 5 years SALPINGO-OOPHORECTOMY COMPL/PRTL UNI/BI SPX Salpingo-oophorectomy STRESS TEST 07/14/2017 WNL TOTAL ABDOMINAL HYSTERECT W/WO RMVL TUBE OVARY Hysterectomy, RASHIDA Family History FAMILY HISTORY Problem Relation Age of Onset Cancer Mother ? liver CA Colon Cancer Father other (skin cancer) Daughter Patient Allergies ALLERGIES Allergen Reactions Fexofenadine Other: See Comments headache/sore tongue Sulfamethoxazole-Tr* Other: See Comments Dizzy, sweating and vomiting. Current Medications Current Outpatient Medications on File Prior to Visit Medication Sig mupirocin (BACTROBAN) 2 % ointment Apply to affected area three times a day. acetaminophen (TYLENOL ARTHRITIS ORAL) Take by mouth as directed. cholecalciferol, vitamin D3, (VITAMIN D3 ORAL) Take 400 mg by mouth once daily. aspirin, enteric coated (ADULT LOW DOSE ASPIRIN) 81 mg EC tablet Take 1 tablet by mouth once daily. VITAMIN E, DL,TOCOPHERYL ACET, (VITAMIN E, DL, ACETATE,) 400 unit cap Take 400 Units by mouth once daily. Multivitamins-Minerals -Lutein (CENTRUM SILVER) tab Take one(1) tablet daily. No current facility-administered medications on file prior to visit. Social History Social History Tobacco Use Smoking status: Never Smokeless tobacco: Never Vaping Use Vaping status: Never Used Substance Use Topics Alcohol use: No Drug use: No Review of Symptoms REVIEW OF SYSTEMS See HPI EXAM: BP 138/58 Pulse 76 Ht 152.4 cm (5') Wt 43.9 kg (96 lb 12.8 oz) SpO2 99% BMI 18.90 kg/m? General Appearance: Well appearing, alert, in no acute distress, well-hydrated, well nourished.. Head: Normocephalic, no masses, lesions, tenderness or abnormalities. No tenderness over the parotid glands but has tenderness over the right (more content not included)... Normal [facility] 12 Lead EKGon 08-26-2024 12 Lead EKG [facility] Cardiovascular Services [address] [place] [address] 12 Lead EKG 08/26/24 0026 MR#: [id number] Acct: [id number] Name: GIANFRANCO HOLLIDAY Rep #: [id number] : 1940 83 From: Ned Ann MD Attending Dr: Status: DEP ER Ordering Dr: Rudy Guerrero DO Date: 5 Location: ED Sex: F C Admitted: Test Reason : DIZZINESS Blood Pressure : */* mmHG Vent. Rate : 69 BPM Atrial Rate : 69 BPM P-R Int : 140 ms QRS Dur : 78 ms QT Int : 428 ms P-R-T Axes : 74 74 68 degrees QTcB Int : 458 ms Normal sinus rhythm Normal ECG Confirmed by VIKA DYKES, NED ([id number]), material expeditor JUANJO MORSE ([id number]) on 08/27/2024 6:27:15 AM Referred By: Confirmed By: NED ANN MD 08/27/24 0627 Date Ned Ann MD CC: Dr. Rudy Guerrero DO; Dr. Toni Meier MD Signed Normal [facility] Basic Metabolic Profile (BMP )on 08-26-2024 BUN/CRE 18.5 RATIO Normal 10-20 [facility] Comment on above: Order Comment: 'TROP ' Serial specimen #1, #2 or #3: 1 Performed By: #### L 500.2500, L100.0100, L501.4020 #### [facility] [address] [place], [address] CA,Total 9.0 mg/dL Normal 8.5-10.1 [facility] Comment on above: Order Comment: 'TROP ' Serial specimen #1, #2 or #3: 1 Performed By: #### L 500.2500, L100.0100, L501.4020 #### [facility] [address] [place], [address] Chloride [Moles/Vol] 110 mmol/L High 98-107 [facility] Comment on above: Order Comment: 'TROP ' Serial specimen #1, #2 or #3: 1 Performed By: #### L 500.2500, L100.0100, L501.4020 #### [facility] [address] [place], [address] CO2 [Moles/Vol] 24.0 mmol/L Normal 21.0-32.0 [facility] Comment on above: Order Comment: 'TROP ' Serial specimen #1, #2 or #3: 1 Performed By: #### L 500.2500, L100.0100, L501.4020 #### [facility] [address] [place], [address] Creatinine [Mass/Vol] 0.86 mg/dL Normal 0.55-1.02 [facility] Comment on above: Order Comment: 'TROP ' Serial specimen #1, #2 or #3: 1 Result Comment: The validity of the calculated GFR GFRAA in patients over 70 years has not been determined. Clinical correlation is essential. Performed By: #### L 500.2500, L100.0100, L501.4020 #### [facility] [address] [place], [address] EST GFR - AA 81 mL/min Normal >60 [facility] Comment on above: Order Comment: 'TROP ' Serial specimen #1, #2 or #3: 1 Result Comment: Afri can German GFR Calc Performed By: #### L 500.2500, L100.0100, L501.4020 #### [facility] [address] [place], [address] GAP 8 Normal 5-15 [facility] Comment on above: Order Comment: 'TROP ' Serial specimen #1, #2 or #3: 1 Performed By: #### L 500.2500, L100.0100, L501.4020 #### [facility] [address] [place], [address] GFR/1.73 sq M.predicted among non-blacks MDRD (S/P/Bld) [Vol rate/Area] 67 mL/min/{1.73_m2} Normal >60 [facility] Comment on above: Order Comment: 'TROP ' Serial specimen #1, #2 or #3: 1 Result Comment: Non- GFR Calc Performed By: #### L 500.2500, L100.0100, L501.4020 #### [facility] [address] [place], [address] Glucose [Mass/Vol] 101 mg/dL Normal 74-106 [facility] Comment on above: Order Comment: 'TROP ' Serial specimen #1, #2 or #3: 1 Result Comment: Fast ing Glucose result from 100 to 125 mg/dL suggests IMPAIRED HOMEOSTASIS per A.D.A. criteria. Performed By: #### L 500.2500, L100.0100, L501.4020 #### [facility] [address] [place], [address] Potassium [Moles/Vol] 3.3 mmol/L Low 3.5-5.1 [facility] Comment on above: Order Comment: 'TROP ' Serial specimen #1, #2 or #3: 1 Performed By: #### L 500.2500, L100.0100, L501.4020 #### [facility] [address] [place], [address] Sodium [Moles/Vol] 142 mmol/L Normal 136-145 [facility] Comment on above: Order Comment: 'TROP ' Serial specimen #1, #2 or #3: 1 Performed By: #### L 500.2500, L100.0100, L501.4020 #### [facility] [address] [place], [address] Urea nitrogen [Mass/Vol] 16 mg/dL Normal 7-18 [facility] Comment on above: Order Comment: 'TROP ' Serial specimen #1, #2 or #3: 1 Performed By: #### L 500.2500, L100.0100, L501.4020 #### [facility] [address] [place], [address] Brain/Head without Contrasto n 08-26-2024 Brain/Head without Contrast [facility] Imaging Services [address] [place] [address] Brain/Head without Contrast MR#: [id number] Acct: [id number] Name: GIANFRANCO HOLLIDAY Rep #: [id number] : 1940 F 83 From: Monique Langford PCP: Dr. Toni Meier MD Status: [facility] Study: Brain/Head without Contrast Date of Exam: 10/19 Exam# [id number] Ordering Dr: Rudy Guerrero DO [id number] INDICATION: Dizziness dizziness since November, tonight was severe so she called 911 EXAMINATION: CT BRAIN - CT Head or Brain W/O Contrast Injection TECHNIQUE: Multiple axial images were obtained of the head without intravenous contrast. The protocol utilizes one or more of the following dose reduction techniques: automated exposure control, adjustment of mA and/or kV according to patient size,and/or use of iterative reconstruction technique. IV Contrast dosage and agent: None. RADIATION DOSAGE (If Supplied By Facility): CTDIvol = ( 44.99 ) mGy, DLP = ( 796.11 ) mGycm COMPARISON: No relevant prior comparison study available FINDINGS: BRAIN: No acute bleed. No edema. Mild decreased attenuation in periventricular white matter bilaterally. [place]-white matter differentiation is maintained. Arterial calcifications. VENTRICLES AND SULCI: The ventricles are not dilated. The sulci are prominent. EXTRA-AXIAL: No hemorrhage, fluid collection, or mass. CALVARIUM / SKULL BASE: Unremarkable. FACE/SINUSES: Unremarkable. SOFT TISSUES: Unremarkable. CT/Brain/Head without Contrast IMPRESSION: No acute abnormality. Mild chronic microvascular ischemic disease. CT angiogram and/or MRI may be helpful to evaluate for acute infarct as clinically indicated. Electronically Signed: Monique Galvan MD at 1:21 EST , CC: Dr. Rudy Guerrero ; Dr. Toni Meier MD Consulting Project Director: Signed Normal [facility] CBC W/Diff, Automatedon 01-0 -2024 Absolute Lymph 3.13 X10 3/uL Normal 0.83-4.51 [facility] Comment on above: Performed By: #### L 500.2500, L100.0100, L501.4020 #### [facility] [address] [place], [address] Absolute Neut 3.4 X10 3/uL Normal 2.0-7.7 [facility] Comment on above: Performed By: #### L 500.2500, L100.0100, L501.4020 #### [facility] [address] [place], [address] Basophils/100 WBC (Bld) 0.7 % Normal 0-1 [facility] Comment on above: Performed By: #### L 500.2500, L100.0100, L501.4020 #### [facility] [address] [place], [address] Eosinophils/100 WBC (Bld) 0.9 % Normal 0-5 [facility] Comment on above: Performed By: #### L 500.2500, L100.0100, L501.4020 #### [facility] [address] [place], [address] Erythrocyte distribution width (RBC) [Ratio] 13.1 % Normal 11.6-14.6 [facility] Comment on above: Performed By: #### L 500.2500, L100.0100, L501.4020 #### [facility] [address] [place], [address] Hematocrit (Bld) [Volume fraction] 31.4 % Low 37-47 [facility] Comment on above: Performed By: #### L 500.2500, L100.0100, L501.4020 #### [facility] [address] [facility] [facility] [place], [address] Hemoglobin (Bld) [Mass/Vol] 10.6 g/dL Low 12.0-15.0 [facility] Comment on above: Performed By: #### L 500.2500, L100.0100, L501.4020 #### [facility] [address] [place], [address] IG% 0.300 Normal 0.0-0.9 [facility] Comment on above: Result Comment: IG% - Immature Granulocytes (promyelocytes, myelocytes and metamyelocytes) > 1% indicates that a LEFT SHIFT is Present. Performed By: #### L 500.2500, L100.0100, L501.4020 #### [facility] [address] [place], [address] Lymphocytes/100 WBC (Bld) 42.2 % High 19-41 [facility] Comment on above: Performed By: #### L 500.2500, L100.0100, L501.4020 #### [facility] [address] [place], [address] MCH (RBC) [Entitic mass] 30.5 pg Normal 27.0-32.0 [facility] Comment on above: Performed By: #### L 500.2500, L100.0100, L501.4020 #### [facility] [address] [place], [address] MCHC (RBC) [Mass/Vol] 33.8 g/dL Normal 32-36 [facility] Comment on above: Performed By: #### L 500.2500, L100.0100, L501.4020 #### [facility] [address] [place], [address] MCV (RBC) [Entitic vol] 90.5 fL Normal 81-99 [facility] Comment on above: Performed By: #### L 500.2500, L100.0100, L501.4020 #### [facility] [address] [place], [address] Monocytes/100 WBC (Bld) 10.0 % Normal 0-10 [facility] Comment on above: Performed By: #### L 500.2500, L100.0100, L501.4020 #### [facility] [address] [place], [address] Neutrophils/100 WBC (Bld) 45.9 % Low 47-70 [facility] Comment on above: Performed By: #### L 500.2500, L100.0100, L501.4020 #### [facility] [address] [place], [address] Nucleated RBC (Bld) [#/Vol] 0 10*3/uL Normal 0-5 [facility] Comment on above: Performed By: #### L 500.2500, L100.0100, L501.4020 #### [facility] [address] [place], [address] Platelet mean volume (Bld) [Entitic vol] 11.3 fL Normal 6.2-12.0 [facility] Comment on above: Performed By: #### L 500.2500, L100.0100, L501.4020 #### [facility] [address] [place], [address] Platelets (Bld) [#/Vol] 232 10*3/uL Normal 150-450 [facility] Comment on above: Performed By: #### L 500.2500, L100.0100, L501.4020 #### [facility] [address] [place], [address] RBC (Bld) [#/Vol] 3.47 10*6/uL Low 4.2-5.4 [facility] Comment on above: Performed By: #### L 500.2500, L100.0100, L501.4020 #### [facility] [address] [place], [address] RDW SD 43.1 fl Normal 35.1-43.9 [facility] Comment on above: Performed By: #### L 500.2500, L100.0100, L501.4020 #### [facility] [address] [place], [address] WBC (Bld) [#/Vol] 7.4 10*3/uL Normal 4.4-11.0 [facility] Comment on above: Performed By: #### L 500.2500, L100.0100, L501.4020 #### [facility] [address] [place], [address] Chest PA and Lateralon 08-26 Chest PA and Lateral [facility] Imaging Services [address] [place] [address] Chest PA and Lateral MR#: [id number] Acct: [id number] Name: GIANFRANCO HOLLIDAY Rep #: [id number] : 1940 F 83 From: Monique Langford PCP: Dr. Toni Meier MD Status: [facility] ER Study: Chest PA and Lateral Date of Exam: 08/26/24 Exam# [id number] Ordering Dr: Rudy Guerrero DO [id number] INDICATION: Dizziness EXAMINATION/TECHNIQUE: X-RAY - XR Chest 2 Views COMPARISON: Prior study dated: 12/08/2023 FINDINGS: LINES/DEVICES: None. LUNGS: No consolidation. No pneumothorax. MEDIASTINUM: Unremarkable. CARDIAC SILHOUETTE: Not enlarged. BONES AND SOFT TISSUES: No acute abnormalities. Degenerative changes in the dorsal spine. RAD/Chest PA and Lateral IMPRESSION: No evidence of active intrathoracic disease. Electronically Signed: Monique Galvan MD at 1:22 EST , CC: Dr. Rudy Guerrero DO; Dr. Toni Meier MD Consulting Project Director: Signed Normal [facility] Emergency Department Summary on 08-26-2024 Emergency Department Summary [facility] Medical Records Department [address] [place] [id number] Emergency Department Summary 08/26/24 MR#: [id number] Acct: [id number] Name: GIANFRANCO HOLLIDAY Rep #: [id number] : 1940 83 From: Rudy Guerrero DO PCP: Dr. Toni Meier MD Status:DEP ER Location: ED HPI History of Present Illness Chief Complaint: Dizziness Narrative Narrative: Chief complaint and HPI: Brain heaviness. 83-year-old female with no significant past medical history presents for evaluation of " brain heaviness." Patient states that she has been having intermittent episodes of " brain heaviness" since November. She states that it occurred more frequently today. Patient states she woke up without any symptoms. She states she got an episode of " heaviness" in her frontal forehead. When I have her explain though she denies vertigo, dizziness, lightheadedness, headache. She states " I do not know how to explain it it just feels heavy in my forehead like I am going to fall forward." She denies any syncope or presyncope symptoms. States she does not feel like she is going to pass out. She denies any fever, chills, shortness of breath, chest pain abdominal pain, nausea, vomiting, dysuria. States she has been eating and drinking. She has not followed up with her PCP for this. Denies any neurological deficits, weakness, numbness or tingling. Review of systems: See HPI Medications: As listed on the chart Allergies: As listed on the chart PFSH: Per chart Vital signs: As listed on the chart. Reviewed. Physical exam: Gen: A O x3, NAD Head: Normocephalic, atraumatic Eyes: No sclera icterus, conjunctiva clear, PERRL, EOMI ENT: TMs clear BL, moist mucous membranes, posterior oropharynx unremarkable Neck: Trachea midline, No JVD, Full ROM, No meningismus CV: RRR, no murmurs, no peripheral edema Resp: Lungs CTA BL, no w/r/c GI: Abd soft, non-distended, non-tender, no r/r/g Musc: Full ROM, no deformity, strength plus 5 out of 5 in all extremities Skin: Warm, dry, no rash Neuro: Alert, oriented, grossly intact, sensation intact Psych: Cooperative, appropriate mood and affect [facility] Medical History Cellulitis of right ankle Home Medications ???Medication ???Instructions ???Recorded ???Last Taken ???Type aspirin 81 mg chewable tablet 81 mg PO DAILY 12/30/17 Unknown History mupirocin 2 % topical ointment topical TID 12/08/23 Unknown History sulfamethoxazole 800 1 tab PO BID 12/08/23 Unknown History mg-trimethoprim 160 mg tablet hydroxyzine HCl 10 mg tablet 10 mg PO TID PRN itching #14 tabs 01/31/24 Unknown Rx Allergy/AdvReac Type Severity Reaction Status Date / Time mometasone furoate Allergy Mild Itching Verified 08/25/24 23:23 prednisone Allergy Rash Verified 08/25/24 23:23 sulfadimethoxine Allergy Rash Verified 08/25/24 23:23 Surgical History H/O: hysterectomy Social History Smoking Status: Never smoker EXAM Physical Exam Const Vital Signs: 08/25/24 23:13 08/26/24 01:36 08/26/24 02:13 Temperature 97.7 F L 97.7 F L Temperature Source Oral Pulse Rate 80 73 88 Respiratory Rate 19 H 13 18 Blood Pressure 129/96 H 145/66 H 138/76 H Blood Pressure Mean 107 92 96 Pulse Ox 100 99 96 Oxygen Delivery Method Room Air MDM MDM MDM Narrative Medical decision making narrative: 83-year-old female with no significant past medical history presents for evaluation of "brain heaviness." Differential diagnosis includes but is not limited to electrolyte abnormality, SAPNA, anemia, arrhythmia, ACS, intracranial abnormality. NS bolus ordered. Laboratory workup ordered including CT head and chest x-ray. EKG and chest x-ray reviewed see below. CBC without leukocytosis. Patient has baseline anemia. BMP unremarkable except for some mild hypokalemia of 3.3. No SAPNA. Troponin unremarkable. Patient not having any chest pain I do not think a delta is needed. UA is negative for UTI. CT head shows chronic disease but no acute intracranial abnormality. At this point in time, no clear etiology to explain the patient's intermittent head heaviness that she has been having since November. She was updated of all the results. She states her heaviness has improved this evening. She ambulated without difficulty. Patient stable to discharge home. Follow-up with PCP. Return precautions explained. She confirmed understand the plan. EKG: Interpreted by me/EM physician: EKG shows normal sinus rhythm without any acute ischemic changes. Heart rate 69. Diagnostic: Interpreted by me/EM physician: Chest x-ray without cardiomegaly, pneumonia, effusion, pneumothorax Impression: 1. Hea (more content not included)... Normal [facility] L501.4020on 08-26-2024 TROPONIN-I HS 16 pg/mL Normal 3.0-54.0 [facility] Comment on above: Order Comment: 'TROP ' Serial specimen #1, #2 or #3: 1 Result Comment: Victorina troncoso Note: New Test Units and Gender Specific Reference Ranges. For more information see Policy Stat Procedure [place] High Sensitivity Troponin (TNIH) and attachments. Performed By: #### L 500.2500, L100.0100, L501.4020 #### [facility] [address] [place], [address] Urinalysis, Completeon 08-26 BACTERIA RARE Normal None Seen [facility] Comment on above: Order Comment: CLEAN CATCH Performed By: #### L 500.2500, L100.0100, L501.4020 #### [facility] [address] [place], [address] WBC 0-5 SEEN Normal 0-5 [facility] Comment on above: Order Comment: CLEAN CATCH Performed By: #### L 500.2500, L100.0100, L501.4020 #### [facility] [address] [place], [address] EPI,SQUAMOUS 0 SEEN Normal 5-10 [facility] Comment on above: Order Comment: CLEAN CATCH Performed By: #### L 500.2500, L100.0100, L501.4020 #### [facility] [address] [place], [address] Mucus Ql (Urine sed) 0 SEEN Normal [facility] Comment on above: Order Comment: CLEAN CATCH Performed By: #### L 500.2500, L100.0100, L501.4020 #### [facility] [address] [place], [address] RBC 0 SEEN Normal 0-5 [facility] Comment on above: Order Comment: CLEAN CATCH Performed By: #### L 500.2500, L100.0100, L501.4020 #### [facility] [address] [place], [address] CBC W/Diff, Automatedon 07-0 8-2024 Absolute Lymph 2.98 X10 3/uL Normal 0.83-4.51 [facility] Comment on above: Performed By: #### L 501.0900, L100.0100, L500.4050, L400.2010 ####[facility] [address] [place], [address] Absolute Neut 3.5 X10 3/uL Normal 2.0-7.7 [facility] Comment on above: Performed By: #### L 501.0900, L100.0100, L500.4050, L400.2010 ####[facility] [address] [place], [address] Basophils/100 WBC (Bld) 0.5 % Normal 0-1 [facility] Comment on above: Performed By: #### L 501.0900, L100.0100, L500.4050, L400.2010 ####[facility] [address] [place], [address] Eosinophils/100 WBC (Bld) 0.8 % Normal 0-5 [facility] Comment on above: Performed By: #### L 501.0900, L100.0100, L500.4050, L400.2010 ####[facility] [address] [place], [address] Erythrocyte distribution width (RBC) [Ratio] 13.8 % Normal 11.6-14.6 [facility] Comment on above: Performed By: #### L 501.0900, L100.0100, L500.4050, L400.2010 ####[facility] [address] [place], [address] Hematocrit (Bld) [Volume fraction] 36.7 % Low 37-47 [facility] Comment on above: Performed By: #### L 501.0900, L100.0100, L500.4050, L400.2010 ####[facility] [address] [place], [address] Hemoglobin (Bld) [Mass/Vol] 11.7 g/dL Low 12.0-15.0 [facility] Comment on above: Performed By: #### L 501.0900, L100.0100, L500.4050, L400 ####[facility] [address] [place], [address] IG% 0.100 Normal 0.0-0.9 [facility] Comment on above: Result Comment: IG% - Immature Granulocytes (promyelocytes, myelocytes and metamyelocytes) > 1% indicates that a LEFT SHIFT is Present. Performed By: #### L 501.0900, L100.0100, L500.4050, L400 ####[facility] [address] [place], [address] Lymphocytes/100 WBC (Bld) 40.9 % Normal 19-41 [facility] Comment on above: Performed By: #### L 501.0900, L100.0100, L500.4050, L400 ####[facility] [address] [place], [address] MCH (RBC) [Entitic mass] 29.2 pg Normal 27.0-32.0 [facility] Comment on above: Performed By: #### L 501.0900, L100.0100, L500.4050, L400 ####[facility] [address] [place], [address] MCHC (RBC) [Mass/Vol] 31.9 g/dL Low 32-36 [facility] Comment on above: Performed By: #### L 501.0900, L100.0100, L500.4050, L400 ####[facility] [address] [place], [address] MCV (RBC) [Entitic vol] 91.5 fL Normal 81-99 [facility] Comment on above: Performed By: #### L 501.0900, L100.0100, L500.4050, L400.2010 ####[facility] [address] [place], [address] Monocytes/100 WBC (Bld) 9.3 % Normal 0-10 [facility] Comment on above: Performed By: #### L 501.0900, L100.0100, L500.4050, L400 ####[facility] [address] [place], [address] Neutrophils/100 WBC (Bld) 48.4 % Normal 47-70 [facility] Comment on above: Performed By: #### L 501.0900, L100.0100, L500.4050, L400.2010 ####[facility] [address] [place], [address] Nucleated RBC (Bld) [#/Vol] 0 10*3/uL Normal 0-5 [facility] Comment on above: Performed By: #### L 501.0900, L100.0100, L500.4050, L400.2010 ####[facility] [address] [place], [address] Platelet mean volume (Bld) [Entitic vol] 11.7 fL Normal 6.2-12.0 [facility] Comment on above: Performed By: #### L 501.0900, L100.0100, L500.4050, L400.2010 ####[facility] [address] [place], [address] Platelets (Bld) [#/Vol] 259 10*3/uL Normal 150-450 [facility] Comment on above: Performed By: #### L 501.0900, L100.0100, L500.4050, L400.2010 ####[facility] [address] [place], [address] RBC (Bld) [#/Vol] 4.01 10*6/uL Low 4.2-5.4 [facility] Comment on above: Performed By: #### L 501.0900, L100.0100, L500.4050, L400.2010 ####[facility] [address] [place], [address] RDW SD 46.9 fl High 35.1-43.9 [facility] Comment on above: Performed By: #### L 501.0900, L100.0100, L500.4050, L400.2010 ####[facility] [address] [place], [address] WBC (Bld) [#/Vol] 7.3 10*3/uL Normal 4.4-11.0 [facility] Comment on above: Performed By: #### L 501.0900, L100.0100, L500.4050, L400.2010 ####[facility] [address] [place], [address] Comprehensive Metabolic Prof [facility] 03-01-2024 Albumin [Mass/Vol] 3.9 g/dL Normal 3.2-5.0 [facility] Comment on above: Performed By: #### L 500.2500, L100.0100, L501.4020 #### [facility] [address] [place], [address] Albumin/Globulin [Mass ratio] 1.1 {ratio} Normal 0.9-2.4 [facility] Comment on above: Performed By: #### L 500.2500, L100.0100, L501.4020 #### [facility] [address] [place], [address] ALK P 74 U/L Normal 45-117 [facility] Comment on above: Performed By: #### L 500.2500, L100.0100, L501.4020 #### [facility] [address] [place], [address] ALT [Catalytic activity/Vol] 16 U/L Normal 13-56 [facility] Comment on above: Performed By: #### L 500.2500, L100.0100, L501.4020 #### [facility] [address] [place], [address] AST [Catalytic activity/Vol] 20 U/L Normal 15-37 [facility] Comment on above: Performed By: #### L 500.2500, L100.0100, L501.4020 #### [facility] [address] [place], [address] Bilirubin [Mass/Vol] 0.40 mg/dL Normal 0.20-1.00 [facility] Comment on above: Result Comment: For patients on eltrombopag therapy, use of Dimension [place] TBIL is not recommended. Performed By: #### L 500.2500, L100.0100, L501.4020 #### [facility] [address] [place], [address] BUN/CRE 13.6 RATIO Normal 10-20 [facility] Comment on above: Performed By: #### L 500.2500, L100.0100, L501.4020 #### [facility] [address] [place], [address] CA,Total 9.4 mg/dL Normal 8.5-10.1 [facility] Comment on above: Performed By: #### L 500.2500, L100.0100, L501.4020 #### [facility] [address] [place], [address] Chloride [Moles/Vol] 107 mmol/L Normal 98-107 [facility] Comment on above: Performed By: #### L 500.2500, L100.0100, L501.4020 #### [facility] [address] [place], [address] CO2 [Moles/Vol] 28.0 mmol/L Normal 21.0-32.0 [facility] Comment on above: Performed By: #### L 500.2500, L100.0100, L501.4020 #### [facility] [address] [place], [address] Creatinine [Mass/Vol] 0.96 mg/dL Normal 0.55-1.02 [facility] Comment on above: Result Comment: The validity of the calculated GFR GFRAA in patients over 70 years has not been determined. Clinical correlation is essential. Performed By: #### L 500.2500, L100.0100, L501.4020 #### [facility] [address] [place], [address] EST GFR - AA 72 mL/min Normal >60 [facility] Comment on above: Result Comment: Afri can German GFR Calc Performed By: #### L 500.2500, L100.0100, L501.4020 #### [facility] [address] [place], [address] GAP 4 Low 5-15 [facility] Comment on above: Performed By: #### L 500.2500, L100.0100, L501.4020 #### [facility] [address] [place], [address] GFR/1.73 sq M.predicted among non-blacks MDRD (S/P/Bld) [Vol rate/Area] 59 mL/min/{1.73_m2} Low >60 [facility] Comment on above: Result Comment: Non- GFR Calc Performed By: #### L 500.2500, L100.0100, L501.4020 #### [facility] [address] [place], [address] Globulin (S) [Mass/Vol] 3.5 g/dL Normal 2.2-4.2 [facility] Comment on above: Performed By: #### L 500.2500, L100.0100, L501.4020 #### [facility] [address] [place], [address] Glucose [Mass/Vol] 95 mg/dL Normal 74-106 [facility] Comment on above: Performed By: #### L 500.2500, L100.0100, L501.4020 #### [facility] [address] [place], [address] Potassium [Moles/Vol] 3.7 mmol/L Normal 3.5-5.1 [facility] Comment on above: Performed By: #### L 500.2500, L100.0100, L501.4020 #### [facility] [address] [place], [address] Sodium [Moles/Vol] 139 mmol/L Normal 136-145 [facility] Comment on above: Performed By: #### L 500.2500, L100.0100, L501.4020 #### [facility] [address] [place], [address] T PROT 7.4 g/dL Normal 6.4-8.2 [facility] Comment on above: Performed By: #### L 500.2500, L100.0100, L501.4020 #### [facility] [address] [place], [address] Urea nitrogen [Mass/Vol] 13 mg/dL Normal 7-18 [facility] Comment on above: Performed By: #### L 500.2500, L100.0100, L501.4020 #### [facility] [address] [place], [address] EXAGENon 03-01-2024 EXAGEN MAILED SPECIMEN Normal [facility] Comment on above: Performed By: #### L 801.1549 ####[facility] [address] [place], [address] Protein+Creatinine Ratio,Uri neon 03-01-2024 PROT:CRE RATIO TNP Normal 0-200 [facility] Comment on above: Performed By: #### L 500.2500, L100.0100, L501.4020 #### [facility] [address] [place], [address] PROTEIN,UR.RAN. < 6.0 Normal <11.9 [facility] Comment on above: Performed By: #### L 500.2500, L100.0100, L501.4020 #### [facility] [address] [place], [address] UR CREAT 29.20 mg/dL Normal NO RANGE EST. [facility] Comment on above: Performed By: #### L 500.2500, L100.0100, L501.4020 #### [facility] [address] [place], [address] Urinalysis, Routine (Dipstic k)on 03-01-2024 BILIRUBIN URINE Negative Normal Negative [facility] Comment on above: Order Comment: CLEAN CATCH Performed By: #### L 501.0900, L100.0100, L500.4050, L400.2010 ####[facility] [address] [place], [address] Clarity (U) Clear Normal Clear [facility] Comment on above: Order Comment: CLEAN CATCH Performed By: #### L 501.0900, L100.0100, L500.4050, L400.2010 ####[facility] [address] [place], [address] Color (U) Yellow Normal Yellow [facility] Comment on above: Order Comment: CLEAN CATCH Performed By: #### L 501.0900, L100.0100, L500.4050, L400.2010 ####[facility] [address] [place], [address] GLUCOSE, UR Normal Normal Normal [facility] Comment on above: Order Comment: CLEAN CATCH Performed By: #### L 501.0900, L100.0100, L500.4050, L400.2010 ####[facility] [address] [place], [address] KETONE UR Negative Normal Negative [facility] Comment on above: Order Comment: CLEAN CATCH Performed By: #### L 501.0900, L100.0100, L500.4050, L400.2010 ####[facility] [address] [place], [address] LEUK ESTERASE 25 /ul Abnormal Negative [facility] Comment on above: Order Comment: CLEAN CATCH Performed By: #### L 501.0900, L100.0100, L500.4050, L400.2010 ####[facility] [address] [place], [address] Nitrite Ql (U) Negative Normal Negative [facility] Comment on above: Order Comment: CLEAN CATCH Performed By: #### L 501.0900, L100.0100, L500.4050, L400.2010 ####[facility] [address] [place], [address] OCCULT BLOOD-UR Negative Normal Negative [facility] Comment on above: Order Comment: CLEAN CATCH Performed By: #### L 501.0900, L100.0100, L500.4050, L400.2010 ####[facility] [address] [place], [address] pH UR 7.0 Normal 5.0 - 8.0 [facility] Comment on above: Order Comment: CLEAN CATCH Performed By: #### L 501.0900, L100.0100, L500.4050, L400.2010 ####[facility] [address] [place], [address] PROT DIPSTX Negative Normal Negative [facility] Comment on above: Order Comment: CLEAN CATCH Performed By: #### L 501.0900, L100.0100, L500.4050, L400.2010 ####[facility] [address] [place], [address] SP.GR. DIPSTX 1.010 Normal 1.002-1.030 [facility] Comment on above: Order Comment: CLEAN CATCH Performed By: #### L 501.0900, L100.0100, L500.4050, L400.2010 ####[facility] [address] [place], [address] UROBILI Normal Normal Normal [facility] Comment on above: Order Comment: CLEAN CATCH Performed By: #### L 501.0900, L100.0100, L500.4050, L400.2010 ####[facility] [address] [place], [address] CBC W/Diff, Automatedon 07-0 -2023 Absolute Neut Normal 2.0-7.7 [facility] Comment on above: Result Comment: @FATMATA TS DO NOT GET SENT OUT WHEN HOLIDAY IS THE NEXT DAY. Performed By: #### L 500.4050, L501.0900, L400.2010, L100.0100 ####[facility] [address] [place], [address] HCT Normal 37-47 [facility] Comment on above: Result Comment: @FATMATA TS DO NOT GET SENT OUT WHEN HOLIDAY IS THE NEXT DAY. Performed By: #### L 500.4050, L501.0900, L400.2010, L100.0100 ####[facility] [address] [place], [address] HGB Normal 12.0-15.0 [facility] Comment on above: Result Comment: @FATMATA TS DO NOT GET SENT OUT WHEN HOLIDAY IS THE NEXT DAY. Performed By: #### L 500.4050, L501.0900, L4, L100.0100 ####[facility] [address] [place], [address] MCH Normal 27.0-32.0 [facility] Comment on above: Result Comment: @FATMATA TS DO NOT GET SENT OUT WHEN HOLIDAY IS THE NEXT DAY. Performed By: #### L 500.4050, L501.0900, L4, L100.0100 ####[facility] [address] [place], [address] MCHC Normal 32-36 [facility] Comment on above: Result Comment: @FATMATA TS DO NOT GET SENT OUT WHEN HOLIDAY IS THE NEXT DAY. Performed By: #### L 500.4050, L501.09, , L100.0100 ####[facility] [address] [place], [address] MCV Normal 81-99 [facility] Comment on above: Result Comment: @FATMATA TS DO NOT GET SENT OUT WHEN HOLIDAY IS THE NEXT DAY. Performed By: #### L 500.4050, L501.0900, , L100.0100 ####[facility] [address] [place], [address] NEUT% Normal 47-70 [facility] Comment on above: Result Comment: @FATMATA TS DO NOT GET SENT OUT WHEN HOLIDAY IS THE NEXT DAY. Performed By: #### L 500.4050, L501.0900, L4, L100.0100 ####[facility] [address] [place], [address] PLT Normal 150-450 [facility] Comment on above: Result Comment: @FATMATA TS DO NOT GET SENT OUT WHEN HOLIDAY IS THE NEXT DAY. Performed By: #### L 500.4050, L501.0900, L4, L100.0100 ####[facility] [address] [place], [address] RBC Normal 4.2-5.4 [facility] Comment on above: Result Comment: @FATMATA TS DO NOT GET SENT OUT WHEN HOLIDAY IS THE NEXT DAY. Performed By: #### L 500.4050, L501.0900, L4, L100.0100 ####[facility] [address] [place], [address] RDW CV Normal 11.6-14.6 [facility] Comment on above: Result Comment: @FATMATA TS DO NOT GET SENT OUT WHEN HOLIDAY IS THE NEXT DAY. Performed By: #### L 500.4050, L501.09, , L100.0100 ####[facility] [address] [place], [address] RDW SD Normal 35.1-43.9 [facility] Comment on above: Result Comment: @FATMATA TS DO NOT GET SENT OUT WHEN HOLIDAY IS THE NEXT DAY. Performed By: #### L 500.4050, L501.09, L4, L100.0100 ####[facility] [address] [place], [address] WBC Normal 4.4-11.0 [facility] Comment on above: Result Comment: @FATMATA TS DO NOT GET SENT OUT WHEN HOLIDAY IS THE NEXT DAY. Performed By: #### L 500.4050, L501.0900, L4, L100.0100 ####[facility] [address] [place], [address] Comprehensive Metabolic Prof ilon 02-25-2024 ALB Normal 3.2-5.0 [facility] Comment on above: Result Comment: @FATMATA TS DO NOT GET SENT OUT WHEN HOLIDAY IS THE NEXT DAY. Performed By: #### L 500.4050, L501.0900, L4, L100.0100 ####[facility] [address] [place], [address] ALK P Normal 45-117 [facility] Comment on above: Result Comment: @FATMATA TS DO NOT GET SENT OUT WHEN HOLIDAY IS THE NEXT DAY. Performed By: #### L 500.4050, L501.0900, L4.2010, L100.0100 ####[facility] [address] [place], [address] ALT Normal 13-56 [facility] Comment on above: Result Comment: @FATMATA TS DO NOT GET SENT OUT WHEN HOLIDAY IS THE NEXT DAY. Performed By: #### L 500.4050, L501.09, L4, L100.0100 ####[facility] [address] [place], [address] AST Normal 15-37 [facility] Comment on above: Result Comment: @FATMATA TS DO NOT GET SENT OUT WHEN HOLIDAY IS THE NEXT DAY. Performed By: #### L 500.4050, L501.0900, L4, L100.0100 ####[facility] [address] [place], [address] BUN Normal 7-18 [facility] Comment on above: Result Comment: @FATMATA TS DO NOT GET SENT OUT WHEN HOLIDAY IS THE NEXT DAY. Performed By: #### L 500.4050, L501.09, L4, L100.0100 ####[facility] [address] [place], [address] BUN/CRE Normal 10-20 [facility] Comment on above: Result Comment: @FATMATA TS DO NOT GET SENT OUT WHEN HOLIDAY IS THE NEXT DAY. Performed By: #### L 500.4050, L501.0900, L4.2010, L100.0100 ####[facility] [address] [place], [address] CA,Total Normal 8.5-10.1 [facility] Comment on above: Result Comment: @FATMATA TS DO NOT GET SENT OUT WHEN HOLIDAY IS THE NEXT DAY. Performed By: #### L 500.4050, L501.09, L4, L100.0100 ####[facility] [address] [place], [address] CL Normal 98-107 [facility] Comment on above: Result Comment: @FATMATA TS DO NOT GET SENT OUT WHEN HOLIDAY IS THE NEXT DAY. Performed By: #### L 500.4050, L501.09, L4, L100.0100 ####[facility] [address] [place], [address] CO2 Normal 21.0-32.0 [facility] Comment on above: Result Comment: @FATMATA TS DO NOT GET SENT OUT WHEN HOLIDAY IS THE NEXT DAY. Performed By: #### L 500.4050, L501.09, , L100.0100 ####[facility] [address] [place], [address] CREAT,SERUM Normal 0.55-1.02 [facility] Comment on above: Result Comment: @FATMATA TS DO NOT GET SENT OUT WHEN HOLIDAY IS THE NEXT DAY. Performed By: #### L 500.4050, L501.09, L4, L100.0100 ####[facility] [address] [place], [address] EST GFR Normal >60 [facility] Comment on above: Result Comment: @FATMATA TS DO NOT GET SENT OUT WHEN HOLIDAY IS THE NEXT DAY. Performed By: #### L 500.4050, L501.09, L4, L100.0100 ####[facility] [address] [place], [address] EST GFR - AA Normal >60 [facility] Comment on above: Result Comment: @FATMATA TS DO NOT GET SENT OUT WHEN HOLIDAY IS THE NEXT DAY. Performed By: #### L 500.4050, L501.0900, L4, L100.0100 ####[facility] [address] [place], [address] GAP Normal 5-15 [facility] Comment on above: Result Comment: @FATMATA TS DO NOT GET SENT OUT WHEN HOLIDAY IS THE NEXT DAY. Performed By: #### L 500.4050, L501.09, L4, L100.0100 ####[facility] [address] [place], [address] GLU Normal 74-106 [facility] Comment on above: Result Comment: @FATMATA TS DO NOT GET SENT OUT WHEN HOLIDAY IS THE NEXT DAY. Performed By: #### L 500.4050, L501.09, , L100.0100 ####[facility] [address] [place], [address] Potassium Normal 3.5-5.1 [facility] Comment on above: Result Comment: @FATMATA TS DO NOT GET SENT OUT WHEN HOLIDAY IS THE NEXT DAY. Performed By: #### L 500.4050, L501.09, , L100.0100 ####[facility] [address] [place], [address] T BILI Normal 0.20-1.00 [facility] Comment on above: Result Comment: @FATMATA TS DO NOT GET SENT OUT WHEN HOLIDAY IS THE NEXT DAY. Performed By: #### L 500.4050, L501.0900, L4, L100.0100 ####[facility] [address] [place], [address] T PROT Normal 6.4-8.2 [facility] Comment on above: Result Comment: @FATMATA TS DO NOT GET SENT OUT WHEN HOLIDAY IS THE NEXT DAY. Performed By: #### L 500.4050, L501.09, L4, L100.0100 ####[facility] [address] [place], [address] Comprehensive Metabolic Profil Normal 136-145 [facility] Comment on above: Result Comment: @FATMATA TS DO NOT GET SENT OUT WHEN HOLIDAY IS THE NEXT DAY. Performed By: #### L 500.4050, L501.0900, L4.2010, L100.0100 ####[facility] [address] [place], [address] Protein+Creatinine Ratio,Uri neon 02-25-2024 PROT:CRE RATIO Normal 0-200 [facility] Comment on above: Result Comment: @FATMATA TS DO NOT GET SENT OUT WHEN HOLIDAY IS THE NEXT DAY. Performed By: #### L 500.4050, L501.0900, L4.2010, L100.0100 ####[facility] [address] [place], [address] PROTEIN,UR.RAN. Normal <11.9 [facility] Comment on above: Result Comment: @FATMATA TS DO NOT GET SENT OUT WHEN HOLIDAY IS THE NEXT DAY. Performed By: #### L 500.4050, L501.0900, L4.2010, L100.0100 ####[facility] [address] [place], [address] UR CREAT Normal NO RANGE EST. [facility] Comment on above: Result Comment: @FATMATA TS DO NOT GET SENT OUT WHEN HOLIDAY IS THE NEXT DAY. Performed By: #### L 500.4050, L501.0900, L4.2010, L100.0100 ####[facility] [address] [place], [address] Urinalysis, Routine (Dipstic k)on 02-25-2024 BILIRUBIN URINE Normal Negative [facility] Comment on above: Order Comment: CLEAN CATCH Result Comment: @FATMATA TS DO NOT GET SENT OUT WHEN HOLIDAY IS THE NEXT DAY. Performed By: #### L 500.4050, L501.0900, L4.2010, L100.0100 ####[facility] [address] [place], [address] Clarity (U) Normal Clear [facility] Comment on above: Order Comment: CLEAN CATCH Result Comment: @FATMATA TS DO NOT GET SENT OUT WHEN HOLIDAY IS THE NEXT DAY. Performed By: #### L 500.4050, L501.0900, L4.2010, L100.0100 ####[facility] [address] [place], [address] Color (U) Normal Yellow [facility] Comment on above: Order Comment: CLEAN CATCH Result Comment: @FATMATA TS DO NOT GET SENT OUT WHEN HOLIDAY IS THE NEXT DAY. Performed By: #### L 500.4050, L501.09, L4, L100.0100 ####[facility] [address] [place], [address] GLUCOSE, UR Normal Normal [facility] Comment on above: Order Comment: CLEAN CATCH Result Comment: @FATMATA TS DO NOT GET SENT OUT WHEN HOLIDAY IS THE NEXT DAY. Performed By: #### L 500.4050, L501.09, , L100.0100 ####[facility] [address] [place], [address] KETONE UR Normal Negative [facility] Comment on above: Order Comment: CLEAN CATCH Result Comment: @FATMATA TS DO NOT GET SENT OUT WHEN HOLIDAY IS THE NEXT DAY. Performed By: #### L 500.4050, L501.0900, L4.2010, L100.0100 ####[facility] [address] [place], [address] LEUK ESTERASE Normal Negative [facility] Comment on above: Order Comment: CLEAN CATCH Result Comment: @FATMATA TS DO NOT GET SENT OUT WHEN HOLIDAY IS THE NEXT DAY. Performed By: #### L 500.4050, L501.0900, L4, L100.0100 ####[facility] [address] [place], [address] Nitrite Ql (U) Normal Negative [facility] Comment on above: Order Comment: CLEAN CATCH Result Comment: @FATMATA TS DO NOT GET SENT OUT WHEN HOLIDAY IS THE NEXT DAY. Performed By: #### L 500.4050, L501.09, L4, L100.0100 ####[facility] [address] [place], [address] OCCULT BLOOD-UR Normal Negative [facility] Comment on above: Order Comment: CLEAN CATCH Result Comment: @FATMATA TS DO NOT GET SENT OUT WHEN HOLIDAY IS THE NEXT DAY. Performed By: #### L 500.4050, L501.09, L4, L100.0100 ####[facility] [address] [place], [address] pH UR Normal 5.0 - 8.0 [facility] Comment on above: Order Comment: CLEAN CATCH Result Comment: @FATMATA TS DO NOT GET SENT OUT WHEN HOLIDAY IS THE NEXT DAY. Performed By: #### L 500.4050, L501.09, L4, L100.0100 ####[facility] [address] [place], [address] PROT DIPSTX Normal Negative [facility] Comment on above: Order Comment: CLEAN CATCH Result Comment: @FATMATA TS DO NOT GET SENT OUT WHEN HOLIDAY IS THE NEXT DAY. Performed By: #### L 500.4050, L501.0900, L4, L100.0100 ####[facility] [address] [place], [address] SP.GR. DIPSTX Normal 1.002-1.030 [facility] Comment on above: Order Comment: CLEAN CATCH Result Comment: @FATMATA TS DO NOT GET SENT OUT WHEN HOLIDAY IS THE NEXT DAY. Performed By: #### L 500.4050, L501.0900, L4, L100.0100 ####[facility] [address] [place], [address] UR Preservative Normal [facility] Comment on above: Order Comment: CLEAN CATCH Result Comment: @FATMATA TS DO NOT GET SENT OUT WHEN HOLIDAY IS THE NEXT DAY. Performed By: #### L 500.4050, L501.0900, L4.2010, L100.0100 ####[facility] [address] [place], [address] UROBILI Normal Normal [facility] Comment on above: Order Comment: CLEAN CATCH Result Comment: @FATMATA TS DO NOT GET SENT OUT WHEN HOLIDAY IS THE NEXT DAY. Performed By: #### L 500.4050, L501.0900, L4.2010, L100.0100 ####[facility] [address] [place], [address] Basic Metabolic Profile (BMP )on 01-31-2024 BUN/CRE 17.8 RATIO Normal 10-20 [facility] Comment on above: Performed By: #### L 100.0100, L500.2500 ####[facility] [address] [place], [address] CA,Total 9.5 mg/dL Normal 8.5-10.1 [facility] Comment on above: Performed By: #### L 100.0100, L500.2500 ####[facility] [address] [place], [address] Chloride [Moles/Vol] 108 mmol/L High 98-107 [facility] Comment on above: Performed By: #### L 100.0100, L500.2500 ####[facility] [address] [place], [address] CO2 [Moles/Vol] 24.0 mmol/L Normal 21.0-32.0 [facility] Comment on above: Performed By: #### L 100.0100, L500.2500 ####[facility] [address] [place], [address] Creatinine [Mass/Vol] 0.84 mg/dL Normal 0.55-1.02 [facility] Comment on above: Result Comment: The validity of the calculated GFR GFRAA in patients over 70 years has not been determined. Clinical correlation is essential. Performed By: #### L 100.0100, L500.2500 ####[facility] [address] [place], [address] ECRCL 37.02 ml/min Normal [facility] Comment on above: Performed By: #### L 100.0100, L500.2500 ####[facility] [address] [place], [address] EST GFR - AA 83 mL/min Normal >60 [facility] Comment on above: Result Comment: Afri can German GFR Calc Performed By: #### L 100.0100, L500.2500 ####[facility] [address] [place], [address] GAP 6 Normal 5-15 [facility] Comment on above: Performed By: #### L 100.0100, L500.2500 ####[facility] [address] [place], [address] GFR/1.73 sq M.predicted among non-blacks MDRD (S/P/Bld) [Vol rate/Area] 69 mL/min/{1.73_m2} Normal >60 [facility] Comment on above: Result Comment: Non- GFR Calc Performed By: #### L 100.0100, L500.2500 ####[facility] [address] [place], [address] Glucose [Mass/Vol] 101 mg/dL Normal 74-106 [facility] Comment on above: Result Comment: Fast ing Glucose result from 100 to 125 mg/dL suggests IMPAIRED HOMEOSTASIS per A.D.A. criteria. Performed By: #### L 100.0100, L500.2500 ####[facility] [address] [place], [address] Potassium [Moles/Vol] 4.3 mmol/L Normal 3.5-5.1 [facility] Comment on above: Result Comment: Mode rate Hemolysis, Result may be falsely increased. Performed By: #### L 100.0100, L500.2500 ####[facility] [address] [place], [address] Sodium [Moles/Vol] 138 mmol/L Normal 136-145 [facility] Comment on above: Performed By: #### L 100.0100, L500.2500 ####[facility] [address] [place], [address] Urea nitrogen [Mass/Vol] 15 mg/dL Normal 7-18 [facility] Comment on above: Performed By: #### L 100.0100, L500.2500 ####[facility] [address] [place], [address] CBC W/Diff, Automatedon 06-0 8-2023 Absolute Lymph 2.14 X10 3/uL Normal 0.83-4.51 [facility] Comment on above: Performed By: #### L 100.0100, L500.2500 ####[facility] [address], [address] Absolute Neut 4.7 X10 3/uL Normal 2.0-7.7 [facility] Comment on above: Performed By: #### L 100.0100, L500.2500 ####[facility] [address], [address] Basophils/100 WBC (Bld) 0.4 % Normal 0-1 [facility] Comment on above: Performed By: #### L 100.0100, L500.2500 ####[facility] [address] [place], [address] Eosinophils/100 WBC (Bld) 0.8 % Normal 0-5 [facility] Comment on above: Performed By: #### L 100.0100, L500.2500 ####[facility] [address] [place], [address] Erythrocyte distribution width (RBC) [Ratio] 13.8 % Normal 11.6-14.6 [facility] Comment on above: Performed By: #### L 100.0100, L500.2500 ####[facility] [address] [place], [address] Hematocrit (Bld) [Volume fraction] 37.5 % Normal 37-47 [facility] Comment on above: Performed By: #### L 100.0100, L500.2500 ####[facility] [address] [place], [address] Hemoglobin (Bld) [Mass/Vol] 12.3 g/dL Normal 12.0-15.0 [facility] Comment on above: Performed By: #### L 100.0100, L500.2500 ####[facility] [address] [place], [address] IG% 0.100 Normal 0.0-0.9 [facility] Comment on above: Result Comment: IG% - Immature Granulocytes (promyelocytes, myelocytes and metamyelocytes) > 1% indicates that a LEFT SHIFT is Present. Performed By: #### L 100.0100, L500.2500 ####[facility] [address] [place], [address] Lymphocytes/100 WBC (Bld) 28.3 % Normal 19-41 [facility] Comment on above: Performed By: #### L 100.0100, L500.2500 ####[facility] [address] [place], [address] MCH (RBC) [Entitic mass] 29.7 pg Normal 27.0-32.0 [facility] Comment on above: Performed By: #### L 100.0100, L500.2500 ####[facility] [address] [place], [address] MCHC (RBC) [Mass/Vol] 32.8 g/dL Normal 32-36 [facility] Comment on above: Performed By: #### L 100.0100, L500.2500 ####[facility] [address] [place], [address] MCV (RBC) [Entitic vol] 90.6 fL Normal 81-99 [facility] Comment on above: Performed By: #### L 100.0100, L500.2500 ####[facility] [address] [place], [address] Monocytes/100 WBC (Bld) 7.9 % Normal 0-10 [facility] Comment on above: Performed By: #### L 100.0100, L500.2500 ####[facility] [address] [place], [address] Neutrophils/100 WBC (Bld) 62.5 % Normal 47-70 [facility] Comment on above: Performed By: #### L 100.0100, L500.2500 ####[facility] [address] [place], [address] Nucleated RBC (Bld) [#/Vol] 0 10*3/uL Normal 0-5 [facility] Comment on above: Performed By: #### L 100.0100, L500.2500 ####[facility] [address] [place], [address] Platelet mean volume (Bld) [Entitic vol] 10.5 fL Normal 6.2-12.0 [facility] Comment on above: Performed By: #### L 100.0100, L500.2500 ####[facility] [address] [place], [address] Platelets (Bld) [#/Vol] 263 10*3/uL Normal 150-450 [facility] Comment on above: Performed By: #### L 100.0100, L500.2500 ####[facility] [address] [place], [address] RBC (Bld) [#/Vol] 4.14 10*6/uL Low 4.2-5.4 [facility] Comment on above: Performed By: #### L 100.0100, L500.2500 ####[facility] [address] [place], [address] RDW SD 46.0 fl High 35.1-43.9 [facility] Comment on above: Performed By: #### L 100.0100, L500.2500 ####[facility] [address] [place], [address] WBC (Bld) [#/Vol] 7.6 10*3/uL Normal 4.4-11.0 [facility] Comment on above: Performed By: #### L 100.0100, L500.2500 ####[facility] [address] [place], [address] Emergency Department Summary on 01-31-2024 Emergency Department Summary [facility] Medical Records Department [address] [place] [address] Emergency Department Summary 01/31/24 MR#: [id number] Acct: [id number] Name: GIANFRANCO HOLLIDAY Brian Rep #: [id number] : 1940 83 From: Robert Castro DO PCP: Dr. Toni Meier MD Status:DEP ER Location: ED HPI History of Present Illness Chief Complaint: Rash Informant: patient Onset/Context/Timing Onset: Month(s) Context: Gradual Onset Timing: Continuous Quality: Pruritic Location: Bilateral upper extremities Worsened by: Nothing Relieved by: Wet washcloth Narrative Narrative: Patient presents with a rash that has been constant for the past 1-1/2 months. Patient states it started on her ankle. Patient states she was diagnosed with cellulitis at that time. Patient was given Bactrim for that. Patient states that her primary care physician stopped the Bactrim and gave her a prescription for prednisone. Patient states that this made her rash and itching worse. Patient states that both arms are red and itching. Patient states that this has been constant for the past week or 2. Patient denies any new exposures. Patient denies any difficulty breathing or difficulty swallowing. [facility] Medical History Cellulitis of right ankle Home Medications ???Medication ???Instructions ???Recorded ???Last Taken ???Type aspirin 81 mg chewable tablet 81 mg PO DAILY 12/30/17 Unknown History mupirocin 2 % topical ointment topical TID 12/08/23 Unknown History sulfamethoxazole 800 1 tab PO BID 12/08/23 Unknown History mg-trimethoprim 160 mg tablet hydroxyzine HCl 10 mg tablet 10 mg PO TID PRN itching #14 tabs 01/31/24 Unknown Rx Allergy/AdvReac Type Severity Reaction Status Date / Time prednisone Allergy Rash Verified 01/31/24 11:18 sulfadimethoxine Allergy Rash Verified 01/31/24 11:18 Surgical History H/O: hysterectomy Social History Smoking Status: Never smoker [facility] ED Constitutional Constitutional ED: Denies chills or fever(s) Eyes Eyes: Denies blurry vision or change in vision ENT ENT ED: Denies rhinorrhea or sore throat Cardiovascular Cardiovascular: Denies chest pain or palpitations Respiratory/Chest Respiratory/Chest: Denies cough or dyspnea Gastrointestinal Gastrointestinal: Denies nausea or vomiting Genitourinary Genitourinary ED: Denies dysuria or hematuria Musculoskeletal Musculoskeletal: Denies back pain or neck pain Integumentary Reports rash; Denies abscess Neurologic Neurologic: Denies headache(s) or weakness Allergic/Immunologic Allergic/Immunologic ED: Reports urticaria; Denies mouth swelling EXAM Physical Exam Const Vital Signs: 01/31/24 11:14 Temperature 98.2 F Temperature Source Temporal Pulse Rate 83 Respiratory Rate 16 Blood Pressure 140/76 H Blood Pressure Mean 97 Pulse Ox 100 Oxygen Delivery Method Room Air Positive well nourished and well developed General Appearance ED: well developed and NAD HEENT Reports moist mucous membranes Neck supple and no JVD Resp normal respiratory effort and clear to auscultation bilaterally Cardio regular rate and regular rhythm GI non-tender and non-distended Palpation: soft Extremity General Extremety ED: Negative for edema or tenderness General Extremity: Negative for edema Neuro oriented x3, CN's II-XII intact bilaterally and no sensory deficits noted Sensorium / Orientation: alert Motor Exam: strength 5/5 throughout Psych mental status grossly normal Skin Skin Narrative: Skin is warm and dry. There is an urticarial rash noted over the upper extremities bilaterally. There are no vesicles or pustules noted. There are no petechia noted. There is no mucous membrane involvement. There is no sloughing of the skin. There is also a darkened erythematous rash over the lateral aspect of the right ankle. There is no tenderness. There is no discharge or drainage. There is full range of motion of the upper and lower extremities. Radial and pedal pulses are equal bilaterally. MDM MDM MDM Narrative Medical decision making narrative: Differential diagnosis includes contact dermatitis, allergic dermatitis, cellulitis, and ultraviolet hypersensitivity. CBC will be obtained to assess for leukocytosis, anemia, and eosinophilia. Basic metabolic profile will be obtained to assess for electrolyte abnormality and renal function. Patient was given a dose of hydroxyzine here. Lab Data Attestation: I reviewed the patient's lab results. Lab results narrative: CBC was reviewed and was within normal limits. Basic metabolic profile was reviewed and was within normal limits. Labs (more content not included)... Normal [facility] Culture, Blood (WB)on 2023 CUB No growth in 5 days. Normal [facility] Comment on above: Performed By: #### L 500.2500, L100.0100, L501.4020 #### [facility] [address] [place], [address] CUB No growth in 5 days. Normal [facility] Comment on above: Performed By: #### L 500.2500, L100.0100, L501.4020 #### [facility] [address] [place], [address] C-REACTIVE PROTEINon 024 CRP [Mass/Vol] 7.3 mg/dL High <0.9 mg/dL [facility] ESR Westergren method (Bld) [Velocity]on 12-09-2023 ESR (Bld) [Velocity] 12 mm/h 0 - 20 mm/hr [facility] RHEUMATOID FACTORon 12-09-19 24 Rheumatoid factor Qn <16 IU/mL [facility] Urine Cultureon 12-09-2023 [facility] Culture exhibits no growth. Normal [facility] Comment on above: Performed By: #### M 100.678, L400.0001, M100.2200 ####[facility] [address] [place], [address] Absolute lymphocyte countOrd ered By: Robert Castro on 12-08-2023 Lymphocytes Auto (Unsp spec) [#/Vol] 0.67 10*3/uL 0.83-4.51 [facility] Automated lymphocyte count a s percentage of total leukocytesOrdered By: Robert Castro on 12-08-2023 Lymphocytes/100 WBC Auto (Unsp spec) 10.5 % 19-41 [facility] Basic Metabolic Profile (BMP )on 12-08-2023 BUN/CRE 8.8 RATIO Low 10-20 [facility] Comment on above: Performed By: #### L 503.6005, L100.0100, L500.2500 #### [facility] [address] [place], [address] CA,Total 9.2 mg/dL Normal 8.5-10.1 [facility] Comment on above: Performed By: #### L 503.6005, L100.0100, L500.2500 #### [facility] [address] [place], [address] Chloride [Moles/Vol] 107 mmol/L Normal 98-107 [facility] Comment on above: Performed By: #### L 503.6005, L100.0100, L500.2500 #### [facility] [address] [place], [address] CO2 [Moles/Vol] 27.0 mmol/L Normal 21.0-32.0 [facility] Comment on above: Performed By: #### L 503.6005, L100.0100, L500.2500 #### [facility] [address] [place], [address] Creatinine [Mass/Vol] 1.14 mg/dL High 0.55-1.02 [facility] Comment on above: Result Comment: The validity of the calculated GFR GFRAA in patients over 70 years has not been determined. Clinical correlation is essential. Performed By: #### L 503.6005, L100.0100, L500.2500 #### [facility] [address] [place], [address] ECRCL 27.79 ml/min Normal [facility] Comment on above: Performed By: #### L 503.6005, L100.0100, L500.2500 #### [facility] [address] [place], [address] EST GFR - AA 59 mL/min Low >60 [facility] Comment on above: Result Comment: Afri can German GFR Calc Performed By: #### L 503.6005, L100.0100, L500.2500 #### [facility] [address] [place], [address] GAP 4 Low 5-15 [facility] Comment on above: Performed By: #### L 503.6005, L100.0100, L500.2500 #### [facility] [address] [place], [address] GFR/1.73 sq M.predicted among non-blacks MDRD (S/P/Bld) [Vol rate/Area] 49 mL/min/{1.73_m2} Low >60 [facility] Comment on above: Result Comment: Non- GFR Calc Performed By: #### L 503.6005, L100.0100, L500.2500 #### [facility] [address] [place], [address] Glucose [Mass/Vol] 108 mg/dL High 74-106 [facility] Comment on above: Result Comment: Fast ing Glucose result from 100 to 125 mg/dL suggests IMPAIRED HOMEOSTASIS per A.D.A. criteria. Performed By: #### L 503.6005, L100.0100, L500.2500 #### [facility] [address] [place], [address] Potassium [Moles/Vol] 4.6 mmol/L Normal 3.5-5.1 [facility] Comment on above: Performed By: #### L 503.6005, L100.0100, L500.2500 #### [facility] [address] [place], [address] Sodium [Moles/Vol] 138 mmol/L Normal 136-145 [facility] Comment on above: Performed By: #### L 503.6005, L100.0100, L500.2500 #### [facility] [address] [place], [address] Urea nitrogen [Mass/Vol] 10 mg/dL Normal 7-18 [facility] Comment on above: Performed By: #### L 503.6005, L100.0100, L500.2500 #### [facility] [address] [place], [address] Basophil percentageOrdered B y: Robert Castro on 12-08-2023 Basophil percentage 0 SEEN /hpf 0-5 [facility] Lactate [Moles/Vol] 1.2 mmol/L 0.4-2.0 [facility] Basophils/100 WBC (Bld) 0.0 % 0-1 [facility] Chloride [Moles/Vol] 107 mmol/L 98-107 [facility] Eosinophils/100 WBC (Bld) 5.8 % 0-5 [facility] Glucose [Mass/Vol] 108 mg/dL 74-106 [facility] Comment on above: Fasting Glucose resu lt from 100 to 125 mg/dL suggests IMPAIRED HOMEOSTASIS per A.D.A. criteria. Hemoglobin (Bld) [Mass/Vol] 12.0 g/dL 12.0-15.0 [facility] Monocytes/100 WBC (Bld) 10.3 % 0-10 [facility] Neutrophils (Bld) [#/Vol] 4.7 10*3/uL 2.0-7.7 [facility] Neutrophils/100 WBC (Bld) 73.1 % 47-70 [facility] Potassium [Moles/Vol] 4.6 mmol/L 3.5-5.1 [facility] Sodium [Moles/Vol] 138 mmol/L 136-145 [facility] WBC (Bld) [#/Vol] 6.4 10*3/uL 4.4-11.0 [facility] Bilirubin Test strip Ql (U)O rdered By: Robert Castro on 12-08-2023 Bilirubin Ql (U) Negative Negative [facility] CBC W/Diff, Automatedon 11-23 Absolute Lymph 0.67 X10 3/uL Low 0.83-4.51 [facility] Comment on above: Performed By: #### L 503.6005, L100.0100, L500.2500 #### [facility] [address] [place], [address] Absolute Neut 4.7 X10 3/uL Normal 2.0-7.7 [facility] Comment on above: Performed By: #### L 503.6005, L100.0100, L500.2500 #### [facility] [address] [place], [address] Basophils/100 WBC (Bld) 0.0 % Normal 0-1 [facility] Comment on above: Performed By: #### L 503.6005, L100.0100, L500.2500 #### [facility] [address] [place], [address] Eosinophils/100 WBC (Bld) 5.8 % High 0-5 [facility] Comment on above: Performed By: #### L 503.6005, L100.0100, L500.2500 #### [facility] [address] [place], [address] Erythrocyte distribution width (RBC) [Ratio] 13.4 % Normal 11.6-14.6 [facility] Comment on above: Performed By: #### L 503.6005, L100.0100, L500.2500 #### [facility] [address] [place], [address] Hematocrit (Bld) [Volume fraction] 36.2 % Low 37-47 [facility] Comment on above: Performed By: #### L 503.6005, L100.0100, L500.2500 #### [facility] [address] [place], [address] Hemoglobin (Bld) [Mass/Vol] 12.0 g/dL Normal 12.0-15.0 [facility] Comment on above: Performed By: #### L 503.6005, L100.0100, L500.2500 #### [facility] [address] [place], [address] IG% 0.300 Normal 0.0-0.9 [facility] Comment on above: Result Comment: IG% - Immature Granulocytes (promyelocytes, myelocytes and metamyelocytes) > 1% indicates that a LEFT SHIFT is Present. Performed By: #### L 503.6005, L100.0100, L500.2500 #### [facility] [address] [place], [address] Lymphocytes/100 WBC (Bld) 10.5 % Low 19-41 [facility] Comment on above: Performed By: #### L 503.6005, L100.0100, L500.2500 #### [facility] [address] [place], [address] MCH (RBC) [Entitic mass] 30.1 pg Normal 27.0-32.0 [facility] Comment on above: Performed By: #### L 503.6005, L100.0100, L500.2500 #### [facility] [address] [place], [address] MCHC (RBC) [Mass/Vol] 33.1 g/dL Normal 32-36 [facility] Comment on above: Performed By: #### L 503.6005, L100.0100, L500.2500 #### [facility] [address] [place], [address] MCV (RBC) [Entitic vol] 90.7 fL Normal 81-99 [facility] Comment on above: Performed By: #### L 503.6005, L100.0100, L500.2500 #### [facility] [address] [place], [address] Monocytes/100 WBC (Bld) 10.3 % High 0-10 [facility] Comment on above: Performed By: #### L 503.6005, L100.0100, L500.2500 #### [facility] [address] [place], [address] Neutrophils/100 WBC (Bld) 73.1 % High 47-70 [facility] Comment on above: Performed By: #### L 503.6005, L100.0100, L500.2500 #### [facility] [address] [place], [address] Nucleated RBC (Bld) [#/Vol] 0 10*3/uL Normal 0-5 [facility] Comment on above: Performed By: #### L 503.6005, L100.0100, L500.2500 #### [facility] [address] [place], [address] Platelet mean volume (Bld) [Entitic vol] 10.7 fL Normal 6.2-12.0 [facility] Comment on above: Performed By: #### L 503.6005, L100.0100, L500.2500 #### [facility] [address] [place], [address] Platelets (Bld) [#/Vol] 231 10*3/uL Normal 150-450 [facility] Comment on above: Performed By: #### L 503.6005, L100.0100, L500.2500 #### [facility] [address] [place], [address] RBC (Bld) [#/Vol] 3.99 10*6/uL Low 4.2-5.4 [facility] Comment on above: Performed By: #### L 503.6005, L100.0100, L500.2500 #### [facility] [address] [place], [address] RDW SD 44.6 fl High 35.1-43.9 [facility] Comment on above: Performed By: #### L 503.6005, L100.0100, L500.2500 #### [facility] [address] [place], [address] WBC (Bld) [#/Vol] 6.4 10*3/uL Normal 4.4-11.0 [facility] Comment on above: Performed By: #### L 503.6005, L100.0100, L500.2500 #### [facility] [address] [place], [address] Chest PA and Lateralon 12-07 Chest PA and Lateral [facility] Imaging Services [address] [place] [address] Chest PA and Lateral MR#: [id number] Acct: [id number] Name: GIANFRANCO HOLLIDAY Rep #: [id number] : 1940 F 83 From: Marcial gannon MD PCP: Dr. Toni Meier MD Status: REG ER Study: Chest PA and Lateral Date of Exam: 12/08/23 Exam# [id number] Ordering Dr: Robert Castro DO [id number] STUDY: X-RAY CHEST REASON FOR EXAM: Female, 83 years old. Fever TECHNIQUE: PA and lateral views of the chest. COMPARISON: Comparison is made with prior study June 15, 2017. FINDINGS: There is hyperinflation of the lungs consistent with chronic obstructive lung disease (COPD). There is no demonstrated pleural abnormality. Normal size heart. Normal mediastinum and ashlie. Normal visualized pulmonary arteries. There is atherosclerotic calcification of the aortic arch with tortuosity. There is demineralization of the osseous structures. 10% loss of height of the superior endplate of the T10 vertebrae. Normal visualized ribs, clavicles, and shoulders. There is no demonstrated abnormality of the visualized soft tissue structures of the upper abdomen. RAD/Chest PA and Lateral IMPRESSION: Hyperinflation and COPD. No focal infiltrate is seen. Electronically Signed: Marcial Galdamez MD at 9:25 EDT , CC: Dr. Robert Castro DO; Dr. Toni Meier MD Consulting Project Director: Signed Normal [facility] Determination of erythrocyte mean corpuscular volume (MCV)Ordered By: Robert Castro on 12-08-2023 MCV (RBC) [Entitic vol] 90.7 fL 81-99 [facility] Emergency Department Summary on 12-08-2023 Emergency Department Summary [facility] Medical Records Department [address] [place] [address] Emergency Department Summary 12/08/23 MR#: [id number] Acct: [id number] Name: GIANFRANCO HOLLIDAY Rep #: [id number] : 1940 83 From: Robert Castro DO PCP: Dr. Toni Meier MD Status:DEP ER Location: ED HPI History of Present Illness Chief Complaint: Fever Informant: patient Onset/Context/Timing Onset: Days Context: Gradual Onset Timing: Intermittent Quality: Sharp Location: Left hip, right ankle Worsened by: Nothing Relieved by: Naprosyn Narrative Narrative: Patient presents with a fever that has been getting worse over the past few days. Patient states she took her temperature at home and it was 99.9. Patient states she was recently started on Bactrim and mupirocin for cellulitis of her right ankle. Patient states she was also started on Naprosyn for sciatica pain in her left hip. Patient describes her pain as sharp. Patient states Naprosyn does seem to help with her pain. Patient admits to occasional pain in her left lower EXTR that only last for few seconds. Patient admits to some nausea but denies any vomiting. Patient admits to some urinary frequency but states she drinks a lot of water. Patient denies any cough. [facility] Medical History (Updated 12/08/23 @ 09:[address] Robert Castro DO) Cellulitis of right ankle Home Medications aspirin 81 mg chewable tablet 81 mg PO DAILY 12/30/17 [History Last Taken Unknown] mupirocin 2 % topical ointment topical TID 12/08/23 [History Last Taken Unknown] sulfamethoxazole 800 mg-trimethoprim 160 mg tablet 1 tab PO BID 12/08/23 [History Last Taken Unknown] Allergy/AdvReac Type Severity Reaction Status Date / Time No Known Allergies Allergy Verified 12/08/23 07:05 Surgical History H/O: hysterectomy Social History Smoking Status: Never smoker ROS ROS ED Constitutional Constitutional ED: Reports fever(s); Denies chills Eyes Eyes: Denies blurry vision or change in vision ENT ENT ED: Denies rhinorrhea or sore throat Cardiovascular Cardiovascular: Reports chest pain; Denies palpitations Respiratory/Chest Respiratory/Chest: Denies cough or dyspnea Gastrointestinal Gastrointestinal: Reports nausea; Denies vomiting Genitourinary Genitourinary ED: Reports urinary frequency; Denies dysuria or hematuria Musculoskeletal Musculoskeletal: Denies back pain or neck pain Integumentary Reports rash; Denies abscess Neurologic Neurologic: Denies headache(s) or weakness Allergic/Immunologic Allergic/Immunologic ED: Denies mouth swelling or urticaria EXAM Physical Exam Const Vital Signs: 12/08/23 07:06 12/08/23 07:08 12/08/23 07:08 Temperature 98.5 F 100.8 F H Temperature Source Temporal Temporal Pulse Rate 103 H 105 H Respiratory Rate 18 16 Respiratory Effort Normal Non-Labored Respiratory Pattern Normal Blood Pressure 132/48 H 115/57 L Blood Pressure Mean 76 76 Pulse Ox 100 96 Oxygen Delivery Method Room Air Room Air 12/08/23 08:08 12/08/23 09:00 12/08/23 09:58 Temperature 100.8 F H 100.6 F H 100.0 F H Temperature Source Temporal Temporal Pulse Rate 102 H 103 H 97 Respiratory Rate 18 16 18 Respiratory Effort Respiratory Pattern Blood Pressure 112/59 L 114/58 L 109/49 L Blood Pressure Mean 76 76 69 Pulse Ox 98 97 98 Oxygen Delivery Method Room Air Room Air 12/08/23 10:00 Temperature 100.0 F H Temperature Source Temporal Pulse Rate 97 Respiratory Rate 18 Respiratory Effort Respiratory Pattern Blood Pressure 101/53 L Blood Pressure Mean 69 Pulse Ox 98 Oxygen Delivery Method Room Air Positive well nourished and well developed General Appearance ED: well developed and NAD HEENT Reports moist mucous membranes Neck supple and no JVD Resp normal respiratory effort and clear to auscultation bilaterally Cardio regular rhythm Rate: tachycardic GI non-tender and non-distended Palpation: soft Neuro oriented x3, CN's II-XII intact bilaterally and no sensory deficits noted Motor Exam: strength 5/5 throughout Psych mental status grossly normal Skin Skin Narrative: There is some mild erythema and warmth over the lateral aspect of the right ankle. There is no fluctuance. There is no abscess formation. There are no vesicles or pustules noted. There is no discharge or drainage noted. There are no petechia noted. MDM MDM MDM Narrative Medical decision making narrative: Differential diagnosis includes pneumonia, urinary tract infection, electrolyte abnormality, sepsis, and cellulitis. CBC will be obtained to assess for leukocytosis and anemia. Basic metabolic prof (more content not included)... Normal [facility] Erythrocyte distribution wid th ratioOrdered By: Robert Castro on 12-08-2023 Erythrocyte distribution width (RBC) [Ratio] 13.4 % 11.6-14.6 [facility] Erythrocyte distribution wid th standard deviationOrdered By: Robert Castro on 12-08-2023 Erythrocyte distribution width (RBC) [Entitic vol] 44.6 fL 35.1-43.9 [facility] Hematocrit Auto (Bld) [Volum e fraction]Ordered By: Robert Castro on 12-08-2023 Hematocrit (Bld) [Volume fraction] 36.2 % 37-47 [facility] Immature granulocytes/100 WB C Auto (Bld)Ordered By: Robert Castro on 12-08-2023 Immature granulocytes/100 WBC (Bld) 0.300 % 0.0-0.9 [facility] Comment on above: IG% - Immature Granu locytes (promyelocytes, myelocytes and metamyelocytes) > 1% indicates that a LEFT SHIFT is Present. Ketones Test strip Ql (U)Ord ered By: Robert Castro on 12-08-2023 Ketones Ql (U) 5 mg/dl Negative [facility] - Chemistry and C hemistry - challengeOrdered By: Robert Castro on 12-08-2023 CO2 [Moles/Vol] 27.0 mmol/L 21.0-32.0 [facility] Urea nitrogen/Creatinine [Mass ratio] 8.8 mg/mg 10-20 [facility] - Hematology and Cell countsOrdered By: Robert Castro on 12-08-2023 MCH (RBC) [Entitic mass] 30.1 pg 27.0-32.0 [facility] MCHC (RBC) [Mass/Vol] 33.1 g/dL 32-36 [facility] Nucleated RBC/100 WBC (Bld) [Ratio] 0 % 0-5 [facility] Platelet mean volume (Bld) [Entitic vol] 10.7 fL 6.2-12.0 [facility] Platelets (Bld) [#/Vol] 231 10*3/uL 150-450 [facility] Lactic Acidon 12-08-2023 Lactate [Moles/Vol] 1.2 mmol/L Normal 0.4-1.9 [facility] Comment on above: Order Comment: Y Performed By: #### L 503.6005, L100.0100, L500.2500 #### [facility] [address] [place], [address] M100.678on 12-08-2023 M100.678 Normal Reference Ran ge = Negative COV + FLU + RSV PCR GeneXpert Instrument, PCR method SARS-CoV-2 (COVID 19) Negative INFLUENZA A Negative INFLUENZA B Negative RSV PCR Negative Normal [facility] Comment on above: Performed By: #### M 100.678, L400.0001, M100.2200 #### [facility] [address] [place], [address] Mucus LM Ql (Urine sed)Order ed By: Robert Castro on 12-08-2023 Mucus Ql (Urine sed) 0 SEEN /hpf [facility] Nitrite Test strip Ql (U)Ord ered By: Robert Castro on 12-08-2023 Nitrite Ql (U) Negative Negative [facility] No Panel InformationOrdered By: Robert Castro on 12-08-2023 Urine RBC 0 SEEN /hpf 0-5 [facility] Estimated Creatinine Clearance Calc 27.79 ml/min [facility] Estimated GFR (MDRD) Amer 59 mL/min >60 [facility] Comment on above: GFR Calc Estimated GFR (MDRD) Non-Af Amer 49 mL/min >60 [facility] Comment on above: Non- GFR Calc Protein Test strip Ql (U)Ord ered By: Robert Castro on 12-08-2023 Protein Ql (U) Negative Negative [facility] RBC Auto (Bld) [#/Vol]Ordere d By: Robert Castro on 12-08-2023 RBC (Bld) [#/Vol] 3.99 10*6/uL 4.2-5.4 [facility] Serum or plasma calcium maren urement (mass/volume)Ordered By: Robert Castro on 12-08-2023 Calcium [Mass/Vol] 9.2 mg/dL 8.5-10.1 [facility] Serum or plasma creatinine m easurement (mass/volume)Ordered By: Robert Castro on 12-08-2023 Creatinine [Mass/Vol] 1.14 mg/dL 0.55-1.02 [facility] Comment on above: The validity of the calculated GFR & GFRAA in patients over 70 years has not been determined. Clinical correlation is essential. Serum or plasma urea nitroge n measurement (mass/volume)Ordered By: Robert Castro on 12-08-2023 Urea nitrogen [Mass/Vol] 10 mg/dL 03-11 [facility] Squamous epithelial cells de tection in urine sediment by light microscopyOrdered By: Robert Castro on 12-08-2023 Epithelial cells.squamous LM Ql (Urine sed) 0-5 SEEN /hpf 01-01 [facility] Thin prep Papanicolaou smear with manual screeningOrdered By: Robert Castro on 12-08-2023 Thin prep Papanicolaou smear with manual screening 4 01-06 [facility] Urinalysis, Completeon 12-07 EPI,SQUAMOUS 0-5 SEEN Normal 01-01 [facility] Comment on above: Order Comment: CLEAN CATCH Performed By: #### M 100.678, L400.0001, M100.2200 #### [facility] [address] [place], [address] BACTERIA 0 SEEN Normal None Seen [facility] Comment on above: Order Comment: CLEAN CATCH Performed By: #### M 100.678, L400.0001, M100.2200 #### [facility] [address] [place], [address] Mucus Ql (Urine sed) 0 SEEN Normal [facility] Comment on above: Order Comment: CLEAN CATCH Performed By: #### M 100.678, L400.0001, M100.2200 #### [facility] [address] [place], [address] RBC 0 SEEN Normal 0-5 [facility] Comment on above: Order Comment: CLEAN CATCH Performed By: #### M 100.678, L400.0001, M100.2200 #### [facility] [address] [place], [address] WBC 0 SEEN Normal 0-5 [facility] Comment on above: Order Comment: CLEAN CATCH Performed By: #### M 100.678, L400.0001, M100.2200 #### [facility] [address] [place], [address] Urine blood detectionOrdered By: Robert Castro on 12-08-2023 RBC Ql (U) 10 /ul Negative [facility] Urine clarityOrdered By: Karen Castro on 12-08-2023 Clarity (U) Clear Clear [facility] Urine color determinationOrd ered By: Robert Castro on 12-08-2023 Color (U) Yellow Yellow [facility] Urine glucose detectionOrder ed By: Robert Castro on 12-08-2023 Glucose Ql (U) Normal mg/dl Normal [facility] Urine leukocyte esterase det ection by dipstickOrdered By: Robert Castro on 12-08-2023 Leukocyte esterase Test strip Ql (U) Negative Negative [facility] Urine pHOrdered By: Robert blue on 12-08-2023 pH (U) 7.0 [pH] 5.0 - 8.0 [facility] Urine sediment bacteria coun t by microscopy (number/high power field)Ordered By: Robert Castro on 12-08-2023 Bacteria LM.HPF (Urine sed) [#/Area] 0 /[HPF] None Seen [facility] Urine specific gravity measu rementOrdered By: Robert Castro on 12-08-2023 Specific gravity (U) [Rel density] 1.005 1.002-1.030 [facility] Urine urobilinogen measureme ntOrdered By: Robert Castro on 12-08-2023 Urobilinogen Ql (U) Normal mg/dl Normal [facility] RACHAEL SCREENINGon 12-30-2022 [facility] XR Knee - left 4 Viewson IMPRESSION: 1. Osseous demineralization. 2. Degenerative changes as described Consulting Project Director: RADHA Transcribe Date/Time: Dec 23 2022 6:20A Dictated by : MONTANA MAI MD This examination was interpreted and the report reviewed and electronically signed by: MONTANA MAI MD on Dec 23 2022 8:50AM [facility] OF RADIOLOGY * * *Final Report* * * DATE OF EXAM: Dec 19 2022 10:25AM WOX [id number] - XR KNEE 4V AP/PA BOTH+LAT/SHIRAZ LT / PROCEDURE REASON: multiple diagnoses * * * * Physician Interpretation * * * * TITLE: XR KNEE 4V AP/PA BOTH+LAT/SHIRAZ LT CLINICAL INDICATION: Chronic knee pain TECHNIQUE: AP/PA/merchant radiographs of both knees and lateral radiograph of the left knee COMPARISON: Radiograph dated November 06, 2017 FINDINGS: Left knee: Trace fluid in the left suprapatellar joint space. Osseous demineralization. No acute fracture or dislocation. Moderate medial compartmental joint space narrowing with mild subchondral sclerosis and small marginal osteophyte formation. Mild to moderate patellofemoral compartmental joint space narrowing with miniscule osteophyte formation. Right knee: Osseous demineralization. No acute fracture or dislocation. Moderate medial compartmental joint space narrowing with mild subchondral sclerosis. Mild to moderate patellofemoral compartmental joint space narrowing. DIVISION OF RADIOLOGY [facility], [facility] * * *Final Report* * * DATE OF EXAM: Dec 19 2022 10:25AM WOX 5202 - XR KNEE 4V AP/PA BOTH+LAT/SHIRAZ LT / PROCEDURE REASON: multiple diagnoses * * * * Physician Interpretation * * * * TITLE: XR KNEE 4V AP/PA BOTH+LAT/SHIRAZ LT CLINICAL INDICATION: Chronic knee pain TECHNIQUE: AP/PA/merchant radiographs of both knees and lateral radiograph of the left knee COMPARISON: Radiograph dated November 06, 2017 FINDINGS: Left knee: Trace fluid in the left suprapatellar joint space. Osseous demineralization. No acute fracture or dislocation. Moderate medial compartmental joint space narrowing with mild subchondral sclerosis and small marginal osteophyte formation. Mild to moderate patellofemoral compartmental joint space narrowing with miniscule osteophyte formation. Right knee: Osseous demineralization. No acute fracture or dislocation. Moderate medial compartmental joint space narrowing with mild subchondral sclerosis. Mild to moderate patellofemoral compartmental joint space narrowing. IMPRESSION IMPRESSION: 1. Osseous demineralization. 2. Degenerative changes as described Consulting Project Director: PSCLeroy Transcribe Date/Time: Dec 23 2022 6:20A Dictated by : MONTANA MAI MD This examination was interpreted and the report reviewed and electronically signed by: MONTANA MAI MD on Dec 23 2022 8:50AM EST [facility] XR Knee - left 4 ViewsOrdere d By: Ccf Provider on 12-23-2022 [facility] XR Knee - left 4 Viewson Radiology Study observation (narrative) [facility] RACHAEL DIAG W STEPHANIE LTon [facility] DXA-AXIAL SKELETONon [facility] RACHAEL SCREENINGon 12-26-2021 [facility] CBC W Auto Differential pane l (Bld)on 12-19-2021 Abs Immature Gran <0.03 <0.10 k/uL [facility] Basophils (Bld) [#/Vol] 0.04 10*3/uL <0.11 k/uL [facility] Basophils/100 WBC (Bld) 0.5 % [facility] Differential cell count method Nom (Bld) Auto [facility] Eosinophils (Bld) [#/Vol] 0.09 10*3/uL <0.46 k/uL [facility] Eosinophils/100 WBC (Bld) 1.1 % [facility] Erythrocyte distribution width (RBC) [Ratio] 13.4 % 11.5 - 15.0 % [facility] Hematocrit (Bld) [Volume fraction] 41.6 % 36.0 - 46.0 % [facility] Hemoglobin (Bld) [Mass/Vol] 13.3 g/dL 11.5 - 15.5 g/dL [facility] Immature Gran % 0.2 % [facility] Lymphocytes (Bld) [#/Vol] 2.88 10*3/uL 1.00 - 4.00 k/uL [facility] Lymphocytes/100 WBC (Bld) 34.0 % [facility] MCH (RBC) [Entitic mass] 29.2 pg 26.0 - 34.0 pg [facility] MCHC (RBC) [Mass/Vol] 32.0 g/dL 30.5 - 36.0 g/dL [facility] MCV (RBC) [Entitic vol] 91.4 fL 80.0 - 100.0 fL [facility] Monocytes (Bld) [#/Vol] 0.56 10*3/uL <0.87 k/uL [facility] Monocytes/100 WBC (Bld) 6.6 % [facility] Neutrophils (Bld) [#/Vol] 4.88 10*3/uL 1.45 - 7.50 k/uL [facility] Neutrophils/100 WBC (Bld) 57.6 % [facility] Nucleated RBC (Bld) [#/Vol] 10*3/uL <0.01 k/uL [facility] Nucleated RBC/100 WBC (Bld) [Ratio] 0.0 /100 WBC [facility] Platelet mean volume (Bld) [Entitic vol] 11.7 fL 9.0 - 12.7 fL [facility] Platelets (Bld) [#/Vol] 273 10*3/uL 150 - 400 k/uL [facility] RBC (Bld) [#/Vol] 4.55 10*6/uL 3.90 - 5.2 0 m/uL [facility] WBC (Bld) [#/Vol] 8.47 10*3/uL 3.70 - 11. 00 k/uL [facility] Comprehensive metabolic 2000 panelon 12-19-2021 Albumin [Mass/Vol] 4.9 g/dL 3.9 - 4.9 g/dL [facility] ALP [Catalytic activity/Vol] 79 U/L 34 - 123 U/L [facility] ALT [Catalytic activity/Vol] 17 U/L 7 - 38 U/L [facility] Anion gap [Moles/Vol] 9 mmol/L 9 - 18 mmol/L [facility] AST [Catalytic activity/Vol] 27 U/L 13 - 35 U/L [facility] Bilirubin [Mass/Vol] 0.2 mg/dL 0.2 - 1 .3 mg/dL [facility] Calcium [Mass/Vol] 9.8 mg/dL 8.5 - 10. 2 mg/dL [facility] Chloride [Moles/Vol] 102 mmol/L 97 - 10 5 mmol/L [facility] CO2 [Moles/Vol] 29 mmol/L 22 - 30 mmol/L [facility] Creatinine [Mass/Vol] 0.82 mg/dL 0.58 - 0.96 mg/dL [facility] Estimated Glomerular Filtration Rate 72 mL/min/1.73m >=60 mL/min/1.73m [facility] Glucose [Mass/Vol] 99 mg/dL 74 - 99 mg/dL [facility] Potassium [Moles/Vol] 4.4 mmol/L 3.7 - 5.1 mmol/L [facility] Protein [Mass/Vol] 7.7 g/dL 6.3 - 8.0 g/dL [facility] Sodium [Moles/Vol] 140 mmol/L 136 - 144 mmol/L [facility] Urea nitrogen [Mass/Vol] 15 mg/dL 7 - 21 mg/dL [facility] LIPID PANEL, NONFASTINGon Cholesterol [Mass/Vol] 233 mg/dL High <200 mg/dL [facility] HDL Cholesterol, Nonfasting 66 mg/dL >39 mg/dL [facility] LDL Cholesterol, Nonfasting 120 mg/dL High <100 mg/dL [facility] LDL/HDL Ratio, Nonfasting 1.82 mg/dL <2.54 mg/dL [facility] Non HDL Cholesterol, Nonfasting 167 mg/dL High <130 mg/dL [facility] Total Chol/HDL Ratio, Nonfasting 3.53 mg/dL <5.10 mg/dL [facility] Triglycerides, Nonfasting 234 mg/dL High <150 mg/dL [facility] VLDL Cholesterol, Nonfasting 47 mg/dL High <30 mg/dL [facility] XR HIP GENERAL 3V PELV/AP/LA T RIGHTon 12-19-2021 [facility] XR Pelvis and Hip - right AP and Lateral frogon 12-19-2021 IMPRESSION: Arthritic changes of the hips. Consulting Project Director: RADHA Transcribe Date/Time: Dec 19 2021 4:44P Dictated by : HE CAVAZOS MD This examination was interpreted and the report reviewed and electronically signed by: HE CAVAZOS MD on Dec 19 2021 4:45PM EST [email or web address] SE_DIVISION OF RADIOLOGY * * *Final Report* * * DATE OF EXAM: Dec 19 2021 3:55PM WOX 5352 - XR HIP 3V PELV+ AP/LAT RT / PROCEDURE REASON: Right hip pain * * * * Physician Interpretation * * * * Pelvis and right hip radiographs HISTORY: 81 years old Clinical information: Right hip pain right hip pain x5 weeks TECHNIQUE: Images: XR HIP 3V PELV+ AP/LAT RT Comparison: None. RESULT: Findings: Diffuse osteopenia. Superior left and right hip joint spaces are maintained. Osteophyte extending off the acetabulum. No fracture or dislocation of the hips. Remainder of the imaged bony pelvis appears to be intact. Pubic symphysis and SI joints are intact. Spondylosis and mild curvature of the imaged lumbar spine. [id number] _DIVISION OF RADIOLOGY Provider, [facility] - 12/19/2021 * * *Final Report* * * DATE OF EXAM: Dec 19 2021 3:55PM WOX 5352 - XR HIP 3V PELV+ AP/LAT RT / PROCEDURE REASON: Right hip pain * * * * Physician Interpretation * * * * Pelvis and right hip radiographs HISTORY: 81 years old Clinical information: Right hip pain right hip pain x5 weeks TECHNIQUE: Images: XR HIP 3V PELV+ AP/LAT RT Comparison: None. RESULT: Findings: Diffuse osteopenia. Superior left and right hip joint spaces are maintained. Osteophyte extending off the acetabulum. No fracture or dislocation of the hips. Remainder of the imaged bony pelvis appears to be intact. Pubic symphysis and SI joints are intact. Spondylosis and mild curvature of the imaged lumbar spine. IMPRESSION IMPRESSION: Arthritic changes of the hips. Consulting Project Director: PSCB Transcribe Date/Time: Dec 19 2021 4:44P Dictated by : HE CAVAZOS MD This examination was interpreted and the report reviewed and electronically signed by: HE CAVAZOS MD on Dec 19 2021 4:45PM EST [facility] Radiology Study observation (narrative) [facility] XR Pelvis and Hip - right AP and Lateral frogOrdered By: Ccf Provider on 12-19-2021 [facility] XR Lumbar spine 3 Viewson IMPRESSION: Scolioti c curvature, osteopenia and Mild degenerative change. No acute process. Consulting Project Director: PSCB Transcribe Date/Time: Nov 09 2021 3:10P Dictated by : CHARLOTTE KOTHARI MD This examination was interpreted and the report reviewed and electronically signed by: CHARLOTTE KOTHARI MD on Nov 09 2021 3:12PM [facility] DIVISION OF RADIOLOGY * * *Final Report* * * DATE OF EXAM: Nov 09 2021 1:49PM WOX 5228 - XR LUMBAR 3V AP/LAT/L5-S1 / PROCEDURE REASON: multiple diagnoses * * * * Physician Interpretation * * * * EXAMINATION: XR LUMBAR 3V AP/LAT/L5-S1 HISTORY: Back pain and in right posterior buttock since shoveling snow in September. Lumbar strain, initial encounter. Piriformis syndrome, right. TECHNIQUE: XR LUMBAR 3V AP/LAT/L5-S1 Laterality: NOT APPLICABLE Number of different views (projections): 3 M: XB_1 COMPARISON: There are no prior relevant examinations available for comparison within the [facility] Imaging Archives. RESULT: Counting reference: Lumbosacral junction. For the purposes of this report, L5-S1 is considered the last lumbar-type disc space and L4-5 is considered the level of the iliac crest. AP, lateral and cone-down radiographs of the lumbosacral spine demonstrate scoliotic curvature, osteopenia and mild multilevel degenerative change with vertebral body osteophytosis. The intervertebral disc spaces are well maintained. Pars interarticularis defect is present at L5 without associated spondylolisthesis. There are no compression fractures and alignment is well maintained. The soft tissues are unremarkable. DIVISION OF RADIOLOGY Provider, [facility] - 11/09/2021 * * *Final Report* * * DATE OF EXAM: Nov 09 2021 1:49PM WOX 5228 - XR LUMBAR 3V AP/LAT/L5-S1 / PROCEDURE REASON: multiple diagnoses * * * * Physician Interpretation * * * * EXAMINATION: XR LUMBAR 3V AP/LAT/L5-S1 HISTORY: Back pain and in right posterior buttock since shoveling snow in September. Lumbar strain, initial encounter. Piriformis syndrome, right. TECHNIQUE: XR LUMBAR 3V AP/LAT/L5-S1 Laterality: NOT APPLICABLE Number of different views (projections): 3 M: XB_1 COMPARISON: There are no prior relevant examinations available for comparison within the [facility] Imaging Archives. RESULT: Counting reference: Lumbosacral junction. For the purposes of this report, L5-S1 is considered the last lumbar-type disc space and L4-5 is considered the level of the iliac crest. AP, lateral and cone-down radiographs of the lumbosacral spine demonstrate scoliotic curvature, osteopenia and mild multilevel degenerative change with vertebral body osteophytosis. The intervertebral disc spaces are well maintained. Pars interarticularis defect is present at L5 without associated spondylolisthesis. There are no compression fractures and alignment is well maintained. The soft tissues are unremarkable. IMPRESSION IMPRESSION: Scoliotic curvature, osteopenia and Mild degenerative change. No acute process. Consulting Project Director: RADHA Transcribe Date/Time: Nov 09 2021 3:10P Dictated by : CHARLOTTE KOTHARI MD This examination was interpreted and the report reviewed and electronically signed by: CHARLOTTE KOTHARI MD on Nov 09 2021 3:12PM EST [facility] Radiology Study observation (narrative) Rachna langford [facility] XR Lumbar spine 3 ViewsOrder ed By: Ccf Provider on 11-09-2021 [facility] Vital Signs Date Time Vital Sign Value Performing Clinician Facility 01-26-2025 14:54-0400 Body mass index (BMI) [Ratio] 18.79 kg/m2 Irina Nathaly PA-C Work Phone: [facility] 01-26-2025 14:54-0400 Body weight 43.64 kg Irina Nathaly PA-C Work Phone: [facility] 01-26-2025 14:54-0400 Diastolic blood pressure 65 mm[Hg] Irina Nathaly PA-C Work Phone: [facility] 01-26-2025 14:54-0400 Heart rate 72 /min Irina Nathaly PA-C Work Phone: [facility] 01-26-2025 14:54-0400 Respiratory rate 16 /min Irina Nathaly PA-C Work Phone: [facility] 01-26-2025 14:54-0400 SaO2% (BldA) [Mass fraction] 98 % Irina Nathaly PA-C Work Phone: [facility] 01-26-2025 14:54-0400 Systolic blood pressure 117 mm[Hg] Irina Nathaly PA-C Work Phone: [facility] 11-11-2024 10:43-0400 Body temperature 98.1 [degF] Kayden Coleman APRN.SHAMPOO PERSON Work Phone: [facility] 11-11-2024 10:43-0400 Diastolic blood pressure 70 mm[Hg] Kayden Coleman OUTPATIENT CLERK.SHAMPOO PERSON Work Phone: [facility] 11-11-2024 10:43-0400 Heart rate 73 /min Kayden Coleman OUTPATIENT CLERK.SHAMPOO PERSON Work Phone: [facility] 11-11-2024 10:43-0400 SaO2% (BldA) [Mass fraction] 99 % Kayden Coleman OUTPATIENT CLERK.SHAMPOO PERSON Work Phone: [facility] 11-11-2024 10:43-0400 Systolic blood pressure 134 mm[Hg] Kayden Coleman OUTPATIENT CLERK.SHAMPOO PERSON Work Phone: [facility] 10-28-2024 11:11-0500 Body mass index (BMI) [Ratio] 18.63 kg/m2 Angela Mckenzie PA-C Work Phone: [facility] 10-28-2024 11:11-0500 Body temperature 98.71 [degF] Angela Mckenzie PA-C Work Phone: [facility] 10-28-2024 11:11-0500 Body weight 43.26 kg Angela Mckenzie PA-C Work Phone: [facility] 10-28-2024 11:11-0500 Diastolic blood pressure 62 mm[Hg] Angela Mckenzie PA-C Work Phone: [facility] 10-28-2024 11:11-0500 Heart rate 76 /min Angela Mckenzie PA-C Work Phone: [facility] 10-28-2024 11:11-0500 Respiratory rate 16 /min Angela GILMORE-C Work Phone: [facility] 10-28-2024 11:11-0500 SaO2% (BldA) [Mass fraction] 97 % Angela Mckenzie PA-C Work Phone: [facility] 10-28-2024 11:11-0500 Systolic blood pressure 110 mm[Hg] Angela Mckenzie PA-C Work Phone: [facility] 10-18-2024 15:48-0500 Body mass index (BMI) [Ratio] 18.75 kg/m2 Kayden Coleman APRN.SHAMPOO PERSON Work Phone: [facility] 10-18-2024 15:48-0500 Body temperature 98.71 [degF] Kayden Coleman APRN.SHAMPOO PERSON Work Phone: [facility] 10-18-2024 15:48-0500 Body weight 43.55 kg Kayden Coleman APRN.SHAMPOO PERSON Work Phone: [facility] 10-18-2024 15:48-0500 Diastolic blood pressure 63 mm[Hg] Kayden Coleman APRN.SHAMPOO PERSON Work Phone: [facility] 10-18-2024 15:48-0500 Heart rate 81 /min Kayden Coleman APRN.SHAMPOO PERSON Work Phone: [facility] 10-18-2024 15:48-0500 Systolic blood pressure 138 mm[Hg] Kayden Coleman APRN.SHAMPOO PERSON Work Phone: [facility] 09-24-2024 09:44-0500 Body mass index (BMI) [Ratio] 18.75 kg/m2 Toni Meier MD Work Phone: [facility] 09-24-2024 09:44-0500 Body weight 43.55 kg Toni Meier MD Work Phone: [facility] 09-24-2024 09:44-0500 Diastolic blood pressure 70 mm[Hg] Toni Meier MD Work Phone: [facility] 09-24-2024 09:44-0500 Heart rate 82 /min Toni Meier MD Work Phone: [facility] 09-24-2024 09:44-0500 Respiratory rate 16 /min Toni Meier MD Work Phone: [facility] 09-24-2024 09:44-0500 Systolic blood pressure 128 mm[Hg] Toni Meier MD Work Phone: [facility] 09-02-2024 12:24-0500 Body height 152.4 cm Toni Meier MD Work Phone: [facility] 09-02-2024 12:24-0500 Body mass index (BMI) [Ratio] 18.9 kg/m2 Toni Meier MD Work Phone: [facility] 09-02-2024 12:24-0500 Body weight 43.91 kg Toni Meier MD Work Phone: [facility] 09-02-2024 12:24-0500 Diastolic blood pressure 58 mm[Hg] Toni Meier MD Work Phone: [facility] 09-02-2024 12:24-0500 Heart rate 76 /min Toni Meier MD Work Phone: [facility] 09-02-2024 12:24-0500 SaO2% (BldA) [Mass fraction] 99 % Toni Meier MD Work Phone: [facility] 09-02-2024 12:24-0500 Systolic blood pressure 138 mm[Hg] Toni Meier MD Work Phone: [facility] 02-10-2024 10:44-0400 Body mass index (BMI) [Ratio] 19.38 kg/m2 Angela Mckenzie PA-C Work Phone: [facility] 02-10-2024 10:44-0400 Body temperature 99.1 [degF] Angela Mckenzie PA-C Work Phone: [facility] 02-10-2024 10:44-0400 Body weight 45.02 kg Angela Mckenzie PA-C Work Phone: [facility] 02-10-2024 10:44-0400 Diastolic blood pressure 64 mm[Hg] Angela Mckenzie PA-C Work Phone: [facility] 02-10-2024 10:44-0400 Heart rate 80 /min Angela Mckenzie PA-C Work Phone: [facility] 02-10-2024 10:44-0400 Respiratory rate 18 /min Angela Mckenzie PA-C Work Phone: [facility] 02-10-2024 10:44-0400 Systolic blood pressure 110 mm[Hg] Angela Mckenzie PA-C Work Phone: [facility] 01-07-2024 09:37-0400 Body mass index (BMI) [Ratio] 19.53 kg/m2 Toni Meier MD Work Phone: [facility] 01-07-2024 09:37-0400 Body temperature 98.29 [degF] Toni Meier MD Work Phone: [facility] 01-07-2024 09:37-0400 Body weight 45.36 kg Toni Meier MD Work Phone: [facility] 01-07-2024 09:37-0400 Diastolic blood pressure 64 mm[Hg] Toni Meier MD Work Phone: [facility] 01-07-2024 09:37-0400 Heart rate 76 /min Toni Meier MD Work Phone: [facility] 01-07-2024 09:37-0400 Respiratory rate 18 /min Toni Meier MD Work Phone: [facility] 01-07-2024 09:37-0400 Systolic blood pressure 110 mm[Hg] Toni Meier MD Work Phone: [facility] 12-16-2023 10:04-0400 Body mass index (BMI) [Ratio] 19.33 kg/m2 Angela Mckenzie PA-C Work Phone: [facility] 12-16-2023 10:04-0400 Body weight 44.91 kg Angela Mckenzie PA-C Work Phone: [facility] 12-16-2023 10:04-0400 Diastolic blood pressure 64 mm[Hg] Angela Mckenzie PA-C Work Phone: [facility] 12-16-2023 10:04-0400 Heart rate 76 /min Angela Mckenzie PA-C Work Phone: [facility] 12-16-2023 10:04-0400 Respiratory rate 18 /min Angela Mckenzie PA-C Work Phone: [facility] 12-16-2023 10:04-0400 SaO2% (BldA) [Mass fraction] 98 % Angela Mckenzie PA-C Work Phone: [facility] 12-16-2023 10:04-0400 Systolic blood pressure 112 mm[Hg] Angela Mckenzie PA-C Work Phone: [facility] 12-09-2023 09:38-0400 Body temperature 99.81 [degF] Angela Mckenzie PA-C Work Phone: [facility] 12-09-2023 09:38-0400 Body weight 46.27 kg Angela Mckenzie PA-C Work Phone: [facility] 12-09-2023 09:38-0400 Diastolic blood pressure 62 mm[Hg] Angela Mckenzie PA-C Work Phone: [facility] 12-09-2023 09:38-0400 Heart rate 85 /min Angela Mckenzie PA-C Work Phone: [facility] 12-09-2023 09:38-0400 Respiratory rate 24 /min Angela Mckenzie PA-C Work Phone: [facility] 12-09-2023 09:38-0400 SaO2% (BldA) [Mass fraction] 99 % Angela Mckenzie PA-C Work Phone: [facility] 12-09-2023 09:38-0400 Systolic blood pressure 98 mm[Hg] Angela Mckenzie PA-C Work Phone: [facility] 12-08-2023 10:00-0400 Body temperature 100 [degF] [facility] 12-08-2023 10:00-0400 Diastolic blood pressure 53 mm[Hg] [facility] 12-08-2023 10:00-0400 Heart rate 97 /min [facility] 12-08-2023 10:00-0400 Respiratory rate 18 /min [facility] 12-08-2023 10:00-0400 SaO2% (BldA) [Mass fraction] 98 % [facility] 12-08-2023 10:00-0400 Systolic blood pressure 101 mm[Hg] [facility] 12-08-2023 07:06-0400 Body height 154.94 cm [facility] 12-08-2023 07:06-0400 Body mass index (BMI) [Ratio] 19.3 kg/m2 [facility] 12-08-2023 07:06-0400 Body weight 46.26 kg [facility] 12-04-2023 11:28-0400 Body temperature 99.1 [degF] Angela Mckenzie PA-C Work Phone: [facility] 12-04-2023 11:28-0400 Body weight 46.27 kg Angela Mckenzie PA-C Work Phone: [facility] 12-04-2023 11:28-0400 Diastolic blood pressure 62 mm[Hg] Angela Mckenzie PA-C Work Phone: [facility] 12-04-2023 11:28-0400 Heart rate 97 /min Angela Mckenzie PA-C Work Phone: [facility] 12-04-2023 11:28-0400 Respiratory rate 24 /min Angela Mckenzie PA-C Work Phone: [facility] 12-04-2023 11:28-0400 SaO2% (BldA) [Mass fraction] 97 % Angela GILMORE-C Work Phone: [facility] 12-04-2023 11:28-0400 Systolic blood pressure 110 mm[Hg] Angela Mckenzie PA-C Work Phone: [facility] 06-20-2022 11:53-0400 Body height 151.8 cm Toni Meier MD Work Phone: [facility] 06-20-2022 11:53-0400 Body weight 45.36 kg Toni Meier MD Work Phone: [facility] 06-20-2022 11:53-0400 Diastolic blood pressure 60 mm[Hg] Toni Meier MD Work Phone: [facility] 06-20-2022 11:53-0400 Heart rate 60 /min Toni Meier MD Work Phone: [facility] 06-20-2022 11:53-0400 Respiratory rate 16 /min Toni Meier MD Work Phone: [facility] 06-20-2022 11:53-0400 Systolic blood pressure 98 mm[Hg] Toni Meier MD Work Phone: [facility] 12-19-2021 14:38-0400 Body weight 47.63 kg Toni Meier MD Work Phone: [facility] 12-19-2021 14:38-0400 Diastolic blood pressure 70 mm[Hg] Toni Meier MD Work Phone: [facility] 12-19-2021 14:38-0400 Heart rate 60 /min Toni Meier MD Work Phone: [facility] 12-19-2021 14:38-0400 Respiratory rate 14 /min Toni Meier MD Work Phone: [facility] 12-19-2021 14:38-0400 Systolic blood pressure 110 mm[Hg] Toni Meier MD Work Phone: [facility] Encounters Encounter Date Encounter Type Care Provider Facility Start: 07-06-2025 ambulatory ANGELA MCKENZIE Facili ty:[facility] Start: 07-06-2025 End: 07-06-2025 ambulatory ANGELA MCKENZIE Facility:[facility] Start: 05-13-2025 End: 05-13-2025 ambulatory TONI MEIER Facility:[facility] Start: 02-02-2025 End: 04-04-2025 Follow-up encounter Irina Andersen PA-C Work Phone: Rheumatology Comment on above: Results Start: 01-27-2025 End: 01-27-2025 ambulatory IRINA ANDERSEN Facility:[facility] Start: 01-26-2025 End: 01-26-2025 Patient encounter procedure Irina Andersen PA-C Work Phone: Rheumatology Comment on above: Age related osteopor osis, unspecified pathological fracture presence (Primary Dx); Dietary calcium deficiency Start: 01-26-2025 End: 01-26-2025 ambulatory IRINAJie ANDERSEN Facility:[facility] Start: 01-12-2025 ambulatory ANGELA Andres ty:[facility] Start: 01-04-2025 End: 01-05-2025 Follow-up encounter Angela Mckenzie PA-C Work Phone: [facility] Start: 01-03-2025 ambulatory ANGELA Andres ty:[facility] Start: 01-03-2025 End: 01-03-2025 Subsequent hospital visit by physician Bone D[facility] Work Phone: Radiology Comment on above: Osteoporosis, unspec ified osteoporosis type, unspecified pathological fracture presence [M81.0] Start: 12-31-2024 End: 12-31-2024 ambulatory Fauzia Cotto RN Control Technician Management Comment on above: Bi-Weekly Outreach ( Recurring) for Chronic Disease Management Start: 12-20-2024 End: 12-20-2024 ambulatory Fauzia Cotto RN Control Technician Management Comment on above: Bi-Weekly Outreach ( Recurring) for Chronic Disease Management Start: 12-06-2024 End: 12-06-2024 ambulatory Fauzia Cotto RN Control Technician Management Comment on above: Initial enrollment o [facility] for Chronic Disease Management Start: 11-15-2024 End: 11-15-2024 Follow-up encounter Kayden Coleman APRN.CNP Work Phone: [facility] Start: 11-12-2024 End: 11-12-2024 ambulatory KAYDEN COLEMAN Facility:[facility] Start: 11-12-2024 End: 11-12-2024 Subsequent hospital visit by physician [facility] (I-Stat) Work Phone: Cat Scan Comment on above: Chronic sinusitis, u nspecified location [J32.9] Start: 11-11-2024 End: 11-11-2024 Patient encounter procedure Kayden Coleman APRN.SHAMPOO PERSON Work Phone: [facility] [place] Comment on above: Chronic sinusitis, u nspecified location (Primary Dx) Start: 11-11-2024 End: 11-11-2024 ambulatory KAYDEN COLEMAN Facility:[facility] Start: 10-28-2024 End: 10-28-2024 ambulatory ANGELA MCKENZIE Facility:[facility] Start: 10-28-2024 End: 10-28-2024 Patient encounter procedure Angela Mckenzie PA-C Work Phone: [facility] [place] Comment on above: Medicare annual well ness visit, subsequent (Primary Dx); Advance directive discussed with patient; Situational depression; Adjustment insomnia; Osteoporosis, unspecified osteoporosis type, unspecified pathological fracture presence; Encounter for screening examination for other mental health and behavioral disorders; Encounter for screening mammogram for breast cancer; Eustachian tube dysfunction, right Start: 10-18-2024 End: 10-18-2024 Patient encounter procedure Kayden Coleman APRN.SHAMPOO PERSON Work Phone: Family [facility] [place] Comment on above: Acute otitis media, right (Primary Dx) Start: 10-18-2024 End: 10-18-2024 ambulatory KAYDEN COLEMAN Facility:[facility] Start: 10-18-2024 End: 10-18-2024 Patient encounter status [facility] Work Phone: Start: 10-18-2024 End: 10-18-2024 Telephone encounter Lizeth Aden MA [facility] [place] Comment on above: Orders Start: 10-18-2024 End: 10-18-2024 ambulatory KAYDEN JARED Facility:[facility] Start: 10-18-2024 Encounter for genera l adult medical examination without abnormal findings ANGELA MCKENZIE [facility] Start: 09-24-2024 End: 09-24-2024 ambulatory TONI MEIER Facility:[facility] Start: 09-24-2024 End: 09-24-2024 Patient encounter procedure Toni Meier MD Work Phone: Family [facility] [place] Comment on above: Dizziness (Primary D x); Arthralgia of right temporomandibular joint; Bacterial sinusitis Start: 09-02-2024 End: 09-02-2024 Patient encounter procedure Toni Meier MD Work Phone: [facility] [place] Comment on above: Dizziness (Primary D x); Arthralgia of right temporomandibular joint; Bacterial sinusitis; Hordeolum externum of right lower eyelid Start: 09-02-2024 End: 09-02-2024 ambulatory TONI MEIER Facility:[facility] Start: 08-30-2024 End: 08-30-2024 Chart abstracting Lizeth Aden MA [facility] [place] Comment on above: ER F/U ([facility] /) Start: 08-25-2024 End: 08-26-2024 Emergency department patient visit Toni Meier Facility:[facility] Start: 03-19-2024 Chart abstracting Lizeth Aden MA [facility] [place] Comment on above: Consult (Outside con sult Rheumatology /) Start: 03-01-2024 Chart abstracting Toni leonard MD Work Phone: [facility] [place] Comment on above: Outside [id number] Ordered Start: 03-01-2024 End: 03-01-2024 ambulatory Gaye Su Facility:[facility] Start: 02-10-2024 End: 02-10-2024 Patient encounter procedure Angela Mckenzie PA-C Work Phone: [facility] [place] Comment on above: Rash (Primary Dx) Start: 01-31-2024 End: 01-31-2024 Emergency department patient visit Robert Castro Facility:[facility] Start: 01-13-2024 Documentation procedure Mammog angeline Coordinator [facility] Department Start: 01-13-2024 Letter encounter Mammography Coordinator [facility] Department Start: 01-12-2024 End: 01-12-2024 Subsequent hospital visit by physician Screen Mammo [facility] Comment on above: Encounter for screen ing mammogram for breast cancer [Z12.31] Start: 01-07-2024 End: 01-07-2024 Patient encounter procedure Toni Meier MD Work Phone: [facility] [place] Comment on above: Situational depressi on (Primary Dx); Lymphocytosis; Adjustment insomnia; Irritant contact dermatitis due to plants, except food; Rash; Encounter for screening for diabetes mellitus; Encounter for screening for cardiovascular disorders Start: 12-16-2023 End: 12-16-2023 Patient encounter procedure Angela Mckenzie PA-C Work Phone: [facility] [place] Comment on above: Rash (Primary Dx); Encounter for screening mammogram for breast cancer Start: 12-11-2023 Telephone encounter Angela borden PA-C Work Phone: [facility] [place] Comment on above: Results Start: 12-10-2023 Telephone encounter Angela borden PA-C Work Phone: [facility] Comment on above: Appointment Start: 12-09-2023 Chart abstracting Toni leonard MD Work Phone: [facility] [place] Comment on above: Ext / ED report Start: 12-09-2023 End: 12-09-2023 Patient encounter procedure Angela Mckenzie PA-C Work Phone: [facility] [place] Comment on above: Skin rash (Primary D x) Start: 12-08-2023 Chart abstracting Lizeth Aden MA [facility] [place] Comment on above: XRay Report ([facility] ) Start: 12-08-2023 End: 12-08-2023 Emergency department patient visit [facility] Work Phone: Start: 12-04-2023 End: 12-04-2023 Patient encounter procedure Angela Mckenzie PA-C Work Phone: [facility] [place] Comment on above: Cellulitis of skin ( Primary Dx); Spasm of left piriformis muscle Start: 08-12-2023 End: 06-29-2024 Telephone encounter Loyda Grady MD Work Phone: General Surgery Comment on above: 09/10/2023 [facility] Start: 07-24-2023 Telephone encounter Kayden heredia APRN.SHAMPOO PERSON Work Phone: [facility] [place] Comment on above: Results Start: 01-01-2023 Telephone encounter Angela borden PA-C Work Phone: [facility] [place] Comment on above: Results Start: 12-31-2022 Documentation procedure Mammog angeline Coordinator [facility] Start: 12-31-2022 Letter encounter Mammography Coordinator [facility] Department Start: 12-30-2022 End: 12-30-2022 Subsequent hospital visit by physician Screen Mammo [facility] Comment on above: Screening mammogram, encounter for [Z12.31] Start: 12-24-2022 Telephone encounter Angela borden PA-C Work Phone: [facility] [place] Comment on above: Results Start: 12-19-2022 End: 12-19-2022 Subsequent hospital visit by physician Xr [facility] [place] Work Phone: Radiology Comment on above: Chronic pain of left knee [M25.562, G89.29] Start: 06-20-2022 End: 06-20-2022 Patient encounter procedure Toni Meier MD Work Phone: [facility] [place] Comment on above: Medicare annual well ness visit, subsequent (Primary Dx); Situational depression; Lymphocytosis; Seasonal allergies; Adjustment insomnia; Osteoporosis, unspecified osteoporosis type, unspecified pathological fracture presence; Advance directive discussed with patient Start: 02-05-2022 Telephone encounter Toni Meier MD Work Phone: [facility] [place] Comment on above: Results Start: 02-05-2022 End: 02-05-2022 Subsequent hospital visit by physician Diagnostic Mammo [facility]ogram Start: 12-26-2021 Documentation procedure Mammog angeline Coordinator [facility] Start: 12-26-2021 Letter encounter Mammography Coordinator [facility] Department Start: 12-26-2021 Telephone encounter Toni Meier MD Work Phone: [facility] [place] Comment on above: Results Start: 12-26-2021 End: 12-26-2021 Subsequent hospital visit by physician Screen Mammo [facility] Comment on above: Encounter for screen ing mammogram for breast cancer [Z12.31] Osteoporosis, unspec ified osteoporosis type, unspecified pathological fracture presence [M81.0] Start: 12-20-2021 Telephone encounter Toni Meier MD Work Phone: [facility] Comment on above: Results Start: 12-19-2021 End: 12-19-2021 Subsequent hospital visit by physician Xr [facility] [place] Work Phone: Radiology Comment on above: Right hip pain [M25. 551] Start: 12-19-2021 End: 12-19-2021 Patient encounter procedure Toni Meier MD Work Phone: [facility] Comment on above: Lymphocytosis (Prima ry Dx); Right hip pain; Seasonal allergies; Osteoporosis, unspecified osteoporosis type, unspecified pathological fracture presence; Encounter for screening mammogram for breast cancer; Family history of leukemia; Encounter for screening for cardiovascular disorders; Encounter for screening for diabetes mellitus Start: 12-19-2021 Telephone encounter Toni Meier MD Work Phone: [facility] Comment on above: Results Start: 11-15-2021 End: 11-15-2021 ambulatory Soumya O'Alan PT Work Phone: [facility] Comment on above: Strain of lumbar reg ion, initial encounter; Piriformis syndrome of right side Start: 11-12-2021 End: 11-12-2021 ambulatory Soumya O'Alan PT Work Phone: [facility] Comment on above: Piriformis syndrome of right side (Primary Dx); Lumbar strain, initial encounter; Piriformis syndrome, right; Strain of lumbar region, initial encounter Start: 11-09-2021 End: 11-09-2021 Subsequent hospital visit by physician Maurilio [facility] [place] Work Phone: Radiology Comment on above: Lumbar strain, initi al encounter [S39.012A] Start: 06-30-2019 Patient encounter procedure Soumya Asha PT Work Phone: [facility] Work Phone: Start: 06-30-2019 Patient encounter status Elizabeth lewis Asha PT Work Phone: [facility] Work Phone: Procedures Date Procedure Procedure Detail Performing Clinician Start: 01-03-2025 BD DXA TRABECULAR LUCÍA NE SCORE (TBS) Angela Mckenzie PA-C Work Phone: Start: 01-03-2025 Dxa bone density dennis dy 1/> sites axial karen ALMANZAC Work Phone: Start: 11-12-2024 Ct maxillofacial w/o contrast material Kayden Coleman APRN.SHAMPOO PERSON Work Phone: Start: 12-08-2023 Plain chest X-ray Start: 12-30-2022 Screening mammograph y bi 2-view breast inc cad Angela Mckenzie PA-C Work Phone: Start: 12-19-2022 Radiologic exam knee complete 4/more views Angela Mckenzie PA-C Work Phone: Start: 02-05-2022 RACHAEL DIAG W STEPHANIE LT Alfa Meier MD Work Phone: Start: 12-26-2021 Dxa bone density dennis dy 1/> sites axial skel Toni Meier MD Work Phone: Start: 12-26-2021 Screening mammograph y bi 2-view breast inc cad Toni Meier MD Work Phone: Start: 12-19-2021 Radex hip unilateral with pelvis 2-3 views Toni Meier MD Work Phone: Start: 11-09-2021 Radex spine lumbosac ral 2/3 views Angela Mckenzie PA-C Work Phone: Plan of Treatment Date Care Activity Detail Author Start: 01-28-2028 Diabetes Screening Diabetes Screening [facility] Start: 10-18-2027 Diabetes Screening Diabetes Screening [facility] Start: 01-03-2027 Screening for osteoporosis Bone Density Screening [facility] Start: 12-19-2025 DIABETES SCREEN DIABETES SCREEN [facility] Start: 12-19-2025 Diabetes Screening Diabetes Screening [facility] Start: 11-29-2025 End: 11-29-2025 Patient encounter procedure 11/29/2025 10:00 AM EDT Office Visit [facility] [address] [place] [address] Toni Meier MD [address] [place] [address] Medicare Wellness [facility] Comment on above: Medicare Wellness Start: 10-28-2025 Anxiety Screening Anxiety Screening [facility] Start: 10-28-2025 Covid-19 Vaccine ( season) Covid-19 Vaccine ( season) [facility] Comment on above: Postponed from 04/25/2024 (Declined at t his time) Start: 10-28-2025 RSV Vaccine (1 - 1-dose 75+ series) RSV Vaccine (1 - 1-dose 75+ series) [facility] Comment on above: Postponed from 2016 (Declined at t his time) Start: 10-28-2025 Shingrix Vaccine (1 of 2) Shingrix Vaccine (1 of 2) [facility] Comment on above: Postponed from 1991 (Declined at t his time) Start: 10-28-2025 Urine microalbumin profile DTaP,Tdap,Td Vaccine (1 - Tdap) [facility] Comment on above: Postponed from 1960 (Declined at t his time) Start: 05-13-2025 End: 05-13-2025 Patient encounter procedure 05/13/2025 11:20 AM EDT Office Visit [facility] [address] [place] [address] Toni Meier MD [address] [place] [address] 6 month f/u [facility] [place] Comment on above: 6 month f/u Start: 01-26-2025 End: 01-26-2025 Patient encounter procedure 01/26/2025 3:00 PM EDT Office Visit Rheumatology [address] [place] [address] Irina Andersen PA-C [address] [place] [address] Age related osteoporosis, unspecified pathological fracture presence [M81.0] Rheumatology Comment on above: Age related osteoporosis, unspecified pa thological fracture presence [M81.0] Start: 01-26-2025 End: 04-27-2025 25-hydroxyvitamin D3 [Mass/volume] in Serum or Plasma VITAMIN D 25 HYDROXY Lab Routine Age related osteoporosis, unspecified pathological fracture presence Expected: 01/26/2025, Expires: 04/27/2025 [facility] Comment on above: Expected: 01/26/2025, Expires: Start: 01-26-2025 End: 04-27-2025 Basic metabolic 2000 panel - Serum or Plasma BASIC METABOLIC PANEL Lab Routine Age related osteoporosis, unspecified pathological fracture presence Expected: 01/26/2025, Expires: 04/27/2025 [facility] Comment on above: Expected: 01/26/2025, Expires: Start: 01-26-2025 End: 04-27-2025 Calcium.ionized [Moles/volume] in Blood CALCIUM, IONIZED Lab Routine Age related osteoporosis, unspecified pathological fracture presence Expected: 01/26/2025, Expires: 04/27/2025 [facility] Work Phone: Comment on above: Expected: 01/26/2025, Expires: Start: 01-26-2025 End: 04-27-2025 Collagen crosslinked C-telopeptide [Mass/volume] in Serum or Plasma C TELOPEPTIDE, BETA Lab Routine Age related osteoporosis, unspecified pathological fracture presence Expected: 01/26/2025, Expires: 04/27/2025 [facility] Comment on above: Expected: 01/26/2025, Expires: Start: 01-26-2025 End: 04-27-2025 Magnesium [Mass/volume] in Serum or Plasma MAGNESIUM Lab Routine Age related osteoporosis, unspecified pathological fracture presence Expected: 01/26/2025, Expires: 04/27/2025 [facility] Comment on above: Expected: 01/26/2025, Expires: Start: 01-26-2025 End: 04-27-2025 MONOCLONAL PROTEIN, SERUM (BLOOD) MONOCLONAL PROTEIN, SERUM (BLOOD) Lab Routine Age related osteoporosis, unspecified pathological fracture presence Expected: 01/26/2025, Expires: 04/27/2025 [facility] Comment on above: Expected: 01/26/2025, Expires: Start: 01-26-2025 End: 04-27-2025 Parathyrin.intact [Mass/volume] in Serum or Plasma PTH INTACT Lab Routine Age related osteoporosis, unspecified pathological fracture presence Expected: 01/26/2025, Expires: 04/27/2025 [facility] Comment on above: Expected: 01/26/2025, Expires: Start: 01-26-2025 End: 04-27-2025 Phosphate [Mass/volume] in Serum or Plasma PHOSPHORUS INORGANIC Lab Routine Age related osteoporosis, unspecified pathological fracture presence Expected: 01/26/2025, Expires: 04/27/2025 [facility] Comment on above: Expected: 01/26/2025, Expires: Start: 01-26-2025 End: 04-27-2025 PROTEIN ELECT RND UR W/INTERP PROTEIN ELECT RND UR W/INTERP Lab Routine Age related osteoporosis, unspecified pathological fracture presence Expected: 01/26/2025, Expires: 04/27/2025 [facility] Comment on above: Expected: 01/26/2025, Expires: Start: 01-26-2025 End: 04-27-2025 PROTEIN ELECTROPHORESIS SERUM W/INTERP PROTEIN ELECTROPHORESIS SERUM W/INTERP Lab Routine Age related osteoporosis, unspecified pathological fracture presence Expected: 01/26/2025, Expires: 04/27/2025 [facility] Comment on above: Expected: 01/26/2025, Expires: Start: 01-12-2025 End: 01-12-2025 Patient encounter procedure 01/12/2025 11:30 AM EDT Appointment Mammogram [address] [place] [address] Osteoporosis, unspecified osteoporosis type, unspecified pathological fracture presence [M81.0] Mammogram Comment on above: Osteoporosis, unspecified osteoporosis t ype, unspecified pathological fracture presence [M81.0] Start: 01-03-2025 End: 01-03-2025 Patient encounter procedure Mammogram Comment on above: Osteoporosis, unspecified osteoporosis t ype, unspecified pathological fracture presence [M81.0] Start: 12-19-2024 DIABETES SCREEN DIABETES SCREEN [facility] Start: 11-12-2024 End: 11-12-2024 Patient encounter procedure 11/12/2024 3:40 PM EDT Appointment Cat Scan [address] [place], [place] [id number] Chronic sinusitis, unspecified location [J32.9] Cat Scan Comment on above: Chronic sinusitis, unspecified location [J32.9] Start: 10-28-2024 End: 10-28-2024 Patient encounter procedure 10/28/2024 11:40 AM EST Office Visit Family [facility] [place] [address] [place], [place] [phone] Angela Mckenzie PA-C [address] [place], [place] [id number] Medicare wellness Family [facility] Comment on above: Medicare wellness Start: 10-18-2024 End: 10-18-2024 Patient encounter procedure 10/18/2024 4:20 PM EST Office Visit [facility] [place] [address], [place] [id number] Kayden Coleman APRN.SHAMPOO PERSON [address] [place], [place] [phone] ear infection [facility] [place] Comment on above: ear infection Start: 10-18-2024 End: 01-17-2025 CBC W Auto Differential panel - Blood [facility] Work Phone: Comment on above: Expected: 10/18/2024, Expires: Start: 10-18-2024 End: 01-17-2025 Comprehensive metabolic 2000 panel - Serum or Plasma [facility] Comment on above: Expected: 10/18/2024, Expires: Start: 10-18-2024 End: 01-17-2025 Hemoglobin A1c in Blood [facility] Comment on above: Expected: 10/18/2024, Expires: Start: 10-18-2024 End: 01-17-2025 LIPID PANEL, NONFASTING [facility] Comment on above: Expected: 10/18/2024, Expires: Start: 09-24-2024 End: 09-24-2024 Patient encounter procedure 09/24/2024 10:00 AM EST Office Visit [facility] [place] [address] [place] [address] Toni Meier MD [address] [place], [place] [id number] follow up. Dizziness [facility] [place] Comment on above: follow up. Dizziness Start: 09-02-2024 End: 09-02-2024 Patient encounter procedure 09/02/2024 11:20 AM EST Office Visit [facility] [place] [address] [place] [address] Toni Meier MD [address] [place] [address] Hospital follow up [facility] [place] Comment on above: Hospital follow up Start: 08-25-2024 Advance Directive Discussion Advance Directive Discussion [facility] Start: 07-07-2024 Covid-19 Vaccine (#1) Covid-19 Vaccine (#1) [facility] Comment on above: Postponed from 03/30/1941 (Declined at t his time) Start: 07-07-2024 Covid-19 Vaccine ( season) Covid-19 Vaccine ( season) [facility] Comment on above: Postponed from 04/25/2023 (Declined at t his time) Start: 07-07-2024 RSV Vaccine (1 - 1-dose 60+ series) RSV Vaccine (1 - 1-dose 60+ series) [facility] Comment on above: Postponed from 2001 (Declined at t his time) Start: 07-07-2024 RSV Vaccine (1 - 1-dose 75+ series) RSV Vaccine (1 - 1-dose 75+ series) [facility] Comment on above: Postponed from 2016 (Declined at t his time) Start: 07-07-2024 Shingrix Vaccine (1 of 2) Shingrix Vaccine (1 of 2) [facility] Comment on above: Postponed from 1991 (Declined at t his time) Start: 07-07-2024 Urine microalbumin profile DTaP,Tdap,Td Vaccine (1 - Tdap) [facility] Comment on above: Postponed from 1960 (Declined at t his time) Start: 06-28-2024 End: 06-28-2024 Patient encounter procedure 06/28/2024 10:20 AM EST Office Visit [facility] [place] [address] [place], [place] [phone] Angela Mckenzie PA-C [address] [place], [place] [phone] Medicare wellness [facility] [place] Comment on above: Medicare wellness Start: 06-25-2024 End: 09-24-2024 CBC W Auto Differential panel - Blood COMPLETE BLOOD COUNT AND DIFFERENTIAL Lab Routine Lymphocytosis Expected: 06/25/2024, Expires: 09/24/2024 [facility] Comment on above: Expected: 06/25/2024, Expires: Start: 06-25-2024 End: 09-24-2024 Comprehensive metabolic 2000 panel - Serum or Plasma COMPREHENSIVE METABOLIC PANEL Lab Routine Encounter for screening for diabetes mellitus Expected: 06/25/2024, Expires: 09/24/2024 [facility] Work Phone: Comment on above: Expected: 06/25/2024, Expires: Start: 06-25-2024 End: 09-24-2024 LIPID PANEL, NONFASTING LIPID PANEL, NONFASTING Lab Routine Encounter for screening for cardiovascular disorders Expected: 06/25/2024, Expires: 09/24/2024 [facility] Comment on above: Expected: 06/25/2024, Expires: Start: 04-25-2024 Covid-19 Vaccine () Covid-19 Vaccine () [facility] Start: 01-12-2024 End: 01-12-2024 Patient encounter procedure 01/12/2024 10:10 AM EDT Appointment Mammogram [address] [place] [address] Encounter for screening mammogram for breast cancer [Z12.31] Mammogram Comment on above: Encounter for screening mammogram for br east cancer [Z12.31] Start: 01-07-2024 End: 01-07-2024 Patient encounter procedure 01/07/2024 9:40 AM EDT Office Visit [facility] [place] [address] [place] [address] Toni Meier MD [address] [facility] [place] [address] 6 month follow up [facility] [place] Comment on above: 6 month follow up Start: 12-27-2023 Screening for osteoporosis Bone Density Screening [facility] Start: 12-09-2023 End: 03-09-2024 PRICILLA BY IFA WITH REFLEX [facility] Work Phone: Comment on above: Expected: 12/09/2023, Expires: Start: 12-08-2023 Bacteria identified in Blood by Culture Blood Culture [facility] Start: 12-08-2023 Bacteria identified in Urine by Culture [facility] Start: 12-08-2023 SARS-CoV-2, Influenza & RSV (PCR) SARS-CoV-2, Influenza & RSV (PCR) [facility] Start: 12-08-2023 [facility] Start: 12-08-2023 Blood culture [facility] Start: 12-08-2023 Blood culture [facility] Start: 12-08-2023 End: 12-08-2023 [facility] Start: 08-25-2023 Advance Directive Discussion Advance Directive Discussion [facility] Start: 06-20-2023 COVID-19 VACCINE (#1) COVID-19 VACCINE (#1) [facility] Comment on above: Postponed from 03/30/1941 (Declined at t his time) Start: 06-20-2023 SHINGRIX VACCINE (1 of 2) SHINGRIX VACCINE (1 of 2) [facility] Comment on above: Postponed from 1991 (Insurance Cov erage) Start: 06-20-2023 Urine microalbumin profile DTAP,TDAP,TD (1 - Tdap) [facility] Comment on above: Postponed from 1960 (Insurance Cov erage) Start: 08-25-2022 ADVANCE DIRECTIVE DISCUSSION ADVANCE DIRECTIVE DISCUSSION [facility] Start: 12-17-2021 DIABETES SCREEN DIABETES SCREEN [facility] Start: 08-25-2021 ADVANCE DIRECTIVE DISCUSSION ADVANCE DIRECTIVE DISCUSSION [facility] Start: 2016 RSV Vaccine (1 - 1-dose 75+ series) RSV Vaccine (1 - 1-dose 75+ series) [facility] Start: 2001 RSV Vaccine (1 - 1-dose 60+ series) RSV Vaccine (1 - 1-dose 60+ series) [facility] Start: 1991 SHINGRIX VACCINE (1 of 2) SHINGRIX VACCINE (1 of 2) [facility] Start: 1960 Urine microalbumin profile [facility] Start: 1959 Anxiety Screening Anxiety Screening [facility] Start: 1946 COVID-19 VACCINE (#1) COVID-19 VACCINE (#1) [facility] Start: 1946 COVID-19 VACCINE (1) COVID-19 VACCINE (1) [facility] Start: [birth year]-30-1941 Covid-19 Vaccine (#1) Covid-19 Vaccine (#1) [facility] End: 11-27-2025 BD DXA TRABECULAR BONE SCORE (TBS) BD DXA TRABECULAR BONE SCORE (TBS) Radiology Routine Osteoporosis, unspecified osteoporosis type, unspecified pathological fracture presence 1 Occurrences starting 10/28/2024 until 11/27/2025 [facility] Comment on above: 1 Occurrences starting 10/28/2024 until 11/27/2025 End: 12-11-2025 CT Sinuses WO contrast CT SINUS WO IVCON Radiology STAT Chronic sinusitis, unspecified location 1 Occurrences starting 11/11/2024 until 12/11/2025 [facility] Work Phone: Comment on above: 1 Occurrences starting 11/11/2024 until 12/11/2025 End: 01-25-2023 Diagnostic mammography computer-aided detcj uni RACHAEL DIAGNOSTIC LT Radiology Routine Abnormal mammogram 1 Occurrences starting 12/26/2021 until 01/25/2023 [facility] Work Phone: Comment on above: 1 Occurrences starting 12/26/2021 until 01/25/2023 End: 01-18-2023 Dxa bone density study 1/> sites axial skel DXA-AXIAL SKELETON Radiology Routine Osteoporosis, unspecified osteoporosis type, unspecified pathological fracture presence 1 Occurrences starting 12/19/2021 until 01/18/2023 [facility] Work Phone: Comment on above: 1 Occurrences starting 12/19/2021 until 01/18/2023 End: 11-27-2025 DXA Skeletal system.axial Views for bone density DXA-AXIAL SKELETON Radiology Routine Osteoporosis, unspecified osteoporosis type, unspecified pathological fracture presence 1 Occurrences starting 10/28/2024 until 11/27/2025 [facility] Work Phone: Comment on above: 1 Occurrences starting 10/28/2024 until 11/27/2025 End: 01-14-2025 MG Breast Screening RACHAEL SCREENING Radiology Routine Encounter for screening mammogram for breast cancer 1 Occurrences starting 12/16/2023 until 01/14/2025 [facility] Work Phone: Comment on above: 1 Occurrences starting 12/16/2023 until 01/14/2025 MG Breast Screening RACHAEL SCREENIN G Radiology Routine Encounter for screening mammogram for breast cancer 01/12/2024 10:19 AM EDT [facility] Work Phone: End: 11-27-2025 MG Breast Screening RACHAEL SCREENING Radiology Routine Encounter for screening mammogram for breast cancer 1 Occurrences starting 10/28/2024 until 11/27/2025 [facility] Comment on above: 1 Occurrences starting 10/28/2024 until 11/27/2025 Patient Education ED Cellulitis [facility] Work Phone: Patient referral [facility] Work Phone: PT PLAN OF CARE CERTIFICATION PT PLAN OF CARE CERTIFICATION Procedures Routine Lumbar strain, initial encounter Piriformis syndrome, right Strain of lumbar region, initial encounter Piriformis syndrome of right side Ordered: 11/12/2021 [facility] Work Phone: Comment on above: Ordered: 11/12/2021 End: 01-18-2023 Screening mammography bi 2-view breast inc cad RACHAEL SCREENING Radiology Routine Encounter for screening mammogram for breast cancer 1 Occurrences starting 12/19/2021 until 01/18/2023 [facility] Work Phone: Comment on above: 1 Occurrences starting 12/19/2021 until 01/18/2023 End: 01-25-2023 Us breast uni real time with image limited US BREAST LTD LT Radiology Routine Abnormal mammogram 1 Occurrences starting 12/26/2021 until 01/25/2023 [facility] Work Phone: Comment on above: 1 Occurrences starting 12/26/2021 until 01/25/2023 [facility] Payers Date Payer Category Payer Self-pay [id number] 2021 Medicare AET[employer] MEDICARE A ETNA MEDICARE PPO [id number] 2021-Present [phone] [address] [place] [address] PPO [id number] 2021 Medicare AET[employer] MEDICARE A ETNA MEDICARE PPO [id number] 2021-Present [phone] [address] [place] [address] PPO [id number] 2021 Medicare (Managed Care) AETNA [place] DICARE [id number] 2021 Private Health Insurance 101 [id number] 2015 Medicare [facility] CARE MEDICARE [id number] Unknown [id number] Unknown [id number] Unknown [id number] Unknown [id number] Social History Date Type Detail Facility Start: 11-04-2017 End: 06-20-2022 Tobacco smoking status NHIS Never smoked tobacco [facility] Start: 11-09-2021 End: 11-11-2024 Alcohol intake Current non-drinker of alcohol (finding) [facility] Start: 02-06-1941 Sex Assigned At Not on file [facility] Start: 10-30-2021 End: 06-20-2022 Exposure to SARS-CoV-2 (event) Not sure [facility] Start: 11-04-2017 End: 06-20-2022 Tobacco use and exposure Smokeless tobacco non-user [facility] Start: 12-19-2022 End: 06-27-2023 History of Social function [facility] Work Phone: Start: 12-19-2022 End: 06-27-2023 Tobacco use panel [facility] Work Phone: Start: 07-26-2012 Adult Depression Screening Assessment 1 [facility] Work Phone: Start: 12-08-2023 Tobacco smoking stat us [facility] Unknown if ever smoked [facility] Start: 01-12-2021 Non-smoker [facility] Start: 1940 Sex Assigned At Female W [facility] Has the [facility], or imagine threatened to shut off services in your home in past 12Mo No [facility] (I/We) worried [facility] (my/our) food would run out before (I/we) got money to buy more. Never true [facility] Mental Status Date Assessment Result Facility 12-08-2023 Cognitive function Level Of Cons ciousness Awake;Alert;Appropriate;Follow s Commands;Responds to vocal stimuli [facility] Work Phone: Clinical Notes 11-09-2021 to 07-06-2025 Telephone Encounter - Michelle Sheets RN - 02/02/2025 4:27 PM EDTTelephone Encounter - Michelle Sheets RN - 02/02/2025 4:27 PM EDTTelephone Encounter - Irina Andersen PA-C - 02/02/2025 3:54 PM EDT Note Date & Type Note Facility 07-06-2025 Note HNO ID: [id number] Author: AZIZA FIERRO, RT(R) Service: ? Author Type: Machine Grinder Type: Progress Notes Filed: 07/06/2025 15:29 Note Text: Radiology Service Progress Note PATIENT NAME: Gianfranco Holliday DATE OF SERVICE: July 06, 2025 TIME: 3:29 PM PATIENT IDENTITY VERIFICATION COMPLETED USING TWO (2) IDENTIFIERS: Name and Date of confirmed by patient verbally. FALL SCREENING: Has the patient had 2 falls in the last year or 1 fall with injury or currently using an Ambulatory Assistive Device (Walker, Cane, Wheelchair, Crutches, etc.)? No PATIENT GENDER DATA: Assigned female at . status: : No status: NO. PATIENT RELEVANT IMPLANT DATA REVIEWED: Yes PATIENT PRESENTS WITH AN IMPLANTABLE OR ATTACHED SPOT MACHINE OPERATOR: No RADIOLOGY DEPARTMENT: CT; Exam(s) Completed: Face/Mandible. Anesthesia: No PERIPHERAL IV DATA: Not applicable SIGNED BY: RT Gregory(R) July 06, 2025 3:29 PM [facility] 07-06-2025 Note HNO ID: [id number] Author: ANGELA MCKENZIE PA-C Service: ? Author Type: Physician Panelbeater Type: Progress Notes Filed: 07/06/2025 08:49 Note Text: Chief Complaint No chief complaint on file. HPI Gianfranco Holliday is a 84 year old female who presents here today for facial swelling Gianfranco Holliday is an 84-year-old female presenting with a worsening facial rash. Facial Rash: - Onset: 06/27, initially thought to be a mosquito bite. - Progression: - Initial presentation as a "big welt" on the side of the face. - Swelling and erythema increased by 07/01. - Rash has spread to the neck, with worsening symptoms over the past three days. - Symptoms: - Pruritus and burning sensation. - Serous drainage noted, described as "yellow" initially, now clear. - Edema causing partial closure of the left eye, obstructing vision. - Skin described as feeling like rough sandpaper. - Treatment: - Seen at urgent care on 06/29, prescribed doxycycline and mupirocin. - Discontinued medications due to burning sensation and belief of allergy. - Used vitamin E oil with burning sensation; applied Vaseline with relief. - Previously on Claritin for 30 days, stopped a few days ago. - Denies pain or vision changes in the left eye. Past medical history, appointments, medications, allergies reviewed. Previous Medical History PAST MEDICAL HISTORY Diagnosis Date Abnormal mammogram 06/17/2015 Sees yearly for exam and mammogram Adjustment insomnia 12/25/2018 Advance directive discussed with patient 06/20/2022 Discussed 05/2022 Arthritis Arthritis of both hips 12/19/2021 Burping 12/15/2015 Diverticulosis of large intestine Esophageal dysphagia 01/08/2017 NL upper GI 11/2016: if worrsens will refer for EGD. Family history of leukemia 06/17/2015 Family history of malignant neoplasm of gastrointestinal tract 06/14/2010 Family history of malignant neoplasm of gastrointestinal tract History of DVT (deep vein thrombosis) 11/14/201710/2017; Below the knee, did not advance and no anticoagulation needed. Internal hemorrhoids without mention of complication Lichen planus Lymphocytosis 06/17/2015 Chronic: stable around 45=50% Medicare annual wellness visit, subsequent 06/12/2017 Medicare Part B: NA last done: 06/30/2019 Osteoporosis 06/17/2015 Seasonal allergies 12/15/2015 Situational depression 12/25/2018 loss of 09/17/2018 Stress 06/24/2018 Trigger ring finger of right hand 06/30/2019 Previous Surgical History PAST SURGICAL HISTORY Procedure Laterality Date APPENDECTOMY COLONOSCOPY FLX DX W/COLLJ SPEC WHEN PFRMD 08/08/2010 repeat in 5 yrs COLONOSCOPY FLX DX W/COLLJ SPEC WHEN PFRMD 07/03/2015 Colonoscopy COLONOSCOPY SCREENING 09/10/2023 next colonoscopy due in 5 years SALPINGO-OOPHORECTOMY COMPL/PRTL UNI/BI SPX Salpingo-oophorectomy STRESS TEST 07/14/2017 WNL TOTAL ABDOMINAL HYSTERECT W/WO RMVL TUBE OVARY Hysterectomy, RASHIDA Family History FAMILY HISTORY Problem Relation Age of Onset Cancer Mother ? liver CA Colon Cancer Father other (skin cancer) Daughter Patient Allergies ALLERGIES Allergen Reactions Fexofenadine Other: See Comments headache/sore tongue Prednisone Itching Sulfamethoxazole-Tr* Other: See Comments Dizzy, sweating and vomiting. Current Medications Current Outpatient Medications on File Prior to Visit Medication Sig vtqrhoxe-jnf-rifu-FA-vit K-lut (CENTRUM SILVER WOMEN) 8 mg iron-400 mcg-50 mcg tab Take 1 tablet by mouth once daily. Vitamin E, dl, acetate, (VITAMIN E) 400 unit capsule Take 1 capsule by mouth once daily. calcium carbonate 600 mg-cholecalciferol 200 units (CALCIUM 600 + D,3,) 600 mg-5 mcg (200 unit) tab Take 1 tablet by mouth two times a day. Cholecalciferol, Vitamin D3, 25 mcg (1,000 unit) cap Take 1 capsule by mouth once daily. No current facility-administered medications on file prior to visit. Social History SOCIAL HISTORY[1] Review of Symptoms REVIEW OF SYSTEMS Eyes: (-) vision changes Skin: (+) facial swelling, (+) facial redness, (+) facial itching, (+) facial burning, (+) facial drainage, (+) facial dryness, (+) facial rough texture, (+) dry lips, (-) facial pain SEE HPI EXAM: BP 120/70 (BP Site: Left Arm, BP Position: Sitting, BP Cuff Size: Regular Adult) Pulse 76 Temp 36.5 ?C (97.7 ?F) Resp 18 Wt 43.7 kg (96 lb 6 oz) SpO2 98% BMI 18.82 kg/m? General Appearance: Well appearing, alert, in no acute distress, well-hydrated, well nourished.. Skin: swelling and erythema noted on left side of face, eyelid and nasal fold. Nontender. Yellow crusting evident. No palpable mass or abscess. . Oropharynx: Lips, mucosa, and tongue normal, teeth and gums normal, oropharynx normal. Health Maintenance List Covid-19 Vaccine(2024- season) Never done DTaP,Tdap,Td Vaccine(1 - Tdap) due on 10/28/2025 RSV Vaccine(1 - 1-dose 75+ series) due on 10/28/2025 Shingrix Vac (more content not included)... [facility] 05-13-2025 Note HNO ID: [id number] Author: TONI MEIER MD Service: ? Author Type: Physician Type: Progress Notes Filed: 05/15/2025 21:38 Note Text: Chief Complaint Patient presents with: F/U 6 Month HPI Gianfranco Holliday is a 84 year old female who presents here today for a routine follow up. Patient with hx of osteoporosis, diverticulosis, lymphocytosis, seasonal allergies as well as those reviewed and addressed below and in ROS Gianfranco reports experiencing a burning sensation and stinging of the skin after consuming chocolate, which she believes indicates an allergy. She abstained from chocolate for 6 months and noticed an improvement in symptoms. However, after consuming chocolate brownies for 3 days about a week ago, the burning and stinging sensations recurred. She inquires about the possibility of allergy testing. Gianfranco has a history of dermatitis and was previously treated with injections by Dr. Sam Ham at the [facility], but discontinued them after 6 months due to an allergic reaction. She has not seen Dr. Ham for over a year. She denies recent fevers, wheezing, dyspnea, hemoptysis, chest pain, palpitations, leg edema, nausea, emesis, diarrhea, heartburn, changes in heat or cold tolerance, increased thirst, cephalalgia, syncope, seizures, or tremors. She notes dyspnea on exertion, which she describes as normal for her. She is not currently taking any prescription medications, only vitamins. She denies needing Flonase for allergies this year. Past medical history, appointments, medications, allergies reviewed. Previous Medical History PAST MEDICAL HISTORY Diagnosis Date Abnormal mammogram 06/17/2015 Sees yearly for exam and mammogram Adjustment insomnia 12/25/2018 Advance directive discussed with patient 06/20/2022 Discussed 05/2022 Arthritis Arthritis of both hips 12/19/2021 Burping 12/15/2015 Diverticulosis of large intestine Esophageal dysphagia 01/08/2017 NL upper GI 11/2016: if worrsens will refer for EGD. Family history of leukemia 06/17/2015 Family history of malignant neoplasm of gastrointestinal tract 06/14/2010 Family history of malignant neoplasm of gastrointestinal tract History of DVT (deep vein thrombosis) 11/14/201710/2017; Below the knee, did not advance and no anticoagulation needed. Internal hemorrhoids without mention of complication Lichen planus Lymphocytosis 06/17/2015 Chronic: stable around 45=50% Medicare annual wellness visit, subsequent 06/12/2017 Medicare Part B: NA last done: 06/30/2019 Osteoporosis 06/17/2015 Seasonal allergies 12/15/2015 Situational depression 12/25/2018 loss of 09/17/2018 Stress 06/24/2018 Trigger ring finger of right hand 06/30/2019 Previous Surgical History PAST SURGICAL HISTORY Procedure Laterality Date APPENDECTOMY COLONOSCOPY FLX DX W/COLLJ SPEC WHEN PFRMD 08/08/2010 repeat in 5 yrs COLONOSCOPY FLX DX W/COLLJ SPEC WHEN PFRMD 07/03/2015 Colonoscopy COLONOSCOPY SCREENING 09/10/2023 next colonoscopy due in 5 years SALPINGO-OOPHORECTOMY COMPL/PRTL UNI/BI SPX Salpingo-oophorectomy STRESS TEST 07/14/2017 WNL TOTAL ABDOMINAL HYSTERECT W/WO RMVL TUBE OVARY Hysterectomy, RASHIDA Family History FAMILY HISTORY Problem Relation Age of Onset Cancer Mother ? liver CA Colon Cancer Father other (skin cancer) Daughter Patient Allergies ALLERGIES Allergen Reactions Fexofenadine Other: See Comments headache/sore tongue Prednisone Itching Sulfamethoxazole-Tr* Other: See Comments Dizzy, sweating and vomiting. Current Medications Current Outpatient Medications on File Prior to Visit Medication Sig calcium carbonate 600 mg-cholecalciferol 200 units (CALCIUM 600 + D,3,) 600 mg-5 mcg (200 unit) tab Take 1 tablet by mouth two times a day. Cholecalciferol, Vitamin D3, 25 mcg (1,000 unit) cap Take 1 capsule by mouth once daily. fluticasone (FLONASE) 50 mcg/actuation nasal spray Use 2 Sprays in each nostril once daily. Rinse mouth after use. (Patient not taking: Reported on 01/26/2025) No current facility-administered medications on file prior to visit. Social History SOCIAL HISTORY[1] Review of Symptoms REVIEW OF SYSTEMS GENERAL: No weight loss, malaise or fevers RESPIRATORY: Negative for cough, hemoptysis, wheezing, COPD, dyspnea or shortness of breath CARDIOVASCULAR: Negative for chest pain, leg swelling, hypertension, CHF or palpitations GI: No nausea, vomiting, or diarrhea and No heartburn or reflux symptoms SKIN: See HPI ENDOCRINE: Negative for cold or heat intolerance, polyuria, polydipsia and goiter NEURO: No history of headaches, syncope, paralysis, seizures or tremors SEE HPI EXAM: BP 108/60 (BP Site: Left Arm, BP Position: Sitting, BP Cuff Size: Regular Adult) Pulse 78 Resp 16 Wt 43.7 kg (96 lb 6.4 oz) BMI 18.83 kg/m? Last 5 Encounter Wt Readings: Date: Wt: 05/13/2025 43.7 kg (96 lb 6.4 oz) 01/26/2025 43.6 kg (96 (more content not included)... [facility] 02-02-2025 Telephone encounter Note Patient called and given the below results. Patient states that she is going to be starting the Vitamin D. Patient states that she will continue to think about the treatments but wants to see if she feels better in the next month or two. She will call and make a follow up when she feels ready. Patient denied scheduling today. Michelle Sheets RN [facility] 02-02-2025 Miscellaneous Notes Patient called and given the below results. Patient states that she is going to be starting the Vitamin D. Patient states that she will continue to think about the treatments but wants to see if she feels better in the next month or two. She will call and make a follow up when she feels ready. Patient denied scheduling today. Michelle Sheets RN Please call Labs show normal calcium, magnesium, phosphorous levels. While the protein test was mildly elevated, there is no M protein in the blood which is reassuring. Urine protein showed a possible abnormality, however given the other tests look OK I'm not too worried about this. We can repeat in 1 year. C Telopeptide level is in higher range (her baseline) which suggests she is losing bone mass. Treatment will help lower this. Vitamin D level is low. I believe she had stopped Vitamin D prior to the visit. If she was not taking vitamin D, I agree with prior recommendation of 1000 international unit(s) daily. I sent prescription at our visit. Has she considered the treatments we suggested? We were going to schedule follow up to review her preferences. I know recommendation was for EVENITY, but if she is not open to that, then Reclast infusion is likely the next best for her. I'm happy to discuss at a visit with a friend present as she requested to go over this in more detail Irina Andersen PA-C documented in this encounter [facility] 06-11-2025 Telephone encounter Note Please call Labs show normal calcium, magnesium, phosphorous levels. While the protein test was mildly elevated, there is no M protein in the blood which is reassuring. Urine protein showed a possible abnormality, however given the other tests look OK I'm not too worried about this. We can repeat in 1 year. C Telopeptide level is in higher range (her baseline) which suggests she is losing bone mass. Treatment will help lower this. Vitamin D level is low. I believe she had stopped Vitamin D prior to the visit. If she was not taking vitamin D, I agree with prior recommendation of 1000 international unit(s) daily. I sent prescription at our visit. Has she considered the treatments we suggested? We were going to schedule follow up to review her preferences. I know recommendation was for EVENITY, but if she is not open to that, then Reclast infusion is likely the next best for her. I'm happy to discuss at a visit with a friend present as she requested to go over this in more detail Irina Andersen PA-C [facility] 01-26-2025 Instructions Irina Andersen PA-C - 01/26/2025 3:54 PM EDT Get fasting blood work Review medications below and let me know your preference I recommend EVENITY - this builds bone - 2 shots, one in each arm, once a month, for 12 month. - This does have a potential cardiac risk/ Heart attack and Stroke risk associated with it After 1 year of treatment Then I recommend Reclast - A once yearly IV infusion. This helps prevents bone loss. An alternative (Second line) Prolia - This helps prevent bone loss as well - Shot in the arm in the office once every 6 months. - Risk of rebound bone loss if stopped suddenly documented in this encounter [facility] 01-26-2025 Note HNO ID: [id number] Author: IRINA ANDERSEN PA-C Service: ? Author Type: Physician Panelbeater Type: Progress Notes Filed: 01/26/2025 16:49 Note Text: Osteoporosis and Metabolic Bone Disease CONSULTATION Referring Provider: Angela Mckenzie Date of Service: 01/26/2025 Gender: female Ethnicity: White Age: [age] year old Chief Complaint: Osteoporosis Last Rheumatology visit: None at [facility] Gianfranco Holliday is a 84 year old White female who presents on 01/26/2025 for in person visit for osteoporosis evaluation. Disease History Osteoporosis History No history of fractures Most Recent BMD Link to FRAX Website RAPID 3 [place] Activities of Daily Living No Data Dress self? - Get in and out of bed? - Walk outdoors? - Wash and dry body? - Get in and out of car? - Tobacco Use Never smoked or used smokeless tobacco. Vaping Use Never used Alcohol Use No. Treatment History Fosamax for "2 years" years ago, but stopped by provider due to not wanting to do too many years of treatment Osteoporosis Risk Factors Osteoporosis FRAX Risk Factors No Fractures No family history of osteoporosis No parent with a hip fracture Not a current smoker Glucocorticoid use (Comment: only short term related to rashes/dermatitis) Previous use No alcohol use more than 3 units per day Osteoporosis Medication Risk Factors No use of Aromatase inhibitors No use of Furosemide No use of Proton pump inhibitor No use of Thyroid hormone with oversuppression Osteoporosis Disease-Specific Risk Factors Weight < 127 lbs 96lbs Height loss 1 inch normal balance Fall history No history of eating disorders Renal calculi (Comment: 20 years ago) No CKD Caffeine intake: 1-3 c/day Exercise routine: minimal exercise Types of exercise: walking (Comment: Takes care of outdoor activity) Bone Density Reports Last Bone Density DXA-AXIAL SKELETON Exam End: 01/03/2025 12:43 PM (Final result) Narrative: * * *Final Report* * * DATE OF EXAM: Jan 03 2025 12:43PM [facility] [id number] - BD DXA - AXIAL SKELETON / PROCEDURE REASON: Osteoporosis, unspecified osteoporosis type, unspecified pathological fracture p * * * * Physician Interpretation * * * * EXAMINATION: DXA BONE DENSITOMETRY BD DXA - AXIAL SKELETON, BD DXA TRABECLR BONE SCORE (TBS) PATIENT DEMOGRAPHICS: Age: 84 years, Gender: Female SCANNER INFORMATION: DXA Model: [employer] C [id number] Date Scanned: 01/03/2025 12:43 PM CLINICAL HISTORY: DIAGNOSTIC Osteoporosis, unspecified osteoporosis type, unspecified pathological fracture presence . RISK FACTORS FOR OSTEOPOROSIS AND ASSOCIATED FRACTURES REPORTED BY THIS PATIENT: Please refer to Bone Health Questionnaire in the EMR CURRENT THERAPY: Please refer to Bone Health Questionnaire in the EMR TECHNICAL LIMITATIONS: None RESULTS: Lumbar spine (L1, L2, L3, L4): 0.592 g/cm2, T-score -4.1, Z-score -1.3 Lumbar spine: 2021: 0.643 g/cm2 Statistically significant decrease Right Femoral Neck: 0.407 g/cm2, T-score -4.0, Z-score -1.5 Right Femoral Neck: 2021: 0.449 g/cm2 Statistically significant decrease Right Total Hip: 0.654 g/cm2, T-score -2.4, Z-score -0.1 Right Total Hip: 2021: 0.656 g/cm2 No statistically significant change Left Femoral Neck: 0.408 g/cm2, T-score -4.0, Z-score -1.5 Left Femoral Neck: 2021: 0.444 g/cm2 Statistically significant decrease Left Total Hip: 0.632 g/cm2, T-score -2.5, Z-score -0.3 Left Total Hip: 2021: 0.671 g/cm2 Statistically significant decrease CHANGE IS STATISTICALLY SIGNIFICANT IN THE SPINE OR HIP IF GREATER THAN OR EQUAL TO 0.04 g/cm2 VERTEBRAL FRACTURE ASSESSMENT Not performed. TRABECULAR BONE ASSESSMENT TBS score: 1.298 Bone micro-architecture: Partially degraded (1.231 - 1.310) Impression: IMPRESSION: THE LOWEST T-SCORE IS -4.1 IN THE SPINE 1) DIAGNOSIS (based on BMD alone): OSTEOPOROSIS Caution: Medical conditions other than osteoporosis may cause low bone density, such as osteomalacia or renal osteodystrophy. Clinical correlation is necessary. 2) FRACTURE RISK (based on FRAX): 10-year absolute fracture risk: - major osteoporotic fracture = 28 % - hip fracture = 15 % - A diagnosis of Osteoporosis, a 10 year probability of hip fracture greater than or equal to 3% or a 10 year probability of any major osteoporosis-related fracture greater than or equal to 20% should be considered for treatment. - DXA scanner generated FRAX calculations may slightly differ from online FRAX calculations due to differences in software versions. - All recommendations and calculations are to be considered as guidelines and should not replace sound clinical judgement - Caution: Fracture risk may be increased independent of BMD in patients with corticosteroid use, age greater than 65 years, or a history of prior fragility fracture. RECOMMENDATIONS: Follow-up in 2 years or (more content not included)... [facility] 01-26-2025 History of Presen t illness Narrative Images from the original note were not included. Osteoporosis and Metabolic Bone Disease CONSULTATION Referring Provider: Angela Mckenzie Date of Service: 01/26/2025 Gender: female Ethnicity: White Age: [age] year old Chief Complaint: Osteoporosis Last Rheumatology visit: None at [facility] Gianfranco Holliday is a 84 year old White female who presents on 01/26/2025 for in person visit for osteoporosis evaluation. Disease History Osteoporosis History No history of fractures Most Recent BMD Link to FRAX Website RAPID 3 [place] Activities of Daily Living No Data Dress self? - Get in and out of bed? - Walk outdoors? - Wash and dry body? - Get in and out of car? - Tobacco Use Never smoked or used smokeless tobacco. Vaping Use Never used Alcohol Use No. Treatment History Fosamax for "2 years" years ago, but stopped by provider due to not wanting to do too many years of treatment Osteoporosis Risk Factors Osteoporosis FRAX Risk Factors No Fractures No family history of osteoporosis No parent with a hip fracture Not a current smoker Glucocorticoid use (Comment: only short term related to rashes/dermatitis) Previous use No alcohol use more than 3 units per day Osteoporosis Medication Risk Factors No use of Aromatase inhibitors No use of Furosemide No use of Proton pump inhibitor No use of Thyroid hormone with oversuppression Osteoporosis Disease-Specific Risk Factors Weight < 127 lbs 96lbs Height loss 1 inch normal balance Fall history No history of eating disorders Renal calculi (Comment: 20 years ago) No CKD Caffeine intake: 1-3 c/day Exercise routine: minimal exercise Types of exercise: walking (Comment: Takes care of outdoor activity) Bone Density Reports Last Bone Density DXA-AXIAL SKELETON Exam End: 01/03/2025 12:43 PM (Final result) Narrative: * * *Final Report* * * DATE OF EXAM: Jan 03 2025 12:43PM [facility] [id number] - DXA - AXIAL SKELETON / PROCEDURE REASON: Osteoporosis, unspecified osteoporosis type, unspecified pathological fracture p * * * * Physician Interpretation * * * * EXAMINATION: DXA BONE DENSITOMETRY BD DXA - AXIAL SKELETON, BD DXA TRABECLR BONE SCORE (TBS) PATIENT DEMOGRAPHICS: Age: 84 years, Gender: Female SCANNER INFORMATION: DXA Model: [employer] [id number] Date Scanned: 01/03/2025 12:43 PM CLINICAL HISTORY: DIAGNOSTIC Osteoporosis, unspecified osteoporosis type, unspecified pathological fracture presence . RISK FACTORS FOR OSTEOPOROSIS AND ASSOCIATED FRACTURES REPORTED BY THIS PATIENT: Please refer to Bone Health Questionnaire in the EMR CURRENT THERAPY: Please refer to Bone Health Questionnaire in the EMR TECHNICAL LIMITATIONS: None RESULTS: Lumbar spine (L1, L2, L3, L4): 0.592 g/cm2, T-score -4.1, Z-score -1.3 Lumbar spine: 2021: 0.643 g/cm2 Statistically significant decrease Right Femoral Neck: 0.407 g/cm2, T-score -4.0, Z-score -1.5 Right Femoral Neck: 2021: 0.449 g/cm2 Statistically significant decrease Right Total Hip: 0.654 g/cm2, T-score -2.4, Z-score -0.1 Right Total Hip: 2021: 0.656 g/cm2 No statistically significant change Left Femoral Neck: 0.408 g/cm2, T-score -4.0, Z-score -1.5 Left Femoral Neck: 2021: 0.444 g/cm2 Statistically significant decrease Left Total Hip: 0.632 g/cm2, T-score -2.5, Z-score -0.3 Left Total Hip: 2021: 0.671 g/cm2 Statistically significant decrease CHANGE IS STATISTICALLY SIGNIFICANT IN THE SPINE OR HIP IF GREATER THAN OR EQUAL TO 0.04 g/cm2 VERTEBRAL FRACTURE ASSESSMENT Not performed. TRABECULAR BONE ASSESSMENT TBS score: 1.298 Bone micro-architecture: Partially degraded (1.231 - 1.310) Impression: IMPRESSION: THE LOWEST T-SCORE IS -4.1 IN THE SPINE 1) DIAGNOSIS (based on BMD alone): OSTEOPOROSIS Caution: Medical conditions other than osteoporosis may cause low bone density, such as osteomalacia or renal osteodystrophy. Clinical correlation is necessary. 2) FRACTURE RISK (based on FRAX): 10-year absolute fracture risk: - major osteoporotic fracture = 28 % - hip fracture = 15 % - A diagnosis of Osteoporosis, a 10 year probability of hip fracture greater than or equal to 3% or a 10 year probability of any major osteoporosis-related fracture greater than or equal to 20% should be considered for treatment. - DXA scanner generated FRAX calculations may slightly differ from online FRAX calculations due to differences in software versions. - All recommendations and calculations are to be considered as guidelines and should not replace sound clinical judgement - Caution: Fracture risk may be increased independent of BMD in patients with corticosteroid use, age greater than 65 years, or a history of prior fragility fracture. RECOMMENDATIONS: Follow-up in 2 years or as clinically indicated. Patients that are taking corticosteroids, are transplant recipients or have hyperparathyroidism should have annual follow-up. Follow-up scans should always be done on the same machine for accurate comparison. FOR MORE INFORMATION ABOUT DIAGNOSIS AND TREATMENT: [facility] for Osteoporosis and Metabolic Bone Disease:? www.ccf.org/arthritis/osteo National Osteoporosis Foundation:? www.nof.org International Society of Clinical Densitometry www.iscd.org Consulting Project Director: RADHA Transcribe Date/Time: Jan 03 2025 1:35P Dictated by : MONTANA MAI MD This examination was interpreted and the report reviewed and electronically signed by: MONTANA MAI MD on Jan 03 2025 1:46PM EST BONE DENSITY RESULTS: EXTERNAL WOMEN / ESTROGEN OB History 1 Para 1 Term 1 AB Living 1 SAB IAB Ectopic Multiple Live Births Relevant Previous Investigations Latest Ref Rng & Units 12/04/2017 12/19/2021 12/19/2022 10/18/2024 Calcium Calcium 8.5 - 10.2 mg/dL 9.7 9.8 9.5 9.6 Latest Ref Rng & Units 12/04/2017 12/19/2021 12/19/2022 10/18/2024 Alkaline Phosphatase Alkaline Phosphatase 34 - 123 U/L 59 79 76 71 Alkaline Phosphatase 34 - 123 U/L 59 79 76 71 Latest Ref Rng & Units 01/30/2018 12/17/2018 Vitamin D Vitamin D 25 Hydroxy 31.0 - 80.0 ng/mL 44.5 50.0 Latest Ref Rng & Units 12/04/2017 12/19/2021 12/19/2022 10/18/2024 Creatinine Creatinine 0.58 - 0.96 mg/dL 0.88 0.82 0.84 0.82 Latest Ref Rng & Units 12/04/2017 12/19/2021 12/19/2022 10/18/2024 Protein, Total Protein, Total 6.3 - 8.0 g/dL 7.4 7.7 7.4 7.0 Latest Ref Rng & Units 12/04/2017 12/19/2021 12/19/2022 10/18/2024 Albumin Albumin 3.9 - 4.9 g/dL 4.6 4.9 4.6 4.5 Imaging / Studies Last XR Lumbar Spine - Impression Only XR LUMBAR GENERAL 3V AP/LAT/L5-S1 Exam End: 11/09/2021 1:49 PM (Final result) Impression: IMPRESSION: Scoliotic curvature, osteopenia and Mild degenerative change. No acute process. Consulting Project Director: RADHA Transcribe Date/Time: Nov 09 2021 3:10P Dictated by : CHARLOTTE KOTHARI MD... Review of Systems Review of Systems CONSTITUTION: Negative for: Fever and Recent weight change HEENT: Negative for: Mouth sores and Trouble swallowing RESPIRATORY: Negative for: Cough and Shortness of breath GASTROINTESTINAL: Negative for: Diarrhea and Abdominal pain MUSCULOSKELETAL: Positive for: Arthralgias (L knee) NEUROLOGICAL: SKIN: EYES: Negative for: Eye pain, Eye redness and Eye dryness CARDIOVASCULAR: Negative for: Chest pain and Leg swelling GENITOURINARY: HEMATOLOGIC/LYMPHATIC: Jaw pain: No All other reviewed and negative other than HPI. Problem List ACTIVE PROBLEM LIST Lichen Planus Family History of Malignant Neoplasm of Gastrointestinal Tract Family History of Leukemia Osteoporosis Abnormal Mammogram Lymphocytosis Diverticulosis of Large Intestine Burping Seasonal Allergies Esophageal Dysphagia Medicare Annual Wellness Visit, Subsequent Encounter for Screening for Diabetes Mellitus Encounter for Screening for Cardiovascular Disorders History of Dvt (Deep Vein Thrombosis) Encounter for Screening Mammogram for Breast Cancer Stress Situational Depression Adjustment Insomnia Trigger Ring Finger of Right Hand Arthritis of Both Hips Advance Directive Discussed With Patient Positive Colorectal Cancer Screening Using Cologuard Test Rash Past Medical History PAST MEDICAL HISTORY Diagnosis Date Abnormal mammogram 06/17/2015 Sees yearly for exam and mammogram Adjustment insomnia 12/25/2018 Advance directive discussed with patient 06/20/2022 Discussed 05/2022 Arthritis Arthritis of both hips 12/19/2021 Burping 12/15/2015 Diverticulosis of large intestine Esophageal dysphagia 01/08/2017 NL upper GI 11/2016: if worrsens will refer for EGD. Family history of leukemia 06/17/2015 Family history of malignant neoplasm of gastrointestinal tract 06/14/2010 Family history of malignant neoplasm of gastrointestinal tract History of DVT (deep vein thrombosis) 11/14/201710/2017; Below the knee, did not advance and no anticoagulation needed. Internal hemorrhoids without mention of complication Lichen planus Lymphocytosis 06/17/2015 Chronic: stable around 45=50% Medicare annual wellness visit, subsequent 06/12/2017 Medicare Part B: NA last done: 06/30/2019 Osteoporosis 06/17/2015 Seasonal allergies 12/15/2015 Situational depression 12/25/2018 loss of 09/17/2018 Stress 06/24/2018 Trigger ring finger of right hand 06/30/2019 Past Surgical History PAST SURGICAL HISTORY Procedure Laterality Date APPENDECTOMY COLONOSCOPY FLX DX W/COLLJ SPEC WHEN PFRMD 08/08/2010 repeat in 5 yrs COLONOSCOPY FLX DX W/COLLJ SPEC WHEN PFRMD 07/03/2015 Colonoscopy COLONOSCOPY SCREENING 09/10/2023 next colonoscopy due in 5 years SALPINGO-OOPHORECTOMY COMPL/PRTL UNI/BI SPX Salpingo-oophorectomy STRESS TEST 07/14/2017 WNL TOTAL ABDOMINAL HYSTERECT W/WO RMVL TUBE OVARY Hysterectomy, RASHIDA Family History FAMILY HISTORY Problem Relation Age of Onset Cancer Mother ? liver CA Colon Cancer Father other (skin cancer) Daughter Daughter with history of multiple vertebral fractures, unknown if osteoporosis . Social History Social History Tobacco Use Smoking status: Never Smokeless tobacco: Never Vaping Use Vaping status: Never Used Substance Use Topics Alcohol use: No Drug use: No Medications Present Osteoporosis Medications: Current Outpatient Medications Medication Sig fluticasone (FLONASE) 50 mcg/actuation nasal spray Use 2 Sprays in each nostril once daily. Rinse mouth after use. (Patient not taking: Reported on 01/26/2025) No current facility-administered medications for this visit. Physical Exam BP 117/65 (BP Site: Right Arm, BP Position: Sitting, BP Cuff Size: Small Adult) Pulse 72 Resp 16 Wt 43.6 kg (96 lb 3.2 oz) SpO2 98% BMI 18.79 kg/m EYES: DANIELLE, conjunctiva and sclera normal. EARS: External ears normal. NOSE/SINUS: Nares normal. THROAT: Normal and no erythema. DENTAL: Upper plates, no lower plates NECK: Neck supple, no adenopathy. HEART: RRR with normal S1 and S2 ,no murmurs, no gallops, no JVD appreciated. LUNGS: Clear to auscultation. LYMPH NODES: No cervical lymphadenopathy and no supraclavicular lymphadenopathy. ABDOMEN: Bowel sounds normoactive, no bruits; soft, nontender, without organomegaly or palpable masses. NEURO: Awake, alert and oriented x 3, cranial nerves II-XII grossly intact, reflexes symmetrical, normal gait and no involuntary motions. SKIN: Skin color, texture, turgor normal. No rashes or lesions. JOINT EXAM PIPS: Normal MCPs: Normal Wrists: Normal Elbows: Normal C-Spine: Normal Knees: Normal Examination of Back: Profile -Pelvic Tilt no -Dorsal kyphosis TS: No -Lumbar curve: Normal -Scoliosis: No -Movement: Normal upon exam Back Pain: no Patient-Entered Data PROMIS Assessments 01/15/2018 PROMIS Global Health - (T-Scores - the mean of general population = 50. Five points is a clinically meaningful difference.) Physical T-Score 32.4 Mental T-Score 41.1 PHQ-9 0 - 4: Minimal Depression 5 - 9: Mild Depression 10 - 14: Moderate Depression 15 - 19: Moderately Severe Depression 20 - 27: Severe Depression 12/25/2018 06/20/2022 10/28/2024 PHQ-9 PHQ-2 Score 2 1 2 Impression Diagnoses: (M81.0) Age related osteoporosis, unspecified pathological fracture presence No history of fractures Most Recent BMD Osteoporosis FRAX Risk Factors No Fractures No family history of osteoporosis No parent with a hip fracture Not a current smoker Glucocorticoid use (Comment: only short term related to rashes/dermatitis) Previous use No alcohol use more than 3 units per day Overall severe osteoporosis based on T-Score -4.0 in bilateral hip femoral necks and Lumbar spine At high risk of fracture Reviewed diagnosis and risks associated with osteoporosis Plan Evaluate for secondary causes of bone loss via fasting labs. Assess baseline CTX Recommend anabolic therapy, patient not open to daily self injections like PTH analogues Recommended Evenity injections monthly x 12 months followed by Reclast infusion Discussed bisphosphonates, risk of ONJ and atypical femur fractures with prolonged use, GI upset with oral formulations and flu-like reaction to IV form. Discussed risk of IL/CVA with Evenity. Handouts given for both. She will review with a friend and let us know her decision Prescription for Calcium 1200 mg daily divided doses and Vit D 100 international unit(s) Encouraged weight bearing exercises like walking Continue monitoring BMD every 2 years. Office Visit on 01/26/25 CALCIUM, IONIZED PTH INTACT PHOSPHORUS INORGANIC MAGNESIUM PROTEIN ELECTROPHORESIS SERUM W/INTERP MONOCLONAL PROTEIN, SERUM (BLOOD) VITAMIN D 25 HYDROXY PROTEIN ELECT RND UR W/INTERP BASIC METABOLIC PANEL C TELOPEPTIDE, BETA CONSULT TO RHEUMATOLOGY METABOLIC BONE Follow up 3 weeks to review all results, and finalize treatment decision Consultation requested by Dr. Angela Mckenzie for an opinion regarding osteoporosis and my final recommendations will be communicated back to the requesting physician by way of shared medical record or letter by US mail. I spent a total of 65 minutes on the date of the service which included preparing to see the patient, [id number] patient care, completing clinical documentation, obtaining and/or reviewing separately obtained history, performing a medically appropriate examination, counseling and educating the patient/family/caregiver, and ordering medications, tests, or procedures. Irina Andersen PA-C cc: PCP: Toni Meier [address] [place], [place] [id number] documented in this encounter [facility] 01-13-2025 Note HNO ID: [id number] Author: FAUZIA COTTO RN Service: ? Author Type: Registered Nurse Type: Progress Notes Filed: 01/13/2025 15:58 Note Text: CDM Care Path Telephonic Outreach Provider Action/FYI CDM Update Called and spoke with the patient. She reports she is doing well Reports she is staying active Confirmed she has the phone number for H@H Denies any questions or concerns at this time. Patient identified by Name and Date of . Discussed care with patient. Program Details Chronic Disease Management Status: Enrolled Effective Dates: 12/06/2024 - present Responsible Staff: Fauzia Cotto RN Support and Services: High Utilizer Program Goals Targets Target Due Completed Completed By Outcome Patient-stated goal addressed (add comment) 03/07/2025 01/13/2025 Fauzia Cotto RN Complete Continue to be active General education provided (managing stress, where to go/how to contact, etc.) 01/05/2025 12/31/2024 Fauzia Cotto RN Complete Annual Medicare Wellness visit addressed 03/07/2025 12/20/2024 Fauzia Cotto RN Complete/Scheduled Biannual PCP visit addressed 03/07/2025 12/20/2024 Fauzia Cotto RN Complete/Scheduled Intake assessments completed: ADLs, Fall Risk, SDOH 01/05/2025 12/06/2024 Fauzia Cotto RN Complete Assessments CDM Assessment Medications: Do you have any questions about taking your medications or which medications you should be taking?: No Do you need any medication refills at this time, including any of the medication you might take only when needed?: No Social: It can be normal to feel anxious or down during a time like this. Would you like to talk to a mental health professional about how you have been feeling?: No Symptoms: Are you experiencing any new or worsening symptoms that you need to talk about today?: No ADLs No documentation this encounter Fall Risk No documentation this encounter SDOH No documentation this encounter Interventions The following were addressed during this visit: - Patient-stated goal addressed (add comment) - Bi-Weekly Outreach (Recurring) Disposition Based on leasing representative, the following disposition is advised: No action needed Fauzia Cotto RN January 13, 2025 3:50 PM [facility] 01-13-2025 Note Patient Outreach ([facility] GIANFRANCO HOLLIDAY ([id number]) 1940 F Date Time Provider Department 01/13/25 FAUZIA COTTO During your visit today, we recorded the following information about you: Fauzia Cotto RN 01/13/2025 3:58 PM Signed CDM Care Path Telephonic Outreach Provider Action/ CDM Update Called and spoke with the patient. She reports she is doing well Reports she is staying active Confirmed she has the phone number for H@H Denies any questions or concerns at this time. Patient identified by Name and Date of . Discussed care with patient. Program Details Chronic Disease Management Status: Enrolled Effective Dates: 12/06/2024 - present Responsible Staff: Fauzia Cotto RN Support and Services: High Utilizer Program Goals Targets Target Due Completed Completed By Outcome Patient-stated goal addressed (add comment) 03/07/2025 01/13/2025 Fauzia Cotto RN Complete Continue to be active General education provided (managing stress, where to go/how to contact, etc.) 01/05/2025 12/31/2024 Fauzia Cotto RN Complete Annual Medicare Wellness visit addressed 03/07/2025 12/20/2024 Fauzia Cotto RN Complete/Scheduled Biannual PCP visit addressed 03/07/2025 12/20/2024 Fauzia Cotto RN Complete/Scheduled Intake assessments completed: ADLs, Fall Risk, SDOH 01/05/2025 12/06/2024 Fauzia Cotto RN Complete Assessments CDM Assessment Medications: Do you have any questions about taking your medications or which medications you should be taking?: No Do you need any medication refills at this time, including any of the medication you might take only when needed?: No Social: It can be normal to feel anxious or down during a time like this. Would you like to talk to a mental health professional about how you have been feeling?: No Symptoms: Are you experiencing any new or worsening symptoms that you need to talk about today?: No ADLs No documentation this encounter Fall Risk No documentation this encounter SDOH No documentation this encounter Interventions The following were addressed during this visit: - Patient-stated goal addressed (add comment) - Bi-Weekly Outreach (Recurring) Disposition Based on leasing representative, the following disposition is advised: No action needed Fauzia Cotto RN January 13, 2025 3:50 PM Allergies As of Date: 01/13/2025 Noted Allergy Reaction FEXOFENADINE 06/14/2010 14 - Other: See Comments Comments: headache/sore tongue SULFAMETHOXAZOLE-TRIMETHOPRIM 01/07/2024 14 - Other: See Comments Comments: Dizzy, sweating and vomiting. Date Reviewed: 10/28/2024 Reviewed by: Chase Saul LPN - Fully Assessed Prescriptions as of 01/13/2025 - fluticasone (FLONASE) 50 mcg/actuation nasal spray Use 2 Sprays in each nostril once daily. Rinse mouth after use. Problem List As Of Date 01/13/2025 Noted Resolved Lichen planus [L43.9] Family history of malignant neoplasm of gastroi*06/14/2010 Family history of leukemia [Z80.6] 06/17/2015 Osteoporosis [M81.0] 06/17/2015 Abnormal mammogram [R92.8] 06/17/2015 Lymphocytosis [D72.820] 06/17/2015 Diverticulosis of large intestine [K57.30] Burping [R14.2] 12/15/2015 Seasonal allergies [J30.2] 12/15/2015 Esophageal dysphagia [R13.19] 01/08/2017 Medicare annual wellness visit, subsequent [Z00*06/12/2017 Encounter for screening for diabetes mellitus [*06/12/2017 Encounter for screening for cardiovascular diso*06/12/2017 History of DVT (deep vein thrombosis) [Z86.718] 11/14/2017 Encounter for screening mammogram for breast ca*06/05/2018 Stress [F43.9] 06/24/2018 Situational depression [F43.21] 12/25/2018 Adjustment insomnia [F51.02] 12/25/2018 Trigger ring finger of right hand [M65.341] 06/30/2019 Arthritis of both hips [M16.0] 12/19/2021 Advance directive discussed with patient [Z71.8*06/20/2022 Positive colorectal cancer screening using [place]*09/10/2023 Rash [R21] 01/07/2024 Encounter Status:Closed by FAUZIA COTTO on 01/13/25 [facility] 01-12-2025 Note HNO ID: [id number] Author: LUCHO HOLLEY, Mammo Tech Service: ? Author Type: Machine Grinder Type: Progress Notes Filed: 01/12/2025 11:20 Note Text: Radiology Service Progress Note PATIENT NAME: Gianfranco Holliday DATE OF SERVICE: January 12, 2025 TIME: 11:20 AM PATIENT IDENTITY VERIFICATION COMPLETED USING TWO (2) IDENTIFIERS: Name and Date of confirmed by patient verbally. FALL SCREENING: Has the patient had 2 falls in the last year or 1 fall with injury or currently using an Ambulatory Assistive Device (Walker, Cane, Wheelchair, Crutches, etc.)? No PATIENT GENDER DATA: Assigned female at . status: : No status: NO. PATIENT RELEVANT IMPLANT DATA REVIEWED: Not Applicable PATIENT PRESENTS WITH AN IMPLANTABLE OR ATTACHED SPOT MACHINE OPERATOR: No RADIOLOGY DEPARTMENT: Mammography PERIPHERAL IV DATA: Not applicable SIGNED BY: Lucho Holley CrowdBouncer January 12, 2025 11:20 AM [facility] 01-05-2025 Telephone encounter Note Pt notified of referral and was assisted in transfer to schedule appointment. Chase Saul LPN [facility] 01-05-2025 Miscellaneous Notes Pt notified of referral and was assisted in transfer to schedule appointment. Chase Saul LPN Consult to Rheum CONCRETE [employer]OM PUMP OPERATOR here in [facility] please. Thanks. Angela Mckenzie PA-C Pt notified of results and recommendations. Pt is agreeable to meet with a specialist. Pt aware she will be contacted once referral has been placed. Chase Saul LPN DXA shows osteoporosis. Would she be interested in speaking with specialist for potential treatment options? Angela Mckenzie PA-C documented in this encounter [facility] 01-04-2025 Telephone encounter Note Consult to Rheum CONCRETE BOOM PUMP OPERATOR here in [facility] please. Thanks. Angela Mckenzie PA-C [facility] 01-04-2025 Telephone encounter Note Pt notified of results and recommendations. Pt is agreeable to meet with a specialist. Pt aware she will be contacted once referral has been placed. Chase Saul LPN [facility] 01-04-2025 Telephone encounter Note DXA shows osteoporosis. Would she be interested in speaking with specialist for potential treatment options? Angela Mckenzie PA-C [facility] 01-03-2025 History of Presen t illness Narrative Radiology Service Progress Note PATIENT NAME: Gianfranco Holliday DATE OF SERVICE: January 03, 2025 TIME: 12:20 PM PATIENT IDENTITY VERIFICATION COMPLETED USING TWO (2) IDENTIFIERS: Name and Date of confirmed by patient verbally. FALL SCREENING: Has the patient had 2 falls in the last year or 1 fall with injury or currently using an Ambulatory Assistive Device (Walker, Cane, Wheelchair, Crutches, etc.)? No PATIENT GENDER DATA: Assigned female at . status: : No status: NO. PATIENT RELEVANT IMPLANT DATA REVIEWED: Not Applicable PATIENT PRESENTS WITH AN IMPLANTABLE OR ATTACHED SPOT MACHINE OPERATOR: No RADIOLOGY DEPARTMENT: Bone Density PERIPHERAL IV DATA: Not applicable SIGNED BY: RT Jose L(R) January 03, 2025 12:20 PM documented in this encounter [facility] 01-03-2025 Note HNO ID: [id number] Author: ANTONIO BOWLING RT(Zeus) Service: ? Author Type: Technologist Type: Progress Notes Filed: 01/03/2025 12:28 Note Text: Radiology Service Progress Note PATIENT NAME: Gianfranco Holliday DATE OF SERVICE: January 03, 2025 TIME: 12:20 PM PATIENT IDENTITY VERIFICATION COMPLETED USING TWO (2) IDENTIFIERS: Name and Date of confirmed by patient verbally. FALL SCREENING: Has the patient had 2 falls in the last year or 1 fall with injury or currently using an Ambulatory Assistive Device (Walker, Cane, Wheelchair, Crutches, etc.)? No PATIENT GENDER DATA: Assigned female at . status: : No status: NO. PATIENT RELEVANT IMPLANT DATA REVIEWED: Not Applicable PATIENT PRESENTS WITH AN IMPLANTABLE OR ATTACHED SPOT MACHINE OPERATOR: No RADIOLOGY DEPARTMENT: Bone Density PERIPHERAL IV DATA: Not applicable SIGNED BY: RT Jose L(Zeus) January 03, 2025 12:20 PM [facility] 12-31-2024 Note HNO ID: [id number] Author: FAUZIA COTTO RN Service: ? Author Type: Registered Nurse Type: Progress Notes Filed: 12/31/2024 16:51 Note Text: CDM Care Path Telephonic Outreach Provider Action/ CDM Update Called and spoke with the patient She reports she is doing well. States she was outside today weeding. Denies any questions or concerns at this time. Patient identified by Name and Date of . Discussed care with patient. Program Details Chronic Disease Management Status: Enrolled Effective Dates: 12/06/2024 - present Responsible Staff: Fauzia Cotto RN Support and Services: High Utilizer Program Goals Targets Target Due Completed Completed By Outcome Patient-stated goal addressed (add comment) 03/07/2025 -- -- -- Continue to be active General education provided (managing stress, where to go/how to contact, etc.) 01/05/2025 12/31/2024 Fauzia Cotto RN Complete Annual Medicare Wellness visit addressed 03/07/2025 12/20/2024 Fauzia Cotto RN Complete/Scheduled Biannual PCP visit addressed 03/07/2025 12/20/2024 Fauzia Cotto RN Complete/Scheduled Intake assessments completed: ADLs, Fall Risk, SDOH 01/05/2025 12/06/2024 Fauzia Cotto RN Complete Assessments CDM Assessment Medications: Do you have any questions about taking your medications or which medications you should be taking?: No Do you need any medication refills at this time, including any of the medication you might take only when needed?: No Social: It can be normal to feel anxious or down during a time like this. Would you like to talk to a mental health professional about how you have been feeling?: No Symptoms: Are you experiencing any new or worsening symptoms that you need to talk about today?: No ADLs No documentation this encounter Fall Risk No documentation this encounter SDOH No documentation this encounter Interventions The following were addressed during this visit: - General education provided (managing stress, where to go/how to contact, etc.) - Month 1: Provide General Education: Managing Stress AND Anxiety - Month 1: Provide General Education: Where to Go for Care - Develop a Patient-Stated Goal (add to Target comments) - Bi-Weekly Outreach (Recurring) Disposition Based on leasing representative, the following disposition is advised: No action needed Fauzia Cotto RN December 31, 2024 4:50 PM [facility] 12-31-2024 History of Presen t illness Narrative Images from the original note were not included. CDM Care Path Telephonic Outreach Provider Action/ CDM Update Called and spoke with the patient She reports she is doing well. States she was outside today weeding. Denies any questions or concerns at this time. Patient identified by Name and Date of . Discussed care with patient. Program Details Chronic Disease Management Status: Enrolled Effective Dates: 12/06/2024 - present Responsible Staff: Fauzia Cotto RN Support and Services: High Utilizer Program Goals Targets Target Due Completed Completed By Outcome Patient-stated goal addressed (add comment) 03/07/2025 -- -- -- Continue to be active General education provided (managing stress, where to go/how to contact, etc.) 01/05/2025 12/31/2024 Fauzia Cotto RN Complete Annual Medicare Wellness visit addressed 03/07/2025 12/20/2024 Fauzia Cotto RN Complete/Scheduled Biannual PCP visit addressed 03/07/2025 12/20/2024 Fauzia Cotto RN Complete/Scheduled Intake assessments completed: ADLs, Fall Risk, SDOH 01/05/2025 12/06/2024 Fauzia Cotto RN Complete Assessments CDM Assessment Medications: Do you have any questions about taking your medications or which medications you should be taking?: No Do you need any medication refills at this time, including any of the medication you might take only when needed?: No Social: It can be normal to feel anxious or down during a time like this. Would you like to talk to a mental health professional about how you have been feeling?: No Symptoms: Are you experiencing any new or worsening symptoms that you need to talk about today?: No ADLs No documentation this encounter Fall Risk No documentation this encounter SDOH No documentation this encounter Interventions The following were addressed during this visit: - General education provided (managing stress, where to go/how to contact, etc.) - Month 1: Provide General Education: Managing Stress & Anxiety - Month 1: Provide General Education: Where to Go for Care - Develop a Patient-Stated Goal (add to Target comments) - Bi-Weekly Outreach (Recurring) Disposition Based on leasing representative, the following disposition is advised: No action needed Fauzia Cotto RN December 31, 2024 4:50 PM documented in this encounter [facility] 12-31-2024 Note Patient Outreach (AM [facility] GIANFRANCO HOLLIDAY ([id number]) 1940 F Date Time Provider Department 12/31/24 FAUZIA COTTO [facility] During your visit today, we recorded the following information about you: Fauzia Cotto RN 12/31/2024 4:51 PM Signed CD Care Path Telephonic Outreach Provider Action/ CDM Update Called and spoke with the patient She reports she is doing well. States she was outside today weeding. Denies any questions or concerns at this time. Patient identified by Name and Date of . Discussed care with patient. Program Details Chronic Disease Management Status: Enrolled Effective Dates: 12/06/2024 - present Responsible Staff: Fauzia Cotto RN Support and Services: High Utilizer Program Goals Targets Target Due Completed Completed By Outcome Patient-stated goal addressed (add comment) 03/07/2025 -- -- -- Continue to be active General education provided (managing stress, where to go/how to contact, etc.) 01/05/2025 12/31/2024 Fauzia Cotto RN Complete Annual Medicare Wellness visit addressed 03/07/2025 12/20/2024 Fauzia Cotto RN Complete/Scheduled Biannual PCP visit addressed 03/07/2025 12/20/2024 Fauzia Cotto RN Complete/Scheduled Intake assessments completed: ADLs, Fall Risk, SDOH 01/05/2025 12/06/2024 Fauzia Cotto RN Complete Assessments CDM Assessment Medications: Do you have any questions about taking your medications or which medications you should be taking?: No Do you need any medication refills at this time, including any of the medication you might take only when needed?: No Social: It can be normal to feel anxious or down during a time like this. Would you like to talk to a mental health professional about how you have been feeling?: No Symptoms: Are you experiencing any new or worsening symptoms that you need to talk about today?: No ADLs No documentation this encounter Fall Risk No documentation this encounter SDOH No documentation this encounter Interventions The following were addressed during this visit: - General education provided (managing stress, where to go/how to contact, etc.) - Month 1: Provide General Education: Managing Stress AND Anxiety - Month 1: Provide General Education: Where to Go for Care - Develop a Patient-Stated Goal (add to Target comments) - Bi-Weekly Outreach (Recurring) Disposition Based on leasing representative, the following disposition is advised: No action needed Fauzia Cotto RN December 31, 2024 4:50 PM Allergies As of Date: 12/31/2024 Noted Allergy Reaction FEXOFENADINE 06/14/2010 14 - Other: See Comments Comments: headache/sore tongue SULFAMETHOXAZOLE-TRIMETHOPRIM 01/07/2024 14 - Other: See Comments Comments: Dizzy, sweating and vomiting. Date Reviewed: 10/28/2024 Reviewed by: Chase Saul LPN - Fully Assessed Prescriptions as of 12/31/2024 - fluticasone (FLONASE) 50 mcg/actuation nasal spray Use 2 Sprays in each nostril once daily. Rinse mouth after use. 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] Family history of malignant neoplasm of gastroi*06/14/2010 Family history of leukemia [Z80.6] 06/17/2015 Osteoporosis [M81.0] 06/17/2015 Abnormal mammogram [R92.8] 06/17/2015 Lymphocytosis [D72.820] 06/17/2015 Diverticulosis of large intestine [K57.30] Burping [R14.2] 12/15/2015 Seasonal allergies [J30.2] 12/15/2015 Esophageal dysphagia [R13.19] 01/08/2017 Medicare annual wellness visit, subsequent [Z00*06/12/2017 Encounter for screening for diabetes mellitus [*06/12/2017 Encounter for screening for cardiovascular diso*06/12/2017 History of DVT (deep vein thrombosis) [Z86.718] 11/14/2017 Encounter for screening mammogram for breast ca*06/05/2018 Stress [F43.9] 06/24/2018 Situational depression [F43.21] 12/25/2018 Adjustment insomnia [F51.02] 12/25/2018 Trigger ring finger of right hand [M65.341] 06/30/2019 Arthritis of both hips [M16.0] 12/19/2021 Advance directive discussed with patient [Z71.8*06/20/2022 Positive colorectal cancer screening using [place]*09/10/2023 Rash [R21] 01/07/2024 Encounter Status:Closed by FAUZIA COTTO on 12/31/24 [facility] 12-20-2024 Note HNO ID: [id number] Author: LIDIA HAILE MA Service: ? Author Type: Registered Nurse Type: Progress Notes Filed: 12/20/2024 17:18 Note Text: POPULATION HEALTH NAVIGATION OUTREACH Action/FYI Scheduled f/u with PCP 05/13. Patient agreeable to scheduling 6 month follow up with PCP. Please assist Reason for Outreach Community Monitoring/Network Navigator Pools AND Phone Line: CM Pool Care Gaps due: Follow-up Appointment Patient Contacted: Spoke to patient/parent/or legal guardian Patient identified by name and : Yes Community Monitoring/Network Navigator Pools AND Phone Line actions taken: Patient scheduled / pended orders: Follow-Up Appointment 01/03/2025 [facility] - Osteoporosis, unspecified osteoporosis type, unspecified pathological fracture presence [M81.0] 01/12/2025 [facility] - Osteoporosis, unspecified osteoporosis type, unspecified pathological fracture presence [M81.0] [facility] - 6 month f[facility] - Medicare Wellness Navigation Signature: Lidia Haile MA December 20, 2024 5:17 PM CDM Care Path Telephonic Outreach Provider Action/FYI Navigation Team Patient agreeable to scheduling 6 month follow up with PCP. Please assist. CDM Update Called and spoke with the patient She reports she is doing well Agreeable to scheduling 6 month follow up with PCP team. Will route to the navigation team. Denies any questions or concerns at this time. Patient identified by Name and Date of . Discussed care with patient. Program Details Chronic Disease Management Status: Enrolled Effective Dates: 12/06/2024 - present Responsible Staff: Fauzia Cotto, RN Support and Services: High Utilizer Program Goals Targets Target Due Completed Completed By Outcome General education provided (managing stress, where to go/how to contact, etc.) 01/05/2025 -- -- -- Patient-stated goal addressed (add comment) 03/07/2025 -- -- -- Annual Medicare Wellness visit addressed 03/07/2025 12/20/2024 Fauzia Cotto, RN Complete/Scheduled Biannual PCP visit addressed 03/07/2025 12/20/2024 Fauzia Cotto RN Complete/Scheduled Intake assessments completed: ADLs, Fall Risk, SDOH 01/05/2025 12/06/2024 Fauzia Cotto RN Complete Assessments No documentation this encounter Interventions The following were addressed during this visit: - Biannual PCP visit addressed - Annual Medicare Wellness visit addressed - Schedule Biannual PCP Appointment - Schedule Annual Wellness Visit - Month 1: Provide General Education: How to Contact Your Physician Team - Bi-Weekly Outreach (Recurring) Fauzia Cotto RN December 20, 2024 4:37 PM [facility] 12-20-2024 History of Presen t illness Narrative Images from the original note were not included. POPULATION HEALTH NAVIGATION OUTREACH Action/FYI Scheduled f/u with PCP 05/13. Patient agreeable to scheduling 6 month follow up with PCP. Please assist Reason for Outreach Community Monitoring/Network Navigator Pools & Phone Line: CM Pool Care Gaps due: Follow-up Appointment Patient Contacted: Spoke to patient/parent/or legal guardian Patient identified by name and : Yes Community Monitoring/Network Navigator Pools & Phone Line actions taken: Patient scheduled / pended orders: Follow-Up Appointment 01/03/2025 in [facility] - Osteoporosis, unspecified osteoporosis type, unspecified pathological fracture presence [M81.0] 01/12/2025 in [facility] - Osteoporosis, unspecified osteoporosis type, unspecified pathological fracture presence [M81.0] 05/[facility] - 6 month f/u 11/29/[facility] - Medicare Wellness Navigation Signature: Lidia Haile MA December 20, 2024 5:17 PM CDM Care Path Telephonic Outreach Provider Action/FYI Navigation Team Patient agreeable to scheduling 6 month follow up with PCP. Please assist. CDM Update Called and spoke with the patient She reports she is doing well Agreeable to scheduling 6 month follow up with PCP team. Will route to the navigation team. Denies any questions or concerns at this time. Patient identified by Name and Date of . Discussed care with patient. Program Details Chronic Disease Management Status: Enrolled Effective Dates: 12/06/2024 - present Responsible Staff: Fauzia Cotto RN Support and Services: High Utilizer Program Goals Targets Target Due Completed Completed By Outcome General education provided (managing stress, where to go/how to contact, etc.) 01/05/2025 -- -- -- Patient-stated goal addressed (add comment) 03/07/2025 -- -- -- Annual Medicare Wellness visit addressed 03/07/2025 12/20/2024 Fauzia Cotto RN Complete/Scheduled Biannual PCP visit addressed 03/07/2025 12/20/2024 Fauzia Cotto RN Complete/Scheduled Intake assessments completed: ADLs, Fall Risk, SDOH 01/05/2025 12/06/2024 Fauzia Cotto RN Complete Assessments No documentation this encounter Interventions The following were addressed during this visit: - Biannual PCP visit addressed - Annual Medicare Wellness visit addressed - Schedule Biannual PCP Appointment - Schedule Annual Wellness Visit - Month 1: Provide General Education: How to Contact Your Physician Team - Bi-Weekly Outreach (Recurring) Fauzia Cotto RN December 20, 2024 4:37 PM documented in this encounter [facility] 12-20-2024 Note Patient Outreach ([facility]) GIANFRANCO HOLLIDAY ([id number]) 1940 F Date Time Provider Department 12/20/24 FAUZIA COTTO During your visit today, we recorded the following information about you: Fauzia Cotto RN 12/20/2024 4:46 PM Addendum POPULATION HEALTH NAVIGATION OUTREACH Action/FYI Scheduled f/u with PCP 05/13. Patient agreeable to scheduling 6 month follow up with PCP. Please assist Reason for Outreach Community Monitoring/Network Navigator Pools AND Phone Line: CM Pool Care Gaps due: Follow-up Appointment Patient Contacted: Spoke to patient/parent/or legal guardian Patient identified by name and : Yes Community Monitoring/Network Navigator Pools AND Phone Line actions taken: Patient scheduled / pended orders: Follow-Up Appointment 01/03/2025 in [facility] - Osteoporosis, unspecified osteoporosis type, unspecified pathological fracture presence [M81.0] [facility] - Osteoporosis, unspecified osteoporosis type, unspecified pathological fracture presence [M81.0] [facility] - 6 month f/u 11/29/2025 in [facility] with TONI MEIER - Medicare Wellness Navigation Signature: Lidia Haile MA December 20, 2024 5:17 PM CDM Care Path Telephonic Outreach Provider Action/FYI Navigation Team Patient agreeable to scheduling 6 month follow up with PCP. Please assist. CDM Update Called and spoke with the patient She reports she is doing well Agreeable to scheduling 6 month follow up with PCP team. Will route to the navigation team. Denies any questions or concerns at this time. Patient identified by Name and Date of . Discussed care with patient. Program Details Chronic Disease Management Status: Enrolled Effective Dates: 12/06/2024 - present Responsible Staff: Fauzia Cotto RN Support and Services: High Utilizer Program Goals Targets Target Due Completed Completed By Outcome General education provided (managing stress, where to go/how to contact, etc.) 01/05/2025 -- -- -- Patient-stated goal addressed (add comment) 03/07/2025 -- -- -- Annual Medicare Wellness visit addressed 03/07/2025 12/20/2024 Fauzia Cotto RN Complete/Scheduled Biannual PCP visit addressed 03/07/2025 12/20/2024 Fauzia Cotto RN Complete/Scheduled Intake assessments completed: ADLs, Fall Risk, SDOH 01/05/2025 12/06/2024 Fauzia Cotto RN Complete Assessments No documentation this encounter Interventions The following were addressed during this visit: - Biannual PCP visit addressed - Annual Medicare Wellness visit addressed - Schedule Biannual PCP Appointment - Schedule Annual Wellness Visit - Month 1: Provide General Education: How to Contact Your Physician Team - Bi-Weekly Outreach (Recurring) Fauzia Cotto RN December 20, 2024 4:37 PM Allergies As of Date: 12/20/2024 Noted Allergy Reaction FEXOFENADINE 06/14/2010 14 - Other: See Comments Comments: headache/sore tongue SULFAMETHOXAZOLE-TRIMETHOPRIM 01/07/2024 14 - Other: See Comments Comments: Dizzy, sweating and vomiting. Date Reviewed: 10/28/2024 Reviewed by: Chase Saul LPN - Fully Assessed Prescriptions as of 12/20/2024 - fluticasone (FLONASE) 50 mcg/actuation nasal spray Use 2 Sprays in each nostril once daily. Rinse mouth after use. 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] Family history of malignant neoplasm of gastroi*06/14/2010 Family history of leukemia [Z80.6] 06/17/2015 Osteoporosis [M81.0] 06/17/2015 Abnormal mammogram [R92.8] 06/17/2015 Lymphocytosis [D72.820] 06/17/2015 Diverticulosis of large intestine [K57.30] Burping [R14.2] 12/15/2015 Seasonal allergies [J30.2] 12/15/2015 Esophageal dysphagia [R13.19] 01/08/2017 Medicare annual wellness visit, subsequent [Z00*06/12/2017 Encounter for screening for diabetes mellitus [*06/12/2017 Encounter for screening for cardiovascular diso*06/12/2017 History of DVT (deep vein thrombosis) [Z86.718] 11/14/2017 Encounter for screening mammogram for breast ca*06/05/2018 Stress [F43.9] 06/24/2018 Situational depression [F43.21] 12/25/2018 Adjustment insomnia [F51.02] 12/25/2018 Trigger ring finger of right hand [M65.341] 06/30/2019 Arthritis of both hips [M16.0] 12/19/2021 Advance directive discussed with patient [Z71.8*06/20/2022 Positive colorectal cancer screening using [place]*09/10/2023 Rash [R21] 01/07/2024 Encounter Status:Closed by FAUZIA COTTO on 12/20/24 [facility] 12-06-2024 Note HNO ID: [id number] Author: FAUZIA COTTO RN Service: ? Author Type: Registered Nurse Type: Progress Notes Filed: 12/06/2024 16:58 Note Text: CDM ENROLLMENT Provider Action / FYI: CDM Update Called and spoke with the patient She reports she is doing well Provided H@H phone number Denies any questions or concerns at this time. Patient identified by name and date of . Discussed care with patient. Program Details Chronic Disease Management Status: Enrolled Effective Dates: 12/06/2024 - present Responsible Staff: Fauzia Cotto RN Support and Services: High Utilizer Assessments CDM Assessment Medications: Do you have any questions about taking your medications or which medications you should be taking?: No Do you need any medication refills at this time, including any of the medication you might take only when needed?: No Social: It can be normal to feel anxious or down during a time like this. Would you like to talk to a mental health professional about how you have been feeling?: No Symptoms: Are you experiencing any new or worsening symptoms that you need to talk about today?: No ADLs Patients can perform the following activities without help: Dressing: Yes Bathing: Yes Doing laundry: Yes Climbing a flight of stairs: Yes Walking briskly: Yes Instrumental activities of daily living Do you drive a car?: Yes Do you need help from others to take care of things inside the house, for example: laundry, house cleaning, preparing meals?: No Do you need help from others with errands outside the house, for example: shopping for groceries or clothes, going medical appointments?: No Fall Risk One or more falls in the last year:: Yes Any near falls in the last year?: No Advised to use a cane or walker to get around safely:: No Feels unsteady when walking:: Yes Steadies self on furniture while walking at home:: No Worried about falling:: No Needs to push with hands when rising from a chair:: No Has trouble stepping up onto a curb:: No Often has to chisholm to the toilet:: No Has lost some feeling in feet:: No Takes medicine that makes him/her feel lightheaded or more tired than usual:: No Takes medicine to sleep or improve mood:: No SDOH Financial Resource Strain How hard is it for you to pay for the very basics like food, housing, medical care, and heating?: Not hard at all Housing Stability In the last 12 months, was there a time when you were not able to pay the mortgage or rent on time?: No In the past 12 months, how many times have you moved where you were living?: 0 At any time in the past 12 months, were you homeless or living in a prison (including now)?: No Transportation Needs In the past 12 months, has lack of transportation kept you from medical appointments or from getting medications?: No In the past 12 months, has lack of transportation kept you from meetings, work, or from getting things needed for daily living?: No Food Insecurity Within the past 12 months, you worried that your food would run out before you got the money to buy more.: Never true Within the past 12 months, the food you bought just didn't last and you didn't have money to get more.: Never true Utilities In the past 12 months has the electric, gas, oil, or water company threatened to shut off services in your home?: No Tobacco Use Patient reports that she has never smoked. She has never used smokeless tobacco. Interventions The following were addressed during this visit: - Initial enrollment outreach - Intake assessments completed: ADLs, Fall Risk, SDOH Disposition Based on leasing representative, the following disposition is advised: No action needed Fauzia Cotto RN December 06, 2024 4:48 PM [facility] 12-06-2024 History of Presen t illness Narrative CDM ENROLLMENT Provider Action / FYI: CDM Update Called and spoke with the patient She reports she is doing well Provided H@H phone number Denies any questions or concerns at this time. Patient identified by name and date of . Discussed care with patient. Program Details Chronic Disease Management Status: Enrolled Effective Dates: 12/06/2024 - present Responsible Staff: Fauzia Cotto RN Support and Services: High Utilizer Assessments CDM Assessment Medications: Do you have any questions about taking your medications or which medications you should be taking?: No Do you need any medication refills at this time, including any of the medication you might take only when needed?: No Social: It can be normal to feel anxious or down during a time like this. Would you like to talk to a mental health professional about how you have been feeling?: No Symptoms: Are you experiencing any new or worsening symptoms that you need to talk about today?: No ADLs Patients can perform the following activities without help: Dressing: Yes Bathing: Yes Doing laundry: Yes Climbing a flight of stairs: Yes Walking briskly: Yes Instrumental activities of daily living Do you drive a car?: Yes Do you need help from others to take care of things inside the house, for example: laundry, house cleaning, preparing meals?: No Do you need help from others with errands outside the house, for example: shopping for groceries or clothes, going medical appointments?: No Fall Risk One or more falls in the last year:: Yes Any near falls in the last year?: No Advised to use a cane or walker to get around safely:: No Feels unsteady when walking:: Yes Steadies self on furniture while walking at home:: No Worried about falling:: No Needs to push with hands when rising from a chair:: No Has trouble stepping up onto a curb:: No Often has to chisholm to the toilet:: No Has lost some feeling in feet:: No Takes medicine that makes him/her feel lightheaded or more tired than usual:: No Takes medicine to sleep or improve mood:: No SDOH Financial Resource Strain How hard is it for you to pay for the very basics like food, housing, medical care, and heating?: Not hard at all Housing Stability In the last 12 months, was there a time when you were not able to pay the mortgage or rent on time?: No In the past 12 months, how many times have you moved where you were living?: 0 At any time in the past 12 months, were you homeless or living in a prison (including now)?: No Transportation Needs In the past 12 months, has lack of transportation kept you from medical appointments or from getting medications?: No In the past 12 months, has lack of transportation kept you from meetings, work, or from getting things needed for daily living?: No Food Insecurity Within the past 12 months, you worried that your food would run out before you got the money to buy more.: Never true Within the past 12 months, the food you bought just didn't last and you didn't have money to get more.: Never true Utilities In the past 12 months has the electric, gas, oil, or water company threatened to shut off services in your home?: No Tobacco Use Patient reports that she has never smoked. She has never used smokeless tobacco. Interventions The following were addressed during this visit: - Initial enrollment outreach - Intake assessments completed: ADLs, Fall Risk, SDOH Disposition Based on leasing representative, the following disposition is advised: No action needed Fauzia Cotto RN December 06, 2024 4:48 PM documented in this encounter [facility] 12-06-2024 Note Patient Outreach ([facility] GIANFRANCO HOLLIDAY ([id number]) 1940 F Date Time Provider Department 12/06/24 FAUZIA COTTO [facility] [place] During your visit today, we recorded the following information about you: Fauzia Cotto RN 12/06/2024 4:58 PM Signed CDM ENROLLMENT Provider Action / FYI: CDM Update Called and spoke with the patient She reports she is doing well Provided H@H phone number Denies any questions or concerns at this time. Patient identified by name and date of . Discussed care with patient. Program Details Chronic Disease Management Status: Enrolled Effective Dates: 12/06/2024 - present Responsible Staff: Fauzia Cotto, RN Support and Services: High Utilizer Assessments CDM Assessment Medications: Do you have any questions about taking your medications or which medications you should be taking?: No Do you need any medication refills at this time, including any of the medication you might take only when needed?: No Social: It can be normal to feel anxious or down during a time like this. Would you like to talk to a mental health professional about how you have been feeling?: No Symptoms: Are you experiencing any new or worsening symptoms that you need to talk about today?: No ADLs Patients can perform the following activities without help: Dressing: Yes Bathing: Yes Doing laundry: Yes Climbing a flight of stairs: Yes Walking briskly: Yes Instrumental activities of daily living Do you drive a car?: Yes Do you need help from others to take care of things inside the house, for example: laundry, house cleaning, preparing meals?: No Do you need help from others with errands outside the house, for example: shopping for groceries or clothes, going medical appointments?: No Fall Risk One or more falls in the last year:: Yes Any near falls in the last year?: No Advised to use a cane or walker to get around safely:: No Feels unsteady when walking:: Yes Steadies self on furniture while walking at home:: No Worried about falling:: No Needs to push with hands when rising from a chair:: No Has trouble stepping up onto a curb:: No Often has to chisholm to the toilet:: No Has lost some feeling in feet:: No Takes medicine that makes him/her feel lightheaded or more tired than usual:: No Takes medicine to sleep or improve mood:: No SDOH Financial Resource Strain How hard is it for you to pay for the very basics like food, housing, medical care, and heating?: Not hard at all Housing Stability In the last 12 months, was there a time when you were not able to pay the mortgage or rent on time?: No In the past 12 months, how many times have you moved where you were living?: 0 At any time in the past 12 months, were you homeless or living in a prison (including now)?: No Transportation Needs In the past 12 months, has lack of transportation kept you from medical appointments or from getting medications?: No In the past 12 months, has lack of transportation kept you from meetings, work, or from getting things needed for daily living?: No Food Insecurity Within the past 12 months, you worried that your food would run out before you got the money to buy more.: Never true Within the past 12 months, the food you bought just didn't last and you didn't have money to get more.: Never true Utilities In the past 12 months has the electric, gas, oil, or water company threatened to shut off services in your home?: No Tobacco Use Patient reports that she has never smoked. She has never used smokeless tobacco. Interventions The following were addressed during this visit: - Initial enrollment outreach - Intake assessments completed: ADLs, Fall Risk, SDOH Disposition Based on leasing representative, the following disposition is advised: No action needed Fauzia Cotto RN December 06, 2024 4:48 PM Allergies As of Date: 12/06/2024 Noted Allergy Reaction FEXOFENADINE 06/14/2010 14 - Other: See Comments Comments: headache/sore tongue SULFAMETHOXAZOLE-TRIMETHOPRIM 01/07/2024 14 - Other: See Comments Comments: Dizzy, sweating and vomiting. Date Reviewed: 10/28/2024 Reviewed by: Chase Saul LPN - Fully Assessed Prescriptions as of 12/06/2024 - fluticasone (FLONASE) 50 mcg/actuation nasal spray Use 2 Sprays in each nostril once daily. Rinse mouth after use. 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 [facility] 11-15-2024 Telephone encounter Note Pt notified and verbalized understanding Madai Schaffer MA [facility] 11-15-2024 Miscellaneous Notes Pt notified and verbalized understanding Madai Schaffer MA Please let patient know her CT sinus is normal. documented in this encounter [facility] 11-15-2024 Telephone encounter Note Please let patient know her CT sinus is normal. [facility] Work Phone: 11-12-2024 History of Presen t illness Narrative Radiology Service Progress Note PATIENT NAME: Gianfranco Holliday DATE OF SERVICE: November 12, 2024 TIME: 3:37 PM PATIENT IDENTITY VERIFICATION COMPLETED USING TWO (2) IDENTIFIERS: Name and Date of confirmed by patient verbally. FALL SCREENING: Has the patient had 2 falls in the last year or 1 fall with injury or currently using an Ambulatory Assistive Device (Walker, Cane, Wheelchair, Crutches, etc.)? No PATIENT GENDER DATA: Assigned female at . status: : No status: NO. PATIENT RELEVANT IMPLANT DATA REVIEWED: Yes PATIENT PRESENTS WITH AN IMPLANTABLE OR ATTACHED SPOT MACHINE OPERATOR: No RADIOLOGY DEPARTMENT: CT; Exam(s) Completed: Sinus PERIPHERAL IV DATA: Not applicable SIGNED BY: RT Gregory(R) November 12, 2024 3:37 PM documented in this encounter [facility] 11-12-2024 Note HNO ID: [id number] Author: AZIZA FIERRO RT(Zeus) Service: ? Author Type: Machine Grinder Type: Progress Notes Filed: 11/12/2024 15:37 Note Text: Radiology Service Progress Note PATIENT NAME: Gianfranco Holliday DATE OF SERVICE: November 12, 2024 TIME: 3:37 PM PATIENT IDENTITY VERIFICATION COMPLETED USING TWO (2) IDENTIFIERS: Name and Date of confirmed by patient verbally. FALL SCREENING: Has the patient had 2 falls in the last year or 1 fall with injury or currently using an Ambulatory Assistive Device (Walker, Cane, Wheelchair, Crutches, etc.)? No PATIENT GENDER DATA: Assigned female at . status: : No status: NO. PATIENT RELEVANT IMPLANT DATA REVIEWED: Yes PATIENT PRESENTS WITH AN IMPLANTABLE OR ATTACHED SPOT MACHINE OPERATOR: No RADIOLOGY DEPARTMENT: CT; Exam(s) Completed: Sinus PERIPHERAL IV DATA: Not applicable SIGNED BY: RT Gregory(R) November 12, 2024 3:37 PM [facility] 11-11-2024 Note HNO ID: [id number] Author: KAYDEN COLEMAN APRN.SHAMPOO PERSON Service: ? Author Type: Nurse Practitioner Type: Progress Notes Filed: 11/11/2024 10:57 Note Text: Chief Complaint Patient presents with: Ear Problem: Right HPI Gianfranco Holliday is a 84 year old female who presents here today for Above Complaints.. Patient presents for continued right ear pain as well as continued right jaw pain/swelling and right sinus. Patient has had recurrent sinus and right ear complaints since August and has been on medrol, antibiotics, flonase and ear drops with continued recurrent symptoms monthly. Past medical history, appointments, medications, allergies reviewed. Previous Medical History PAST MEDICAL HISTORY Diagnosis Date Abnormal mammogram 06/17/2015 Sees yearly for exam and mammogram Adjustment insomnia 12/25/2018 Advance directive discussed with patient 06/20/2022 Discussed 05/2022 Arthritis Arthritis of both hips 12/19/2021 Burping 12/15/2015 Diverticulosis of large intestine Esophageal dysphagia 01/08/2017 NL upper GI 11/2016: if worrsens will refer for EGD. Family history of leukemia 06/17/2015 Family history of malignant neoplasm of gastrointestinal tract 06/14/2010 Family history of malignant neoplasm of gastrointestinal tract History of DVT (deep vein thrombosis) 11/14/201710/2017; Below the knee, did not advance and no anticoagulation needed. Internal hemorrhoids without mention of complication Lichen planus Lymphocytosis 06/17/2015 Chronic: stable around 45=50% Medicare annual wellness visit, subsequent 06/12/2017 Medicare Part B: NA last done: 06/30/2019 Osteoporosis 06/17/2015 Seasonal allergies 12/15/2015 Situational depression 12/25/2018 loss of 09/17/2018 Stress 06/24/2018 Trigger ring finger of right hand 06/30/2019 Previous Surgical History PAST SURGICAL HISTORY Procedure Laterality Date APPENDECTOMY COLONOSCOPY FLX DX W/COLLJ SPEC WHEN PFRMD 08/08/2010 repeat in 5 yrs COLONOSCOPY FLX DX W/COLLJ SPEC WHEN PFRMD 07/03/2015 Colonoscopy COLONOSCOPY SCREENING 09/10/2023 next colonoscopy due in 5 years SALPINGO-OOPHORECTOMY COMPL/PRTL UNI/BI SPX Salpingo-oophorectomy STRESS TEST 07/14/2017 WNL TOTAL ABDOMINAL HYSTERECT W/WO RMVL TUBE OVARY Hysterectomy, RASHIDA Family History FAMILY HISTORY Problem Relation Age of Onset Cancer Mother ? liver CA Colon Cancer Father other (skin cancer) Daughter Patient Allergies ALLERGIES Allergen Reactions Fexofenadine Other: See Comments headache/sore tongue Sulfamethoxazole-Tr* Other: See Comments Dizzy, sweating and vomiting. Current Medications Current Outpatient Medications on File Prior to Visit Medication Sig fluticasone (FLONASE) 50 mcg/actuation nasal spray Use 2 Sprays in each nostril once daily. Rinse mouth after use. No current facility-administered medications on file prior to visit. Social History Social History Tobacco Use Smoking status: Never Smokeless tobacco: Never Vaping Use Vaping status: Never Used Substance Use Topics Alcohol use: No Drug use: No Review of Symptoms REVIEW OF SYSTEMS SEE HPI EXAM: BP 134/70 Pulse 73 Temp 36.7 ?C (98.1 ?F) SpO2 99% General Appearance: Well appearing, alert, in no acute distress, well-hydrated, well nourished.. Ears: External ears normal, canals clear. Nose/Sinuses: Positive findings: mucosa erythematous and swollen, clear rhinorrhea. Oropharynx: Lips, mucosa, and tongue normal, teeth and gums normal, oropharynx normal and Positive findings: swelling of right jaw. Neck: Supple, no adenopathy; thyroid symmetric, normal size, no bruits. Health Maintenance List Bone Density Screening due on 12/27/2023 DTaP,Tdap,Td Vaccine(1 - Tdap) due on 10/28/2025 RSV Vaccine(1 - 1-dose 75+ series) due on 10/28/2025 Shingrix Vaccine(1 of 2) due on 10/28/2025 Covid-19 Vaccine(1 - 2023- season) due on 10/28/2025 Anxiety Screening due on 10/28/2025 Diabetes Screening due on 10/18/2027 Advance Directive Discussion Completed Influenza Vaccine Discontinued Colorectal Cancer Screening Discontinued Pneumococcal Vaccine: 50+ Discontinued ASSESSMENT/PLAN: 1. Chronic sinusitis, unspecified location - ICD9: 473.9, ICD10: J32.9 - The patient should also be given nasal saline gtts and suction prn and flonase for the first 5-7 days of treatment. - Supportive care with plenty of fluids, rest, and analgesia prn. - CT SINUS WO IVCON - CONSULT TO ENT Kayden Coleman APRN.[facility] 11-11-2024 History of Presen t illness Narrative Chief Complaint Patient presents with: Ear Problem: Right HPI Gianfranco Holliday is a 84 year old female who presents here today for Above Complaints.. Patient presents for continued right ear pain as well as continued right jaw pain/swelling and right sinus. Patient has had recurrent sinus and right ear complaints since August and has been on medrol, antibiotics, flonase and ear drops with continued recurrent symptoms monthly. Past medical history, appointments, medications, allergies reviewed. Previous Medical History PAST MEDICAL HISTORY Diagnosis Date Abnormal mammogram 06/17/2015 Sees yearly for exam and mammogram Adjustment insomnia 12/25/2018 Advance directive discussed with patient 06/20/2022 Discussed 05/2022 Arthritis Arthritis of both hips 12/19/2021 Burping 12/15/2015 Diverticulosis of large intestine Esophageal dysphagia 01/08/2017 NL upper GI 11/2016: if worrsens will refer for EGD. Family history of leukemia 06/17/2015 Family history of malignant neoplasm of gastrointestinal tract 06/14/2010 Family history of malignant neoplasm of gastrointestinal tract History of DVT (deep vein thrombosis) 11/14/201710/2017; Below the knee, did not advance and no anticoagulation needed. Internal hemorrhoids without mention of complication Lichen planus Lymphocytosis 06/17/2015 Chronic: stable around 45=50% Medicare annual wellness visit, subsequent 06/12/2017 Medicare Part B: NA last done: 06/30/2019 Osteoporosis 06/17/2015 Seasonal allergies 12/15/2015 Situational depression 12/25/2018 loss of 09/17/2018 Stress 06/24/2018 Trigger ring finger of right hand 06/30/2019 Previous Surgical History PAST SURGICAL HISTORY Procedure Laterality Date APPENDECTOMY COLONOSCOPY FLX DX W/COLLJ SPEC WHEN PFRMD 08/08/2010 repeat in 5 yrs COLONOSCOPY FLX DX W/COLLJ SPEC WHEN PFRMD 07/03/2015 Colonoscopy COLONOSCOPY SCREENING 09/10/2023 next colonoscopy due in 5 years SALPINGO-OOPHORECTOMY COMPL/PRTL UNI/BI SPX Salpingo-oophorectomy STRESS TEST 07/14/2017 WNL TOTAL ABDOMINAL HYSTERECT W/WO RMVL TUBE OVARY Hysterectomy, RASHIDA Family History FAMILY HISTORY Problem Relation Age of Onset Cancer Mother ? liver CA Colon Cancer Father other (skin cancer) Daughter Patient Allergies ALLERGIES Allergen Reactions Fexofenadine Other: See Comments headache/sore tongue Sulfamethoxazole-Tr* Other: See Comments Dizzy, sweating and vomiting. Current Medications Current Outpatient Medications on File Prior to Visit Medication Sig fluticasone (FLONASE) 50 mcg/actuation nasal spray Use 2 Sprays in each nostril once daily. Rinse mouth after use. No current facility-administered medications on file prior to visit. Social History Social History Tobacco Use Smoking status: Never Smokeless tobacco: Never Vaping Use Vaping status: Never Used Substance Use Topics Alcohol use: No Drug use: No Review of Symptoms REVIEW OF SYSTEMS SEE HPI EXAM: BP 134/70 Pulse 73 Temp 36.7 C (98.1 F) SpO2 99% General Appearance: Well appearing, alert, in no acute distress, well-hydrated, well nourished.. Ears: External ears normal, canals clear. Nose/Sinuses: Positive findings: mucosa erythematous and swollen, clear rhinorrhea. Oropharynx: Lips, mucosa, and tongue normal, teeth and gums normal, oropharynx normal and Positive findings: swelling of right jaw. Neck: Supple, no adenopathy; thyroid symmetric, normal size, no bruits. Health Maintenance List Bone Density Screening due on 12/27/2023 DTaP,Tdap,Td Vaccine(1 - Tdap) due on 10/28/2025 RSV Vaccine(1 - 1-dose 75+ series) due on 10/28/2025 Shingrix Vaccine(1 of 2) due on 10/28/2025 Covid-19 Vaccine( - 2023- season) due on 10/28/2025 Anxiety Screening due on 10/28/2025 Diabetes Screening due on 10/18/2027 Advance Directive Discussion Completed Influenza Vaccine Discontinued Colorectal Cancer Screening Discontinued Pneumococcal Vaccine: 50+ Discontinued ASSESSMENT/PLAN: 1. Chronic sinusitis, unspecified location - ICD9: 473.9, ICD10: J32.9 - The patient should also be given nasal saline gtts and suction prn and flonase for the first 5-7 days of treatment. - Supportive care with plenty of fluids, rest, and analgesia prn. - CT SINUS WO IVCON - CONSULT TO ENT Kayden Coleman APRN.SHAMPOO PERSON documented in this encounter [facility] 10-28-2024 Instructions Angela Mckenzie PA-C - 10/28/2024 11:36 AM EST Screening schedule The following prevention plan is recommended: DTaP,Tdap,Td Vaccine(1 - Tdap) Never done Shingrix Vaccine(1 of 2) Never done RSV Vaccine(1 - 1-dose 75+ series) Never done Bone Density Screening due on 12/27/2023 Advance Directive Discussion due on 08/25/2024 WHAT YOU CAN DO TO PREVENT FALLS Many falls can be prevented. By making some changes, you can lower your chances of falling. Four things YOU can do to prevent falls for you* and your caregiver 1. Begin a regular exercise program Exercise is one of the most important ways to lower your chances of falling. It makes you stronger and helps you feel better. Exercises that improve balance and coordination (like [place] [employer]) are the most helpful. Lack of exercise leads to weakness and increases your chances of falling. Ask your doctor or health care provider about the best type of exercise program for you. 2. Have your health care provider review your medicines Have your doctor or pharmacist review all the medicines you take, even woig-lgl-ocyvams medicines. As you get older, the way medicines work in your body can change. Some medicines, or combinations of medicines, can make you sleepy or dizzy and can cause you to fall. 3. Have your vision checked Have your eyes checked by an eye doctor at least once a year. You may be wearing the wrong glasses or have a condition like glaucoma or cataracts that limits your vision. Poor vision can increase your chances of falling. 4. Make your home safer About half of all falls happen at home. To make your home safer: Remove things you can trip over (like papers, books, clothes, and shoes) from stairs and places where you walk. Remove small throw rugs or use double-sided tape to keep the rugs from slipping. Keep items you use often in cabinets you can reach easily without using a step stool. Have grab bars put in next to your toilet and in the tub or shower. Use non-slip mats in the bathtub and on shower floors. Improve the lighting in your home. As you get older, you need brighter lights to see well. Hang light-weight curtains or shades to reduce glare. Have handrails and lights put in on all staircases. Wear shoes both inside and outside the house. Avoid going barefoot or wearing slippers. For more information, contact: Centers for Disease Control and Prevention www.cdc.gov/injury * This information may not apply if you have certain medical conditions. BONE MINERAL DENSITY PATIENT INSTRUCTIONS ========= Bone mineral density testing measures the amount of calcium in certain parts of your bones. This information determines how strong your bones are. The test is used to detect osteoporosis, a disease in which the bone's mineral content and density are low, increasing a person's risk of fractures. The lumbar spine (lower back) and the hip are the skeletal sites usually examined. For the test, remember that: 1. You cannot take this test if you are . 2. Eat a normal diet on the day of the test. 3. Take your medications as you normally would. 4. DO NOT take calcium supplements (such as Tums) for 24 hours before the test. 5. On the day of the test, leave valuables (jewelry or credit cards) at home. 6. The test should be performed prior to oral, rectal or IV contrast studies, or at least 7 days after any of these studies. For the test, you may be asked to wear a hospital gown. You will lie on your back, on a padded table, in a comfortable position. Generally, you can resume your usual activities immediately. documented in this encounter [facility] 10-28-2024 Note HNO ID: [id number] Author: ANGELA MCKENZIE PA-C Service: ? Author Type: Physician Panelbeater Type: Progress Notes Filed: 10/28/2024 12:13 Note Text: Gianfranco Holliday is a 84 year old female here for a Medicare wellness visit. Medicare Health Risk Assessment General Health Good Exercise: Minutes/Day Walking 10+ min/day Exercise: Days/Week daily Alcohol: Daily Use no Alcohol: Drinks/Day 0 Alcohol: 6 or more drinks never Feel off balance no Concerns: Teeth/Dentures No Concerns: Sexual function no Troubled by feelings Sometimes- typical health related Frequency: Eating healthy diet No- eats when and what she wants ADLs requiring help no Safety precautions in home/vehicle yes Smoke, vape, chews tobacco no Difficulty hearing yes Difficulty seeing Yes- sees .opto Current Providers Specialists: I have reviewed specialist-related care of the patient in the medical record. Medical/Family history review Reviewed and updated problem list, medical/surgical/family/social history, medications, and allergies. Opioid use review Opioid Medications (last 90 days) No data to display Anxiety/Depression screening PHQ-2 Score: 2 (Lower risk for depression) Recommendation: no further intervention at this time Cognitive screening Mini Cog Score: 5 Cognitive screening reviewed and No further action needed (score 3-5). Functional Observation Was the patient's Timed Up AND Go test unsteady or >= 12 seconds? No Advance Care Planning Surrogate decision maker and/or advance care plan documented Measurements BP 110/62 (BP Site: Right Leg, BP Position: Sitting, BP Cuff Size: Regular Adult) Pulse 76 Temp 37.1 ?C (98.7 ?F) Resp 16 Wt 43.3 kg (95 lb 6 oz) SpO2 97% BMI 18.63 kg/m? Vision Screening: Follows with optometry/ophthalmology Assessment/Plan Medicare annual wellness visit, subsequent (Z00.00) - Counseled on healthy diet and regular exercise - Fall avoidance information provided - Personalized prevention plan provided Chief Complaint Patient presents with: Medicare Wellness Exam HPI Gianfranco Holliday is a 84 year old female who presents here today for extensive exam. Patient with hx of osteoporosis, diverticulosis, lymphocytosis, seasonal allergies as well as those reviewed and addressed below and in ROS Patient states she still has some R Ear pain. Was improved but symptoms started back up yesterday. Past medical history, appointments, medications, allergies reviewed. Previous Medical History PAST MEDICAL HISTORY Diagnosis Date Abnormal mammogram 06/17/2015 Sees [facility] yearly for exam and mammogram Adjustment insomnia 12/25/2018 Advance directive discussed with patient 06/20/2022 Discussed 05/2022 Arthritis Arthritis of both hips 12/19/2021 Burping 12/15/2015 Diverticulosis of large intestine Esophageal dysphagia 01/08/2017 NL upper GI 11/2016: if worrsens will refer for EGD. Family history of leukemia 06/17/2015 Family history of malignant neoplasm of gastrointestinal tract 06/14/2010 Family history of malignant neoplasm of gastrointestinal tract History of DVT (deep vein thrombosis) 11/14/201710/2017; Below the knee, did not advance and no anticoagulation needed. Internal hemorrhoids without mention of complication Lichen planus Lymphocytosis 06/17/2015 Chronic: stable around 45=50% Medicare annual wellness visit, subsequent 06/12/2017 Medicare Part B: NA last done: 06/30/2019 Osteoporosis 06/17/2015 Seasonal allergies 12/15/2015 Situational depression 12/25/2018 loss of 09/17/2018 Stress 06/24/2018 Trigger ring finger of right hand 06/30/2019 Previous Surgical History PAST SURGICAL HISTORY Procedure Laterality Date APPENDECTOMY COLONOSCOPY FLX DX W/COLLJ SPEC WHEN PFRMD 08/08/2010 repeat in 5 yrs COLONOSCOPY FLX DX W/COLLJ SPEC WHEN PFRMD 07/03/2015 Colonoscopy COLONOSCOPY SCREENING 09/10/2023 next colonoscopy due in 5 years SALPINGO-OOPHORECTOMY COMPL/PRTL UNI/BI SPX Salpingo-oophorectomy STRESS TEST 07/14/2017 WNL TOTAL ABDOMINAL HYSTERECT W/WO RMVL TUBE OVARY Hysterectomy, RASHIDA Family History FAMILY HISTORY Problem Relation Age of Onset Cancer Mother ? liver CA Colon Cancer Father other (skin cancer) Daughter Patient Allergies ALLERGIES Allergen Reactions Fexofenadine Other: See Comments headache/sore tongue Sulfamethoxazole-Tr* Other: See Comments Dizzy, sweating and vomiting. Current Medications No current outpatient medications on file prior to visit. No current facility-administered medications on file prior to visit. Social History Social History Tobacco Use Smoking status: Never Smokeless tobacco: Never Vaping Use Vaping status: Never Used Substance Use Topics Alcohol use: No Drug use: No Review of Symptoms REVIEW OF SYSTEMS GENERAL: No weight loss, malaise or fevers HEENT: No changes in hearing or vision, no nose bleeds or other na (more content not included)... [facility] 10-28-2024 History of Presen t illness Narrative Images from the original note were not included. Gianfranco Holliday is a 84 year old female here for a Medicare wellness visit. Medicare Health Risk Assessment General Health Good Exercise: Minutes/Day Walking 10+ min/day Exercise: Days/Week daily Alcohol: Daily Use no Alcohol: Drinks/Day 0 Alcohol: 6 or more drinks never Feel off balance no Concerns: Teeth/Dentures No Concerns: Sexual function no Troubled by feelings Sometimes- typical health related Frequency: Eating healthy diet No- eats when and what she wants ADLs requiring help no Safety precautions in home/vehicle yes Smoke, vape, chews tobacco no Difficulty hearing yes Difficulty seeing Yes- sees .opto Current Providers Specialists: I have reviewed specialist-related care of the patient in the medical record. Medical/Family history review Reviewed and updated problem list, medical/surgical/family/social history, medications, and allergies. Opioid use review Opioid Medications (last 90 days) No data to display Anxiety/Depression screening PHQ-2 Score: 2 (Lower risk for depression) Recommendation: no further intervention at this time Cognitive screening Mini Cog Score: 5 Cognitive screening reviewed and No further action needed (score 3-5). Functional Observation Was the patient's Timed Up & Go test unsteady or >= 12 seconds? No Advance Care Planning Surrogate decision maker and/or advance care plan documented Measurements BP 110/62 (BP Site: Right Leg, BP Position: Sitting, BP Cuff Size: Regular Adult) Pulse 76 Temp 37.1 C (98.7 F) Resp 16 Wt 43.3 kg (95 lb 6 oz) SpO2 97% BMI 18.63 kg/m Vision Screening: Follows with optometry/ophthalmology Assessment/Plan Medicare annual wellness visit, subsequent (Z00.00) - Counseled on healthy diet and regular exercise - Fall avoidance information provided - Personalized prevention plan provided Chief Complaint Patient presents with: Medicare Wellness Exam HPI Gianfranco Holliday is a 84 year old female who presents here today for extensive exam. Patient with hx of osteoporosis, diverticulosis, lymphocytosis, seasonal allergies as well as those reviewed and addressed below and in ROS Patient states she still has some R Ear pain. Was improved but symptoms started back up yesterday. Past medical history, appointments, medications, allergies reviewed. Previous Medical History PAST MEDICAL HISTORY Diagnosis Date Abnormal mammogram 06/17/2015 Sees [facility] yearly for exam and mammogram Adjustment insomnia 12/25/2018 Advance directive discussed with patient 06/20/2022 Discussed 05/2022 Arthritis Arthritis of both hips 12/19/2021 Burping 12/15/2015 Diverticulosis of large intestine Esophageal dysphagia 01/08/2017 NL upper GI 11/2016: if worrsens will refer for EGD. Family history of leukemia 06/17/2015 Family history of malignant neoplasm of gastrointestinal tract 06/14/2010 Family history of malignant neoplasm of gastrointestinal tract History of DVT (deep vein thrombosis) 11/14/201710/2017; Below the knee, did not advance and no anticoagulation needed. Internal hemorrhoids without mention of complication Lichen planus Lymphocytosis 06/17/2015 Chronic: stable around 45=50% Medicare annual wellness visit, subsequent 06/12/2017 Medicare Part B: NA last done: 06/30/2019 Osteoporosis 06/17/2015 Seasonal allergies 12/15/2015 Situational depression 12/25/2018 loss of 09/17/2018 Stress 06/24/2018 Trigger ring finger of right hand 06/30/2019 Previous Surgical History PAST SURGICAL HISTORY Procedure Laterality Date APPENDECTOMY COLONOSCOPY FLX DX W/COLLJ SPEC WHEN PFRMD 08/08/2010 repeat in 5 yrs COLONOSCOPY FLX DX W/COLLJ SPEC WHEN PFRMD 07/03/2015 Colonoscopy COLONOSCOPY SCREENING 09/10/2023 next colonoscopy due in 5 years SALPINGO-OOPHORECTOMY COMPL/PRTL UNI/BI SPX Salpingo-oophorectomy STRESS TEST 07/14/2017 WNL TOTAL ABDOMINAL HYSTERECT W/WO RMVL TUBE OVARY Hysterectomy, RASHIDA Family History FAMILY HISTORY Problem Relation Age of Onset Cancer Mother ? liver CA Colon Cancer Father other (skin cancer) Daughter Patient Allergies ALLERGIES Allergen Reactions Fexofenadine Other: See Comments headache/sore tongue Sulfamethoxazole-Tr* Other: See Comments Dizzy, sweating and vomiting. Current Medications No current outpatient medications on file prior to visit. No current facility-administered medications on file prior to visit. Social History Social History Tobacco Use Smoking status: Never Smokeless tobacco: Never Vaping Use Vaping status: Never Used Substance Use Topics Alcohol use: No Drug use: No Review of Symptoms REVIEW OF SYSTEMS GENERAL: No weight loss, malaise or fevers HEENT: No changes in hearing or vision, no nose bleeds or other nasal problems NECK: Negative for lumps, goiter, pain and significant neck swelling RESPIRATORY: Negative for cough, hemoptysis, wheezing, COPD, dyspnea or shortness of breath CARDIOVASCULAR: Negative for chest pain, leg swelling, CHF or palpitations GI: Negative for abdominal discomfort, blood in stools or black stools, change in bowel habit, heart burn, nausea, vomiting : No history of dysuria, frequency or incontinence AEROSPACE MECHANIC: Negative for abnormal vaginal bleeding, abnormal vaginal discharge MUSCULOSKELETAL: arthritis SKIN: Negative for lesions, rash, and itching PSYCH: Negative for sleep disturbance, mood disorder and recent psychosocial stressors HEMATOLOGY/LYMPHOLOGY: Negative for prolonged bleeding, bruising easily or swollen nodes ENDOCRINE: Negative for cold or heat intolerance, polyuria, polydipsia and goiter NEURO: No history of headaches, syncope, paralysis, seizures or tremors EXAM: BP 110/62 (BP Site: Right Leg, BP Position: Sitting, BP Cuff Size: Regular Adult) Pulse 76 Temp 37.1 C (98.7 F) Resp 16 Wt 43.3 kg (95 lb 6 oz) SpO2 97% BMI 18.63 kg/m General Appearance: Well appearing, alert, in no acute distress, well-hydrated, well nourished. Thin. Skin: declined by patient. Head: Normocephalic, no masses, lesions, tenderness or abnormalities. Eyes: Anicteric sclera. Pupils are equally round and reactive to light. Extraocular movements are intact. . Ears: External ears normal, canals clear, TM pearly flores Nose/Sinuses: Nares normal, septum midline, mucosa normal, no drainage or sinus tenderness. Oropharynx: Lips, mucosa, and tongue normal, teeth and gums normal, oropharynx normal. Neck: Supple, no adenopathy; thyroid symmetric, normal size, no bruits. Lungs: Lungs clear to auscultation. No wheezing, rhonchi, rales.. Heart: RRR without murmur, gallop, or rubs. No ectopy. Abdomen: Normal abdominal exam, Abdomen soft, non-tender. Bowel sounds normal. No masses, organomegaly. Extremities: No deformities, edema, skin discoloration, clubbing or cyanosis. Good capillary refill. . Peripheral Pulses: Normal. Neurologic: Gait normal. Reflexes normal and symmetric. Sensation grossly intact.. Health Maintenance List Anxiety Screening Never done DTaP,Tdap,Td Vaccine(1 - Tdap) Never done Shingrix Vaccine(1 of 2) Never done RSV Vaccine(1 - 1-dose 75+ series) Never done Bone Density Screening due on 12/27/2023 Advance Directive Discussion due on 08/25/2024 Covid-19 Vaccine(2023- season) due on 10/28/2025 Diabetes Screening due on 10/18/2027 Influenza Vaccine Discontinued Colorectal Cancer Screening Discontinued Pneumococcal Vaccine: 50+ Discontinued Data reviewed Latest Ref Rng 10/18/2024 WBC 3.70 - 11.00 k/uL 6.87 RBC 3.90 - 5.20 m/uL 4.11 Hemoglobin 11.5 - 15.5 g/dL 12.3 Hematocrit 36.0 - 46.0 % 37.5 MCV 80.0 - 100.0 fL 91.2 MCH 26.0 - 34.0 pg 29.9 MCHC 30.5 - 36.0 g/dL 32.8 RDW-CV 11.5 - 15.0 % 12.9 Platelet Count 150 - 400 k/uL 258 MPV 9.0 - 12.7 fL 11.9 Neut% % 51.9 Abs Neut (ANC) 1.45 - 7.50 k/uL 3.56 Lymph% % 36.0 Abs Lymph 1.00 - 4.00 k/uL 2.47 Petroleum% % 10.9 Abs Petroleum <0.87 k/uL 0.75 Eosin% % 0.7 Abs Eosin <0.46 k/uL 0.05 Baso% % 0.4 Abs Baso <0.11 k/uL 0.03 Immature Gran % % 0.1 IMMATURE GRANS (ABS) <0.10 k/uL <0.03 NRBC /100 WBC 0.0 Absolute nRBC <0.01 k/uL <0.01 DTYPE Auto Protein, Total 6.3 - 8.0 g/dL 7.0 Albumin 3.9 - 4.9 g/dL 4.5 Calcium 8.5 - 10.2 mg/dL 9.6 Bilirubin, Total 0.2 - 1.3 mg/dL 0.4 Alkaline Phosphatase 34 - 123 U/L 71 AST 13 - 35 U/L 29 ALT 7 - 38 U/L 16 Glucose 74 - 99 mg/dL 81 BUN 7 - 21 mg/dL 13 Creatinine 0.58 - 0.96 mg/dL 0.82 Sodium 136 - 144 mmol/L 140 Potassium 3.7 - 5.1 mmol/L 3.9 Chloride 98 - 107 mmol/L 105 CO2 22 - 30 mmol/L 23 Anion Gap 8 - 15 mmol/L 12 eGFR >=60 mL/min/1.73m 71 Total Cholesterol, Nonfasting <200 mg/dL 205 (H) Triglycerides, Nonfasting <150 mg/dL 163 (H) HDL Cholesterol, Nonfasting >39 mg/dL 62 LDL Cholesterol, Nonfasting <100 mg/dL 110 (H) Non HDL Cholesterol, Nonfasting <130 mg/dL 143 (H) VLDL Cholesterol, Nonfasting <30 mg/dL 33 (H) Total Chol/HDL Ratio, Nonfasting <5.10 mg/dL 3.31 LDL/HDL Ratio, Nonfasting <2.54 mg/dL 1.77 Hemoglobin A1C 4.3 - 5.6 % 5.4 Estimated Average Glucose mg/dL 108 Legend: (H) High ASSESSMENT/PLAN: 1. Medicare annual wellness visit, subsequent - ICD9: V70.0, ICD10: Z00.00 (primary diagnosis) - Counseled on healthy diet and regular exercise - patient declines vaccines 2. Advance directive discussed with patient - ICD9: V65.49, ICD10: Z71.89 Patient declines papers 3. 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 Osteoporosis, unspecified osteoporosis type, unspecified pathological fracture presence - ICD9: 733.00, ICD10: M81.0 - set up for BMD AP Spine and Hip Unilateral - Reviewed the need for Calcium and Vitamin D supplements and weight bearing exercise as tolerated - DXA-AXIAL SKELETON - DXA TRABECULAR BONE SCORE (TBS) 6. Encounter for screening examination for other mental health and behavioral disorders - ICD9: V79.8, ICD10: Z13.39 - ANXIETY SCREENING 7. Encounter for screening mammogram for breast cancer - ICD9: V76.12, ICD10: Z12.3 - RACHAEL SCREENING 8. Eustachian tube dysfunction, right - ICD9: 381.81, ICD10: H69.91 Trial flonase. Follow up if not improving. Angela Mckenzie PA-C documented in this encounter [facility] 10-18-2024 Note HNO ID: [id number] Author: KAYDEN COLEMAN APRN.SHAMPOO PERSON Service: ? Author Type: Nurse Practitioner Type: Progress Notes Filed: 10/18/2024 16:31 Note Text: Chief Complaint No chief complaint on file. FANNY Holliday is a 84 year old female who presents here today for Above Complaints.. Patient presents today for right ear pain. Patient was seen here 09/24 for similar complaints was given cefadroxil and medrol dose pack which provided relief. Patient states once she finished the medication her symptoms returned. She is having difficulty with hearing on the right side, pain with chewing, sinus pressure, nasal drainage, sore throat, fever and chills. Patient states her arms and legs have been feeling warm she is concerned this could be a blood infection from the ear. She first noticed the warmth on her legs and started using lotion which has not provided any significant relief.Patient denies nausea, vomiting, chest pain and diarrhea. Past medical history, appointments, medications, allergies reviewed. Previous Medical History PAST MEDICAL HISTORY Diagnosis Date Abnormal mammogram 06/17/2015 Sees yearly for exam and mammogram Adjustment insomnia 12/25/2018 Advance directive discussed with patient 06/20/2022 Discussed 05/2022 Arthritis Arthritis of both hips 12/19/2021 Burping 12/15/2015 Diverticulosis of large intestine Esophageal dysphagia 01/08/2017 NL upper GI 11/2016: if worrsens will refer for EGD. Family history of leukemia 06/17/2015 Family history of malignant neoplasm of gastrointestinal tract 06/14/2010 Family history of malignant neoplasm of gastrointestinal tract History of DVT (deep vein thrombosis) 11/14/201710/2017; Below the knee, did not advance and no anticoagulation needed. Internal hemorrhoids without mention of complication Lichen planus Lymphocytosis 06/17/2015 Chronic: stable around 45=50% Medicare annual wellness visit, subsequent 06/12/2017 Medicare Part B: NA last done: 06/30/2019 Osteoporosis 06/17/2015 Seasonal allergies 12/15/2015 Situational depression 12/25/2018 loss of 09/17/2018 Stress 06/24/2018 Trigger ring finger of right hand 06/30/2019 Previous Surgical History PAST SURGICAL HISTORY Procedure Laterality Date APPENDECTOMY COLONOSCOPY FLX DX W/COLLJ SPEC WHEN PFRMD 08/08/2010 repeat in 5 yrs COLONOSCOPY FLX DX W/COLLJ SPEC WHEN PFRMD 07/03/2015 Colonoscopy COLONOSCOPY SCREENING 09/10/2023 next colonoscopy due in 5 years SALPINGO-OOPHORECTOMY COMPL/PRTL UNI/BI SPX Salpingo-oophorectomy STRESS TEST 07/14/2017 WNL TOTAL ABDOMINAL HYSTERECT W/WO RMVL TUBE OVARY Hysterectomy, RASHIDA Family History FAMILY HISTORY Problem Relation Age of Onset Cancer Mother ? liver CA Colon Cancer Father other (skin cancer) Daughter Patient Allergies ALLERGIES Allergen Reactions Fexofenadine Other: See Comments headache/sore tongue Sulfamethoxazole-Tr* Other: See Comments Dizzy, sweating and vomiting. Current Medications No current outpatient medications on file prior to visit. No current facility-administered medications on file prior to visit. Social History Social History Tobacco Use Smoking status: Never Smokeless tobacco: Never Vaping Use Vaping status: Never Used Substance Use Topics Alcohol use: No Drug use: No Review of Symptoms REVIEW OF SYSTEMS GENERAL: Fatigue, Positive for fever , malaise HEENT: Negative for frequent or significant headaches, No changes in hearing or vision, no nose bleeds or other nasal problems RESPIRATORY: Negative for cough, hemoptysis, wheezing, COPD, dyspnea or shortness of breath CARDIOVASCULAR: Negative for chest pain, leg swelling, hypertension, CHF or palpitations EXAM: BP 138/63 Pulse 81 Temp 37.1 ?C (98.7 ?F) Wt 43.5 kg (96 lb) BMI 18.75 kg/m? General Appearance: Well appearing, alert, in no acute distress, well-hydrated, well nourished.. Ears: External ears normal, canals clear, Positive findings: R TM: purulent material noted behind TM, erythematous, and bulging, cerumen on right, amount Small. Nose/Sinuses: Positive findings: mucosa erythematous and swollen. Lungs: Lungs clear to auscultation. No wheezing, rhonchi, rales.. Heart: RRR without murmur, gallop, or rubs. No ectopy. Health Maintenance List Anxiety Screening Never done DTaP,Tdap,Td Vaccine(1 - Tdap) Never done Shingrix Vaccine(1 of 2) Never done RSV Vaccine(1 - 1-dose 75+ series) Never done Bone Density Screening due on 12/27/2023 Covid-19 Vaccine(2023- season) Never done Advance Directive Discussion due on 08/25/2024 Diabetes Screening due on 12/19/2025 Influenza Vaccine Discontinued Colorectal Cancer Screening Discontinued Pneumococcal Vaccine: 50+ Discontinued ASSESSMENT/PLAN: 1. Acute otitis media, right - ICD9: 382.9, ICD10: H66.91 - Will begin treatment with as per antibiotic as written, see orders - Supportive ca (more content not included)... [facility] 10-18-2024 History of Presen t illness Narrative Chief Complaint No chief complaint on file. HPI Gianfranco Holliday is a 84 year old female who presents here today for Above Complaints.. Patient presents today for right ear pain. Patient was seen here 09/24 for similar complaints was given cefadroxil and medrol dose pack which provided relief. Patient states once she finished the medication her symptoms returned. She is having difficulty with hearing on the right side, pain with chewing, sinus pressure, nasal drainage, sore throat, fever and chills. Patient states her arms and legs have been feeling warm she is concerned this could be a blood infection from the ear. She first noticed the warmth on her legs and started using lotion which has not provided any significant relief.Patient denies nausea, vomiting, chest pain and diarrhea. Past medical history, appointments, medications, allergies reviewed. Previous Medical History PAST MEDICAL HISTORY Diagnosis Date Abnormal mammogram 06/17/2015 Sees [facility] yearly for exam and mammogram Adjustment insomnia 12/25/2018 Advance directive discussed with patient 06/20/2022 Discussed 05/2022 Arthritis Arthritis of both hips 12/19/2021 Burping 12/15/2015 Diverticulosis of large intestine Esophageal dysphagia 01/08/2017 NL upper GI 11/2016: if worrsens will refer for EGD. Family history of leukemia 06/17/2015 Family history of malignant neoplasm of gastrointestinal tract 06/14/2010 Family history of malignant neoplasm of gastrointestinal tract History of DVT (deep vein thrombosis) 11/14/201710/2017; Below the knee, did not advance and no anticoagulation needed. Internal hemorrhoids without mention of complication Lichen planus Lymphocytosis 06/17/2015 Chronic: stable around 45=50% Medicare annual wellness visit, subsequent 06/12/2017 Medicare Part B: NA last done: 06/30/2019 Osteoporosis 06/17/2015 Seasonal allergies 12/15/2015 Situational depression 12/25/2018 loss of 09/17/2018 Stress 06/24/2018 Trigger ring finger of right hand 06/30/2019 Previous Surgical History PAST SURGICAL HISTORY Procedure Laterality Date APPENDECTOMY COLONOSCOPY FLX DX W/COLLJ SPEC WHEN PFRMD 08/08/2010 repeat in 5 yrs COLONOSCOPY FLX DX W/COLLJ SPEC WHEN PFRMD 07/03/2015 Colonoscopy COLONOSCOPY SCREENING 09/10/2023 next colonoscopy due in 5 years SALPINGO-OOPHORECTOMY COMPL/PRTL UNI/BI SPX Salpingo-oophorectomy STRESS TEST 07/14/2017 WNL TOTAL ABDOMINAL HYSTERECT W/WO RMVL TUBE OVARY Hysterectomy, RASHIDA Family History FAMILY HISTORY Problem Relation Age of Onset Cancer Mother ? liver CA Colon Cancer Father other (skin cancer) Daughter Patient Allergies ALLERGIES Allergen Reactions Fexofenadine Other: See Comments headache/sore tongue Sulfamethoxazole-Tr* Other: See Comments Dizzy, sweating and vomiting. Current Medications No current outpatient medications on file prior to visit. No current facility-administered medications on file prior to visit. Social History Social History Tobacco Use Smoking status: Never Smokeless tobacco: Never Vaping Use Vaping status: Never Used Substance Use Topics Alcohol use: No Drug use: No Review of Symptoms REVIEW OF SYSTEMS GENERAL: Fatigue, Positive for fever , malaise HEENT: Negative for frequent or significant headaches, No changes in hearing or vision, no nose bleeds or other nasal problems RESPIRATORY: Negative for cough, hemoptysis, wheezing, COPD, dyspnea or shortness of breath CARDIOVASCULAR: Negative for chest pain, leg swelling, hypertension, CHF or palpitations EXAM: BP 138/63 Pulse 81 Temp 37.1 C (98.7 F) Wt 43.5 kg (96 lb) BMI 18.75 kg/m General Appearance: Well appearing, alert, in no acute distress, well-hydrated, well nourished.. Ears: External ears normal, canals clear, Positive findings: R TM: purulent material noted behind TM, erythematous, and bulging, cerumen on right, amount Small. Nose/Sinuses: Positive findings: mucosa erythematous and swollen. Lungs: Lungs clear to auscultation. No wheezing, rhonchi, rales.. Heart: RRR without murmur, gallop, or rubs. No ectopy. Health Maintenance List Anxiety Screening Never done DTaP,Tdap,Td Vaccine(1 - Tdap) Never done Shingrix Vaccine(1 of 2) Never done RSV Vaccine(1 - 1-dose 75+ series) Never done Bone Density Screening due on 12/27/2023 Covid-19 Vaccine( - 2023- season) Never done Advance Directive Discussion due on 08/25/2024 Diabetes Screening due on 12/19/2025 Influenza Vaccine Discontinued Colorectal Cancer Screening Discontinued Pneumococcal Vaccine: 50+ Discontinued ASSESSMENT/PLAN: 1. Acute otitis media, right - ICD9: 382.9, ICD10: H66.91 - Will begin treatment with as per antibiotic as written, see orders - Supportive care with plenty of fluids, rest, and analgesia prn. - Follow up in 3-5 days if symptoms persist or worsen. - CEFDINIR 300 MG CAPSULE Kayden Coleman APRN.DONNA documented in this encounter [facility] 10-18-2024 Telephone encounter Note Orders placed. [facility] 10-18-2024 Miscellaneous Notes Orders placed. Patient is here for have labs completed for her medicare wellness. No orders have been placed. Patient is here now. Lizeth Aden MA documented in this encounter [facility] 10-18-2024 Telephone encounter Note Patient is here for have labs completed for her medicare wellness. No orders have been placed. Patient is here now. Lizeth Aden MA [facility] 09-24-2024 History of Presen t illness Narrative Images from the original note were not included. Chief Complaint Patient presents with: Follow Up HPI Gianfranco Holliday is a 83 year old female who presents here today for follow up on dizziness . Last visit patient was given antibiotic/medrol and following up. Patient has had no further sensation like her head falling forward and the pain in the TMJ area on the right has resolved. Office visit note from 09/02/[address] in [facility] ER for dizziness. Workup for blood/xray/CT/EKG CT brain - Mild chronic microvascular ischemic disease - CT Angiogram /MRI may be helpful per ER notes. Mild anemia. ER: 08/26/2024: The sensation she is getting is not vertigo or off balance she will feel heaviness in the front of her head and like her head wants to go forward. Patient seems to feel better a few days after the ER visit and then Friday /02/2025 she developed a pain on the outside of her ear (points to TMJ area) has some discomfort into the ear. Notes increased pain in this area with opening and closing her mouth and with chewing. Pain is less today but feels that her right cheek is swollen and has some pain under the edge of the right mandible. No sensation of whooshing, popping or clicking in the right ear. No fevers. No nasal congestion or discharge, sore throat, post nasal drainage, or cough. Denies facial weakness, facial droop, difficulty swallowing, talking, handling food or secretions. No upper or lower extremity numbness or weakness. Past medical history, appointments, medications, allergies reviewed. Previous Medical History PAST MEDICAL HISTORY Diagnosis Date Abnormal mammogram 06/17/2015 Sees [facility] yearly for exam and mammogram Adjustment insomnia 12/25/2018 Advance directive discussed with patient 06/20/2022 Discussed 05/2022 Arthritis Arthritis of both hips 12/19/2021 Burping 12/15/2015 Diverticulosis of large intestine Esophageal dysphagia 01/08/2017 NL upper GI 11/2016: if worrsens will refer for EGD. Family history of leukemia 06/17/2015 Family history of malignant neoplasm of gastrointestinal tract 06/14/2010 Family history of malignant neoplasm of gastrointestinal tract History of DVT (deep vein thrombosis) 11/14/201710/2017; Below the knee, did not advance and no anticoagulation needed. Internal hemorrhoids without mention of complication Lichen planus Lymphocytosis 06/17/2015 Chronic: stable around 45=50% Medicare annual wellness visit, subsequent 06/12/2017 Medicare Part B: NA last done: 06/30/2019 Osteoporosis 06/17/2015 Seasonal allergies 12/15/2015 Situational depression 12/25/2018 loss of 09/17/2018 Stress 06/24/2018 Trigger ring finger of right hand 06/30/2019 Previous Surgical History PAST SURGICAL HISTORY Procedure Laterality Date APPENDECTOMY COLONOSCOPY FLX DX W/COLLJ SPEC WHEN PFRMD 08/08/2010 repeat in 5 yrs COLONOSCOPY FLX DX W/COLLJ SPEC WHEN PFRMD 07/03/2015 Colonoscopy COLONOSCOPY SCREENING 09/10/2023 next colonoscopy due in 5 years SALPINGO-OOPHORECTOMY COMPL/PRTL UNI/BI SPX Salpingo-oophorectomy STRESS TEST 07/14/2017 WNL TOTAL ABDOMINAL HYSTERECT W/WO RMVL TUBE OVARY Hysterectomy, RASHIDA Family History FAMILY HISTORY Problem Relation Age of Onset Cancer Mother ? liver CA Colon Cancer Father other (skin cancer) Daughter Patient Allergies ALLERGIES Allergen Reactions Fexofenadine Other: See Comments headache/sore tongue Sulfamethoxazole-Tr* Other: See Comments Dizzy, sweating and vomiting. Current Medications No current outpatient medications on file prior to visit. No current facility-administered medications on file prior to visit. Social History Social History Tobacco Use Smoking status: Never Smokeless tobacco: Never Vaping Use Vaping status: Never Used Substance Use Topics Alcohol use: No Drug use: No Review of Symptoms REVIEW OF SYSTEMS See HPI EXAM: BP 128/70 Pulse 82 Resp 16 Wt 43.5 kg (96 lb) BMI 18.75 kg/m General Appearance: Well appearing, alert, in no acute distress, well-hydrated, well nourished.. Head: no pain to palpation of the right TMJ are today. Ears: right External ear, TM normal, canal clear. Neck: Supple, no adenopathy; thyroid symmetric, normal size, no bruits. The swelling under the mid portion of the right mandible is resolved. Health Maintenance List Anxiety Screening Never done DTaP,Tdap,Td Vaccine(1 - Tdap) Never done Shingrix Vaccine(1 of 2) Never done RSV Vaccine(1 - 1-dose 75+ series) Never done Bone Density Screening due on 12/27/2023 Covid-19 Vaccine( season) Never done Advance Directive Discussion due on 08/25/2024 Diabetes Screening due on 12/19/2025 Influenza Vaccine Discontinued Colorectal Cancer Screening Discontinued Pneumococcal Vaccine: 50+ Discontinued Data reviewed A/P ASSESSMENT/PLAN: 1. Dizziness - ICD9: 780.4, ICD10: R42 (primary diagnosis) - resolved 2. Arthralgia of right temporomandibular joint - ICD9: 524.62, ICD10: M26.621 - resolved 3. Bacterial sinusitis - ICD9: 473.9, 041.9, ICD10: J32.9, B96.89 - resolved. Patient to return if any further issues otherwise to be sen at next routine appt. 1-2 months for medicare extensive. Toni Meier MD documented in this encounter [facility] 09-24-2024 Note HNO ID: [id number] Author: TONI MEIER MD Service: ? Author Type: Physician Type: Progress Notes Filed: 09/24/2024 12:13 Note Text: Chief Complaint Patient presents with: Follow Up HPI Gianfranco Holliday is a 83 year old female who presents here today for follow up on dizziness . Last visit patient was given antibiotic/medrol and following up. Patient has had no further sensation like her head falling forward and the pain in the TMJ area on the right has resolved. Office visit note from 09/02/2024 [address] seen in [facility] for dizziness. Workup for blood/xray/CT/EKG CT brain - Mild chronic microvascular ischemic disease - CT Angiogram /MRI may be helpful per ER notes. Mild anemia. ER: 08/26/2024: The sensation she is getting is not vertigo or off balance she will feel heaviness in the front of her head and like her head wants to go forward. Patient seems to feel better a few days after the ER visit and then Friday /02/2025 she developed a pain on the outside of her ear (points to TMJ area) has some discomfort into the ear. Notes increased pain in this area with opening and closing her mouth and with chewing. Pain is less today but feels that her right cheek is swollen and has some pain under the edge of the right mandible. No sensation of whooshing, popping or clicking in the right ear. No fevers. No nasal congestion or discharge, sore throat, post nasal drainage, or cough. Denies facial weakness, facial droop, difficulty swallowing, talking, handling food or secretions. No upper or lower extremity numbness or weakness. Past medical history, appointments, medications, allergies reviewed. Previous Medical History PAST MEDICAL HISTORY Diagnosis Date Abnormal mammogram 06/17/2015 Sees yearly for exam and mammogram Adjustment insomnia 12/25/2018 Advance directive discussed with patient 06/20/2022 Discussed 05/2022 Arthritis Arthritis of both hips 12/19/2021 Burping 12/15/2015 Diverticulosis of large intestine Esophageal dysphagia 01/08/2017 NL upper GI 11/2016: if worrsens will refer for EGD. Family history of leukemia 06/17/2015 Family history of malignant neoplasm of gastrointestinal tract 06/14/2010 Family history of malignant neoplasm of gastrointestinal tract History of DVT (deep vein thrombosis) 11/14/201710/2017; Below the knee, did not advance and no anticoagulation needed. Internal hemorrhoids without mention of complication Lichen planus Lymphocytosis 06/17/2015 Chronic: stable around 45=50% Medicare annual wellness visit, subsequent 06/12/2017 Medicare Part B: NA last done: 06/30/2019 Osteoporosis 06/17/2015 Seasonal allergies 12/15/2015 Situational depression 12/25/2018 loss of 09/17/2018 Stress 06/24/2018 Trigger ring finger of right hand 06/30/2019 Previous Surgical History PAST SURGICAL HISTORY Procedure Laterality Date APPENDECTOMY COLONOSCOPY FLX DX W/COLLJ SPEC WHEN PFRMD 08/08/2010 repeat in 5 yrs COLONOSCOPY FLX DX W/COLLJ SPEC WHEN PFRMD 07/03/2015 Colonoscopy COLONOSCOPY SCREENING 09/10/2023 next colonoscopy due in 5 years SALPINGO-OOPHORECTOMY COMPL/PRTL UNI/BI SPX Salpingo-oophorectomy STRESS TEST 07/14/2017 WNL TOTAL ABDOMINAL HYSTERECT W/WO RMVL TUBE OVARY Hysterectomy, RASHIDA Family History FAMILY HISTORY Problem Relation Age of Onset Cancer Mother ? liver CA Colon Cancer Father other (skin cancer) Daughter Patient Allergies ALLERGIES Allergen Reactions Fexofenadine Other: See Comments headache/sore tongue Sulfamethoxazole-Tr* Other: See Comments Dizzy, sweating and vomiting. Current Medications No current outpatient medications on file prior to visit. No current facility-administered medications on file prior to visit. Social History Social History Tobacco Use Smoking status: Never Smokeless tobacco: Never Vaping Use Vaping status: Never Used Substance Use Topics Alcohol use: No Drug use: No Review of Symptoms REVIEW OF SYSTEMS See HPI EXAM: BP 128/70 Pulse 82 Resp 16 Wt 43.5 kg (96 lb) BMI 18.75 kg/m? General Appearance: Well appearing, alert, in no acute distress, well-hydrated, well nourished.. Head: no pain to palpation of the right TMJ are today. Ears: right External ear, TM normal, canal clear. Neck: Supple, no adenopathy; thyroid symmetric, normal size, no bruits. The swelling under the mid portion of the right mandible is resolved. Health Maintenance List Anxiety Screening Never done DTaP,Tdap,Td Vaccine(1 - Tdap) Never done Shingrix Vaccine(1 of 2) Never done RSV Vaccine(1 - 1-dose 75+ series) Never done Bone Density Screening due on 12/27/2023 Covid-19 Vaccine(2023-) Never done Advance Directive Discussion due on 08/25/2024 Diabetes Screening due on 12/19/2025 Influenza Vaccine Discontinued Colorectal Cancer Screening Discontinued Pneumococcal Vaccine: 50+ Discontinued Data reviewed A/P (more content not included)... [facility] 09-02-2024 History of Presen t illness Narrative Images from the original note were not included. Chief Complaint Patient presents with: Hospital F/U [facility] Gianfranco Holliday is a 83 year old female who presents here today for Hospital Discharge Follow up.. Patient was seen in [facility] for dizziness. Workup for blood/xray/CT/EKG CT brain - Mild chronic microvascular ischemic disease - CT Angiogram /MRI may be helpful per ER notes. Mild anemia. ER: 08/26/2024: The sensation she is getting is not vertigo or off balance she will feel heaviness in the front of her head and like her head wants to go forward. Patient seems to feel better a few days after the ER visit and then Friday /02/2025 she developed a pain on the outside of her ear (points to TMJ area) has some discomfort into the ear. Notes increased pain in this area with opening and closing her mouth and with chewing. Pain is less today but feels that her right cheek is swollen and has some pain under the edge of the right mandible. No sensation of whooshing, popping or clicking in the right ear. No fevers. No nasal congestion or discharge, sore throat, post nasal drainage, or cough. Denies facial weakness, facial droop, difficulty swallowing, talking, handling food or secretions. No upper or lower extremity numbness or weakness. Past medical history, appointments, medications, allergies reviewed. Previous Medical History PAST MEDICAL HISTORY Diagnosis Date Abnormal mammogram 06/17/2015 Sees yearly for exam and mammogram Adjustment insomnia 12/25/2018 Advance directive discussed with patient 06/20/2022 Discussed 05/2022 Arthritis Arthritis of both hips 12/19/2021 Burping 12/15/2015 Diverticulosis of large intestine Esophageal dysphagia 01/08/2017 NL upper GI 11/2016: if worrsens will refer for EGD. Family history of leukemia 06/17/2015 Family history of malignant neoplasm of gastrointestinal tract 06/14/2010 Family history of malignant neoplasm of gastrointestinal tract History of DVT (deep vein thrombosis) 11/14/201710/2017; Below the knee, did not advance and no anticoagulation needed. Internal hemorrhoids without mention of complication Lichen planus Lymphocytosis 06/17/2015 Chronic: stable around 45=50% Medicare annual wellness visit, subsequent 06/12/2017 Medicare Part B: NA last done: 06/30/2019 Osteoporosis 06/17/2015 Seasonal allergies 12/15/2015 Situational depression 12/25/2018 loss of 09/17/2018 Stress 06/24/2018 Trigger ring finger of right hand 06/30/2019 Previous Surgical History PAST SURGICAL HISTORY Procedure Laterality Date APPENDECTOMY COLONOSCOPY FLX DX W/COLLJ SPEC WHEN PFRMD 08/08/2010 repeat in 5 yrs COLONOSCOPY FLX DX W/COLLJ SPEC WHEN PFRMD 07/03/2015 Colonoscopy COLONOSCOPY SCREENING 09/10/2023 next colonoscopy due in 5 years SALPINGO-OOPHORECTOMY COMPL/PRTL UNI/BI SPX Salpingo-oophorectomy STRESS TEST 07/14/2017 WNL TOTAL ABDOMINAL HYSTERECT W/WO RMVL TUBE OVARY Hysterectomy, RASHIDA Family History FAMILY HISTORY Problem Relation Age of Onset Cancer Mother ? liver CA Colon Cancer Father other (skin cancer) Daughter Patient Allergies ALLERGIES Allergen Reactions Fexofenadine Other: See Comments headache/sore tongue Sulfamethoxazole-Tr* Other: See Comments Dizzy, sweating and vomiting. Current Medications Current Outpatient Medications on File Prior to Visit Medication Sig mupirocin (BACTROBAN) 2 % ointment Apply to affected area three times a day. acetaminophen (TYLENOL ARTHRITIS ORAL) Take by mouth as directed. cholecalciferol, vitamin D3, (VITAMIN D3 ORAL) Take 400 mg by mouth once daily. aspirin, enteric coated (ADULT LOW DOSE ASPIRIN) 81 mg EC tablet Take 1 tablet by mouth once daily. VITAMIN E, DL,TOCOPHERYL ACET, (VITAMIN E, DL, ACETATE,) 400 unit cap Take 400 Units by mouth once daily. Lguvqdgkdhobh-Otohdnvz-Kdwnsz (CENTRUM SILVER) tab Take one(1) tablet daily. No current facility-administered medications on file prior to visit. Social History Social History Tobacco Use Smoking status: Never Smokeless tobacco: Never Vaping Use Vaping status: Never Used Substance Use Topics Alcohol use: No Drug use: No Review of Symptoms REVIEW OF SYSTEMS See HPI EXAM: BP 138/58 Pulse 76 Ht 152.4 cm (5') Wt 43.9 kg (96 lb 12.8 oz) SpO2 99% BMI 18.90 kg/m General Appearance: Well appearing, alert, in no acute distress, well-hydrated, well nourished.. Head: Normocephalic, no masses, lesions, tenderness or abnormalities. No tenderness over the parotid glands but has tenderness over the right TMJ. No popping, grinding or dislocation of the TMJ with opening and closing the mouth. Eyes: Anicteric sclera. Pupils are equally round and reactive to light. Extraocular movements are intact. . Ears: External ears, TM's normal, canals clear small amount of soft wax on the bottom of the right canal but not up against the TM. . Nose/Sinuses: Nares normal, septum midline, mucosa normal, no drainage or sinus tenderness. Oropharynx: Lips, mucosa, and tongue normal, teeth and gums normal, oropharynx normal. Neck: Supple, thyroid symmetric. There is soft palpable mass just under the edge of the mandible mid portion. Not tender. (Swollen gland vs lymph node) Lungs: Lungs clear to auscultation. No wheezing, rhonchi, rales.. Heart: RRR without murmur, gallop, or rubs. No ectopy. Neuro: crainal nerves 2-12 intact, motor and sensory exam within normal limits. No facial droop. Health Maintenance List Anxiety Screening Never done DTaP,Tdap,Td Vaccine(1 - Tdap) Never done Shingrix Vaccine(1 of 2) Never done RSV Vaccine(1 - 1-dose 75+ series) Never done Bone Density Screening due on 12/27/2023 Covid-19 Vaccine(2023- season) Never done Advance Directive Discussion due on 08/25/2024 Diabetes Screening due on 12/19/2025 Influenza Vaccine Discontinued Colorectal Cancer Screening Discontinued Pneumococcal Vaccine: 50+ Discontinued Data reviewed A/P ASSESSMENT/PLAN: 1. Dizziness - ICD9: 780.4, ICD10: R42 (primary diagnosis) - not truly a dizziness or vertigo but a feeling of her head falling forward like it's heavy. 2. Arthralgia of right temporomandibular joint - ICD9: 524.62, ICD10: M26.621 - will place on medrol dose pack 3. Bacterial sinusitis - ICD9: 473.9, 041.9, ICD10: J32.9, B96.89 - I suspect her symptoms are related to a infection causing inflammation and the irritation in the right neck under the mandible. Will treat with duricef 500 mg twice a day for 10 days and a medrol dose pack. A this point I have no suspicion of a neurologic or vascular issue and don't feel a CTA or MRA of the head and neck is warranted. Requested Prescriptions Signed Prescriptions Disp Refills cefADROxil (DURICEF) 500 mg capsule 20 capsule 0 Sig: Take 1 capsule by mouth two times a day for 10 days. methylPREDNISolone (MEDROL, MAGUI,) 4 mg Dose-Pack 21 tablet 0 Sig: Follow dosing instructions, take with food. F/u 2-4 weeks for recheck I spent a total of 30 minutes on the date of the service which included preparing to see the patient, [id number] patient care, completing clinical documentation, performing a medically appropriate examination, counseling and educating the patient/family/caregiver and ordering medications, tests, or procedures. Toni Meier MD documented in this encounter [facility] 09-02-2024 Note HNO ID: [id number] Author: TONI MEIER MD Service: ? Author Type: Physician Type: Progress Notes Filed: 09/02/2024 20:16 Note Text: Chief Complaint Patient presents with: Hospital F/U [facility] Gianfranco Holliday is a 83 year old female who presents here today for Hospital Discharge Follow up.. Patient was seen in [facility] ER for dizziness. Workup for blood/xray/CT/EKG CT brain - Mild chronic microvascular ischemic disease - CT Angiogram /MRI may be helpful per ER notes. Mild anemia. ER: 08/26/2024: The sensation she is getting is not vertigo or off balance she will feel heaviness in the front of her head and like her head wants to go forward. Patient seems to feel better a few days after the ER visit and then Friday /02/2025 she developed a pain on the outside of her ear (points to TMJ area) has some discomfort into the ear. Notes increased pain in this area with opening and closing her mouth and with chewing. Pain is less today but feels that her right cheek is swollen and has some pain under the edge of the right mandible. No sensation of whooshing, popping or clicking in the right ear. No fevers. No nasal congestion or discharge, sore throat, post nasal drainage, or cough. Denies facial weakness, facial droop, difficulty swallowing, talking, handling food or secretions. No upper or lower extremity numbness or weakness. Past medical history, appointments, medications, allergies reviewed. Previous Medical History PAST MEDICAL HISTORY Diagnosis Date Abnormal mammogram 06/17/2015 Sees [facility] yearly for exam and mammogram Adjustment insomnia 12/25/2018 Advance directive discussed with patient 06/20/2022 Discussed 05/2022 Arthritis Arthritis of both hips 12/19/2021 Burping 12/15/2015 Diverticulosis of large intestine Esophageal dysphagia 01/08/2017 NL upper GI 11/2016: if worrsens will refer for EGD. Family history of leukemia 06/17/2015 Family history of malignant neoplasm of gastrointestinal tract 06/14/2010 Family history of malignant neoplasm of gastrointestinal tract History of DVT (deep vein thrombosis) 11/14/201710/2017; Below the knee, did not advance and no anticoagulation needed. Internal hemorrhoids without mention of complication Lichen planus Lymphocytosis 06/17/2015 Chronic: stable around 45=50% Medicare annual wellness visit, subsequent 06/12/2017 Medicare Part B: NA last done: 06/30/2019 Osteoporosis 06/17/2015 Seasonal allergies 12/15/2015 Situational depression 12/25/2018 loss of 09/17/2018 Stress 06/24/2018 Trigger ring finger of right hand 06/30/2019 Previous Surgical History PAST SURGICAL HISTORY Procedure Laterality Date APPENDECTOMY COLONOSCOPY FLX DX W/COLLJ SPEC WHEN PFRMD 08/08/2010 repeat in 5 yrs COLONOSCOPY FLX DX W/COLLJ SPEC WHEN PFRMD 07/03/2015 Colonoscopy COLONOSCOPY SCREENING 09/10/2023 next colonoscopy due in 5 years SALPINGO-OOPHORECTOMY COMPL/PRTL UNI/BI SPX Salpingo-oophorectomy STRESS TEST 07/14/2017 WNL TOTAL ABDOMINAL HYSTERECT W/WO RMVL TUBE OVARY Hysterectomy, RASHIDA Family History FAMILY HISTORY Problem Relation Age of Onset Cancer Mother ? liver CA Colon Cancer Father other (skin cancer) Daughter Patient Allergies ALLERGIES Allergen Reactions Fexofenadine Other: See Comments headache/sore tongue Sulfamethoxazole-Tr* Other: See Comments Dizzy, sweating and vomiting. Current Medications Current Outpatient Medications on File Prior to Visit Medication Sig mupirocin (BACTROBAN) 2 % ointment Apply to affected area three times a day. acetaminophen (TYLENOL ARTHRITIS ORAL) Take by mouth as directed. cholecalciferol, vitamin D3, (VITAMIN D3 ORAL) Take 400 mg by mouth once daily. aspirin, enteric coated (ADULT LOW DOSE ASPIRIN) 81 mg EC tablet Take 1 tablet by mouth once daily. VITAMIN E, DL,TOCOPHERYL ACET, (VITAMIN E, DL, ACETATE,) 400 unit cap Take 400 Units by mouth once daily. Mrqwlgzvpgeav-Vghdauvd-Faltbb (CENTRUM SILVER) tab Take one(1) tablet daily. No current facility-administered medications on file prior to visit. Social History Social History Tobacco Use Smoking status: Never Smokeless tobacco: Never Vaping Use Vaping status: Never Used Substance Use Topics Alcohol use: No Drug use: No Review of Symptoms REVIEW OF SYSTEMS See HPI EXAM: BP 138/58 Pulse 76 Ht 152.4 cm (5') Wt 43.9 kg (96 lb 12.8 oz) SpO2 99% BMI 18.90 kg/m? General Appearance: Well appearing, alert, in no acute distress, well-hydrated, well nourished.. Head: Normocephalic, no masses, lesions, tenderness or abnormalities. No tenderness over the parotid glands but has tenderness over the right TMJ. No popping, grinding or dislocation of the TMJ with opening and closing the mouth. Eyes: Anicteric sclera. Pupils are equally round and reactive to light. Extraocular movements are intact. . Ears: External ears, TM's normal, canals clear small amount of soft (more content not included)... [facility] 08-30-2024 Note HNO ID: [id number] Author: LIZETH ADEN MA Service: ? Author Type: Director Of Institutional Giving Type: Progress Notes Filed: 08/30/2024 16:49 Note Text: Scan on 08/26/2024 2:44 AM by Provider, External, ARCHIEC: Discharge Summary Patient contacted and scheduled. Still having some dizziness today. Lizeth Aden MA [facility] 08-30-2024 History of Presen t illness Narrative Scan on 08/26/2024 2:44 AM by ProviderSagrario PA-C: Discharge Summary Patient contacted and scheduled. Still having some dizziness today. Lizeth Aden MA documented in this encounter [facility] 03-19-2024 History of Presen t illness Narrative Scan on 03/17/2024 7:37 AM by ProviderSagrario PA-C: Consultation - Rheumatology Lizeth Aden MA documented in this encounter [facility] 03-01-2024 History of Presen t illness Narrative Scan on 03/01/2024 1:36 PM by ProviderSagrario PA-C: Miscellaneous Lab Scan on 03/01/2024 1:08 PM by Sagrario Maldonado PA-C: Chemistry Scan on 03/01/2024 12:35 PM by ProviderSagrario PA-C: Cytology documented in this encounter [facility] 02-10-2024 History of Presen t illness Narrative Chief Complaint Patient presents with: Rash HPI Gianfranco Holliday is a 83 year old female who presents here today for Above Complaints.. Patient reports continuing rash for months. Scheduled with rheum on February 24 for eval. Stopped steroid cream- felt it was making symptoms worse. ER gave her hydroxyzine which helped with her itching. Past medical history, appointments, medications, allergies reviewed. Previous Medical History PAST MEDICAL HISTORY Diagnosis Date Abnormal mammogram 06/17/2015 Sees yearly for exam and mammogram Adjustment insomnia 12/25/2018 Advance directive discussed with patient 06/20/2022 Discussed 05/2022 Arthritis Arthritis of both hips 12/19/2021 Burping 12/15/2015 Diverticulosis of large intestine Esophageal dysphagia 01/08/2017 NL upper GI 11/2016: if worrsens will refer for EGD. Family history of leukemia 06/17/2015 Family history of malignant neoplasm of gastrointestinal tract 06/14/2010 Family history of malignant neoplasm of gastrointestinal tract History of DVT (deep vein thrombosis) 11/14/201710/2017; Below the knee, did not advance and no anticoagulation needed. Internal hemorrhoids without mention of complication Lichen planus Lymphocytosis 06/17/2015 Chronic: stable around 45=50% Medicare annual wellness visit, subsequent 06/12/2017 Medicare Part B: NA last done: 06/30/2019 Osteoporosis 06/17/2015 Seasonal allergies 12/15/2015 Situational depression 12/25/2018 loss of 09/17/2018 Stress 06/24/2018 Trigger ring finger of right hand 06/30/2019 Previous Surgical History PAST SURGICAL HISTORY Procedure Laterality Date APPENDECTOMY COLONOSCOPY FLX DX W/COLLJ SPEC WHEN PFRMD 08/08/2010 repeat in 5 yrs COLONOSCOPY FLX DX W/COLLJ SPEC WHEN PFRMD 07/03/2015 Colonoscopy COLONOSCOPY SCREENING 09/10/2023 next colonoscopy due in 5 years SALPINGO-OOPHORECTOMY COMPL/PRTL UNI/BI SPX Salpingo-oophorectomy STRESS TEST 07/14/2017 WNL TOTAL ABDOMINAL HYSTERECT W/WO RMVL TUBE OVARY Hysterectomy, RASHIDA Family History FAMILY HISTORY Problem Relation Age of Onset Cancer Mother ? liver CA Colon Cancer Father other (skin cancer) Daughter Patient Allergies ALLERGIES Allergen Reactions Fexofenadine Other: See Comments headache/sore tongue Sulfamethoxazole-Tr* Other: See Comments Dizzy, sweating and vomiting. Current Medications Current Outpatient Medications on File Prior to Visit Medication Sig acetaminophen (TYLENOL ARTHRITIS ORAL) Take by mouth as directed. mometasone (ELOCON) 0.1 % cream Apply to areas twice a day. On for 4 days and off for 3 days. Repeat as needed. mupirocin (BACTROBAN) 2 % ointment Apply to affected area three times a day. cholecalciferol, vitamin D3, (VITAMIN D3 ORAL) Take 400 mg by mouth once daily. aspirin, enteric coated (ADULT LOW DOSE ASPIRIN) 81 mg EC tablet Take 1 tablet by mouth once daily. VITAMIN E, DL,TOCOPHERYL ACET, (VITAMIN E, DL, ACETATE,) 400 unit cap Take 400 Units by mouth once daily. Bqwkyfqkwskyt-Fnbapwef-Whiurq (CENTRUM SILVER) tab Take one(1) tablet daily. No current facility-administered medications on file prior to visit. Social History Social History Tobacco Use Smoking status: Never Smokeless tobacco: Never Vaping Use Vaping Use: Never used Substance Use Topics Alcohol use: No Drug use: No Review of Symptoms REVIEW OF SYSTEMS See hpi EXAM: BP 110/64 (BP Site: Right Arm, BP Position: Sitting, BP Cuff Size: Regular Adult) Pulse 80 Temp 37.3 C (99.1 F) Resp 18 Wt 45 kg (99 lb 4 oz) BMI 19.38 kg/m General Appearance: Well appearing, alert, in no acute distress, well-hydrated, well nourished.. Health Maintenance List Advance Directive Discussion due on 08/25/2023 Bone Density Screening due on 12/27/2023 DTaP,Tdap,Td Vaccine(1 - Tdap) due on 07/07/2024 RSV Vaccine(1 - 1-dose 60+ series) due on 07/07/2024 Shingrix Vaccine(1 of 2) due on 07/07/2024 Covid-19 Vaccine( - 2022- season) due on 07/07/2024 Diabetes Screening due on 12/19/2025 Influenza Vaccine Discontinued Colorectal Cancer Screening Discontinued Pneumococcal Vaccine: 65+ Discontinued Data reviewed ASSESSMENT/PLAN: 1. Rash - ICD9: 782.1, ICD10: R21 Will get derm consulted Await rheum eval as well. Okay to stay on hydroxyzine. - CONSULT TO DERMATOLOGY Angela Mckenzie PA-C documented in this encounter [facility] 01-13-2024 Note Formatting of this n ote might be different from the original. January 14, 2024 PID: [id number] Gianfranco Holliday [address] [place] [address] Dear Ms. Holliday, We are pleased to inform you that the results of your recent breast imaging exam on 01/12/2024 are normal. Early detection of cancer is very important. We also understand recommendations regarding breast cancer screening are controversial. Please discuss with your primary care provider which strategy is best for you and whether a mammogram is right for you. Your imaging studies and report will be kept on file at [facility] as part of your permanent medical record and are available for your continuing care. Thank you for allowing us to help in meeting your health care needs. Sincerely, Dr. Caldwell Interpreting Radiologist [facility] (Normal over 40) [facility] 01-13-2024 Miscellaneous Notes January 14, 2024 PID: [id number] Gianfranco Holliday [address] [place] [address] Dear Ms. Holliday, We are pleased to inform you that the results of your recent breast imaging exam on 01/12/2024 are normal. Early detection of cancer is very important. We also understand recommendations regarding breast cancer screening are controversial. Please discuss with your primary care provider which strategy is best for you and whether a mammogram is right for you. Your imaging studies and report will be kept on file at [facility] as part of your permanent medical record and are available for your continuing care. Thank you for allowing us to help in meeting your health care needs. Sincerely, Dr. Caldwell Interpreting Radiologist [facility] (Normal over 40) documented in this encounter [facility] 01-12-2024 History of Presen t illness Narrative Radiology Service Progress Note PATIENT NAME: Gianfranco Holliday DATE OF SERVICE: January 12, 2024 TIME: 10:19 AM PATIENT IDENTITY VERIFICATION COMPLETED USING TWO (2) IDENTIFIERS: Name and Date of confirmed by patient verbally. FALL SCREENING: Has the patient had 2 falls in the last year or 1 fall with injury or currently using an Ambulatory Assistive Device (Walker, Cane, Wheelchair, Crutches, etc.)? No PATIENT GENDER DATA: Female. status: : No status: NO. PATIENT RELEVANT IMPLANT DATA REVIEWED: Not Applicable PATIENT PRESENTS WITH AN IMPLANTABLE OR ATTACHED SPOT MACHINE OPERATOR: No RADIOLOGY DEPARTMENT: Mammography PERIPHERAL IV DATA: Not applicable SIGNED BY: Suzanna Iglesiaso Anatn January 12, 2024 10:19 AM documented in this encounter [facility] 01-07-2024 Instructions Toni Meier MD - 01/07/2024 10:27 AM EDT The cream that was sent in today for the rash on your leg can also be used for a week on the arms. Please get labs done on or after 06/25/2024 prior to your next visit. documented in this encounter [facility] 01-07-2024 History of Presen t illness Narrative Chief Complaint Patient presents with: F/U 6 months HPI Gianfranco Holliday is a 83 year old female who presents here today for 6 month follow up. Patient with hx of osteoporosis, diverticulosis, lymphocytosis, seasonal allergies as well as those reviewed and addressed below and in ROS Patient seen in the [facility] on 12/08/2023. Patient was also being treated for Cellultis. Today patient still has redness on her right ankle. She was using Bactroban ointment but was told to just use vasaline and it has now gotten worse. She does have an appt with Rheumatology but not till February 24. Patient also indicated that she was weeding the yesterday and now she has a rash on her inner forearms that is itchy at times. . Patient indicated that she had stopped all her vitamins for now. She is going to start those up again. She indicated that she was really sick last month and stopped taking them. During the time she was sick she had been on bactrim which started her symptoms and the prednisone and pepcid. Patient was on Bactroban ointment and it did help the rash but not resoled it. She had been on it for a few weeks so it was stopped. Since then the area has increased in size along with the redness and more then it had been originally. Patient did have colonoscopy 09/10/2023 due to positive screening with Dr. Grady. Was encouraged to have a colonoscopy in 5 years. Past medical history, appointments, medications, allergies reviewed. Previous Medical History PAST MEDICAL HISTORY Diagnosis Date Abnormal mammogram 06/17/2015 Sees yearly for exam and mammogram Adjustment insomnia 12/25/2018 Advance directive discussed with patient 06/20/2022 Discussed 05/2022 Arthritis Arthritis of both hips 12/19/2021 Burping 12/15/2015 Diverticulosis of large intestine Esophageal dysphagia 01/08/2017 NL upper GI 11/2016: if worrsens will refer for EGD. Family history of leukemia 06/17/2015 Family history of malignant neoplasm of gastrointestinal tract 06/14/2010 Family history of malignant neoplasm of gastrointestinal tract History of DVT (deep vein thrombosis) 11/14/201710/2017; Below the knee, did not advance and no anticoagulation needed. Internal hemorrhoids without mention of complication Lichen planus Lymphocytosis 06/17/2015 Chronic: stable around 45=50% Medicare annual wellness visit, subsequent 06/12/2017 Medicare Part B: NA last done: 06/30/2019 Osteoporosis 06/17/2015 Seasonal allergies 12/15/2015 Situational depression 12/25/2018 loss of 09/17/2018 Stress 06/24/2018 Trigger ring finger of right hand 06/30/2019 Previous Surgical History PAST SURGICAL HISTORY Procedure Laterality Date APPENDECTOMY COLONOSCOPY FLX DX W/COLLJ SPEC WHEN PFRMD 08/08/2010 repeat in 5 yrs COLONOSCOPY FLX DX W/COLLJ SPEC WHEN PFRMD 07/03/2015 Colonoscopy COLONOSCOPY SCREENING 09/10/2023 next colonoscopy due in 5 years SALPINGO-OOPHORECTOMY COMPL/PRTL UNI/BI SPX Salpingo-oophorectomy STRESS TEST 07/14/2017 WNL TOTAL ABDOMINAL HYSTERECT W/WO RMVL TUBE OVARY Hysterectomy, RASHIDA Family History FAMILY HISTORY Problem Relation Age of Onset Cancer Mother ? liver CA Colon Cancer Father other (skin cancer) Daughter Patient Allergies ALLERGIES Allergen Reactions Fexofenadine Other: See Comments headache/sore tongue Current Medications Current Outpatient Medications on File Prior to Visit Medication Sig famotidine (PEPCID) 40 mg/5 mL (8 mg/mL) oral liquid Take 2.5 mL by mouth two times a day. (Patient not taking: Reported on 12/16/2023) mupirocin (BACTROBAN) 2 % ointment Apply to affected area three times a day. acetaminophen (TYLENOL ARTHRITIS ORAL) Take by mouth as directed. cholecalciferol, vitamin D3, (VITAMIN D3 ORAL) Take 400 mg by mouth once daily. aspirin, enteric coated (ADULT LOW DOSE ASPIRIN) 81 mg EC tablet Take 1 tablet by mouth once daily. VITAMIN E, DL,TOCOPHERYL ACET, (VITAMIN E, DL, ACETATE,) 400 unit cap Take 400 Units by mouth once daily. Bwswgctqvnbbb-Qwbuyfzi-Bdrtgv (CENTRUM SILVER) tab Take one(1) tablet daily. Ascorbic Acid 1,000 mg tablet Take one(1) tablet daily. No current facility-administered medications on file prior to visit. Social History Social History Tobacco Use Smoking status: Never Smokeless tobacco: Never Vaping Use Vaping Use: Never used Substance Use Topics Alcohol use: No Drug use: No Review of Symptoms REVIEW OF SYSTEMS GENERAL: No weight loss, malaise or fevers RESPIRATORY: Negative for cough, hemoptysis, wheezing, COPD, dyspnea or shortness of breath CARDIOVASCULAR: Negative for chest pain, leg swelling, hypertension, CHF or palpitations SKIN: See HPI PSYCH: Negative for sleep disturbance, mood disorder and recent psychosocial stressors NEURO: No history of headaches, syncope, paralysis, seizures or tremors Skin: see HPI EXAM: BP 110/64 (BP Site: Left Arm, BP Position: Sitting, BP Cuff Size: Regular Adult) Pulse 76 Temp 36.8 C (98.3 F) (Tympanic) Resp 18 Wt 45.4 kg (100 lb) BMI 19.53 kg/m Last 5 Encounter Wt Readings: Date: Wt: 01/07/2024 45.4 kg (100 lb) 12/16/2023 44.9 kg (99 lb) 12/09/2023 46.3 kg (102 lb) 12/04/2023 46.3 kg (102 lb) 09/10/2023 46.6 kg (102 lb 11.8 oz) General Appearance: Well appearing, alert, in no acute distress, well-hydrated, well nourished.. Skin: has a mild erythematous papular rash on the left forearm. She still has the erythematous plaque on the right lateral lower leg that blanches. No vesicles or drainage. . Neck: Supple, no adenopathy; thyroid symmetric, normal size, no bruits. Lungs: Lungs clear to auscultation. No wheezing, rhonchi, rales.. Heart: RRR without murmur, gallop, or rubs. No ectopy. Extremities: No deformities, edema, skin discoloration, Good capillary refill. . Health Maintenance List Advance Directive Discussion due on 08/25/2023 Bone Density Screening due on 12/27/2023 DTaP,Tdap,Td Vaccine(1 - Tdap) due on 07/07/2024 RSV Vaccine(1 - 1-dose 60+ series) due on 07/07/2024 Shingrix Vaccine(1 of 2) due on 07/07/2024 Covid-19 Vaccine(1 - season) due on 07/07/2024 Diabetes Screening due on 12/19/2025 Influenza Vaccine Discontinued Colorectal Cancer Screening Discontinued Pneumococcal Vaccine: 65+ Discontinued Data reviewed Latest Ref Rng 12/09/2023 PRICILLA Negative Positive ! PRICILLA Titer 1:160 PRICILLA Pattern Nuclear homogeneous Sm Antibody Negative Negative Anti-Sm <1.0 AI <0.2 DNA Antibody <=200 IU/mL 206 (H) DNA Antibody Qualitative Interpretation Negative Equivocal ! PUBLISHING AGENT Antibody QUAL Negative Negative Anti-PUBLISHING AGENT <1.0 AI <0.2 SSA Antibody Qual Negative Negative Anti-SSA <1.0 AI <0.2 Anti-SSB <1.0 AI <0.2 SSB Antibody Qual Negative Negative CENTROMERE AB QUAL Negative Negative Centromere Ab <1.0 AI <0.2 Scleroderma Ab Qual Negative Negative Scl-70 Abs, EIA <1.0 AI <0.2 TENA 1 ANTIBODY QUAL Negative Negative Tena 1 Antibody <1.0 AI <0.2 Ribosomal PUBLISHING AGENT Qualitative Negative Negative Ribosomal PUBLISHING AGENT Ab <1.0 AI <0.2 Chromatin Ab Qual Negative Negative Chromatin Ab <1.0 AI <0.2 WSR 0 - 20 mm/hr 12 CRP <0.9 mg/dL 7.3 (H) Rheumatoid Factor <16 IU/mL <10 A/P ASSESSMENT/PLAN: 1. 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 Not needing medical management 2. Lymphocytosis - ICD9: 288.61, ICD10: D72.820 - labs have remained normal. Will monitor 3. 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 Irritant contact dermatitis due to plants, except food - ICD9: 692.6, ICD10: L24.7 - will treat with topical steroid as below for a week. 5. Rash - ICD9: 782.1, ICD10: R21 - will treat with Elocon cream on 4 days off 3 days till seen by Rheum. Requested Prescriptions Signed Prescriptions Disp Refills mometasone (ELOCON) 0.1 % cream 15 g 1 Sig: Apply to areas twice a day. On for 4 days and off for 3 days. Repeat as needed. F/u 6 months extensive check Lipid, CBC and CMP prior I spent a total of 30 minutes on the date of the service which included preparing to see the patient, [id number] patient care, completing clinical documentation, performing a medically appropriate examination, counseling and educating the patient/family/caregiver and ordering medications, tests, or procedures. Toni Meier MD documented in this encounter [facility] 12-16-2023 History of Presen t illness Narrative Chief Complaint Patient presents with: Follow Up: Cellulitis right lower leg HPI Gianfranco Holliday is a 83 year old female who presents here today for recheck. Patient returns for recheck on rash right leg. Was started on prednisone last week which has seemed to help symptoms. She had labs showing inflammatory markers and positive PRICILLA. Hasn't been scheduled with rheum yet. Past medical history, appointments, medications, allergies reviewed. Previous Medical History PAST MEDICAL HISTORY Diagnosis Date Abnormal mammogram 06/17/2015 Sees [facility] yearly for exam and mammogram Adjustment insomnia 12/25/2018 Advance directive discussed with patient 06/20/2022 Discussed 05/2022 Arthritis Arthritis of both hips 12/19/2021 Burping 12/15/2015 Diverticulosis of large intestine Esophageal dysphagia 01/08/2017 NL upper GI 11/2016: if worrsens will refer for EGD. Family history of leukemia 06/17/2015 Family history of malignant neoplasm of gastrointestinal tract 06/14/2010 Family history of malignant neoplasm of gastrointestinal tract History of DVT (deep vein thrombosis) 11/14/201710/2017; Below the knee, did not advance and no anticoagulation needed. Internal hemorrhoids without mention of complication Lichen planus Lymphocytosis 06/17/2015 Chronic: stable around 45=50% Medicare annual wellness visit, subsequent 06/12/2017 Medicare Part B: NA last done: 06/30/2019 Osteoporosis 06/17/2015 Seasonal allergies 12/15/2015 Situational depression 12/25/2018 loss of 09/17/2018 Stress 06/24/2018 Trigger ring finger of right hand 06/30/2019 Previous Surgical History PAST SURGICAL HISTORY Procedure Laterality Date APPENDECTOMY COLONOSCOPY FLX DX W/COLLJ SPEC WHEN PFRMD 08/08/2010 repeat in 5 yrs COLONOSCOPY FLX DX W/COLLJ SPEC WHEN PFRMD 07/03/2015 Colonoscopy COLONOSCOPY SCREENING 09/10/2023 next colonoscopy due in 5 years SALPINGO-OOPHORECTOMY COMPL/PRTL UNI/BI SPX Salpingo-oophorectomy STRESS TEST 07/14/2017 WNL TOTAL ABDOMINAL HYSTERECT W/WO RMVL TUBE OVARY Hysterectomy, RASHIDA Family History FAMILY HISTORY Problem Relation Age of Onset Cancer Mother ? liver CA Colon Cancer Father other (skin cancer) Daughter Patient Allergies ALLERGIES Allergen Reactions Fexofenadine Other: See Comments headache/sore tongue Current Medications Current Outpatient Medications on File Prior to Visit Medication Sig predniSONE (DELTASONE) 10 mg tablet Take 4 tabs daily for 3 days, then 2 tabs daily for 3 days, then 1 tab daily for 3 days with food. mupirocin (BACTROBAN) 2 % ointment Apply to affected area three times a day. acetaminophen (TYLENOL ARTHRITIS ORAL) Take by mouth as directed. cholecalciferol, vitamin D3, (VITAMIN D3 ORAL) Take 400 mg by mouth once daily. VITAMIN E, DL,TOCOPHERYL ACET, (VITAMIN E, DL, ACETATE,) 400 unit cap Take 400 Units by mouth once daily. Fcgixixuhkolb-Zgmcblff-Ugtgfp (CENTRUM SILVER) tab Take one(1) tablet daily. Ascorbic Acid 1,000 mg tablet Take one(1) tablet daily. famotidine (PEPCID) 40 mg/5 mL (8 mg/mL) oral liquid Take 2.5 mL by mouth two times a day. (Patient not taking: Reported on 12/16/2023) aspirin, enteric coated (ADULT LOW DOSE ASPIRIN) 81 mg EC tablet Take 1 tablet by mouth once daily. No current facility-administered medications on file prior to visit. Social History Social History Tobacco Use Smoking status: Never Smokeless tobacco: Never Vaping Use Vaping Use: Never used Substance Use Topics Alcohol use: No Drug use: No Review of Symptoms REVIEW OF SYSTEMS See hpi EXAM: BP 112/64 (BP Site: Left Arm, BP Position: Sitting, BP Cuff Size: Regular Adult) Pulse 76 Resp 18 Wt 44.9 kg (99 lb) SpO2 98% BMI 19.33 kg/m General Appearance: Well appearing, alert, in no acute distress, well-hydrated, well nourished.. Extremities: improvement in rash. Mild erythema still present. Blanches to palp. Plaque area has healed. Health Maintenance List Advance Directive Discussion due on 08/25/2023 Bone Density Screening due on 12/27/2023 DTaP,Tdap,Td Vaccine(1 - Tdap) due on 07/07/2024 RSV Vaccine(1 - 1-dose 60+ series) due on 07/07/2024 Shingrix Vaccine(1 of 2) due on 07/07/2024 Covid-19 Vaccine( - 2022- season) due on 07/07/2024 Diabetes Screening due on 12/19/2025 Influenza Vaccine Discontinued Colorectal Cancer Screening Discontinued Pneumococcal Vaccine: 65+ Discontinued Data reviewed ASSESSMENT/PLAN: 1. Rash - ICD9: 782.1, ICD10: R21 (primary diagnosis) Improved. Patient to follow up with rheumatology for further eval. 2. Encounter for screening mammogram for breast cancer - ICD9: V76.12, ICD10: Z12.31 - RACHAEL SCREENING Angela Mckenzie PA-C documented in this encounter [facility] 12-11-2023 Miscellaneous Notes Pt notified of results & stated understanding. Pt stated she prefers to see Dr Su in [place]. Referral, labs, demographics & insurance info faxed to Dr Su's office. Olive Lomeli LPN PRICILLA is positive. I'm going to place consult to rheum. Does she want to stay in [place] (Dr. Su) or does she prefer to stay with [facility]? documented in this encounter [facility] 12-10-2023 Miscellaneous Notes TC to patient who is agreeable with changing appointment to be with RR. Changed as instructed. Nothing further at this time. CAM Gustafson Patient currently scheduled for recheck with Harjinder, however it should have been scheduled with me. I have been the one seeing her and the rash. I'm not sure why she was scheduled with a different provider. Please help get patient scheduled with me. Thanks. Angela Mckenzie PA-C documented in this encounter [facility] 12-09-2023 History of Presen t illness Narrative Scan on 12/08/2023 3:58 PM by Provider, SWAPNA Zabala: Consultation - Emergency Medicine Olive Lomeli LPN documented in this encounter [facility] 12-09-2023 Instructions Angela Mckenzie PA-C - 12/09/2023 9:53 AM EDT While on prednisone, don't take any of the naproxen. Can use tylenol as needed. Stop bactrim. documented in this encounter [facility] 12-09-2023 History of Presen t illness Narrative Chief Complaint Patient presents with: Follow Up: Cellulitis - Pt thinks it looks better today. HPI Gianfranco Holliday is a 83 year old female who presents here today for Above Complaints.. Patient was seen on for rash that was concerning for cellulitis. Was started on bactrim. She has noted benefit. No more pruritus noted. No pain. Past medical history, appointments, medications, allergies reviewed. Previous Medical History PAST MEDICAL HISTORY Diagnosis Date Abnormal mammogram 06/17/2015 Sees yearly for exam and mammogram Adjustment insomnia 12/25/2018 Advance directive discussed with patient 06/20/2022 Discussed 05/2022 Arthritis Arthritis of both hips 12/19/2021 Burping 12/15/2015 Diverticulosis of large intestine Esophageal dysphagia 01/08/2017 NL upper GI 11/2016: if worrsens will refer for EGD. Family history of leukemia 06/17/2015 Family history of malignant neoplasm of gastrointestinal tract 06/14/2010 Family history of malignant neoplasm of gastrointestinal tract History of DVT (deep vein thrombosis) 11/14/201710/2017; Below the knee, did not advance and no anticoagulation needed. Internal hemorrhoids without mention of complication Lichen planus Lymphocytosis 06/17/2015 Chronic: stable around 45=50% Medicare annual wellness visit, subsequent 06/12/2017 Medicare Part B: NA last done: 06/30/2019 Osteoporosis 06/17/2015 Seasonal allergies 12/15/2015 Situational depression 12/25/2018 loss of 09/17/2018 Stress 06/24/2018 Trigger ring finger of right hand 06/30/2019 Previous Surgical History PAST SURGICAL HISTORY Procedure Laterality Date APPENDECTOMY COLONOSCOPY FLX DX W/COLLJ SPEC WHEN PFRMD 08/08/2010 repeat in 5 yrs COLONOSCOPY FLX DX W/COLLJ SPEC WHEN PFRMD 07/03/2015 Colonoscopy COLONOSCOPY SCREENING 09/10/2023 next colonoscopy due in 5 years SALPINGO-OOPHORECTOMY COMPL/PRTL UNI/BI SPX Salpingo-oophorectomy STRESS TEST 07/14/2017 WNL TOTAL ABDOMINAL HYSTERECT W/WO RMVL TUBE OVARY Hysterectomy, RASHIDA Family History FAMILY HISTORY Problem Relation Age of Onset Cancer Mother ? liver CA Colon Cancer Father other (skin cancer) Daughter Patient Allergies ALLERGIES Allergen Reactions Fexofenadine Other: See Comments headache/sore tongue Current Medications Current Outpatient Medications on File Prior to Visit Medication Sig naproxen (NAPROSYN) 500 mg tablet Take 1 tablet by mouth two times a day as needed (for pain/inflammation). Take with food. sulfamethoxazole-trimethoprim (BACTRIM DS) 800-160 mg per tablet Take 1 tablet by mouth two times a day for 10 days. mupirocin (BACTROBAN) 2 % ointment Apply to affected area three times a day. acetaminophen (TYLENOL ARTHRITIS ORAL) Take by mouth as directed. cholecalciferol, vitamin D3, (VITAMIN D3 ORAL) Take 400 mg by mouth once daily. VITAMIN E, DL,TOCOPHERYL ACET, (VITAMIN E, DL, ACETATE,) 400 unit cap Take 400 Units by mouth once daily. Ipizrsrqdxcng-Amtuqadp-Iqcjmm (CENTRUM SILVER) tab Take one(1) tablet daily. Ascorbic Acid 1,000 mg tablet Take one(1) tablet daily. aspirin, enteric coated (ADULT LOW DOSE ASPIRIN) 81 mg EC tablet Take 1 tablet by mouth once daily. No current facility-administered medications on file prior to visit. Social History Social History Tobacco Use Smoking status: Never Smokeless tobacco: Never Vaping Use Vaping Use: Never used Substance Use Topics Alcohol use: No Drug use: No Review of Symptoms REVIEW OF SYSTEMS See hpi EXAM: BP 98/62 (BP Site: Left Arm, BP Position: Sitting, BP Cuff Size: Regular Adult) Pulse 85 Temp 37.7 C (99.8 F) (Right Tympanic) Resp 24 Wt 46.3 kg (102 lb) SpO2 99% BMI 19.92 kg/m General Appearance: Well appearing, alert, in no acute distress, well-hydrated, well nourished.. Skin: erthema with center lesion about 2cm in size. . Health Maintenance List Advance Directive Discussion due on 08/25/2023 DTaP,Tdap,Td Vaccine(1 - Tdap) due on 07/07/2024 RSV Vaccine(1 - 1-dose 60+ series) due on 07/07/2024 Shingrix Vaccine(1 of 2) due on 07/07/2024 Covid-19 Vaccine(1 - 2022- season) due on 07/07/2024 Diabetes Screening due on 12/19/2025 Bone Density Screening Completed Influenza Vaccine Discontinued Colorectal Cancer Screening Discontinued Pneumococcal Vaccine: 65+ Discontinued Data reviewed ASSESSMENT/PLAN: 1. Skin rash - ICD9: 782.1, ICD10: R21 May be vasculitis. Check labs. Start pred Patient has taking 5 days of atb. Will discontinue at this time. Follow up in 1 week prn. - SEDIMENTATION RATE, WESTERGREN - C-REACTIVE PROTEIN - PRICILLA BY IFA WITH REFLEX - RHEUMATOID FACTOR Angela Mckenzie PA-C documented in this encounter [facility] 12-08-2023 History of Presen t illness Narrative Scan on 12/08/2023 9:29 AM by Provider, Sagrario, SWAPNA: X-ray Lizeth Aden MA documented in this encounter [facility] 12-04-2023 History of Presen t illness Narrative Chief Complaint Patient presents with: Rash: & redness right ankle. Pain: Left buttock - started after lifting bags of mulch HPI Gianfranco Holliday is a 83 year old female who presents here today for Above Complaints.. Patient reports pruritic rash for 2 months. States vinegar helps it. Has not been to see us for this yet. She thought it was poison noel but hasn't gone away. Left buttock and upper leg pain for 2 days. States she lifted 40lb bags. Past medical history, appointments, medications, allergies reviewed. Previous Medical History PAST MEDICAL HISTORY Diagnosis Date Abnormal mammogram 06/17/2015 Sees yearly for exam and mammogram Adjustment insomnia 12/25/2018 Advance directive discussed with patient 06/20/2022 Discussed 05/2022 Arthritis Arthritis of both hips 12/19/2021 Burping 12/15/2015 Diverticulosis of large intestine Esophageal dysphagia 01/08/2017 NL upper GI 11/2016: if worrsens will refer for EGD. Family history of leukemia 06/17/2015 Family history of malignant neoplasm of gastrointestinal tract 06/14/2010 Family history of malignant neoplasm of gastrointestinal tract History of DVT (deep vein thrombosis) 11/14/201710/2017; Below the knee, did not advance and no anticoagulation needed. Internal hemorrhoids without mention of complication Lichen planus Lymphocytosis 06/17/2015 Chronic: stable around 45=50% Medicare annual wellness visit, subsequent 06/12/2017 Medicare Part B: NA last done: 06/30/2019 Osteoporosis 06/17/2015 Seasonal allergies 12/15/2015 Situational depression 12/25/2018 loss of 09/17/2018 Stress 06/24/2018 Trigger ring finger of right hand 06/30/2019 Previous Surgical History PAST SURGICAL HISTORY Procedure Laterality Date APPENDECTOMY COLONOSCOPY FLX DX W/COLLJ SPEC WHEN PFRMD 08/08/2010 repeat in 5 yrs COLONOSCOPY FLX DX W/COLLJ SPEC WHEN PFRMD 07/03/2015 Colonoscopy COLONOSCOPY SCREENING 09/10/2023 next colonoscopy due in 5 years SALPINGO-OOPHORECTOMY COMPL/PRTL UNI/BI SPX Salpingo-oophorectomy STRESS TEST 07/14/2017 WNL TOTAL ABDOMINAL HYSTERECT W/WO RMVL TUBE OVARY Hysterectomy, RASHIDA Family History FAMILY HISTORY Problem Relation Age of Onset Cancer Mother ? liver CA Colon Cancer Father other (skin cancer) Daughter Patient Allergies ALLERGIES Allergen Reactions Fexofenadine Other: See Comments headache/sore tongue Current Medications Current Outpatient Medications on File Prior to Visit Medication Sig acetaminophen (TYLENOL ARTHRITIS ORAL) Take by mouth as directed. cholecalciferol, vitamin D3, (VITAMIN D3 ORAL) Take 400 mg by mouth once daily. VITAMIN E, DL,TOCOPHERYL ACET, (VITAMIN E, DL, ACETATE,) 400 unit cap Take 400 Units by mouth once daily. Phxcxvtgukzux-Hshnubin-Jtjfvq (CENTRUM SILVER) tab Take one(1) tablet daily. Ascorbic Acid 1,000 mg tablet Take one(1) tablet daily. aspirin, enteric coated (ADULT LOW DOSE ASPIRIN) 81 mg EC tablet Take 1 tablet by mouth once daily. No current facility-administered medications on file prior to visit. Social History Social History Tobacco Use Smoking status: Never Smokeless tobacco: Never Vaping Use Vaping Use: Never used Substance Use Topics Alcohol use: No Drug use: No Review of Symptoms REVIEW OF SYSTEMS See hpi EXAM: BP 110/62 (BP Site: Left Arm, BP Position: Sitting, BP Cuff Size: Regular Adult) Pulse 97 Temp 37.3 C (99.1 F) (Right Tympanic) Resp 24 Wt 46.3 kg (102 lb) SpO2 97% BMI 19.92 kg/m General Appearance: Well appearing, alert, in no acute distress, well-hydrated, well nourished.. Skin: Skin color, texture, turgor normal, no suspicious rashes or lesions. Musculoskeletal: +pain to left SI Health Maintenance List Advance Directive Discussion due on 08/25/2023 DTaP,Tdap,Td Vaccine(1 - Tdap) due on 07/07/2024 RSV Vaccine(1 - 1-dose 60+ series) due on 07/07/2024 Shingrix Vaccine(1 of 2) due on 07/07/2024 Covid-19 Vaccine(2022- season) due on 07/07/2024 Diabetes Screening due on 12/19/2025 Bone Density Screening Completed Influenza Vaccine Discontinued Colorectal Cancer Screening Discontinued Pneumococcal Vaccine: 65+ Discontinued Data reviewed ASSESSMENT/PLAN: 1. Cellulitis of skin - ICD9: 682.9, ICD10: L03.90 (primary diagnosis) Start atb. Recheck early next week. 2. Spasm of left piriformis muscle - ICD9: 728.85, ICD10: M62.838 Naproxen BID Consider Physical Therapy. Angela Mckenzie PA-C documented in this encounter [facility] 08-12-2023 Telephone encounter Note 09/10/2023 COLON ASC [facility] 08-12-2023 Miscellaneous Notes 09/10/2023 COLON ASC documented in this encounter [facility] 07-24-2023 Miscellaneous Notes Patient called, scheduled appointment with general surg / Dr Grady on 08/12 Attempted calling patient but there was no answer, VM or answering machine. Attempt call back at later time. Please let patient know her cologuard is positive and she should follow up with general surgery. I have placed a consult. documented in this encounter [facility] 01-02-2023 Miscellaneous Notes Pt notified of results and instructions. Chase Saul LPN Attempted to contact pt. No answer and no vm. Will need to try again later. Chase Saul LPN ----- Message from Angela Mckenzie PA-C sent at 01/01/2023 10:23 AM EDT ----- Normal mammogram. Repeat in 1 year. documented in this encounter [facility] 12-31-2022 Miscellaneous Notes January 01, 2023 PID: [id number] Gianfranco Holliday [address] [place] [address] Dear Ms. Holliday, We are pleased to inform you that the results of your recent breast imaging exam on 12/30/2022 are normal. Early detection of cancer is very important. We also understand recommendations regarding breast cancer screening are controversial. Please discuss with your primary care provider which strategy is best for you and whether a mammogram is right for you. Your imaging studies and report will be kept on file at [facility] as part of your permanent medical record and are available for your continuing care. Thank you for allowing us to help in meeting your health care needs. Sincerely, Dr. Jamison Interpreting Radiologist [facility] (Normal over 40) documented in this encounter [facility] 12-30-2022 History of Presen t illness Narrative Radiology Service Progress Note PATIENT NAME: Gianfranco Holliday DATE OF SERVICE: December 30, 2022 TIME: 10:58 AM PATIENT IDENTITY VERIFICATION COMPLETED USING TWO (2) IDENTIFIERS: Name and Date of confirmed by patient verbally. FALL SCREENING: Has the patient had 2 falls in the last year or 1 fall with injury or currently using an Ambulatory Assistive Device (Walker, Cane, Wheelchair, Crutches, etc.)? No PATIENT GENDER DATA: Female. status: : No status: NO. PATIENT RELEVANT IMPLANT DATA REVIEWED: Not Applicable RADIOLOGY DEPARTMENT: Mammography PERIPHERAL IV DATA: Not applicable SIGNED BY: Lucho Holley [email or web address] Anant December 30, 2022 10:58 AM documented in this encounter [facility] 12-24-2022 Miscellaneous Notes Spoke to patient and she will think about this and call office back Kezia Sinclair Ma Xray shows arthritic changes and thinning bones. Could do some Physical Therapy if patient is willing. Angela Mckenzie PA-C documented in this encounter [facility] 12-19-2022 History of Presen t illness Narrative Radiology Service Progress Note PATIENT NAME: Gianfranco Holliday DATE OF SERVICE: December 19, 2022 TIME: 10:22 AM PATIENT IDENTITY VERIFICATION COMPLETED USING TWO (2) IDENTIFIERS: Name and Date of confirmed by patient verbally. FALL SCREENING: Has the patient had 2 falls in the last year or 1 fall with injury or currently using an Ambulatory Assistive Device (Walker, Cane, Wheelchair, Crutches, etc.)? No PATIENT GENDER DATA: Female. status: : No status: NO. PATIENT RELEVANT IMPLANT DATA REVIEWED: Not Applicable RADIOLOGY DEPARTMENT: General X-ray: Exam(s) Completed: Lower Extremity X-Ray(s): Knee, AP / Lat / Tunne / Merchant Left and Wt. Bearing PERIPHERAL IV DATA: Not applicable SIGNED BY: RT Mona(R) December 19, 2022 10:22 AM documented in this encounter [facility] 06-20-2022 Instructions Toni Meier MD - 06/20/2022 12:03 PM EDT Consider getting the shingrix vaccine for the prevention of shingles from a local pharmacy. For bone strength try getting 600 mg of calcium twice a day and Vit D 2000 international unit(s) 's a day. If you want to try something natural for sleep that wont affect your ability to wake up try over the counter melatonin 50 mg 30 min prior ot bed. documented in this encounter [facility] 06-20-2022 History of Presen t illness Narrative Medicare Yearly Visit Medical B eligibilty date NA Date of last exam 06/30/19 PAST MEDICAL HISTORY PAST MEDICAL HISTORY Diagnosis Date Abnormal mammogram 06/17/2015 Sees yearly for exam and mammogram Burping 12/15/2015 Diverticulosis of colon (without mention of hemorrhage) Family history of leukemia 06/17/2015 Family history of malignant neoplasm of gastrointestinal tract 06/14/2010 Family history of malignant neoplasm of gastrointestinal tract Internal hemorrhoids without mention of complication Lichen planus Lymphocytosis 06/17/2015 Chronic: stable around 45=50% Osteoporosis Osteoporosis 06/17/2015 PAST SURGICAL HISTORY PAST SURGICAL HISTORY Procedure Laterality Date APPENDECTOMY COLONOSCOP W/ OR W/O BRSH SPEC 08/08/10 repeat in 5 yrs COLONOSCOP W/ OR W/O BRS SPEC 07/03/15 Colonoscopy REMOVAL OF OVARY/TUBE(S) Salpingo-oophorectomy STRESS TEST 07/14/2017 WNL TOTAL ABDOM HYSTERECTOMY Hysterectomy, RASHIDA Environmental [Other]; Fexofenadine Medications reviewed: Yes FAMILY HISTORY FAMILY HISTORY Problem Relation Age of Onset Cancer Mother ? liver CA Colon Cancer Father other (skin cancer) Daughter SOCIAL HISTORY: SOCIAL HISTORY Social History Marital status: Spouse name: Tan Harper Years of education: Number of children: 1 Social History Main Topics Smoking status: Never Smoker Smokeless tobacco: Never Used Alcohol use: No Drug use: No Sexual activity: Not Currently Partners with: Male Gianfranco works out regularly 7 times per week with walking. She watches her diet for sodium, low fat and low cholesterol generally not very much. List of current specialists seen: none End of Live Planning discussed including patients advanced directive wishes: Yes I am willing to follow [place]'s advanced directives. Depression screen Depression Screening 06/21/2016 07/09/2017 12/25/2018 06/20/2022 PHQ-2 Score 0 0 2 1 Depression screening tool completed and reviewed. Based on score and interview, patient is not at risk for depression. Screening tool discussed with patient, and I recommended no further intervention at this time. Functional Ability/Safety Screen 1. Was the patient's timed Up and Go test unsteady or longer than 30 seconds? No 2. Does the patient need help with the phone, transportation, shopping,preparing meals, housework, laundry, medications or managing money? No 3. Does your home have rugs in the hallway( two) lack of grab bars in the bathroom(Y), lack of handrails on the stairs or have poor lighting? No Hearing Evaluation: hard or hearing PHYSICAL EXAM BP 98/60 (BP Site: Left Arm, BP Position: Sitting, BP Cuff Size: Regular Adult) Pulse 60 Resp 16 Ht 151.8 cm (4' 11.75") Wt 45.4 kg (100 lb) BMI 19.69 kg/m Alert and oriented X 3: YES Body mass index is 19.69 kg/m . Seeing optho See below ASSESSMENT/PLAN: 81 year old female The following prevention plan was discussed during the office visit and provided to the patient: See below Toni Meier MD Chief Complaint Patient presents with: Medicare Wellness Exam HPI Gianfranco Holliday is a 81 year old female who presents here today for extensive Visit. Patient with hx of osteoporosis, diverticulosis, lymphocytosis, seasonal allergies as well as those reviewed and addressed below and in ROS Patient has been doing well. Still not interested in getting the COVID vaccination. Patient still not sleeping well. Will wake up several times a night and lay there for a few hrs. Does not want to take anything prescription [place]. . Past medical history, appointments, medications, allergies reviewed. Previous Medical History PAST MEDICAL HISTORY Diagnosis Date Abnormal mammogram 06/17/2015 Sees yearly for exam and mammogram Adjustment insomnia 12/25/2018 Arthritis of both hips 12/19/2021 Burping 12/15/2015 Diverticulosis of large intestine Esophageal dysphagia 01/08/2017 NL upper GI 11/2016: if worrsens will refer for EGD. Family history of leukemia 06/17/2015 Family history of malignant neoplasm of gastrointestinal tract 06/14/2010 Family history of malignant neoplasm of gastrointestinal tract History of DVT (deep vein thrombosis) 11/14/201710/2017; Below the knee, did not advance and no anticoagulation needed. Internal hemorrhoids without mention of complication Lichen planus Lymphocytosis 06/17/2015 Chronic: stable around 45=50% Medicare annual wellness visit, subsequent 06/12/2017 Medicare Part B: NA last done: 06/30/2019 Osteoporosis 06/17/2015 Seasonal allergies 12/15/2015 Situational depression 12/25/2018 loss of 09/17/2018 Stress 06/24/2018 Trigger ring finger of right hand 06/30/2019 Previous Surgical History PAST SURGICAL HISTORY Procedure Laterality Date APPENDECTOMY COLONOSCOPY FLX DX W/COLLJ SPEC WHEN PFRMD 08/08/10 repeat in 5 yrs COLONOSCOPY FLX DX W/COLLJ SPEC WHEN PFRMD 07/03/15 Colonoscopy SALPINGO-OOPHORECTOMY COMPL/PRTL UNI/BI SPX Salpingo-oophorectomy STRESS TEST 07/14/2017 WNL TOTAL ABDOMINAL HYSTERECT W/WO RMVL TUBE OVARY Hysterectomy, RASHIDA Family History FAMILY HISTORY Problem Relation Age of Onset Cancer Mother ? liver CA Colon Cancer Father other (skin cancer) Daughter Patient Allergies ALLERGIES Allergen Reactions Environmental [Othe* Unknown Fexofenadine Other: See Comments headache/sore tongue Current Medications Current Outpatient Medications on File Prior to Visit Medication Sig baclofen (LIORESAL) 5 mg tablet Take 1 tablet by mouth three times daily. cholecalciferol, vitamin D3, (VITAMIN D3 ORAL) Take 400 mg by mouth once daily. aspirin, enteric coated (ADULT LOW DOSE ASPIRIN) 81 mg EC tablet Take 1 tablet by mouth once daily. VITAMIN E, DL,TOCOPHERYL ACET, (VITAMIN E, DL, ACETATE,) 400 unit cap Take 400 Units by mouth once daily. Zwmeadxyhffce-Dmlyream-Lkxuey (CENTRUM SILVER) ORAL Tab Take one(1) tablet daily. Ascorbic Acid (VITAMIN C) 1,000 mg ORAL tablet Take one(1) tablet daily. No current facility-administered medications on file prior to visit. Social History Social History Tobacco Use Smoking status: Never Smokeless tobacco: Never Substance Use Topics Alcohol use: No Drug use: No Review of Symptoms REVIEW OF SYSTEMS GENERAL: No significant weight loss, malaise or fevers HEENT: Negative for frequent or significant headaches, slight changes in hearing and vision, no nose bleeds or other nasal problems. Will see optho in the Spring. NECK: Negative for lumps, goiter, pain and significant neck swelling RESPIRATORY: Negative for cough, hemoptysis, wheezing, COPD, dyspnea or shortness of breath CARDIOVASCULAR: Negative for chest pain, leg swelling, hypertension, CHF or palpitations GI: No nausea, vomiting, or diarrhea, No heartburn or reflux symptoms, and no blood : No history of dysuria, frequency or incontinence MUSCULOSKELETAL: Negative for joint pain or swelling, back pain or muscle pain, other then her right hip. SKIN: Negative for lesions, rash, and itching PSYCH: see HPI and medicare section. HEMATOLOGY/LYMPHOLOGY: Negative for prolonged bleeding, bruising easily or swollen nodes ENDOCRINE: Negative for cold or heat intolerance, polyuria, polydipsia and goiter NEURO: No history of headaches, syncope, paralysis, seizures or tremors EXAM: BP 98/60 (BP Site: Left Arm, BP Position: Sitting, BP Cuff Size: Regular Adult) Pulse 60 Resp 16 Ht 151.8 cm (4' 11.75") Wt 45.4 kg (100 lb) BMI 19.69 kg/m Last 4 Encounter Wt Readings: Date: Wt: 06/20/2022 45.4 kg (100 lb) 12/19/2021 47.6 kg (105 lb) 11/09/2021 48.1 kg (106 lb) 06/30/2019 45.8 kg (101 lb) General Appearance: Well appearing, alert, in no acute distress, well-hydrated, well nourished. and Thin. Skin: Skin color, texture, turgor normal, no suspicious rashes or lesions. Head: Normocephalic, no masses, lesions, tenderness or abnormalities. Eyes: Anicteric sclera. Pupils are equally round and reactive to light. Extraocular movements are intact. . Ears: External ears, TM's normal, canals clear. Neck: Supple, no adenopathy; thyroid symmetric, normal size, no bruits. Lungs: Lungs clear to auscultation. No wheezing, rhonchi, rales.. Heart: RRR without murmur, gallop, or rubs. No ectopy. Abdomen: Normal abdominal exam, Abdomen soft, non-tender. Bowel sounds normal. No masses, organomegaly. Extremities: No deformities, edema, skin discoloration, Good capillary refill. . Musculoskeletal: Muscular strength intact, No joint swelling, deformity, or tenderness. Peripheral Pulses: Normal. Neurologic: Gait normal. Reflexes normal and symmetric. Sensation to light touch and crainal nerves 2-12 intact.. Health Maintenance List COVID-19 VACCINE(1) Never done DTAP,TDAP,TD(1 - Tdap) Never done SHINGRIX VACCINE(1 of 2) Never done ADVANCE DIRECTIVE DISCUSSION Never done DIABETES SCREEN due on 12/19/2024 BONE DENSITY Completed INFLUENZA Discontinued PNEUMOCOCCAL: 65+ Discontinued Data reviewed Component Latest Ref Rng & Units 12/19/2021 WBC 3.70 - 11.00 k/uL 8.47 RBC 3.90 - 5.20 m/uL 4.55 Hemoglobin 11.5 - 15.5 g/dL 13.3 Hematocrit 36.0 - 46.0 % 41.6 MCV 80.0 - 100.0 fL 91.4 MCH 26.0 - 34.0 pg 29.2 MCHC 30.5 - 36.0 g/dL 32.0 RDW-CV 11.5 - 15.0 % 13.4 Platelet Count 150 - 400 k/uL 273 MPV 9.0 - 12.7 fL 11.7 Neut% % 57.6 Abs Neut (ANC) 1.45 - 7.50 k/uL 4.88 Lymph% % 34.0 Abs Lymph 1.00 - 4.00 k/uL 2.88 Petroleum% % 6.6 Abs Petroleum <0.87 k/uL 0.56 Eosin% % 1.1 Abs Eosin <0.46 k/uL 0.09 Baso% % 0.5 Abs Baso <0.11 k/uL 0.04 Immature Gran % % 0.2 IMMATURE GRANS (ABS) <0.10 k/uL <0.03 NRBC /100 WBC 0.0 Absolute nRBC <0.01 k/uL <0.01 DTYPE Auto Protein, Total 6.3 - 8.0 g/dL 7.7 Albumin 3.9 - 4.9 g/dL 4.9 Calcium 8.5 - 10.2 mg/dL 9.8 Bilirubin, Total 0.2 - 1.3 mg/dL 0.2 Alkaline Phosphatase 34 - 123 U/L 79 AST 13 - 35 U/L 27 ALT 7 - 38 U/L 17 Glucose 74 - 99 mg/dL 99 BUN 7 - 21 mg/dL 15 Creatinine 0.58 - 0.96 mg/dL 0.82 Sodium 136 - 144 mmol/L 140 Potassium 3.7 - 5.1 mmol/L 4.4 Chloride 97 - 105 mmol/L 102 CO2 22 - 30 mmol/L 29 Anion Gap 9 - 18 mmol/L 9 eGFR >=60 mL/min/1.73m 72 Total Cholesterol, Nonfasting <200 mg/dL 233 (H) Triglycerides, Nonfasting <150 mg/dL 234 (H) HDL Cholesterol, Nonfasting >39 mg/dL 66 LDL Cholesterol, Nonfasting <100 mg/dL 120 (H) Non HDL Cholesterol, Nonfasting <130 mg/dL 167 (H) VLDL Cholesterol, Nonfasting <30 mg/dL 47 (H) Total Chol/HDL Ratio, Nonfasting <5.10 mg/dL 3.53 LDL/HDL Ratio, Nonfasting <2.54 mg/dL 1.82 A/P ASSESSMENT/PLAN: 1. Medicare annual wellness visit, subsequent - ICD9: V70.0, ICD10: Z00.00 (primary diagnosis) - Counseled on healthy diet and regular exercise - Calcium intake with supplements or by diet of 1000 mg/day for under 50, 3716-3780 mg/day for 50+ - Follow up for annual exam in one year 2. Situational depression - ICD9: 309.0, ICD10: F43.21 - doing ok without meds. 3. Lymphocytosis - ICD9: 288.61, ICD10: D72.820 - last CBC was normal. 4. Seasonal allergies - ICD9: 477.9, ICD10: J30.2 - no current issues 5. Adjustment insomnia - ICD9: 307.41, ICD10: F51.02 - patient still not sleeping well. Does not want any prescription meds. - discussed trial of melatonin 5 mg before bed. 6. Osteoporosis, unspecified osteoporosis type, unspecified pathological fracture presence - ICD9: 733.00, ICD10: M81.0 - Reviewed the need for Calcium and Vitamin D supplements and weight bearing exercise as tolerated - patient has decided not to take fosamax at this time. 7. Advance directive discussed with patient - ICD9: V65.49, ICD10: Z71.89 - packets provided. F/u in a year or sooner if issues. I spent a total of 40 minutes on the date of the service which included preparing to see the patient, [id number] patient care, completing clinical documentation, performing a medically appropriate examination, counseling and educating the patient/family/caregiver and ordering medications, tests, or procedures. Toni Meier MD documented in this encounter [facility] 02-06-2022 Miscellaneous Notes Pt notified of same. Chase Saul LPN Tried calling patient no answer or vm set up Kezia Sinclair Ma Let patient know additional mammogram images were normal. documented in this encounter [facility] 02-05-2022 History of Presen t illness Narrative Radiology Service Progress Note PATIENT NAME: Gianfranco Holliday DATE OF SERVICE: February 05, 2022 TIME: 10:11 AM PATIENT IDENTITY VERIFICATION COMPLETED USING TWO (2) IDENTIFIERS: Name and Date of confirmed by patient verbally. FALL SCREENING: Has the patient had 2 falls in the last year or 1 fall with injury or currently using an Ambulatory Assistive Device (Walker, Cane, Wheelchair, Crutches, etc.)? No PATIENT GENDER DATA: Female. status: : No status: NO. PATIENT RELEVANT IMPLANT DATA REVIEWED: Not Applicable RADIOLOGY DEPARTMENT: Mammography PERIPHERAL IV DATA: Not applicable SIGNED BY: RT Kae(R) February 05, 2022 10:11 AM documented in this encounter [facility] 12-27-2021 Miscellaneous Notes Please call and assist patient in scheduling a Mammogram diagnostic and US of breast. Thank you. JAMES Gustafson TC to patient who verbalizes understanding of providers message below. Patient states she will think about her options and speak with her daughter before she decided if she wants to add fosamax. She will return call to office when she decides. JAMES Gustafson Let patient know mammogram is showing an asymmetry in the left breast and additional imaging is needed. Order placed. 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 Study shows improvement in bone strength since last study. Options are 1) continue with current Vit D and calcium intake with walking for exercise or 2) Add on a medication such as fosamax once a week to help further strengthen her bones and reduce a back or hip fracture. documented in this encounter [facility] 12-26-2021 Miscellaneous Notes December 26, 2021 PID: [id number] Gianfranco Holliday [address] [place] [address] Dear Ms. Holliday, Your recent breast imaging exam on 12/26/2021 showed a possible finding that requires additional imaging studies for a complete evaluation. Most such findings are probably benign (not cancer). If you have a healthcare provider who ordered/prescribed your screening mammogram: Please call [phone] or EXT: [phone] to schedule an appointment for your additional imaging (if you have not already done so). If you DO NOT have a healthcare provider (ie you did not have an order/prescription for your screening mammogram): Please call to schedule an appointment for your additional imaging (if you have not already done so). You must have an order/prescription from your physician when calling to schedule your appointment. If your order/prescription is not electronic, you must bring the hard copy with you on the day of your exam to avoid delays. Your imaging studies and reports are kept on file at [facility] as part of your permanent medical record, and are available for your continuing care. Thank you for allowing us to help in meeting your health care needs. Sincerely, Dr. New Interpreting Radiologist [facility] (Additional imaging) documented in this encounter [facility] 12-26-2021 History of Presen t illness Narrative Radiology Service Progress Note PATIENT NAME: Gianfranco Holliday DATE OF SERVICE: December 26, 2021 TIME: 1:18 PM PATIENT IDENTITY VERIFICATION COMPLETED USING TWO (2) IDENTIFIERS: Name and Date of confirmed by patient verbally. FALL SCREENING: Has the patient had 2 falls in the last year or 1 fall with injury or currently using an Ambulatory Assistive Device (Walker, Cane, Wheelchair, Crutches, etc.)? No PATIENT GENDER DATA: Female. status: : No status: NO. PATIENT RELEVANT IMPLANT DATA REVIEWED: Not Applicable RADIOLOGY DEPARTMENT: Bone Density PERIPHERAL IV DATA: Not applicable SIGNED BY: RT Jose L(R) December 26, 2021 1:18 PM documented in this encounter [facility] 12-26-2021 History of Presen t illness Narrative Radiology Service Progress Note PATIENT NAME: Gianfranco Holliday DATE OF SERVICE: December 26, 2021 TIME: 1:00 PM PATIENT IDENTITY VERIFICATION COMPLETED USING TWO (2) IDENTIFIERS: Name and Date of confirmed by patient verbally. FALL SCREENING: Has the patient had 2 falls in the last year or 1 fall with injury or currently using an Ambulatory Assistive Device (Walker, Cane, Wheelchair, Crutches, etc.)? No PATIENT GENDER DATA: Female. status: : No status: NO. PATIENT RELEVANT IMPLANT DATA REVIEWED: Not Applicable RADIOLOGY DEPARTMENT: Mammography PERIPHERAL IV DATA: Not applicable SIGNED BY: RT Iris(R) December 26, 2021 1:00 PM documented in this encounter [facility] 12-20-2021 Miscellaneous Notes Patient was notified and verbalized understanding Kezia Sinclair Ma Let patient know her recent labs were all ok except her Trigs were mildly elevated. Advise trying to decrease some fat from diet. More fruits and veggies. documented in this encounter [facility] 12-20-2021 Miscellaneous Notes Phoned patient and given provider's message below with verbalized understanding. Let patient know hip x-ray does show some arthritis. documented in this encounter [facility] 12-19-2021 History of Presen t illness Narrative Chief Complaint Patient presents with: Recheck: routine/medication HPI Gianfranco Holliday is a 81 year old female who presents here today for Chronic Medical Conditions and Acute Complaints.. Patient with hx of osteoporosis, diverticulosis, lymphocytosis, seasonal allergies as well as those reviewed and addressed below and in ROS Patient presents with concern of RT hip pain since being seen by PA on 11/09. Patient did 3 week of PT and is still doing exercises at home. Patient states in morning she can barely walk due to pain. Patient lives on her own. For the most part doing ok. Some nights not always able to sleep well. Thinks she stopped the Fosamax a little over a year ago. Past medical history, appointments, medications, allergies reviewed. Previous Medical History PAST MEDICAL HISTORY Diagnosis Date Abnormal mammogram 06/17/2015 Sees yearly for exam and mammogram [place] 12/15/2015 Diverticulosis of large intestine Esophageal dysphagia 01/08/2017 NL upper GI 11/2016: if worrsens will refer for EGD. Family history of leukemia 06/17/2015 Family history of malignant neoplasm of gastrointestinal tract 06/14/2010 Family history of malignant neoplasm of gastrointestinal tract History of DVT (deep vein thrombosis) 11/14/201710/2017; Below the knee, did not advance and no anticoagulation needed. Internal hemorrhoids without mention of complication Lichen planus Lymphocytosis 06/17/2015 Chronic: stable around 45=50% Medicare annual wellness visit, subsequent 06/12/2017 Medicare Part B: NA last done: 06/30/2019 Osteoporosis 06/17/2015 Seasonal allergies 12/15/2015 Situational depression 12/25/2018 loss of 09/17/2018 Stress 06/24/2018 Previous Surgical History PAST SURGICAL HISTORY Procedure Laterality Date APPENDECTOMY COLONOSCOPY FLX DX W/COLLJ SPEC WHEN PFRMD 08/08/10 repeat in 5 yrs COLONOSCOPY FLX DX W/COLLJ SPEC WHEN PFRMD 07/03/15 Colonoscopy SALPINGO-OOPHORECTOMY COMPL/PRTL UNI/BI SPX Salpingo-oophorectomy STRESS TEST 07/14/2017 WNL TOTAL ABDOMINAL HYSTERECT W/WO RMVL TUBE OVARY Hysterectomy, RASHIDA Family History FAMILY HISTORY Problem Relation Age of Onset Cancer Mother ? liver CA Colon Cancer Father other (skin cancer) Daughter Patient Allergies ALLERGIES Allergen Reactions Environmental [Othe* Unknown Fexofenadine Other: See Comments headache/sore tongue Current Medications Current Outpatient Medications on File Prior to Visit Medication Sig cholecalciferol, vitamin D3, (VITAMIN D3 ORAL) Take 400 mg by mouth once daily. aspirin, enteric coated (ADULT LOW DOSE ASPIRIN) 81 mg EC tablet Take 1 tablet by mouth once daily. VITAMIN E, DL,TOCOPHERYL ACET, (VITAMIN E, DL, ACETATE,) 400 unit cap Take 400 Units by mouth once daily. Tpzibpvbvcoin-Hasgrkua-Dviouh (CENTRUM SILVER) ORAL Tab Take one(1) tablet daily. Ascorbic Acid (VITAMIN C) 1,000 mg ORAL tablet Take one(1) tablet daily. baclofen (LIORESAL) 5 mg tablet Take 1 tablet by mouth three times daily. No current facility-administered medications on file prior to visit. Social History Social History Tobacco Use Smoking status: Never Smoker Smokeless tobacco: Never Used Substance Use Topics Alcohol use: No Drug use: No Review of Symptoms REVIEW OF SYSTEMS GENERAL: No weight loss, malaise or fevers RESPIRATORY: Negative for cough, hemoptysis, wheezing, COPD, dyspnea or shortness of breath CARDIOVASCULAR: Negative for chest pain, leg swelling, hypertension, CHF or palpitations. Every once in a while will will get a short quick pain in the right lower chest/upper abdomen that last a few seconds and then after it will typically belch a few times. GI: No nausea, vomiting, or diarrhea MUSCULOSKELETAL: se HPI ENDOCRINE: Negative for cold or heat intolerance, polyuria, polydipsia and goiter NEURO: No history of headaches, syncope, paralysis, seizures or tremors EXAM: BP 110/70 Pulse 60 Resp 14 Wt 47.6 kg (105 lb) BMI 20.35 kg/m Last 4 Encounter Wt Readings: Date: Wt: 12/19/2021 47.6 kg (105 lb) 11/09/2021 48.1 kg (106 lb) 06/30/2019 45.8 kg (101 lb) 12/25/2018 44.9 kg (99 lb) General Appearance: Well appearing, alert, in no acute distress, well-hydrated, well nourished.. Neck: Supple, no adenopathy; thyroid symmetric, normal size, no bruits. Lungs: Lungs clear to auscultation. No wheezing, rhonchi, rales.. Heart: RRR without murmur, gallop, or rubs. No ectopy. Abdomen: Normal abdominal exam, Abdomen soft, non-tender. Bowel sounds normal. No masses, organomegaly. Extremities: No deformities, edema, Musc: No pain over the right SI region. She has some discomfort in the left posterior hip joint/sciatic nerve area. Flexion of the right hip is smooth and has increased tightness and discomfort in the area of concern at full hip flexion. Extension, internal/external rotation and abduction/adduction were all ok and within normal limits. Peripheral Pulses: Normal. Health Maintenance List COVID-19 VACCINE(1) Never done DTAP,TDAP,TD(1 - Tdap) Never done SHINGRIX VACCINE(1 of 2) Never done ADVANCE DIRECTIVE DISCUSSION Never done DIABETES SCREEN due on 12/17/2021 BONE DENSITY Completed MENINGOCOCCAL CONJUGATE Aged Out INFLUENZA Discontinued PNEUMOVAX AGE 65 AND OVER WITH 5YR LOOKBACK Discontinued Data reviewed A/P ASSESSMENT/PLAN: 1. Lymphocytosis - ICD9: 288.61, ICD10: D72.820 (primary diagnosis) Check - COMP METABOLIC PANEL - CBC + DIFF 2. Right hip pain - ICD9: 719.45, ICD10: M25.551 Check - XR HIP GENERAL 3V PELV/AP/LAT RIGHT - CONSULT TO ORTHOPAEDICS 3. Seasonal allergies - ICD9: 477.9, ICD10: J30.2 - Clinically doing ok and no issues. 4. Osteoporosis, unspecified osteoporosis type, unspecified pathological fracture presence - ICD9: 733.00, ICD10: M81.0 check - DXA-AXIAL SKELETON 5. Encounter for screening mammogram for breast cancer - ICD9: V76.12, ICD10: Z12.31 Check - RACHAEL SCREENING 6. Family history of leukemia - ICD9: V16.6, ICD10: Z80.6 - Check CBC 7. Encounter for screening for cardiovascular disorders - ICD9: V81.2, ICD10: Z13.6 Check - COMP METABOLIC PANEL - LIPID PANEL, NONFASTING 8. Encounter for screening for diabetes mellitus - ICD9: V77.1, ICD10: Z13.1 Check - COMP METABOLIC PANEL F/u 6 months extensive Toni Meier MD documented in this encounter [facility] 11-15-2021 History of Presen t illness Narrative Episode Visit Count: 2 Therapist That Will Oversee The Plan Of Care: Soumya Barry Start of Care Date: 11/12/21 Onset Date: 11/12/21 Plan of Care Certification Date: 11/12/21 Next Certification Due Date: 12/17/21 Patient Identified by Name and Date of : Yes REHABILITATION AND SPORTS THERAPY PHYSICAL THERAPY TREATMENT NOTE ASSESSMENT: Gianfranco Holliday tolerated the session with increased pain. She demonstrated improvements in hip flexion, and JOHANNY AROM with repeated sets of piriformis and hip flexion stretching in seated or supine positions. Pt. Reported no pain with walking by the end of the visit. Pt. Follows instruction best with 1 step cues. The patient will continue to benefit from ongoing skilled physical therapy to progress toward set goals. PLAN FOR NEXT VISIT: Progress to TA stabilization in hooklying position as tolerated. SUBJECTIVE: Patient Reason for Visit: Pt. reports she is "having a rough day." she didn't do the exercises yet today because she was coming here. When she did the piriformis stretching at home, this provided some relief. Pain: Pain Pain Level: 2 Pain Location: Buttocks - Right Description: Sharp Frequency: With movement Post Treatment Pain Post Treatment Pain Level: 0 Post Treatment Pain Location: Low Back/Lumbar Spine - Right Post Treatment Pain Location 2: Hip - Right OBJECTIVE MEASURES WITH LEVEL OF FUNCTION: TREATMENT: Therapeutic Exercise: 1: seated piriformis stretch 3x30 sec each LE (pt. reports reduced R hip symptoms) 2: *supine KTC stretch 3x30 sec each LE 3: supine BLE physioball rolling repeated B hip flexion to 90 2x10 4: seated repeated lumbar flexion 2x5 (pt. reports it pulls and it feels worse, d/c this exercise) 5: hooklying pelvic rotation 2x10 6: seated LAQ 1x5 each LE Skilled Intervention: Patient was educated in proper exercise technique and purpose for exercises. Reviewed and educated patient on additions/changes for home exercise program as above (*). Skilled judgment was provided in selection of appropriate interventions. Provided written instruction for home exercise program to facilitate proper performance and compliance. Correct performance of therapeutic exercises was facilitated with verbal, visual and tactile cuing. Additional time necessary for providing HEP adding lumbar and hip flexion stretching in hook lying due to complaints of back pain today. Educated patient on rationale for performing exercises in regards to decreasing fatigue , increase ease of ADL and ROM and function . Patient education as noted. Self-Prison Management: 1: *encouraged pt. to peform piriformis stretch in the morning when her pain is worse. 2: *Pt. education that stretching is ok to perform multiple times throughout the day as needed to reduce symptoms Skilled Intervention: Skilled judgment in the selection of proper modification for activity of daily living/home management based on clinical presentation, deficits, and needs. Physical assistance was provided during education for modifications and patient safety. Educated the patient regarding recommendations and provided written instruction to facilitate compliance. Reviewed patient specific diagnosis in relation to activities of daily living/home management. Activity progression based on professional judgement. Correct performance of home program was facilitated with verbal, visual and tactile cueing. Billing Therapeutic Exercise Treatment Minutes: 30 Self-Care/Home Management Treatment Minutes: 10 Total Treatment Time Minutes (timed and untimed codes) : 40 Soumya Barry PT documented in this encounter [facility] 11-12-2021 History of Presen t illness Narrative Episode Visit Count: 1 Therapist That Will Oversee The Plan Of Care: Soumya Barry Start of Care Date: 11/12/21 Onset Date: 11/12/21 Plan of Care Certification Date: 11/12/21 Next Certification Due Date: 12/17/21 Patient Identified by Name and Date of : Yes REHABILITATION AND SPORTS THERAPY PHYSICAL THERAPY EVALUATION PLAN OF CARE: Assessment: Gianfranco Holliday presents with diagnosis of lumbar strain and piriformis syndrome that interferes with sitting;rising from a chair;driving . She presents with impairments in ADL's, flexibility, independence in exercise, joint mobility, overall function and tissue tenderness. Prognosis for therapy is Good due to: within-session changes;acuteness of condition;current objective clinical presentation;good overall health status . She will benefit from skilled therapy services to meet the goals established for this plan of care as noted below. Classification Low Back Pain Subgroup Classification: Spinal mobilization subgroup: recommended visits 6. Spinal Mobilization Subgroup Classification based on: endrange pain;ROM loss Goals for Episode of Care: created on 11/12/21 through 12/24/21 [place] in home exercise program. Patient will decrease pain to 0/10 at rest and with functional activities to allow patient to improve ambulation, transfers and standing tolerance for ADLs. Patient will increase active ROM of R hip extension to 30 degrees in standing, abduction to 45 degrees in standing, ER to 45 degrees seated without pain and hip flexion to 90 degrees supine to allow pt to to improve performance of ADLs. Patient will increase flexibility of BLE hamstrings to equal unaffected extremity/side to improve ability to maintain proper posture and decrease pain. Perform seated activities and driving with decreased report of symptoms/pain in 6 weeks. Perform transfers without pain. Improve postural awareness. Independent in home exercises. Restore pain-free lumbar ROM to minimal to no limitation flexion to allow for donning shoes and dressing without limitation due to pain. Sleep through night without pain/symptoms. Sit 1-2 hours without pain/symptoms to allow for seated activities Patient will be able to correct postural deviations independently in order to to decrease current pain and prevent future recurrence. Patient Goals: to reduce R buttock symptoms in order to better tolerate driving and seated activities she enjoys including crossword puzzles and coloring. Planned Interventions, Frequency, and Duration: Current Frequency: 2x/week Duration: 6 weeks Total Number of Visits Planned: 12 Planned Treatment Interventions: Therapeutic exercise (51600);Neuromuscular re-education (41159);Manual therapy (49014);Therapeutic activities (82400);Self-alf management (75731);Gait Training (31897);Patient/Family/Caregiver Education PLAN FOR NEXT VISIT: hamstring and piriformist stretching supine. Patient demonstrates good understanding of plan of care and treatment. The above goals and plan of care were discussed and agreed upon by patient/family. SUBJECTIVE: Gianfranco Holliday is a 81 year old female seen today for complaints of R buttock pain that onset in September 2021 when she was shoveling snow. She reports pain did not onset immediately with this activity, but came later with prolonged sitting. Pt. denies back pain during shoveling or after shoveling. She was prescrived muscle relaxers and this greatly reduced her symptoms enough for her to sleep better. Pt. continues to avoid sitting due to tenderness in the R buttock. She denies R side back pain with any movement or posture. Standing and walking reduces symptoms. Patient Goals: to reduce R buttock symptoms in order to better tolerate driving and seated activities she enjoys including crossword puzzles and coloring. Functional Limitations: sitting;rising from a chair;driving Prior Level of Function: Independent without limitations Relevant History Past Relevant Medical Conditions: Osteoporosis Preferred Language: Lebanese Employment: Retired Home Environment Patient Lives With: Self/Alone (pt. reports she is independent with all ADLs and IADLs.) Assistance Available: None Home Type: Mobile Home Equipment Owned: (ambulates in the community without assistance.) Transportation: Car Intake Information: Prescription present Previous Treatment: Muscle relaxer ;NSAIDs Falls Interview: No positive findings with falls interview Red Flags Vertebral Fracture Red Flags: Female;Age >70 Vertebral Fracture Clinical Reasoning: Proceed with caution due to the above (1-2) risk factors Abdominal Aortic Aneurysm Red Flags: Age >60 Abdominal Aortic Aneurysm Clinical Reasoning: No identified risk factors. Cancer Red Flags: Age >50 or <20 Cancer Clinical Reasoning: Proceed with caution Infection Clinical Reasoning: No identified risk factors. Cauda Equina Syndrome Clinical Reasoning: No identified risk factors. Red Flags - Cervical Cancer Red Flags: Age >50 or <20 Cancer Clinical Reasoning: Proceed with caution Infection Clinical Reasoning: No identified risk factors. Spine History Symptoms Location at Onset: Buttock Symptoms Since Onset: Improving Pain is Worse Always: Sitting;Driving;Prolonged positions Pain is Better Always: Standing;Walking;On the Move Sleeping Position: Side lying left > right Sleep Affected by Pain: Pain keeps from falling asleep;Pain awakens Pain: Pain Pain Level: 0 Pain Location: Low Back/Lumbar Spine - Right Additional Pain Information : Location 2 Pain Level 2: 4 Pain Location 2: Buttocks - Right Description 2: Stabbing Post Treatment Pain Post Treatment Pain Level: 0 Post Treatment Pain Location: Low Back/Lumbar Spine - Right Post Treatment Symptoms: "its pulling a little less." (while doing piriformis stretch) Post Treatment Pain Location 2: Hip - Right PROMIS Scales T-scores: mean of general population = 50. 5 points is clinically meaningfully difference Percentiles provide an indication of how the patient's score ranks in relation to the general population. Higher percentile rankings indicate better function/quality of life. 50th percentile is the average of the general population and indicates half of respondents had a worse score. T-scores: mean of general population = 50. 5 points is clinically meaningfully difference Percentiles provide an indication of how the patient's score ranks in relation to the general population. Higher percentile rankings indicate better function/quality of life. 50th percentile is the average of the general population and indicates half of respondents had a worse score. OBJECTIVE MEASURES WITH LEVEL OF FUNCTION: Cognition Cognition: Follows Commands Vision Vision Deficits: Wears corrective lenses Posture / Alignment Posture: Slump;Lateral Shift Sitting Posture: Perched;Frequent weight shifts;Sits on left ischial tuberosity;Left lateral shift Effects of Posture Correction: improves Hip Observations R Hip Palpation Tenderness: Piriformis;PSIS;Sacroiliac joint Sensation - Lower Extremity LE Light Touch Sensation: Grossly Intact Spine Observations R Lumbar Spine Palpation Tenderness: No tenderness noted Sensation - Lumbar Sensation: Grossly Intact Lumbar Spine AROM Lumbar Flexion: Minimal limitation Lumbar Extension: Major limitation;Pain during movement Lumbar R Side-Bend: Normal Lumbar L Side-Bend: Minimal limitation;Pain during movement;Increased pain Lumbar R Rotation: Normal Lumbar L Rotation: Normal Repeated Test Movements - Lumbar RFIS - Symptoms During: increases RFIS - Symptoms After: worse MARCELO - Symptoms During: produces MARCELO - Symptoms After: no effect Static Testing - Lumbar Sit Slouched: no effect Sit Erect: better LE AROM R LE AROM: grossly WFL without complaints of pain with the exception of "pulling" in the buttock seated JOHANNY L LE AROM: grossly WFL without pain LE Flexibility Flexibility: Hamstring Flexibility R Hamstring Flexibility: full AROM LAQ, complains of "pulling" in the hamstrings L Hamstring Flexibility: full AROM LAQ, complains of "pulling" in the hamstrings LE Strength R LE Strength: no myotomal weakness observed L LE Strength: no myotomal weakness observed Education: Education Learning Preferences: Demonstration;Explanation;Perfor lisa;Printed Materials Barriers: None Learning/educational needs: Plan of Care;Home exercise program;Safety;Posture;Gait Training Education Provided: Yes, see treatment interventions for education provided Education Provided To: Patient Education Mode/Type: Demonstration;Explanation/Discus pietro;Literature/Printed Materials;Performance Response to Education/Teach Back: States/Identifies;Return Demonstration TREATMENT: PT Treatment Interventions: Therapeutic Exercise;Self-Prison Management Evaluation Evaluation Therapeutic Exercise: 1: *seated piriformis stretch 3x30 sec each LE 2: *seated LAW 2x12 each LE Skilled Intervention: Patient was educated in proper exercise technique and purpose for exercises. Reviewed and educated patient on additions/changes for home exercise program as above (*). Skilled judgment was provided in selection of appropriate interventions. Provided written instruction for home exercise program to facilitate proper performance and compliance. Correct performance of therapeutic exercises was facilitated with verbal, visual and tactile cuing. Additional time necessary for providing HEP and pt. education due to initial evaluation. Educated patient on rationale for performing exercises in regards to decreasing fatigue , increase ease of ADL and ROM and function . Patient education as noted. Self-Prison Management: 1: *postural education, especially when sitting in the chair 2: *pt. education regarding posture, and avoiding activites that cause increased symptoms. Skilled Intervention: Skilled judgment in the selection of proper modification for activity of daily living/home management based on clinical presentation, deficits, and needs. Reviewed patient specific diagnosis in relation to activities of daily living/home management. Activity progression based on professional judgement. Minimum verbal cues for maintaining neutral spine alignment. Correct performance of home program was facilitated with verbal, visual and tactile cueing. Billing * Evaluation Low Complexity: 1 Unit Therapeutic Exercise Treatment Minutes: 15 Self-Care/Home Management Treatment Minutes: 10 Total Treatment Time Minutes (timed and untimed codes) : 45 Soumya Barry PT documented in this encounter [facility] 11-09-2021 History of Presen t illness Narrative Radiology Service Progress Note PATIENT NAME: Gianfranco Holliday DATE OF SERVICE: November 09, 2021 TIME: 1:35 PM PATIENT IDENTITY VERIFICATION COMPLETED USING TWO (2) IDENTIFIERS: Name and Date of confirmed by patient verbally. FALL SCREENING: Has the patient had 2 falls in the last year or 1 fall with injury or currently using an Ambulatory Assistive Device (Walker, Cane, Wheelchair, Crutches, etc.)? No PATIENT GENDER DATA: Female. status: : No status: NO. PATIENT RELEVANT IMPLANT DATA REVIEWED: Not Applicable RADIOLOGY DEPARTMENT: General X-ray: Exam(s) Completed: Spine X-Ray(s): Lumbar AP / LAT / L5-S1 PERIPHERAL IV DATA: Not applicable SIGNED BY: RT Mona(R) November 09, 2021 1:35 PM documented in this encounter [facility] Evaluation note Diagnosis Piriformis syndrome of right side- Primary Lesion of sciatic nerve Strain of lumbar region, initial encounter Piriformis syndrome, right [facility] Strain of lumbar region, initial encounter Piriformis syndrome of right side Lesion of sciatic nerve [facility] Lymphocytosis- Primary Lymphocytosis (symptomatic) Right hip pain Pain in joint, pelvic region and thigh Seasonal allergies Allergic rhinitis, cause unspecified Osteoporosis, unspecified osteoporosis type, unspecified pathological fracture presence Encounter for screening mammogram for breast cancer Family history of leukemia Encounter for screening for cardiovascular disorders Screening for other and unspecified cardiovascular conditions Encounter for screening for diabetes mellitus Screening for diabetes mellitus documented in this encounter [facility] note* Diagnosis Arthritis of both hips documented in this encounter [facility] note* Diagnosis Encounter for screening mammogram for breast cancer documented in this [facility] Diagnosis Osteoporosis, unspecified osteoporosis type, unspecified pathological fracture presence documented in this encounter [facility] note* Diagnosis Abnormal mammogram- Primary Abnormal mammogram, unspecified documented in this encounter [facility] note* Diagnosis Abnormal mammogram Abnormal mammogram, unspecified documented in this encounter [facility] note* Diagnosis Medicare annual wellness visit, subsequent- Primary Routine general medical examination at a health care facility Situational depression Adjustment disorder with depressed mood Lymphocytosis Lymphocytosis (symptomatic) Seasonal allergies Allergic rhinitis, cause unspecified Adjustment insomnia Transient disorder of initiating or maintaining sleep Osteoporosis, unspecified osteoporosis type, unspecified pathological fracture presence Advance directive discussed with patient Other specified counseling documented in this encounter [facility] note* Diagnosis Screening mammogram, encounter for documented in this encounter [facility] note* Diagnosis Positive colorectal cancer screening using Cologuard test- Primary documented in this encounter [facility] note* Diagnosis Cellulitis of skin- Primary Cellulitis and abscess of unspecified site Spasm of left piriformis muscle documented in this encounter [facility] noteNo assessment information availableWOhio[facility] Work Phone: Evaluation note* Diagnosis Skin rash- Primary Rash and other nonspecific skin eruption [facility] Diagnosis PRICILLA positive- Primary Other and unspecified nonspecific immunological findings Rash Rash and other nonspecific skin eruption Vasculitis (HCC) Arteritis, unspecified documented in this encounter [facility] note* Diagnosis Rash- Primary Rash and other nonspecific skin eruption Encounter for screening mammogram for breast cancer documented in this encounter [facility] note* Diagnosis Situational depression- Primary Adjustment disorder with depressed mood Lymphocytosis Lymphocytosis (symptomatic) Adjustment insomnia Transient disorder of initiating or maintaining sleep Irritant contact dermatitis due to plants, except food Contact dermatitis and other eczema due to plants (except food) Rash Rash and other nonspecific skin eruption Encounter for screening for diabetes mellitus Screening for diabetes mellitus Encounter for screening for cardiovascular disorders Screening for other and unspecified cardiovascular conditions [facility] Diagnosis [facility] for [facility] for [facility] Diagnosis Rash- Primary Rash and other nonspecific skin eruption [facility] Diagnosis Chronic pain of left knee Pain in joint, lower leg [facility] Diagnosis Lumbar strain, initial encounter Piriformis syndrome, right [facility]* Diagnosis Right hip pain Pain in joint, pelvic region and thigh [facility]* Diagnosis Dizziness- Primary Dizziness and giddiness Arthralgia of right temporomandibular joint Arthralgia of temporomandibular joint Bacterial sinusitis Unspecified sinusitis (chronic) Hordeolum externum of right lower eyelid Hordeolum externum [facility] Diagnosis Dizziness- Primary Dizziness and giddiness Arthralgia of right temporomandibular joint Arthralgia of temporomandibular joint Bacterial sinusitis Unspecified sinusitis (chronic) [facility]* Diagnosis Well adult exam- Primary Routine general medical examination at a health care facility Encounter for screening for diabetes mellitus Screening for diabetes mellitus Encounter for screening for cardiovascular disorders Screening for other and unspecified cardiovascular conditions [facility]* Diagnosis Acute otitis media, right- Primary Unspecified otitis media [facility]* Diagnosis Medicare annual wellness visit, subsequent- Primary Routine general medical examination at a health care facility Advance directive discussed with patient Other specified counseling Situational depression Adjustment disorder with depressed mood Adjustment insomnia Transient disorder of initiating or maintaining sleep Osteoporosis, unspecified osteoporosis type, unspecified pathological fracture presence Encounter for screening examination for other mental health and behavioral disorders Encounter for screening mammogram for breast cancer Eustachian tube dysfunction, right [facility] Diagnosis Chronic sinusitis, unspecified location- Primary [facility]* Diagnosis Chronic sinusitis, unspecified location [facility] this [facility]* Diagnosis Osteoporosis, unspecified osteoporosis type, unspecified pathological fracture presence documented in this encounter [facility] note* Diagnosis Age related osteoporosis, unspecified pathological fracture presence- Primary documented in this encounter [facility] note* Diagnosis Age related osteoporosis, unspecified pathological fracture presence- Primary Dietary calcium deficiency Mineral deficiency, not elsewhere classified documented in this encounter [facility] for referral (narrative)* Diagnostic Procedure Only (Routine) - Closed Specialty Diagnoses / Procedures Referred By Alpesh t Referred To Contact [facility] Diagnoses Encounter for screening mammogram for breast cancer Procedures RACHAEL SCREENING SCREENING MAMMOGRAPHY BI 2-VIEW BREAST INC CAD Toni Meier MD [address] [place] [address] [facility] [address] [address] Referral ID Status Reason Start Date Expiration Date V isits Requested Visits Authorized [id number] Closed Auto-Generate d Referral 12/19/2021 01/18/2023 1 1 [facility] for referral (narrative)* Diagnostic Procedure Only (Routine) - Pending Review Specialty Diagnoses / Procedures Referred By Alpesh blas Referred To Contact [facility] Diagnoses Abnormal mammogram Procedures US BREAST LTD LT US BREAST UNI REAL TIME WITH IMAGE LIMITED Toni Meier MD [address] [place] [address] [facility] [address] [place] [address] Referral ID Status Reason Start Date Expiration Date Visits Requested Visits Authorized [id number] Pending Review Auto-Generat ed Referral 12/26/2021 01/25/2023 1 1 * Diagnostic Procedure Only (Routine) - Pending Review Specialty Diagnoses / Procedures Referred By Alpesh blas Referred To Contact [facility] Diagnoses Abnormal mammogram Procedures RACHAEL DIAGNOSTIC LT DIAGNOSTIC MAMMOGRAPHY COMPUTER-AIDED DETCJ UNI Toni Meier MD [address] [place] [address] [facility] [address] [place] [address] Referral ID Status Reason Start Date Expiration Date Visits Requested Visits Authorized [id number] Pending Review Auto-Generat ed Referral 12/26/2021 01/25/2023 1 1 [facility] for referral (narrative)* Diagnostic Procedure Only (Routine) - Closed Specialty Diagnoses / Procedures Referred By Contac t Referred To Contact [facility] Diagnoses Screening mammogram, encounter for Procedures RACHAEL SCREENING SCREENING MAMMOGRAPHY BI 2-VIEW BREAST INC CAD Angela Mckenzie PA-C [address] [place] [address] [facility] [address] [place] [address] Referral ID Status Reason Start Date Expiration Date V isits Requested Visits Authorized [id number] Closed Auto-Generate d Referral 12/19/2022 01/18/2024 1 1 T [facility] for referral (narrative)* Diagnostic Procedure Only (Routine) - Authorized Specialty Diagnoses / Procedures Referred By Alpesh t Referred To Contact [facility] Diagnoses Encounter for screening mammogram for breast cancer Procedures RACHAEL SCREENING SCREENING MAMMOGRAPHY BI 2-VIEW BREAST INC CAD Anegla Mckenzie PA-C [address] [place] [address] [facility] [address] [place] [address] Referral ID Status Reason Start Date Expiration Date Visits Requested Visits Authorized [id number] Authorized Auto-Generat ed Referral 12/16/2023 01/14/2025 1 1 T [facility] for referral (narrative)* Diagnostic Procedure Only (Routine) - Closed Specialty Diagnoses / Procedures Referred By Alpesh t Referred To Contact [facility] Diagnoses Chronic pain of left knee Procedures XR KNEE GENERAL 4V AP BOTH/PA BOTH/LAT/MERC LEFT RADIOLOGIC EXAM KNEE COMPLETE 4/MORE VIEWS Angela Mckenzie PA-C [address] [place] [address] [place] [address] Referral ID Status Reason Start Date Expiration Date V isits Requested Visits Authorized [id number] Closed Auto-Generate d Referral 12/19/2022 01/18/2024 1 1 [facility] for referral (narrative)* Diagnostic Procedure Only (Routine) - Closed Specialty Diagnoses / Procedures Referred By Contac t Referred To Contact [facility] IM[facility] Diagnoses Lumbar strain, initial encounter Piriformis syndrome, right Procedures XR LUMBAR GENERAL 3V AP/LAT/L5-S1 RADEX SPINE LUMBOSACRAL 2/3 VIEWS Angela Mckenzie PA-C [address] [place] [address] [place] [address] Referral ID Status Reason Start Date Expiration Date V isits Requested Visits Authorized [id number] Closed Auto-Generate d Referral 11/09/2021 12/09/2022 1 1 [facility] for referral (narrative)* Diagnostic Procedure Only (Routine) - Closed Specialty Diagnoses / Procedures Referred By Contac t Referred To Contact [facility] IM[facility] Diagnoses Right hip pain Procedures XR HIP GENERAL 3V PELV/AP/LAT RIGHT RADEX HIP UNILATERAL WITH PELVIS 2-3 VIEWS Toni Meier MD [address] [place] [address] [place] [address] Referral ID Status Reason Start Date Expiration Date V isits Requested Visits Authorized [id number] Closed Auto-Generate d Referral 12/19/2021 01/18/2023 1 1 [facility] for visit Narrative* Diagnostic Procedure Only (Routine) - Closed Specialty Diagnoses / Procedures Referred By Contac t Referred To Contact [facility] Diagnoses Encounter for screening mammogram for breast cancer Procedures RACHAEL SCREENING SCREENING MAMMOGRAPHY BI 2-VIEW BREAST INC CAD Toni Meier MD [address] [place] [address] [facility] [address] [place] [address] Referral ID Status Reason Start Date Expiration Date V isits Requested Visits Authorized [id number] Closed Auto-Generate d Referral 12/19/2021 01/18/2023 1 1 [facility] for visit Narrative* Diagnostic Procedure Only (Routine) - Closed Specialty Diagnoses / Procedures Referred By Contac t Referred To Contact [facility] Diagnoses Screening mammogram, encounter for Procedures RACHAEL SCREENING SCREENING MAMMOGRAPHY BI 2-VIEW BREAST INC CAD Angela Mckenzie PA-C [address] [place] [address] [facility] [address] [place] [address] Referral ID Status Reason Start Date Expiration Date V isits Requested Visits Authorized [id number] Closed Auto-Generate d Referral 12/19/2022 01/18/2024 1 1 [facility] for visit Narrative* Diagnostic Procedure Only (Routine) - Closed Specialty Diagnoses / Procedures Referred By Contac t Referred To Contact [facility] Diagnoses Encounter for screening mammogram for breast cancer Procedures RACHAEL SCREENING SCREENING MAMMOGRAPHY BI 2-VIEW BREAST INC CAD Angela Mckenzie PA-C [address] [place] [address] [facility] [address] [place] [address] Referral ID Status Reason Start Date Expiration Date V isits Requested Visits Authorized [id number] Closed Auto-Generate d Referral 12/16/2023 01/14/2025 1 1 [facility] for visit Narrative* Diagnostic Procedure Only (Routine) - Closed Specialty Diagnoses / Procedures Referred By Contac t Referred To Contact X[facility] IMAGING Diagnoses Chronic pain of left knee Procedures XR KNEE GENERAL 4V AP BOTH/PA BOTH/LAT/MERC LEFT RADIOLOGIC EXAM KNEE COMPLETE 4/MORE VIEWS Angela Mckenzie PA-C [address] [place] [address] [place] [id number] Referral ID Status Reason Start Date Expiration Date V isits Requested Visits Authorized [id number] Closed Auto-Generate d Referral 12/19/2022 01/18/2024 1 1 [facility] for visit Narrative* Diagnostic Procedure Only (Routine) - Closed Specialty Diagnoses / Procedures Referred By Contac t Referred To Contact [facility] IMAGING Diagnoses Lumbar strain, initial encounter Piriformis syndrome, right Procedures XR LUMBAR GENERAL 3V AP/LAT/L5-S1 RADEX SPINE LUMBOSACRAL 2/3 VIEWS Angela Mckenzie PA-C [address] [place] [address] [place] [address] Referral ID Status Reason Start Date Expiration Date V isits Requested Visits Authorized [id number] Closed Auto-Generate d Referral 11/09/2021 12/09/2022 1 1 [facility] for visit Narrative* Diagnostic Procedure Only (Routine) - Closed Specialty Diagnoses / Procedures Referred By Contac t Referred To Contact XR IMAGING Diagnoses Right hip pain Procedures XR HIP GENERAL 3V PELV/AP/LAT RIGHT RADEX HIP UNILATERAL WITH PELVIS 2-3 VIEWS Toni Meier MD [address] [place] [address] [place] [address] Referral ID Status Reason Start Date Expiration Date V isits Requested Visits Authorized [id number] Closed Auto-Generate d Referral 12/19/2021 01/18/2023 1 1 [facility] for visit Narrative* Diagnostic Procedure Only (Routine) - Closed Specialty Diagnoses / Procedures Referred By Contac t Referred To Contact X[facility] IMAGING Diagnoses Osteoporosis, unspecified osteoporosis type, unspecified pathological fracture presence Procedures DXA-AXIAL SKELETON DXA BONE DENSITY STUDY 1/ SITES AXIAL SKEL Angela Mckenzie PA-C [address] [place] [address] Phone: tel: fax: [place] [address] Referral ID Status Reason Start Date Expiration Date V isits Requested Visits Authorized [id number] Closed Auto-Generate d Referral 10/28/2024 11/27/2025 1 1 [facility] Reason for Referral Specialty Diagnoses / Procedures Referred By Contac t Referred To Contact Orthopedics Diagnoses Right hip pain Procedures CONSULT TO ORTHOPAEDICS OFFICE/OUTPATIENT [facility] 60-74 MINUTES Toni Meier MD [address] [place] [address] Referral ID Status Reason Start Date Expiration Date Visits Requested Visits Authorized [id number] Pending Review PCP Requested Referral 12/19/2021 12/19/2022 1 1 Specialty Diagnoses / Procedures Referred By Alpesh t Referred To Contact X[facility] IMAGING Diagnoses Right hip pain Procedures XR HIP GENERAL 3V PELV/AP/LAT RIGHT RADEX HIP UNILATERAL WITH PELVIS 2-3 VIEWS Toni Meier MD [address] [place] [address] [facility] Referral ID Status Reason Start Date Expiration Date V isits Requested Visits Authorized [id number] Closed Auto-Generate d Referral 12/19/2021 01/18/2023 1 1 Specialty Diagnoses / Procedures Referred By Alpesh t Referred To Contact [facility] Diagnoses Encounter for screening mammogram for breast cancer Procedures RACHAEL SCREENING SCREENING MAMMOGRAPHY BI 2-VIEW BREAST INC CAD Toni Meier MD [address] [place] [address] [facility] [address] [place] [address] Referral ID Status Reason Start Date Expiration Date Visits Requested Visits Authorized [id number] Authorized Auto-Generat ed Referral 12/19/2021 01/18/2023 1 1 Specialty Diagnoses / Procedures Referred By Alpesh t Referred To Contact General Surgery Diagnoses Positive colorectal cancer screening using Cologuard test Procedures CONSULT TO GENERAL SURGERY OFFICE/OUTPATIENT [facility] 60-74 MINUTES Kayden Coleman APRN.CNP [address] [place] [address] Referral ID Status Reason Start Date Expiration Date Visits Requested Visits Authorized [id number] Pending Review PCP Requested Referral 3 07/23/2024 1 1 Specialty Diagnoses / Procedures Referred By Shaquilleac t Referred To Contact Rheumatology Diagnoses PRICILLA positive Rash Vasculitis (HCC) Procedures CONSULT TO RHEUM/IMMUN DISEASE OFFICE/OUTPATIENT [facility] 60 MINUTES Angela Mckenzie PA-C [address] [place] [address] Referral ID Status Reason Start Date Expiration Date Visits Requested Visits Authorized [id number] Authorized PCP Requested Referral 12/11/2023 12/10/2024 1 1 Specialty Diagnoses / Procedures Referred By Contac t Referred To Contact Dermatology Diagnoses Rash Procedures CONSULT TO DERMATOLOGY Angela Mckenzie PA-C [address] [place] [address] Referral ID Status Reason Start Date Expiration Date Visits Requested Visits Authorized [id number] Ref Not Required PCP Requested Referral 02/10/2024 02/09/2025 1 1 Specialty Diagnoses / Procedures Referred By Contac t Referred To Contact Angela Mckenzie PA-C [address] [place] [address] Referral ID Status Reason Start Date Expiration Date V isits Requested Visits Authorized [id number] Authorized 08/25/2023 08/24/2024 1 1 Chief Complaint and Reason for Visit Chief Complaint fever Advance Directives No Advanced Directives Records Found Advance Directive Response Recorded Date/ Time Living Will No December 08, 2023 7:08am Power of Nurse Ob No December 07 7:08am Summary Purpose Family History No Family History Records FoundNo Family History Records Found Additional Source Comments Source Comments (unrecognize d section and content) In the event this informatio n is protected by the Federal Confidentiality of Alcohol and Drug Abuse Patient Records regulations: The Federal rules restrict any use of the information to criminally investigate or prosecute any alcohol or drug abuse patient.[facility] the event this information is protected by the Federal Confidentiality of Alcohol and Drug Abuse Patient Records regulations: The Federal rules restrict any use of the information to criminally investigate or prosecute any alcohol or drug abuse patient.[facility] System[facility] the event this information is protected by the Federal Confidentiality of Alcohol and Drug Abuse Patient Records regulations: The Federal rules restrict any use of the information to criminally investigate or prosecute any alcohol or drug abuse patient.[facility] System[facility] the event this information is protected by the Federal Confidentiality of Alcohol and Drug Abuse Patient Records regulations: The Federal rules restrict any use of the information to criminally investigate or prosecute any alcohol or drug abuse patient.[facility] System[facility] the event this information is protected by the Federal Confidentiality of Alcohol and Drug Abuse Patient Records regulations: The Federal rules restrict any use of the information to criminally investigate or prosecute any alcohol or drug abuse patient.[facility] System[facility] the event this information is protected by the Federal Confidentiality of Alcohol and Drug Abuse Patient Records regulations: The Federal rules restrict any use of the information to criminally investigate or prosecute any alcohol or drug abuse patient.[facility] System[facility] the event this information is protected by the Federal Confidentiality of Alcohol and Drug Abuse Patient Records regulations: The Federal rules restrict any use of the information to criminally investigate or prosecute any alcohol or drug abuse patient.[facility] System[facility] the event this information is protected by the Federal Confidentiality of Alcohol and Drug Abuse Patient Records regulations: The Federal rules restrict any use of the information to criminally investigate or prosecute any alcohol or drug abuse patient.[facility] System[facility] the event this information is protected by the Federal Confidentiality of Alcohol and Drug Abuse Patient Records regulations: The Federal rules restrict any use of the information to criminally investigate or prosecute any alcohol or drug abuse patient.[facility] System[facility] the event this information is protected by the Federal Confidentiality of Alcohol and Drug Abuse Patient Records regulations: The Federal rules restrict any use of the information to criminally investigate or prosecute any alcohol or drug abuse patient.[facility] System[facility] the event this information is protected by the Federal Confidentiality of Alcohol and Drug Abuse Patient Records regulations: The Federal rules restrict any use of the information to criminally investigate or prosecute any alcohol or drug abuse patient.[facility] System[facility] the event this information is protected by the Federal Confidentiality of Alcohol and Drug Abuse Patient Records regulations: The Federal rules restrict any use of the information to criminally investigate or prosecute any alcohol or drug abuse patient.[facility] System[facility] the event this information is protected by the Federal Confidentiality of Alcohol and Drug Abuse Patient Records regulations: The Federal rules restrict any use of the information to criminally investigate or prosecute any alcohol or drug abuse patient.[facility] System[facility] the event this information is protected by the Federal Confidentiality of Alcohol and Drug Abuse Patient Records regulations: The Federal rules restrict any use of the information to criminally investigate or prosecute any alcohol or drug abuse patient.[facility] SystemIn the event this information is protected by the Federal Confidentiality of Alcohol and Drug Abuse Patient Records regulations: The Federal rules restrict any use of the information to criminally investigate or prosecute any alcohol or drug abuse patient.[facility] System[facility] the event this information is protected by the Federal Confidentiality of Alcohol and Drug Abuse Patient Records regulations: The Federal rules restrict any use of the information to criminally investigate or prosecute any alcohol or drug abuse patient.[facility] System[facility] the event this information is protected by the Federal Confidentiality of Alcohol and Drug Abuse Patient Records regulations: The Federal rules restrict any use of the information to criminally investigate or prosecute any alcohol or drug abuse patient.[facility] System[facility] the event this information is protected by the Federal Confidentiality of Alcohol and Drug Abuse Patient Records regulations: The Federal rules restrict any use of the information to criminally investigate or prosecute any alcohol or drug abuse patient.[facility] System[facility] the event this information is protected by the Federal Confidentiality of Alcohol and Drug Abuse Patient Records regulations: The Federal rules restrict any use of the information to criminally investigate or prosecute any alcohol or drug abuse patient.[facility] SystemIn the event this information is protected by the Federal Confidentiality of Alcohol and Drug Abuse Patient Records regulations: The Federal rules restrict any use of the information to criminally investigate or prosecute any alcohol or drug abuse patient.[facility] SystemIn the event this information is protected by the Federal Confidentiality of Alcohol and Drug Abuse Patient Records regulations: The Federal rules restrict any use of the information to criminally investigate or prosecute any alcohol or drug abuse patient.[facility] System[facility] the event this information is protected by the Federal Confidentiality of Alcohol and Drug Abuse Patient Records regulations: The Federal rules restrict any use of the information to criminally investigate or prosecute any alcohol or drug abuse patient.[facility] System[facility] the event this information is protected by the Federal Confidentiality of Alcohol and Drug Abuse Patient Records regulations: The Federal rules restrict any use of the information to criminally investigate or prosecute any alcohol or drug abuse patient.[facility] System[facility] the event this information is protected by the Federal Confidentiality of Alcohol and Drug Abuse Patient Records regulations: The Federal rules restrict any use of the information to criminally investigate or prosecute any alcohol or drug abuse patient.[facility] SystemIn the event this information is protected by the Federal Confidentiality of Alcohol and Drug Abuse Patient Records regulations: The Federal rules restrict any use of the information to criminally investigate or prosecute any alcohol or drug abuse patient.[facility] SystemIn the event this information is protected by the Federal Confidentiality of Alcohol and Drug Abuse Patient Records regulations: The Federal rules restrict any use of the information to criminally investigate or prosecute any alcohol or drug abuse patient.[facility] SystemIn the event this information is protected by the Federal Confidentiality of Alcohol and Drug Abuse Patient Records regulations: The Federal rules restrict any use of the information to criminally investigate or prosecute any alcohol or drug abuse patient.[facility] SystemIn the event this information is protected by the Federal Confidentiality of Alcohol and Drug Abuse Patient Records regulations: The Federal rules restrict any use of the information to criminally investigate or prosecute any alcohol or drug abuse patient.[facility] SystemIn the event this information is protected by the Federal Confidentiality of Alcohol and Drug Abuse Patient Records regulations: The Federal rules restrict any use of the information to criminally investigate or prosecute any alcohol or drug abuse patient.[facility] SystemIn the event this information is protected by the Federal Confidentiality of Alcohol and Drug Abuse Patient Records regulations: The Federal rules restrict any use of the information to criminally investigate or prosecute any alcohol or drug abuse patient.[facility] SystemIn the event this information is protected by the Federal Confidentiality of Alcohol and Drug Abuse Patient Records regulations: The Federal rules restrict any use of the information to criminally investigate or prosecute any alcohol or drug abuse patient.[facility] SystemIn the event this information is protected by the Federal Confidentiality of Alcohol and Drug Abuse Patient Records regulations: The Federal rules restrict any use of the information to criminally investigate or prosecute any alcohol or drug abuse patient.[facility] SystemIn the event this information is protected by the Federal Confidentiality of Alcohol and Drug Abuse Patient Records regulations: The Federal rules restrict any use of the information to criminally investigate or prosecute any alcohol or drug abuse patient.[facility] SystemIn the event this information is protected by the Federal Confidentiality of Alcohol and Drug Abuse Patient Records regulations: The Federal rules restrict any use of the information to criminally investigate or prosecute any alcohol or drug abuse patient.[facility] SystemIn the event this information is protected by the Federal Confidentiality of Alcohol and Drug Abuse Patient Records regulations: The Federal rules restrict any use of the information to criminally investigate or prosecute any alcohol or drug abuse patient.[facility] SystemIn the event this information is protected by the Federal Confidentiality of Alcohol and Drug Abuse Patient Records regulations: The Federal rules restrict any use of the information to criminally investigate or prosecute any alcohol or drug abuse patient.[facility] SystemIn the event this information is protected by the Federal Confidentiality of Alcohol and Drug Abuse Patient Records regulations: The Federal rules restrict any use of the information to criminally investigate or prosecute any alcohol or drug abuse patient.[facility] SystemIn the event this information is protected by the Federal Confidentiality of Alcohol and Drug Abuse Patient Records regulations: The Federal rules restrict any use of the information to criminally investigate or prosecute any alcohol or drug abuse patient.[facility] SystemIn the event this information is protected by the Federal Confidentiality of Alcohol and Drug Abuse Patient Records regulations: The Federal rules restrict any use of the information to criminally investigate or prosecute any alcohol or drug abuse patient.[facility] SystemIn the event this information is protected by the Federal Confidentiality of Alcohol and Drug Abuse Patient Records regulations: The Federal rules restrict any use of the information to criminally investigate or prosecute any alcohol or drug abuse patient.[facility] SystemIn the event this information is protected by the Federal Confidentiality of Alcohol and Drug Abuse Patient Records regulations: The Federal rules restrict any use of the information to criminally investigate or prosecute any alcohol or drug abuse patient.[facility] SystemIn the event this information is protected by the Federal Confidentiality of Alcohol and Drug Abuse Patient Records regulations: The Federal rules restrict any use of the information to criminally investigate or prosecute any alcohol or drug abuse patient.[facility] SystemIn the event this information is protected by the Federal Confidentiality of Alcohol and Drug Abuse Patient Records regulations: The Federal rules restrict any use of the information to criminally investigate or prosecute any alcohol or drug abuse patient.[facility] SystemIn the event this information is protected by the Federal Confidentiality of Alcohol and Drug Abuse Patient Records regulations: The Federal rules restrict any use of the information to criminally investigate or prosecute any alcohol or drug abuse patient.[facility] SystemIn the event this information is protected by the Federal Confidentiality of Alcohol and Drug Abuse Patient Records regulations: The Federal rules restrict any use of the information to criminally investigate or prosecute any alcohol or drug abuse patient.[facility] SystemIn the event this information is protected by the Federal Confidentiality of Alcohol and Drug Abuse Patient Records regulations: The Federal rules restrict any use of the information to criminally investigate or prosecute any alcohol or drug abuse patient.[facility] SystemIn the event this information is protected by the Federal Confidentiality of Alcohol and Drug Abuse Patient Records regulations: The Federal rules restrict any use of the information to criminally investigate or prosecute any alcohol or drug abuse patient.[facility] SystemIn the event this information is protected by the Federal Confidentiality of Alcohol and Drug Abuse Patient Records regulations: The Federal rules restrict any use of the information to criminally investigate or prosecute any alcohol or drug abuse patient.[facility] SystemIn the event this information is protected by the Federal Confidentiality of Alcohol and Drug Abuse Patient Records regulations: The Federal rules restrict any use of the information to criminally investigate or prosecute any alcohol or drug abuse patient.[facility] SystemIn the event this information is protected by the Federal Confidentiality of Alcohol and Drug Abuse Patient Records regulations: The Federal rules restrict any use of the information to criminally investigate or prosecute any alcohol or drug abuse patient.[facility] Reason for Visit (unrecogniz ed section and content) Reason Comments Physical Therapy Specialty Diagnoses / Procedures Referred By Alpesh Referred To Contact [facility] Diagnoses Lumbar strain, initial encounter Piriformis syndrome, right Procedures CONSULT TO PHYSICAL THERAPY PHYSICAL THERAPY EVALUATION HIGH COMPLEX 45 MINS Angela Mckenzie PA-C [address] [place] [address] [facility] [place] [address] [place] [address] Referral ID Status Reason Start Date Expiration Date Visits Requested Visits Authorized [id number] Authorized Auto-Generat ed Referral 11/12/2021 08/24/2022 99 99 Reason Comments PT Eval Reason Comments Recheck routine/medication Reason Comments Results Reason Comments Results Reason Comments Radiology Mammogram Specialty Diagnoses / Procedures [facility] Diagnoses Abnormal mammogram Procedures RACHAEL DIAGNOSTIC LT DIAGNOSTIC MAMMOGRAPHY COMPUTER-AIDED DETCJ UNI Toni Meier MD [address] [place] [address] [facility] [address] [place] [address] Referral ID Status Reason Start Date Expiration Date V isits Requested Visits Authorized [id number] Closed Auto-Generate d Referral 12/26/2021 01/25/2023 1 1 Reason Comments Medicare Wellness Exam Reason Comments Results Reason Comments Rash & redness right ankl e. Pain Left buttock - start ed after lifting bags of mulch Reason Comments XRay Report [facility] Reason Comments Follow Up Cellulitis - Pt thin ks it looks better today. Reason Comments Ext / ED report Reason Comments Appointment Reason Comments Follow Up Cellulitis right low er leg Reason Comments F/U 6 months Reason Comments Rash Reason Comments Outside [id number] Ordered Reason Comments Consult Outside consult Rheu matology Reason Comments 09/10/2023 [facility] Reason Comments ER F/U [facility] Reason Comments Hospital F/U Reason Comments Follow Up Reason Comments Orders Reason Comments Ear Pain Right ear Reason Comments Medicare Wellness Exam Reason Comments Ear Problem Right Reason Comments Radiology CT Specialty Diagnoses / Procedures Referred By Contac t Referred To Contact CT IMAG[facility] Diagnoses Chronic sinusitis, unspecified location Procedures CT SINUS WO IVCON CT MAXILLOFACIAL W/O CONTRAST MATERIAL Kayden Coleman APRN.[employer] PERSON [address] [place] [address] Phone: tel: fax: [place] [phone] Referral ID Status Reason Start Date Expiration Date V isits Requested Visits Authorized [id number] Closed Auto-Generate d Referral 11/11/2024 12/11/2025 1 1 Reason Comments Osteoporosis Specialty Diagnoses / Procedures Referred By Contac t Referred To Contact Rheumatology Diagnoses Age related osteoporosis, unspecified pathological fracture presence Procedures CONSULT TO RHEUMATOLOGY METABOLIC BONE OFFICE/OUTPATIENT [facility] 60 MINUTES Angela Mckenzie PA-C [address] [place] [address] Phone: tel: fax: Referral ID Status Reason Start Date Expiration Date V isits Requested Visits Authorized [id number] Closed PCP Requested Referral 01/04/2025 01/04/2026 1 1 Reason Onset Date Comments Results 02/02/2025 Care Teams (unrecognized sec tion and content) Cardiac Nurse Practitioner Relationship Specialty Start Date End Date Toni Meier MD [facility] [place] [address] PCP - General Family Practice 06/17/15 Cardiac Nurse Practitioner Relationship Specialty Start Date End Date Toni Meier MD [facility] [place] [address] PCP - General Family Practice 06/17/15 Cardiac Nurse Practitioner Relationship Specialty Start Date End Date Toni Meier MD [address] [place] [address], [place] [address] PCP - General Family Practice 06/17/15 Cardiac Nurse Practitioner Relationship Specialty Start Date End Date Toni Meier MD [address] [place] [address], [place] [address] PCP - General Family Practice 06/17/15 Cardiac Nurse Practitioner Relationship Specialty Start Date End Date Toni Meier MD [address] [place] [address], [place] [address] PCP - General Family Practice 06/17/15 Cardiac Nurse Practitioner Relationship Specialty Start Date End Date Toni Meier MD [address] [place] [address], [place] [address] PCP - General Family Practice 06/17/15 Cardiac Nurse Practitioner Relationship Specialty Start Date End Date Toni Meier MD [address] [place] [address], [place] [address] PCP - General Family Practice 06/17/15 Cardiac Nurse Practitioner Relationship Specialty Start Date End Date Toni Meier MD [address] [place] [address], [place] [address] PCP - General Family Practice 06/17/15 Cardiac Nurse Practitioner Relationship Specialty Start Date End Date Toni Meier MD [address] [place] [address], [place] [address] PCP - General Family Practice 06/17/15 Cardiac Nurse Practitioner Relationship Specialty Start Date End Date Toni Meier MD [address] [place] [address] PCP - General Family Practice 06/17/15 Cardiac Nurse Practitioner Relationship Specialty Start Date End Date Toni Meier MD [address] [place] [address] PCP - General Family Practice 06/17/15 Cardiac Nurse Practitioner Relationship Specialty Start Date End Date Toni Meier MD [address] [place] [address] PCP - General Family Medicine 06/17/15 Cardiac Nurse Practitioner Relationship Specialty Start Date End Date Toni Meier MD [address] [place] [address] PCP - General Family Medicine 06/17/15 Cardiac Nurse Practitioner Relationship Specialty Start Date End Date Toni Meier MD [address] [place] [address] PCP - General Family Medicine 06/17/15 Cardiac Nurse Practitioner Relationship Specialty Start Date End Date Toni Meier MD [address] [place] [address] PCP - General Family Medicine 06/17/15 Cardiac Nurse Practitioner Relationship Specialty Start Date End Date Toni Meier MD [address] [place] [address] PCP - General Family Medicine 06/17/15 Cardiac Nurse Practitioner Relationship Specialty Start Date End Date Toni Meier MD [address] [place] [address] PCP - General Family Medicine 06/17/15 Team Status: Active Member Role Status Dates Dr. Toni Meier MD Family Provider Active Dr. Toni Meier MD Primary Care Provider Active Team Status: Inactive Member Role Status Dates Dr. Toni Meier MD Primary Care Provider Active Dr. Robert Castro DO Emergency Provider Active Cardiac Nurse Practitioner Relationship Specialty Start Date End Date Toni Meier MD [address] [place] [address] PCP - General Family Medicine 06/17/15 Cardiac Nurse Practitioner Relationship Specialty Start Date End Date Toni Meier MD [address] [place] [address] PCP - General Family Medicine 06/17/15 Cardiac Nurse Practitioner Relationship Specialty Start Date End Date Toni Meier MD [address] [place] [address] PCP - General Family Medicine 06/17/15 Cardiac Nurse Practitioner Relationship Specialty Start Date End Date Toni Meier MD [address] [place] [address] PCP - General Family Medicine 06/17/15 Cardiac Nurse Practitioner Relationship Specialty Start Date End Date Toni Meier MD [address] [place] [address] PCP - General Family Medicine 06/17/15 Cardiac Nurse Practitioner Relationship Specialty Start Date End Date Toni Meier MD [address] [place] [address] PCP - General Family Medicine 06/17/15 Cardiac Nurse Practitioner Relationship Specialty Start Date End Date Toni Meier MD [address] [place] [address] PCP - General Family Medicine 06/17/15 Cardiac Nurse Practitioner Relationship Specialty Start Date End Date Toni Meier MD [address] [place] [address] PCP - General Family Medicine 06/17/15 Cardiac Nurse Practitioner Relationship Specialty Start Date End Date Toni Meier MD [address] [place] [address] PCP - General Family Medicine 06/17/15 Cardiac Nurse Practitioner Relationship Specialty Start Date End Date Toni Meier MD [address] [place] [address] PCP - General Family Medicine 06/17/15 Cardiac Nurse Practitioner Relationship Specialty Start Date End Date Toni Meier MD [address] [place] [address] PCP - General Family Medicine 06/17/15 Cardiac Nurse Practitioner Relationship Specialty Start Date End Date Toni Meier MD [address] [place] [address] PCP - General Family Medicine 06/17/15 Cardiac Nurse Practitioner Relationship Specialty Start Date End Date Toni Meier MD [address] [place] [address] PCP - General Family Medicine 06/17/15 Kayden Coleman APRN.[employer] PERSON [address] [place] [address] [facility] 07/31/24 Angela Mckenzie PA-C [address] [place] [address] [facility] 07/31/24 Cardiac Nurse Practitioner Relationship Specialty Start Date End Date Toni Meier MD [address] [place] [address] PCP - General Family Medicine 06/17/15 Kayden Coleman APRN.[employer] PERSON [address] [place] [address] [facility] 07/31/24 Angela Mckenzie PA-C [address] [place] [address] [facility] 07/31/24 Cardiac Nurse Practitioner Relationship Specialty Start Date End Date Toni Meier MD [address] [place] [address] PCP - General Family Medicine 06/17/15 Kayden Coleman, EMEKA.[employer] PERSON [address] [place] [address] [facility] 07/31/24 Angela Mckenzie PA-C [address] [place] [address] [facility] 07/31/24 Cardiac Nurse Practitioner Relationship Specialty Start Date End Date Toni Meier MD [address] [place] [address] PCP - General Family Medicine 06/17/15 Kayden Coleman, EMEKA.[employer] PERSON [address] [place] [address] [facility] 07/31/24 Angela Mckenzie PA-C [address] [place] [address] [facility] 07/31/24 Cardiac Nurse Practitioner Relationship Specialty Start Date End Date Toni Meier MD [address] [place] [address] PCP - General Family Medicine 06/17/15 Kayden Coleman APRN.[employer] PERSON [address] [place] [address] [facility] 07/31/24 Angela Mckenzie PA-C [address] [place] [address] [facility] 07/31/24 Cardiac Nurse Practitioner Relationship Specialty Start Date End Date Toni Meier MD [address] [place] [address] PCP - General Family Medicine 06/17/15 Kayden Coleman APRN.[employer] PERSON [address] [place] [address] [facility] 07/31/24 Angela Mckenzie PA-C [address] [place] [address] [facility] 07/31/24 Cardiac Nurse Practitioner Relationship Specialty Start Date End Date Toni Meier MD [address] [place] [address] PCP - General Family Medicine 06/17/15 Kayden Coleman, OUTPATIENT CLERK.[employer] [address] [place] [address] [employer] [facility] 07/31/24 Angela Mckenzie PA-C [address] [place] [address] [facility] 07/31/24 Cardiac Nurse Practitioner Relationship Specialty Start Date End Date Toni Meier MD [address] [place] [address] PCP - General Family Medicine 06/17/15 Kayden Coleman APRN.[employer] PERSON [address] [place] [address] [facility] 07/31/24 Angela Mckenzie PA-C [address] [place] [address] [facility] 07/31/24 Cardiac Nurse Practitioner Relationship Specialty Start Date End Date Toni Meier MD [address] [place] [address] PCP - General Family Medicine 11/29/24 Kayden Coleman APRN.[employer] PERSON [address] [place] [address] [facility] 07/31/24 Angela Mckenzie PA-C [address] [place] [address] [facility] 07/31/24 Cardiac Nurse Practitioner Relationship Specialty Start Date End Date Toni Meier MD [address] [place] [address] PCP - General Family Medicine 11/29/24 Kayden Coleman APRN.[employer] PERSON [address] [place] [address] [employer] [facility] 07/31/24 Angela Mckenzie PA-C [address] [place] [address] [facility] Fauzia Cotto, cnc machinist 2nd shiftMelting Supervisor Pulmonary Disease 12/02/24 Cardiac Nurse Practitioner Relationship Specialty Start Date End Date Toni Meier MD [address] [place] [address] PCP - General Family Medicine 11/29/24 Kayden Coleman, EMEKA.SHAMP[employer] PERSON [facility] [place] [address] [employer] [facility] 07/31/24 Angela Mckenzie PA-C [address] [place] [address] [facility] 07/[facility]/24 Fauzia Cotto RN Melting Supervisor Pulmonary Disease 12/02/24 Cardiac Nurse Practitioner Relationship Specialty Start Date End Date Toni Meier MD [address] [place] [address] PCP - General Family Medicine 11/29/24 Kayden Coleman, OUTPATIENT CLERK.[employer]ERSON [address] [place] [address] [facility] 07/31/24 Angela Mckenzie PA-C [address] [place] [address] [facility] 07/31/24 Yadiel, Fauzia, cnc machinist 2nd shiftMelting Supervisor Pulmonary Disease 12/02/24 Cardiac Nurse Practitioner Relationship Specialty Start Date End Date Toni Meier MD [address] [place] [address] PCP - [facility] 11/29/24 Kayden Coleman APRN.SHAMP[employer] PERSON [address] [place], [place] [address] [facility] 01/24/25 Angela Mckenzie PA-C [address] [place], [place] [address] [facility] 01/24/25 Cardiac Nurse Practitioner Relationship Specialty Start Date End Date Toni Meier MD [address] [place] [address] PCP - [facility] 11/29/24 Kayden Coleman APRN.SHAMPOO PERSON [address] [place] [address] [facility] 01/24/25 Angela Mckenzie PA-C [address] [place], [place] [address] [facility] 01/24/25 Goals (unrecognized section and content) Goals may be documented in a n alternate section INFORMATION SOURCE (unrecogn ized section and content) DATE CREATED AUTHOR [facility]/21/2024 [facility] DATE CREATED AUTHOR AUTHOR'S MAURISIO LAND 07/07/2025 [facility] FOR RECORDS PERTAINING TO PATIENTS WHO ARE OR HAVE BEEN ENROLLED IN A CHEMICAL DEPENDENCY/SUBSTANCEABUSE PROGRAM, SOME INFORMATION MAY BE OMITTED. This clinical summary was aggregated from multiple sources. Caution should be exercised in using it in the provision of clinical care. This summary normalizes information from multiple sources, and as a consequence, information in this document may materially change the coding, format and clinical context of patient data. In addition, data may be omitted in some cases. CLINICAL DECISIONS SHOULD BE BASED ON THE PRIMARY CLINICAL RECORDS. [facility] [employer]. provides no warranty or guarantee of the accuracy or completeness of information in this document.
== END 2025-07-11 13:53 | disposition home or self-care (01) ==
PROVIDERS: Emergency Provider Surgery; PCP Family Medicine; Visit Provider Surgery
DX: R21 Rash and other nonspecific skin eruption (principal); S00.86XA Insect bite (nonvenomous) of other part of head, initial encounter; W57.XXXA Bitten or stung by nonvenomous insect and other nonvenomous arthropods, initial encounter
CPT/HCPCS: 99283

== ENCOUNTER 2025-07-13 10:23 | Emergency (ER) | payer MEDICARE, SELFPAY ==
[2025-07-13 10:23] VITALS: BP 163/68; PULSE 95; RESP 14; TEMP 36.6; O2SAT 98; BMI 19.2
--- NOTE | 2025-07-13 11:09 | EDS_ITS ---
HPI History of Present Illness Chief Complaint: Allergic Reaction Informant: patient and family Narrative Narrative: Patient is an 84-year-old female with no significant PMHx presenting with worsening facial erythema, pruritus, and burning sensation. - Reports erythema on her face for 2 weeks, initially starting as a small bump on the left side on 06/27/2023. Suspects initial cause was an insect bite, noting a mosquito in her window around the time symptoms began. - Erythema progressively worsened, prompting an ED visit 2 days ago, where she was prescribed medication. - Since starting the medication, symptoms have worsened, with increased erythema and serous drainage/weeping requiring clothing changes. - Describes pruritus and burning sensation as severe, stating it gonzalez like fire. - Recently noticed pruritic 2 red small bumps on her left ankle, suspecting another insect bite. - Denies fever, emesis, diarrhea, or abdominal pain; no systemic symptoms. - No known medical conditions or current prescription medications except for the clindamycin and hydroxyzine she has been taking for this. Seen in follow-up today and sent back here to the ER. [facility] Medical History Cellulitis of right ankle Home Medications ?Medication ?Instructions ?Recorded ?Last Taken ?Type cephalexin 500 mg capsule 500 mg PO BID 7 days #14 cap s 07/11/25 Unknown Rx hydroxyzine HCl 25 mg tablet 25 mg PO Q6H PRN itching 07/11/25 Unknown History Allergy/AdvReac Type Severity Reaction Status Date / Time mometasone furoate Allergy Mild Itching Verified 07/11/25 11:48 prednisone Allergy Rash Verified 07/11/25 11:48 sulfadimethoxine Allergy Rash Verified 07/11/25 11:48 Surgical History H/O: hysterectomy Social History Smoking Status: Never smoker ROS ROS ED Constitutional Constitutional ED: Denies chills or fever(s) Eyes Eyes: Denies change in vision or diplopia ENT ENT ED: Reports as per HPI and facial pain; Denies rhinorrhea or sore throat Cardiovascular Cardiovascular: Denies chest pain or palpitations Respiratory/Chest Respiratory/Chest: Denies cough or dyspnea Gastrointestinal Gastrointestinal: Denies abdominal pain, diarrhea, nausea or vomiting Genitourinary Genitourinary ED: Denies dysuria or hematuria Musculoskeletal Musculoskeletal: Denies back pain or neck pain Integumentary Reports pruritus, rash and skin pain; Denies abscess Neurologic Neurologic: Denies headache(s), paresthesias or weakness Psychiatric Psychiatric: Denies anxiety or suicidal thoughts EXAM Physical Exam Const Vital Signs: 07/13/25 10:23 Temperature 98 F Temperature Source Temporal Pulse Rate 95 Respiratory Rate 14 Blood Pressure 163/68 H Blood Pressure Mean 99 Pulse Ox 98 Oxygen Delivery Method Room Air Positive well nourished and well developed General Appearance ED: well developed and NAD HEENT Reports moist mucous membranes HEENT Narrative: Hyperemia and mild diffuse nonfocal swelling throughout the face from the lower eyelids down all the way to the anterior neck and upper chest but the upper eyelids are only slightly erythemetous but without swelling, and the forehead is not affected. There is no fluctuance or focal mass. There is some mild flaking of the skin in the area of the face, but there are no bullae, petechia, purpura. There are 2 small nontender erythematous papules on the left ankle and no rashes elsewhere normocephalic and atraumatic Eyes PERRL and EOMs intact bilaterally Eyes Narrative: No proptosis, scleral/conjunctival injection, enophthalmos. Neck full ROM and supple Resp normal respiratory effort and clear to auscultation bilaterally Cardio regular rate, regular rhythm and no murmurs GI non-tender and non-distended Auscultation: normoactive bowel sounds Palpation: soft Back/Spine no CVA tenderness General Back: other FROM Extremity normal to inspection General Extremety ED: Negative for edema, pulses abnormal or tenderness General Extremity: Negative for edema or pulses abnormal Neuro oriented x3, CN's II-XII intact bilaterally and no sensory deficits noted Sensorium / Orientation: awake and alert Motor Exam: strength 5/5 throughout Psych Mood & Affect: anxious Skin no wounds Skin Narrative: Facial and anterior neck/upper chest rash see above for details MDM MDM MDM Narrative Medical decision making narrative: Assessment: The patient is a 84-year-old female presenting with a two-week history of progressive left-sided facial erythema with burning, pruritus, and serous drainage. Symptoms worsened despite two days of a previously prescribed oral antibiotic. Examination reveals diffuse facial swelling and flaking without fluctuance or abscess formation; oral opening intact but painful, no mucosal abnormalities. Blood work is normal including lactic acid, indicating no sepsis. Differential discussed includes infectious cellulitis versus non-infectious etiologies such as atopic dermatitis or autoimmune inflammation (e.g., lupus). Given the benign labs and lack of drainable collection, facial dermatitis/cellulitis without abscess is considered most appropriate to treat acutely. Plan: - Administered one-time IV antibiotic (ceftriaxone) in the ED for presumed pos sible facial infection. - Discontinued current oral antibiotic; instructed patient to begin alternate oral antibiotic already prescribed at home, but she chose not to take it at all (she was prescribed both cephalexin and clindamycin at her prior ED visit). The appearance of this given all of the flaking of superficial skin suggests a noninfectious etiology but will treat her for infections empirically given that would be the more dangerous cause. I reviewed her prior outpatient facial CT which showed diffuse swelling that may indicate cellulitis but no evidence of orbital cellulitis, and her current exam is consistent with this so I do not think she needs repeat imaging. - Continue oral antipruritic medication as needed for itching. - Skin care: apply moisturizing lotion (CeraVe blue) or petroleum jelly to affected areas for dryness. - Provided referral information for outpatient [facility] facility psychiatrist follow-up if no improvement. - Discharged home with written instructions and return precautions; admission not pursued due to normal labs and bed unavailability (although it was considered). Diagnostics: - Blood tests (CBC, BMP) returned within normal limits; no leukocytosis or metabolic derangement, supporting absence of sepsis. Reevaluations: - After lab results: patient stable, facial findings unchanged; plan and discharge instructions reviewed, patient understands. Lab Data Attestation: I reviewed the patient's lab results. Labs: Laboratory Results - last 24 hr 07/13/25 11:20 WBC 9.6 RBC 4.19 L Hgb 12.8 Hct 38.1 MCV 90.9 MCH 30.5 MCHC 33.6 RDW Std Deviation 46.2 H RDW Coeff of Melissa 13.9 Plt Count 300 MPV 10.5 Immature Gran % (Auto) 0.500 Neut % (Auto) 59.5 Lymph % (Auto) 25.5 [place] % (Auto) 8.9 Eos % (Auto) 5.0 Baso % (Auto) 0.6 Absolute Neuts (auto) 5.7 Absolute Lymphs (auto) 2.45 Nucleated RBC % 0 Sodium 141 Potassium 4.2 Chloride 104 Carbon Dioxide 27.0 Anion Gap 10 BUN 15 Creatinine 0.79 Estim Creat Clear Calc 37.52 L Est GFR (MDRD) Non-Af 74 BUN/Creatinine Ratio 19.0 Glucose 96 Lactic Acid 1.1 Calcium 9.2 Discharge Plan Triage Chief Complaint: Allergic Reaction ED Provider: Michael Martino Dx/Rx/DC Orders Clinical Impression: Facial dermatitis Instructions: What Is Atopic Dermatitis, ED Cellulitis, Facial Prescriptions: Continued hydroxyzine HCl 25 mg tablet 25 mg PO Q6H PRN (Reason: itching) cephalexin 500 mg capsule 500 mg PO BID 7 Days Qty: 14 0RF Discontinued clindamycin HCl [Cleocin HCl] 300 mg capsule 300 mg PO TID 7 Days Qty: 21 0RF Primary Care Provider: Toni Brown Referrals: Corrine Cope MD [Non-Staff, Dermatology] - As soon as possible Toni Brown MD [Primary Care Provider, Family Practice] Activity Restrictions/Additional Instructions: - Stop the clindamycin you have been taking for the past two days; do not take that medication any longer. - Begin the other antibiotic - cephalexin - that was prescribed earlier and is sitting at home; follow the dosing instructions on the bottle. - You may continue the anti-itch medicine as needed for relief of itching. - For dry, flaky skin, use a plain moisturizing lotion (for example, the blue- labeled Ceravie) instead of the red-labeled formula; you may also apply Vaseline or vitamin E to the affected areas. - If your redness or itching does not improve or worsens, call the correctional facility psychiatrist?s office to schedule an appointment; mention your recent ER visit to help expedite scheduling. Print Language: Montene[place]in Disposition Disposition: Home, Self Care
[2025-07-13 11:29] LABS: Hematocrit 38.1 % (37-47); Hemoglobin 12.8 g/dL (12.0-15.0); Immature Granulocytes Count 0.050 X10^3/uL (0.0-0.0); Mean Corp Hgb Conc 33.6 g/dL (32-36); Mean Corpuscular Volume 90.9 fL (81-99); Mean Platelet Vol. 10.5 fl (6.2-12.0); NRBC Flagged by Analyzer 0 % (0-5); Platelet Count 300 K/mm3 (150-450); RBC Distribution Width CV 13.9 % (11.6-14.6); RBC Distribution Width SD 46.2 fl (35.1-43.9); Red Blood Count 4.19 M/mm3 (4.2-5.4); White Blood Count 9.6 K/mm3 (4.4-11.0)
[2025-07-13] MEDS: Piperacil/Tazobactam 3.375 GM in 0.9% Normal Saline (50mL MB+) 50 ML IV (11:31)
[2025-07-13 11:50] LABS: Anion Gap 10 (5-15); BUN 15 mg/dL (4-19); BUN/Creat Ratio 19.0 RATIO (10-20); Calcium,Total 9.2 mg/dL (7.6-11.0); Carbon Dioxide 27.0 mmol/L (21.0-32.0); Chloride 104 mmol/L (98-108); Estimated Creatinine Clearance 37.52 ml/min (50-250); Glucose 96 mg/dL (70-99); Potassium 4.2 mmol/L (3.3-5.1)
[2025-07-13 12:36] VITALS: BP 129/57; PULSE 80; RESP 16; TEMP 36.6; O2SAT 99
== END 2025-07-13 12:36 | disposition home or self-care (01) ==
PROVIDERS: Emergency Provider Emergency Medicine; PCP Family Medicine; Visit Provider Emergency Medicine
DX: L30.9 Dermatitis, unspecified (principal)
CPT/HCPCS: 80048; 83605; 85025; 96365; 99283; A4216